=== PATIENT | female | born 1965 | race Caucasian/White ===

== ENCOUNTER → 2019-10-23 09:37 | Outpatient (BNVA) | payer OTHER, SELFPAY | PROVIDERS: Visit Provider Obstetrics & Gynecology | DX: Z01.89 Encounter for other specified special examinations (principal) ==

== ENCOUNTER 2019-11-04 14:12 | Outpatient (CLI) | payer OTHER, SELFPAY | END 2019-11-04 14:13 | disposition home or self-care (01) | LOC: RAD 11-05 15:44 | PROVIDERS: Referring Provider Obstetrics & Gynecology; Visit Provider Obstetrics & Gynecology | DX: D25.9 Leiomyoma of uterus, unspecified (principal) | CPT/HCPCS: 76856 ==

== ENCOUNTER 2019-11-13 08:50 | Outpatient (CLI) | payer OTHER, SELFPAY ==
[2019-11-13 09:10] VITALS: BMI 25.2
--- NOTE | 2019-11-13 09:15 | ECG_ITS ---
NAME OF STUDY: LEXISCAN SESTAMIBI STRESS TEST INDICATION: Chest Pain PROCEDURE: At the baseline, the blood pressure was 119/85 mmHg with a heart rate of 81 bpm. The electrocardiogram showed normal sinus rhythm, normal axis with poor anterior R wave progression. Low QRS voltage in precordial leads. The Lexiscan was infused over a period of 20 seconds. A total of 0.4 milligrams of Lexiscan was infused. The stress phase was continued for a total of 5 minutes. Heart rate at the end of the stress phase was 96 bpm with a blood pressure 157/92 mmHg. The EKG at the peak infusion revealed no significant ST-T wave changes. Sestamibi was injected 20 seconds after the Lexiscan infusion. Blood pressure and heart rate at the end of the recovery phase was not recorded. CONCLUSION: 1. No significant EKG changes with the LexiScan infusion. 2. No LexiScan induced chest pain or cardiac arrhythmia. 3. Sestamibi/sestamibi perfusion scan pending; see separate report. Electronically Signed On 11-14-2019 11:29:32 INTENSIVE CARE SPECIALIST by Kelsey Cuadra M.D. [id number]
--- NOTE | 2019-11-13 09:16 | NMCV_ITS ---
NM jaret perf SPECT r/s* [id number] Nathalie Solano Age: 54 Gender: F : 1965 Exam Date: 11/13/2019 10:27 Ordering Phys: Kelsey Cuadra MD ([email or web address]) Technologist: MELINA Branham Exam Location: [facility] Indications: CHEST PAIN STRESS TEST [facility] IMAGE PROTOCOL Rest/Stress 1 Lexiscan Day Radiopharmaceutical Dose (mCi) Administration Site Administered by Rest: Tc-99m 10.7 IV MELINA Mendez Sestamibi Stress:Tc-99m 32.3 IV MELINA Mendez Sestamibi Rest: 13-Nov-2019 60 Discovery 630 Stress: 13-Nov-2019 30 Discovery 630 0.4mg Lexiscan. Images obtained in supine and prone position. SPECT RESULTS Technical Quality: Excellent Raw Data Analysis: Normal Image Corrections: No attenuation or motion correction applied Summed Stress Score: 15 Summed Rest Score: 6 Summed Difference Score: 9 PERFUSION FINDINGS There is medium sized perfusion abnormality of moderate to severe severity of mid to apical inferolateral and apical lateral herron on stress images. FUNCTIONAL RESULTS (calculated via Gated SPECT) Stress Image LV EF (%): 64 Stress EDV (mL):70 TID: 0.84 Stress ESV (mL):25 FUNCTIONAL FINDINGS: The left ventricle is normal in size. Transient Ischemia Dilatation of 0.84. There is normal left ventricular systolic function. The left ventricular ejection fraction is normal with a value of 64%. There is hypokinesis of basal to mid inferolateral herron. Normal end-diastolic and end-systolic volumes. IMPRESSIONS 1. There is medium sized reversible perfusion abnormality of moderate to severe severity of basal to mid inferolateral and apical lateral and apical inferior herron. This is suggestive of ischemia in circumflex artery territory. 2. The left ventricular ejection fraction is normal with a value of 64%. 3. There is hypokinesis of basal to mid inferolateral herron. 4. No prior similar studies to compare. Kelsey Cuadra MD (Electronically Signed) Final Date: 14 November 2019 11:43 S
[2019-11-13] MEDS: regadenoson 0.4 Mg/5 ml Syringe IVP (11:12)
[2019-11-13 11:15] VITALS: BP 136/83; PULSE 100
== END 2019-11-13 08:51 | disposition home or self-care (01) ==
PROVIDERS: Visit Provider Internal Medicine Cardiovascular Disease
DX: R07.89 Other chest pain (principal)
CPT/HCPCS: 78452; 93017; A9500; J2785

== ENCOUNTER 2019-11-25 19:01 | Emergency (ER) | payer OTHER, SELFPAY ==
[2019-11-25 19:08] VITALS: BP 107/71; PULSE 102; RESP 18; TEMP 36.8; O2SAT 97; BMI 24.7
--- NOTE | 2019-11-25 19:12 | XRR_ITS ---
PROCEDURE INFORMATION: Exam: XR Chest, 1 View Exam date and time: 11/25/2019 7:13 PM Age: 54 years old Clinical indication: Cough and shortness of breath; Additional info: Cp TECHNIQUE: Imaging protocol: XR of the chest Views: 1 view. COMPARISON: CR Chest 1 [place] [id number] 07/20/2019 7:17 PM FINDINGS: Lungs: Unremarkable. No consolidation. Unchanged mild diffuse fibrosis. Pleural space: Unremarkable. No pleural effusion. No pneumothorax. Heart/Mediastinum: Unremarkable. No cardiomegaly. Bones/joints: No acute abnormality. XR/XR chest 1V portable [id number] IMPRESSION: No acute findings.
--- NOTE | 2019-11-25 19:12 | ECG_ITS ---
Measurements Intervals [place] Rate: 103 P: 43 [place]: 122 QRS: -12 QRSD: 110 T: 64 QT: 349 QTc: 457 SINUS TACHYCARDIA POSSIBLE LEFT ATRIAL ENLARGEMENT [-0.1mV P WAVE IN V1/V2] POSSIBLE ANTERIOR MYOCARDIAL INFARCTION [30 ms Q WAVE IN V3/V4, OR R < 0.2 mV IN V4], OF INDETERMINATE AGE Compared to ECG 07/20/2019 18:33:32 Myocardial infarct finding now present Short [place] interval no longer present T-wave abnormality no longer present Electronically Signed On 11-26-2019 9:03:38 CDT by Alexandru Lorenz M.D. [id number]
--- NOTE | 2019-11-25 20:11 | ED_ITS ---
Entered by Maddie Erazo, acting as scribe for Ivis Mccall Efrain Nov 25, 2019 19:01 HPI - Dizziness General: Chief Complaint: Dizziness Stated Complaint: low bp,dizzy,fast hr Time Seen by Provider: 11/25/19 20:10 Source: patient Mode of arrival: ambulatory Limitations: no limitations History of Present Illness: HPI Narrative: 54 yo Female presents to ED with complaint of dizziness and low blood pressure. Pt states that she has been feeling light headed for the last few days but today it got worse and her blood pressure was 80s/40s. Pt states that she started taking a new blood pressure medication on 11/19/19. MD elicited complaint: dizziness and lightheadedness Onset (ago): day(s) Timing: sudden onset Description: lightheadedness and near-syncope Context: change in medication History of similar symptoms: No Exacerbating factors: movement/ambulation Relieving factors: nothing Associated symptoms: Reports no associated symptoms; Denies change in hearing, chest pain, chills, diaphoresis, ear discharge, headache(s), malaise, nausea, palpitations, syncope or vomiting Associated neuro symptoms: Reports no associated symptoms; Deny confusion or numbness in extremities Review of Systems General: Reports: other (negative unless marked) Const: Denies: fever, chills, body aches, fatigue, malaise or diaphoresis Eyes: Denies: change in vision or blurry vision ENMT: Denies: throat pain, painful swallowing, hoarseness, ear pain, ear discharge, Change in hearing or nasal discharge Card: Reports: pre-syncope; Denies: chest pain, palpitations, irregular heart rhythm, syncope, shortness of breath on exertion or shortness of breath when lying down Resp: Denies: shortness of breath, productive cough, non-productive cough, wheezing, coughing up blood or chest congestion GI: Denies: abdominal pain, nausea, vomiting, vomiting blood, coffee grounds in vomit, diarrhea, constipation, cramping, blood in stool or black tarry stool : Denies: flank pain, painful urination, urinary frequency, urinary urgency, decreased urine ouput, urinary incontinence or blood in urine Musc: Denies: neck pain, back pain, extremity pain, extremity swelling, joint pain, joint swelling, joint warmth or joint stiffness Skin/Breast: Denies: rash, skin tenderness or yellow skin Neuro: Reports: dizziness; Denies: headache, numbness in extremities, weakness in extremities, changes in sensation, lack of coordination, difficulty walking, vertigo or confusion Endo: Denies: excessive thirst, tired all the time, cold intolerance, excessive sweating, flushing or hot flashes Deven/Lymph: Denies: easy bruising, easy bleeding, petechiae or enlarged lymph nodes All/Imm: Denies: hives, throat swelling, tongue swelling, facial swelling or acute wheezing PFSH ED PFSH: Medical History Coronary artery disease 4 stents present. Depression Diabetes mellitus Hyperlipidemia Hypertension Surgical History H/O heart artery stent 2013 - Done in [place], 1 stint placed. 2014 - Done in [place], 1 stint placed. 2017 - Done in [facility], 2 stints placed. H/O left knee surgery (~1999) Plastic disc was placed History of salpingectomy (~1988) Treatment of ectopic History of tubal ligation Family History Mother Diabetes Heart disease Hypertension Hyperlipidemia Father Heart disease Diabetes Hypertension Hyperlipidemia Sister Diabetes Social History Smoking and tobacco status: current every day smoker cigarettes Packs smoked per day: 0.5 Years cigarettes smoked: 35 Quit status (tobacco): has tried quititng Alcohol intake: current Alcohol intake frequency: holidays/special occasions only Physical Exam Const: COMMON NORMALS: no apparent distress, oriented x3, no limitations, healthy appearing and well nourished EXAM LIMITATIONS: no altered mental status GENERAL APPEARANCE: cooperative, well kempt and well developed ORIENTATION/CONSCIOUSNESS: Yes awake HENMT: COMMON NORMALS: normocephalic, head/scalp atraumatic, hearing grossly normal bilaterally, external ears normal, EAC's normal, external nose normal and moist oral mucous membranes HEAD & SCALP: normal to inspection, normocephalic and atraumatic FACE & SINUS: normal facial exam and face symmetric NOSE: external nose normal and nares normal EXTERNAL EAR: Yes external ears normal EXTERNAL AUDITORY CANAL: EAC's normal MOUTH: oral and palatal mucosa normal and tongue normal Eye: COMMON NORMALS: PERRL, EOMs intact bilaterally, conjunctivae normal and no scleral icterus GENERAL EYE: normal appearance of both eyes and normal l ight reflex CONJUNCTIVA: Yes conjunctivae normal SCLERA: sclerae normal CORNEA: Yes corneas normal PUPIL: Yes PERRL DIRECT OPHTHALMOSCOPY: Yes normal light reflex Neck/C-Spine: COMMON NORMALS: full ROM, no lymphadenopathy, supple, no meningeal signs and no JVD GENERAL: Yes normal visual inspection and Yes trachea midline CERVICAL SPINE: Yes cervical ROM normal Chest: COMMONS NORMALS: inspection of chest normal and palpation of chest normal Resp: COMMON NORMALS: normal respiratory effort, no retractions, no use of accessory muscles and clear to auscultation bilaterally EFFORT & INSPECTION: Yes able to speak in complete sentences AUSCULTATION: clear to auscultation bilaterally Cardio: COMMON NORMALS: no JVD, regular rate, regular rhythm, S1 normal heart sound, S2 normal heart sound, no gallops, no clicks, no murmurs and no rub JUGULAR VENOUS DISTENTION: no JVD RATE: regular rate RHYTHM: regular rhythm HEART SOUNDS: S1 normal and S2 normal GI: COMMON NORMALS: soft to palpation, non-tender, no hepatosplenomegaly and no masses INSPECTION: Yes normal to inspection PALPATION: Yes soft and Yes no hepatosplenomegaly : COMMON NORMALS: Yes no CVA tenderness BLADDER/KIDNEY EXAM: Yes no CVA tenderness Back/Pelvis: COMMON NORMALS: no CVA tenderness, thoracic and lumbar spine normal to inspection, no thoracic nor lumbar tenderness and thoraco-lumbar ROM normal Extremity: COMMON NORMALS: normal to inspection, full ROM, normal capillary refill, no joint enlargement, no clubbing, cyanosis or edema and no calf tenderness Neuro: COMMON NORMALS: oriented x3, CN's II-XII intact bilaterally, moves all extremities, no focal motor deficits and no sensory deficits noted MENINGEAL SIGNS: Yes no meningeal signs Psych: COMMON NORMALS: mental status grossly normal, thought process normal, cooperative, affect normal, speech normal and activity/motor behavior normal APPEARANCE: Yes well kempt SPEECH: Yes normal speech THOUGHT PROCESS: normal thought process Skin: COMMON NORMALS: no rashes or lesions noted, skin turgor normal, no jaundice, no petechiae and no mottling GENERAL SKIN EXAM: no rashes or lesions noted and turgor normal Course Vital Signs: Vital signs: Vital Signs Temperature 98.2 F 11/25/19 19:08 Pulse Rate 99 11/25/19 22:57 Respiratory Rate 18 11/25/19 22:57 Blood Pressure 156/100 11/25/19 22:57 Pulse Oximetry 99 11/25/19 22:57 MDM - Dizziness MDM Narrative: Medical decision making narrative: Nathalie is a 54-year-old female who comes in complaining of being lightheaded for the past few days. She took her blood pressure at home a few times and found it to be 80 systolic at 1 time. She is orthostatic here but otherwise her labs are normal. After 2 L normal saline she feeling tremendously better and ready to go home. Her EKGs are normal and her troponins are normal. She is never had chest pain or shortness of breath. She declines any further evaluation care in the hospital and wants to be discharged. Lab Data: Attestation: I reviewed the patient's lab results. Labs: Lab Results 11/25/19 11/25/19 11/25/19 Range/Units 20:06 20:06 20:06 WBC 7.5 (4.0-10.0) 10^3/ uL RBC 4.92 (4.1-5.3) 10^6/u L Hgb 14.5 (11.5-15.3) g/dL Hct 43.9 (37.0-47.0) % MCV 89.2 (81-99) fL MCH 29.5 (28.0-34.0) pg MCHC 33.0 (30.0-36.0) g/dL RDW 12.9 (12.1-15.1) % Plt Count 339 (130-400) 10^3/c mm MPV 9.2 (7.4-10.4) fL Neut % (Auto) 56.9 % Lymph % (Auto) 32.9 % [place] % (Auto) 6.9 % Eos % (Auto) 2.7 % Baso % (Auto) 0.3 % Neut # (Auto) 4.3 (1.8-7.7) 10^3/u L Lymph # (Auto) 2.5 (0.8-4.8) 10^3/u L [place] # (Auto) 0.5 (0.2-0.9) 10^3/u L Eos # (Auto) 0.2 (0.0-0.8) 10^3/u L Baso # (Auto) 0.0 (0.0-0.1) 10^3/u L Nucleated RBC % (a uto) 0 % Nucleated RBCs # 0.0 /100WBC Sodium 137 (136-145) mmol/L Potassium 4.2 (3.5-5.1) mmol/L Chloride 99 (98-107) mmol/L Carbon Dioxide 25 (22-29) mmol/L Anion Gap 17.2 (5-19) BUN 20 (6-20) mg/dL Creatinine 0.8 (0.5-0.9) mg/dL GFR Calculation 75.0 L (90-130) mL/min Glucose 159 H (65-115) mg/dL Calculated Osmolal ity 284 L (285-295) mOsm/k g Calcium 10.1 (8.5-10.5) mg/dL Total Bilirubin 0.2 (0.15-1.2) mg/dL AST 13 (0-32) U/L ALT 11 (0-33) U/L Alkaline Phosphata se 74 (35-105) IU/L Troponin T Baselin e 14 H (0-10) ng/mL Troponin T 120 Min alfred (0-10) ng/mL Delta Troponin T (0-10) ABS# Total Protein 7.0 (6.6-8.7) g/dL Albumin 4.2 (3.5-5.2) g/dL Globulin 2.8 (1.3-4.6) g/dL 11/25/19 Range/Units 21:10 WBC (4.0-10.0) 10^3/ uL RBC (4.1-5.3) 10^6/u L Hgb (11.5-15.3) g/dL Hct (37.0-47.0) % MCV (81-99) fL MCH (28.0-34.0) pg MCHC (30.0-36.0) g/dL RDW (12.1-15.1) % Plt Count (130-400) 10^3/c mm MPV (7.4-10.4) fL Neut % (Auto) % Lymph % (Auto) % [place] % (Auto) % Eos % (Auto) % Baso % (Auto) % Neut # (Auto) (1.8-7.7) 10^3/u L Lymph # (Auto) (0.8-4.8) 10^3/u L [place] # (Auto) (0.2-0.9) 10^3/u L Eos # (Auto) (0.0-0.8) 10^3/u L Baso # (Auto) (0.0-0.1) 10^3/u L Nucleated RBC % (a uto) % Nucleated RBCs # /100WBC Sodium (136-145) mmol/L Potassium (3.5-5.1) mmol/L Chloride (98-107) mmol/L Carbon Dioxide (22-29) mmol/L Anion Gap (5-19) BUN (6-20) mg/dL Creatinine (0.5-0.9) mg/dL GFR Calculation (90-130) mL/min Glucose (65-115) mg/dL Calculated Osmolal ity (285-295) mOsm/k g Calcium (8.5-10.5) mg/dL Total Bilirubin (0.15-1.2) mg/dL AST (0-32) U/L ALT (0-33) U/L Alkaline Phosphata se (35-105) IU/L Troponin T Baselin e (0-10) ng/mL Troponin T 120 Min alfred 12.97 H (0-10) ng/mL Delta Troponin T -1.03 L (0-10) ABS# Total Protein (6.6-8.7) g/dL Albumin (3.5-5.2) g/dL Globulin (1.3-4.6) g/dL Imaging Data^: CXR: Radiologist's impression: [address] [place] [address] XRay Report Signed Patient: Akhil Solano #: [id number] : 1965Acct#:[id number] Age/Sex: 54 / FADM Date: 11/25/19 Loc: ERRoom/Bed: Attending Dr: Ordering Provider/Ordering MD: Isabel Ho MD Date of Service: 11/25/19 Procedure(s): XR chest 1V portable [id number] Accession Number(s): [id number] Report Number: [id number] PROCEDURE INFORMATION: Exam: XR Chest, 1 View Exam date and time: 11/25/2019 7:13 PM Age: 54 years old Clinical indication: Cough and shortness of breath; Additional info: Cp TECHNIQUE: Imaging protocol: XR of the chest Views: 1 view. COMPARISON: CR Chest 1 [place] [id number] 07/20/2019 7:17 PM FINDINGS: Lungs: Unremarkable. No consolidation. Unchanged mild diffuse fibrosis. Pleural space: Unremarkable. No pleural effusion. No pneumothorax. Heart/Mediastinum: Unremarkable. No cardiomegaly. Bones/joints: No acute abnormality. XR/XR chest 1V portable [id number] IMPRESSION: No acute findings. Dictated By:Ashley Rodriguez Signed By:Ros Rodriguez Date/Time:11/25/192034 DD/ 32 EKG Data^: EKG 1: Attestation: I personally reviewed and interpreted this EKG as follows: EKG interpretation date: 11/25/19 EKG interpretation time: 20:52 Interpretation: Normal sinus rhythm 88 beats a minute, no acute ST or T wave changes. Discharge Plan Discharge Patient Disposition: Home, Self-Care Clinical Impression: Orthostasis Condition: Stable Prescriptions: No Action clopidogrel [Plavix] 75 mg tablet 75 mg PO DAILY RF: 0 metformin 1,000 mg tablet 1,000 mg PO BID RF: 0 atorvastatin 80 mg tablet 80 mg PO DAILY RF: 0 metoprolol tartrate 50 mg tablet 25 mg PO BID RF: 0 nitroglycerin 0.4 mg tablet, sublingual 0.4 mg SUBLINGUAL Q5M PRN (Reason: Chest Pain) RF: 0 Jardiance 10 mg tablet 10 mg PO DAILY RF: 0 sertraline 50 mg tablet 50 mg PO DAILY RF: 0 aspirin [Adult Low Dose Aspirin] 81 mg tablet,delayed release (DR/EC) 81 mg PO DAILY RF: 0 isosorbide mononitrate 30 mg tablet extended release 24 hr 15 mg PO DAILY Qty: 15 RF: 6 Discharge Orders: Discharge Order (Routine); Ordered 11/25/19 Ordered By: Ivis Mccall Referrals: Nadeem Talley, ENERGY AUDITOR [Primary Care Provider] - 1-3 days Discharge Diet: Advance as tolerated Discharge Activity: Increase activity as tolerated Patient Instructions: Dehydration (ED) Activity Restrictions/Additional Instructions: Please return to the ER immediately for any of the signs or symptoms listed on your discharge instruction sheets, worsening/changing of your symptoms, you are not getting better as quickly as expected, or for ANY other cause or concerns. Discharge Date/Time: 11/25/19 22:59 Coding Level of Care Code ED Tailings Worker for Chg Fwd Exam Comprehensive The documentation recorded by the Castro schwab Carmen, accurately reflects the service I personally performed and the decisions made by , Ivis Mccall Nov 25, 2019 19:01
[2019-11-25 20:16] LABS: Basophils % 0.3 %; Eosinophils # 0.2 10^3/uL (0.0-0.8); Eosinophils % 2.7 %; Hematocrit 43.9 % (37.0-47.0); Hemoglobin 14.5 g/dL (11.5-15.3); Lymphocytes # 2.5 10^3/uL (0.8-4.8); Lymphocytes % 32.9 %; Mean Corpuscular Hemoglobin 29.5 pg (28.0-34.0); Mean Corpuscular Volume 89.2 fL (81-99); Mean Platelet Volume 9.2 fL (7.4-10.4); Monocytes # 0.5 10^3/uL (0.2-0.9); Monocytes % 6.9 %; Neutrophils # 4.3 10^3/uL (1.8-7.7); Neutrophils % 56.9 %; Nucleated Red Blood Cells % 0 %; Platelet Count 339 10^3/cmm (130-400); Red Blood Count 4.92 10^6/uL (4.1-5.3); Red Cell Distribution Width 12.9 % (12.1-15.1); White Blood Count 7.5 10^3/uL (4.0-10.0)
[2019-11-25 20:19] VITALS: BP 119/76; PULSE 101; RESP 18; O2SAT 99
[2019-11-25 20:29] VITALS: BP 104/71; BP 111/64; BP 97/67; PULSE 112; PULSE 92; PULSE 99
[2019-11-25] MEDS: sodium chloride 0.9% 1,000 ML 999 ML IV ×2 (20:34→21:53)
[2019-11-25 20:36] LABS: Alanine Aminotransferase 11 U/L (0-33); Albumin Level 4.2 g/dL (3.5-5.2); Alkaline Phosphatase 74 IU/L (35-105); Anion Gap 17.2 (5-19); Aspartate Amino Transferase 13 U/L (0-32); Blood Urea Nitrogen 20 mg/dL (6-20); Calcium 10.1 mg/dL (8.5-10.5); Carbon Dioxide 25 mmol/L (22-29); Chloride 99 mmol/L (98-107); Globulin 2.8 g/dL (1.3-4.6); Glucose 159 mg/dL (65-115); Osmolality Calculated 284 mOsm/kg (285-295); Potassium 4.2 mmol/L (3.5-5.1); Sodium 137 mmol/L (136-145); Total Bilirubin 0.2 mg/dL (0.15-1.2)
[2019-11-25 20:38] LABS: Troponin(5th) Baseline 14 ng/mL (0-10)
--- NOTE | 2019-11-25 21:12 | ECG_ITS ---
Measurements Intervals [place] Rate: 88 P: 42 ME: 115 QRS: -3 QRSD: 82 T: 57 QT: 380 QTc: 462 SINUS RHYTHM WITH SHORT ME INTERVAL POSSIBLE LEFT ATRIAL ENLARGEMENT [-0.1mV P WAVE IN V1/V2] Compared to ECG 07/20/2019 18:33:32 Sinus tachycardia no longer present T-wave abnormality no longer present Electronically Signed On 11-26-2019 9:07:13 CDT by Alexandru Lorenz M.D. [id number]
[2019-11-25 21:35] LABS: Troponin 5 2HR 12.97 ng/mL (0-10)
[2019-11-25 21:38] LABS: Troponin 5 2HR Delta -1.03 ABS# (0-10)
[2019-11-25 22:12] VITALS: BP 135/87; PULSE 87; RESP 18; O2SAT 99
[2019-11-25 22:35] VITALS: BP 140/89; BP 142/86; BP 149/96; PULSE 91; PULSE 92; PULSE 94
[2019-11-25 22:57] VITALS: BP 156/100; PULSE 99; RESP 18; O2SAT 99
== END 2019-11-25 22:59 | disposition home or self-care (01) ==
PROVIDERS: Emergency Medicine; Emergency Provider Emergency Medicine; PCP Nurse Practitioner Family
DX: I95.1 Orthostatic hypotension (principal); I25.10 Atherosclerotic heart disease of native coronary artery without angina pectoris; I10 Essential (primary) hypertension; E11.9 Type 2 diabetes mellitus without complications; E78.5 Hyperlipidemia, unspecified; F17.210 Nicotine dependence, cigarettes, uncomplicated; Z79.84 Long term (current) use of oral hypoglycemic drugs; Z79.82 Long term (current) use of aspirin; Z95.5 Presence of coronary angioplasty implant and graft
CPT/HCPCS: 12345; 36415; 71045; 80053; 84484; 85025; 93005; 96360; 96361; 99283; 99284; J7030

== ENCOUNTER 2019-12-11 08:01 | Outpatient (CLI) | payer OTHER, SELFPAY ==
--- NOTE | 2019-12-11 08:45 | US_ITS ---
NOTE: Report was unsigned for reason: Ordering provider was edited. Original Signature date and time was: 12/11/19 0920 WS: [id number] Complete ABDOMINAL ULTRASOUND HISTORY: RIGHT UPPER QUADRANT PAIN COMPARISON: None available. Liver: 14.6 cm in length. Liver is normal size and echogenicity with no mass or intrahepatic dilatation. Gallbladder: Normally distended with no gallstones, wall thickening or pericholecystic fluid. Gallbladder wall thickness: 0.2 cm. Pancreas: Tail of pancreas is poorly visualized. Body is negative. CBD: 0.3 cm. Right kidney: 11.2 cm x 5.3 cm x 4.2 cm. No mass, cortical thickening or hydronephrosis. Left kidney: 10.4 cm x 4.1 cm x 6.1 cm. No mass, cortical thickening or hydronephrosis. Spleen: Normal size spleen measures 8.3 cm in length with granulomata. Abdominal aorta and IVC are within normal limits. No ascites. [facility] US/US abdomen complete* [id number] IMPRESSION: 1. Normal gallbladder. 2. Incomplete visualization of the pancreas. 3. Splenic granulomata.
== END 2019-12-11 08:02 | disposition home or self-care (01) ==
PROVIDERS: PCP Nurse Practitioner Family; Referring Provider Nurse Practitioner Family; Visit Provider Nurse Practitioner Family
DX: D73.89 Other diseases of spleen (principal); R10.11 Right upper quadrant pain
CPT/HCPCS: 76700

== ENCOUNTER 2019-12-12 09:08 | Observation (INO) | payer OTHER, SELFPAY ==
[2019-12-11 11:55] VITALS: BMI 25.4
[2019-12-12] VITALS (29 sets, daily range): BP systolic 81–137; BP diastolic 52–91; PULSE 55–108; RESP 16–18; TEMP 36.7–37.1; O2SAT 92–97
--- NOTE | 2019-12-12 06:00 | XACV_ITS ---
Exam Room: 1 Ht: 157 cm Wt: 63 kg BSA: 1.67 m2 Gender: Female : 1965 Any Known Allergies: Codeine Exam Priority: Routine Procedure(s): Procedure Description: Diagnostic procedure Procedure Description: PCI procedure Procedure Description: Drug Eluting Coronary Stent Procedure Description: PTCA Procedure Description: Miscellaneous Procedure Description: ACT Procedure Description: Coronary Angiography Diagnostic Cath Status: Elective Diagnostic Findings LM has 0% stenosis. mLAD: Moderate 65% stenosis, EUGENE: 3 flow. Mid Circumflex Coronary Artery: Severe 80% stenosis, EUGENE: 3 flow. pRCA: Moderate 65% stenosis, EUGENE: 3 flow. Mid Right Coronary Artery to dRCA: Severe 95% stenosis, EUGENE: 2 flow. Coronary angiography shows right dominance. PCI Status: Urgent PCI Indication: New Onset Angina <= 2 months Interventional Findings Mid Circumflex Coronary Artery: 80% stenosis treated with AB TREK 2.25X15 RX BALLOON. 40% residual stenosis, EUGENE: 3 flow. Mid Right Coronary Artery to dRCA: 95% stenosis treated with AB TREK 2.25X15 RX BALLOON and MDT R MONCHO 2.75X18 ANNA. 0% residual stenosis, EUGENE: 3 flow. Conclusions There is severe coronary artery disease with three vessel disease. 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 Mid Right Coronary Artery to dRCA was treated with Balloon and Drug Eluting Stent. 1. 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 Indication for angiogram: Worsening of new onset of angina, abnormal stress test. Recommendations 1-Return to inpatient for close monitoring and routine cath care 2-Risk factor modification for secondary prevention3-Statin and aspirin 81 mg life--long, if tolerated4-Continue Plavix 75mg p.o. daily for at least one year. We will assess at the end of one year again to continue if further or not5-Continue optimal medical management6-Follow up with Dr. Abad in four weeks and your primary care in 10 days . Interventional RX Recommendation: PCI w/o planned CABG Diagnostic RX Recommendation: PCI w/o planned CABG Pressures Phase:Rest AO : 69 mmHg / 50 mmHg ( 58 mmHg ) @ 2:59:00 AM 74 mmHg / 54 mmHg ( 63 mmHg ) @ 3:01:00 AM 78 mmHg / 54 mmHg ( 66 mmHg ) @ 3:01:00 AM 78 mmHg / 55 mmHg ( 66 mmHg ) @ 3:10:00 AM 69 mmHg / 47 mmHg ( 57 mmHg ) @ 3:16:00 AM 83 mmHg / 64 mmHg ( 74 mmHg ) @ 3:27:00 AM 90 mmHg / 59 mmHg ( 73 mmHg ) @ 3:31:00 AM 78 mmHg / 54 mmHg ( 66 mmHg ) @ 3:40:00 AM Clinical Evaluation EBL: 5mL-10mL Procedural Details Procedure Consent Obtained. Current Diagnosis : Chest Pain. Pre-Procedure Time Out. Identified patient by full name and date of as verbalized by the patient/guarantor. Does the consent match the physician's order: Yes. Accurate & Complete Informed Consent: Yes. Inpatient/Outpatient History & Physical on Chart: Yes. If H&P is completed, is and addenduem needed: No; If yes, is the addendum complete: N/A. Visualize and Verify Site with Patient/Guarantor: N/A. Relevant Radiology Images available: Yes. Pre-op teaching completed and patient verbalized understanding. The risks, benefits, and alternatives of sedation and/or procedure were discussed by physician. The patient agrees to continue. Procedure started. Correct patient, site and procedure confirmed by cath team. Current diagnosis: Chest Pain. PERRLA. Strong, equal hand trucker bilaterally. Lungs clear x 5 lobes. IV Site on Arrival: 20 gauge in the left anticubital. IV Fluids: 0.9% NaCl at KVO. 0 mL infused prior to laborer powerhouse. Pre Procedural Pulses: bilateral dorsalis pedis was 1+. Pre Procedural Pulses: bilateral posterior tibial was 1+. Oxygen started at 2liters/min via nasal canula. bilateral groins was prepped with chloroprep then draped in the usual sterile fashion. right radial was prepped with chloroprep then draped in the usual sterile fashion. Physician notified. [facility] Clinical Fraility Score: 4: Vulnerable. Leadership Program Intern Indications: New Onset Angina. Chest Pain Symptom Assessment: Atypical Angina. Cardiovascular Instability: No, if yes, Persistant Ischemic Symptoms. Baseline sample Acquired. HR: 106 BPM. Patient's family unavailable due to visitor restrictions. Equipment: 6F - Radial. Cardiac Cath Pack. ACIST Manifold Kit Model BT 2000. Heparinized Saline (2 units/mL), 1000 mL bag. Equipment: 5F - Radial. Physician arrived. Physician scrubbed in. Immediate Pre-Procedure Time Out. Correct Patient: Yes; Correct Procedure: Yes; Correct Site: Yes; Correct Patient Position: Yes; Correct Supplies: Yes; Dried Flammable Prep: Yes; Blood Products Available: N/A;. Lidocaine 1% infiltrated to the right radial. Arterial access obtained. A TR 5FR Radial TIG 4.0 110cm was advanced over the wire and used for Left coronary angiography. Multiple views taken of left coronary artery. Catheter redirected to the RCA. Multiple views taken of right coronary artery. Catheter removed over the exchange wire. AP Pads placed on the patient. 6F AL 0.75 guide catheter inserted OTW. Dr. Cuadra and Dr. Gerber called to review films. Dr. Gerber arrived. The sheath hooked up to heparnized saline at KVO to maintain patency. [place] guidewire was advanced through the guide catheter to lesion in the mid RCA. Wire out. Runthrough guidewire was advanced through the guide catheter to lesion in the mid RCA. Inflation number : 1 A AB TREK 2.25X15 RX BALLOON was prepped and advanced across the Mid RCA , then inflated to 16 NHI for 0:23 seconds. Inflation number: 2 The AB TREK 2.25X15 RX BALLOON was reinflated across the Mid RCA, to 16 NHI for 0:11 seconds. Balloon out. Inflation Number : 3 A AILEEN R MONCHO 2.75X18 ANNA -Lot Number# [id number] (exp. 08/12/2021) was prepped and advanced across the Mid RCA. The stent was deployed at 20 NHI for 0:[address] Cuadra arrived. Results checked. Stent balloon out over wire. Runthrough repositioned to mid Circ. ACT drawn. Results 295 seconds. Therapeutic limits - pre-heparin administration 90-150 seconds and monitoring heparin during a vascular procedure >250 seconds. Inflation number: 1 The AB TREK 2.25X15 RX BALLOON was reinflated across the Mid CX, to 10 NHI for 0:12 seconds. Inflation number: 2 The AB TREK 2.25X15 RX BALLOON was reinflated across the Mid CX, to 16 NHI for 0:16 seconds. Inflation number: 3 The AB TREK 2.25X15 RX BALLOON was reinflated across the Mid CX, to 12 NHI for 0:08 seconds. Balloon and wire out. Guide catheter out. TR band placed. Hemostasis obtained. Post Procedure: Pulses reassessed and unchanged. PERRLA. Strong, equal hand trucker bilaterally. No VTE prophylaxis required. Medication's Wasted: Versed = 1 mg. Medication's Wasted: Lidocaine 1% = 18 mL. Medication's Wasted: Nitro = 49.6 mg. Medication's Wasted: Heparin = 4000 units. Total IV fluids: 64.5 mL. Contrast type used: Omnipaque 300 mgI/mL, 500 mL bottle. Contrast Material : Omnipaque 260 ml. PCI Indication: New Onset Angina. Post-op diagnosis: CAD. Complications: None. Estimated blood loss: 5mL-10mL. Procedure completed. Patient transferred by wheelchair to 1st floor. Vital chart was stopped. Site: Right Radial artery Sheath Size: 6 Fr Hemostasis Success: Unsuccessful Procedure Medications Start: 7:51 AM Stop: 7:51 AM Medication: Versed Amount: 1 mg Route: I.V. Start: 7:51 AM Stop: 7:51 AM Medication: Fentanyl Amount: 50 mcg Start: 7:54 AM Stop: 7:54 AM Medication: Versed Amount: 1 mg Route: I.V. Start: 7:54 AM Stop: 7:54 AM Medication: Fentanyl Amount: 50 mcg Start: 7:57 AM Stop: 7:57 AM Medication: Nitrogylcerin Amount: 200 mcg Route: I.A. Start: 7:58 AM Stop: 7:58 AM Medication: Heparin Amount: 5000 units Route: I.V. Start: 8:10 AM Stop: 8:10 AM Medication: Versed Amount: 1 mg Route: I.V. Start: 8:15 AM Stop: 8:15 AM Medication: Heparin Amount: 2000 units Route: I.V. Start: 8:39 AM Stop: 8:39 AM Medication: Nitrogylcerin Amount: 200 mcg Route: I.C. I, the attending physician, have reviewed and verified all procedure medications. Yes, all medications given per verbal order History/Risk Factors Hypertension: Yes Dyslipidemia: Yes Diabetic Therapy: Oral Peripheral Arterial Disease (PAD): No Myocardial Infarction (AR): No Obesity: No Renal Disease: No Tobacco Use: Current/Recent(w/in 1 year) Prior Interventions PCI: Yes CABG: No Valve Surgery: No Date of PCI: 11/15/2016 Report Signatures Finalized by:Quoc Molina MD on 12/28/2019 6:14:10 PM
[2019-12-12 06:47] LABS: Basophils % 0.3 %; Eosinophils # 0.2 10^3/uL (0.0-0.8); Eosinophils % 1.6 %; Hematocrit 45.4 % (37.0-47.0); Hemoglobin 14.7 g/dL (11.5-15.3); Lymphocytes # 2.5 10^3/uL (0.8-4.8); Lymphocytes % 25.3 %; Mean Corpuscular HGB Conc 32.4 g/dL (30.0-36.0); Mean Corpuscular Hemoglobin 29.5 pg (28.0-34.0); Mean Corpuscular Volume 91.2 fL (81-99); Mean Platelet Volume 9.2 fL (7.4-10.4); Monocytes # 0.7 10^3/uL (0.2-0.9); Neutrophils # 6.5 10^3/uL (1.8-7.7); Neutrophils % 65.6 %; Nucleated Red Blood Cells % 0 %; Platelet Count 338 10^3/cmm (130-400); Red Blood Count 4.98 10^6/uL (4.1-5.3); Red Cell Distribution Width 12.9 % (12.1-15.1); White Blood Count 9.9 10^3/uL (4.0-10.0)
[2019-12-12 07:00] LABS: Anion Gap 16.1 (5-19); Blood Urea Nitrogen 7 mg/dL (6-20); Calcium 9.8 mg/dL (8.5-10.5); Carbon Dioxide 28 mmol/L (22-29); Chloride 99 mmol/L (98-107); Creatinine Clr Calc Pharmacy 113.5535; Glomerular Filtration Rate 129.1 mL/min (90-130); Glucose 205 mg/dL (65-115); Osmolality Calculated 290 mOsm/kg (285-295); Potassium 4.1 mmol/L (3.5-5.1); Sodium 139 mmol/L (136-145)
[2019-12-12] MEDS: diphenhydrAMINE 50 mg Capsule PO (07:24)
[2019-12-12] MEDS: clopidogrel 75 mg Tablet PO ×2 (09:18→09:22)
[2019-12-12 11:17] LABS: Glucose Point of Care 296 mg/dL (70-110)
--- NOTE | 2019-12-12 13:12 | PC.NURSE ---
received from cardiac produce laborer at 0910 via w/c.report received.pt is drowsy but easily awakened.sr-st on monitor.denies pain.right radial tr band on and inflated.right hand is warm to touch and with brisk capillary refill.palpable radial pulse distal to tr band.no hematoma noted.instructed in activity restrictions s/p radial artery procedure..and instructed to notify staff for any bleeding,pain,numbness..or for any concern at all.pt verb understanding of instructions.
--- NOTE | 2019-12-12 15:51 | PC.NURSE ---
right radial tr bnd was slowly deflated and finally removed at 1330.no hematoma formation noted.right hand remains warm to touch and with brisk capillary refill.palpable radial pulse remains present.site dressed with 2x2 gauze and secured with biocclusive drsg.instructed in activity restrictions s/p tr band removal..and home instructions given.pt verb understanding of instructions
--- NOTE | 2019-12-12 16:42 | P.SS_ITS ---
Short Stay Summary Providers Date of Admit/Discharge: 12/12/19 Attending Provider: Quoc Molina MD Primary Care Provider: Nadeem Talley APRN [facility] History of Present Illness Nathalie Solano is a 54 year old female Past medical history significant for extensive coronary artery disease multiple stents for worsening of angina and slightly abnormal stress test underwent coronary angiogram this morning. She was found to have 60-70% proximal LAD with mid to distal LAD patent with previously placed stents. Diagonal 1 was also without disease. Nondominant small either circumflex or ramus appeared to be chronically occluded. RCA was noted to have significant 99% mid to distal stenosis. 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 All these vessels were small caliber.Dr. Gerber was consulted was of the opinion due to long-standing of mid to distal LAD there is not a good target therefore PCI was mutually recommended after hard care team discussion, mid RCA was crossed with somewhat difficulty. Balloon angioplasty followed by drug-eluting stent placement was performed. Circumflex was also treated with balloon angioplasty good EUGENE-3 flow was established in both vessels. Patient after completion of the bed rest was discharged home In order to shorten her stay due to [place] pandemic. Review of Systems Musc: Denies: joint warmth All/Imm: Denies: acute wheezing Home Meds/Allergies Home Medications and Allergies Home Medications Medication Instructions Recorded Confirmed Type aspirin 81 mg tablet,delayed 81 mg PO DAILY 10/23/19 12/12/19 History release atorvastatin 80 mg tablet 80 mg PO DAILY 10/23/19 12/12/19 History empagliflozin 10 mg tablet 10 mg PO DAILY 10/23/19 12/12/19 History metformin 1,000 mg tablet 1,000 mg PO BID 10/23/19 12/11/19 History metoprolol tartrate 50 mg tablet 25 mg PO BID 10/23/19 12/12/19 History nitroglycerin 0.4 mg sublingual 0.4 mg SUBLINGUAL Q5M PRN 10/23/19 12/11/19 History tablet sertraline 50 mg tablet 50 mg PO DAILY 10/23/19 12/12/19 History Allergies Allergy/AdvReac Type Severity Reaction Status Date / Time codeine Allergy hallucinations Verified 12/11/19 12:26 and violence PFSH Acute PFSH: Medical History Coronary artery disease 4 stents present. Depression Diabetes mellitus Hyperlipidemia Hypertension Surgical History H/O heart artery stent 2013 - Done in [place], 1 stint placed. 2015 - Done in [place], 1 stint placed. 2017 - Done in [facility], 2 stints placed. H/O left knee surgery (~1999) Plastic disc was placed History of salpingectomy (~1988) Treatment of ectopic History of tubal ligation Family History Mother Diabetes Heart disease Hypertension Hyperlipidemia Father Heart disease Diabetes Hypertension Hyperlipidemia Sister Diabetes Social History Smoking and tobacco status: current every day smoker cigarettes Packs smoked per day: 0.5 Years cigarettes smoked: 35 Quit status (tobacco): has tried quititng Alcohol intake: current Alcohol intake frequency: holidays/special occasions only Dietary Habits: Current diet type/program: regular (well balanced diet) Vitals/I&O/Wt Last Vital Signs Temp 98.0 F 12/12/19 11:46 Pulse 95 12/12/19 14:47 Resp 18 12/12/19 11:46 BP 122/74 12/12/19 15:00 Pulse Ox 94 12/12/19 14:47 12/12/19 12/12/19 12/12/19 06:59 14:59 22:59 Intake Total 480 / 480 Balance 480 / 480 Weight last 48 hrs Weight 139 lb Physical Exam Narrative: EXAM NARRATIVE: GENERAL: Patient is alert, awake and oriented x3. NECK: No jugular vein distension. HEENT: No cyanosis. No icterus. No pallor. HEART: Regular S1 and S2. No murmur, rub or gallop. LUNGS: Clear to auscultate bilaterally. ABDOMEN: Soft, nontender and nondistended. Positive bowel sounds. No guarding, rebound or tenderness. CENTRAL NERVOUS SYSTEM: Grossly nonfocal. EXTREMITIES: Lower extremities without edema bilaterally. Hospital Course Hospital Course: As above Discharge Summary: As above SSS Data Data Completed and Pending: Pending at discharge Category Date Time Status IRRIGATION TECHNICIAN request for service Routin e Exams 12/12/19 06:00 Ordered Discharge Plan Discharge Patient Disposition: Home, Self-Care Condition: Stable Prescriptions: Continued metformin 1,000 mg tablet 1,000 mg PO BID RF: 0 atorvastatin 80 mg tablet 80 mg PO DAILY RF: 0 metoprolol tartrate 50 mg tablet 25 mg PO BID RF: 0 nitroglycerin 0.4 mg tablet, sublingual 0.4 mg SUBLINGUAL Q5M PRN (Reason: Chest Pain) RF: 0 Jardiance 10 mg tablet 10 mg PO DAILY RF: 0 sertraline 50 mg tablet 50 mg PO DAILY RF: 0 aspirin [Adult Low Dose Aspirin] 81 mg tablet,delayed release (DR/EC) 81 mg PO DAILY RF: 0 isosorbide mononitrate 30 mg tablet extended release 24 hr 15 mg PO DAILY Qty: 15 RF: 6 Plavix 75 mg tablet 75 mg PO DAILY Qty: 90 RF: 4 Discharge Orders: Discharge Order (Routine); Ordered 12/12/19 Ordered By: Quoc Molina Referrals: Jael Ellington FNP [Nurse Practitioner] - 4-7 days (You will need to see Jael Ellington for a Cardiology follow up within 4-7days. [facility] will be calling you to arrange an appointment date and time. If you don't hear from them soon please call the office. ) Kelsey Cuadra MD [Physician] - 1 month (You will have an appointment with Dr. Cuadra within one month. [facility] will call you with an appointment date and time if you don't hear from them please call the office. ) Discharge Diet: Cardiac and Diabetic Discharge Activity: Resume usual activity Patient Instructions: Left Heart Catheterization (DC), Coronary Angioplasty (DC), Post Angiogram Home Care Instructions Activity Restrictions/Additional Instructions: Follow-up with Jael Ellington in 7 days, follow-up with Dr. Cuadra in 4 to 6 weeks. Continue Plavix without interruption for at least 1 more year after that we will reassess you. Discharge Date/Time: 12/12/19 15:56 Attestations Medical Necessity Statement*: Patient can be discharged home. Follow-up with Jael Ellington and Dr. Cuadra as scheduled Time Spent in Patient Care*: less than 30 min Specific Discharge Activities: Specific discharge activities: educating patient and documenting/other paperwork Quality Metrics Clinical Quality Measures: During this hospital stay, did patient experience: None Coding Level of Care Code New Pt Acute Nca Certified Concierge for Chg Fwd Patient Type New History Expanded Problem Focused Exam Expanded Problem Focused Medical Decision Making Moderate Complexity
== END 2019-12-12 15:56 | disposition home or self-care (01) ==
LOC: CSU 09:20
PROVIDERS: Admitting Provider Internal Medicine Cardiovascular Disease; PCP Nurse Practitioner Family; Visit Provider Internal Medicine Cardiovascular Disease
DX: I25.10 Atherosclerotic heart disease of native coronary artery without angina pectoris (principal); Z95.5 Presence of coronary angioplasty implant and graft; Z79.82 Long term (current) use of aspirin; E11.9 Type 2 diabetes mellitus without complications; E78.5 Hyperlipidemia, unspecified; I10 Essential (primary) hypertension; Z82.49 Family history of ischemic heart disease and other diseases of the circulatory system; Z83.3 Family history of diabetes mellitus; F17.210 Nicotine dependence, cigarettes, uncomplicated
CPT/HCPCS: 12345; 36415; 36416; 80048; 82962; 85025; 85347; 92920; 93454; 96372; C1725; C1769; C1874; C1887; C1894; C9600; G0378; J1644; J1815; J2001; J2250; J3010; J3490; J7030; Q0163; Q9967

== ENCOUNTER → 2019-12-23 11:09 | Outpatient (BNVA) | payer SELFPAY | PROVIDERS: PCP Nurse Practitioner Family; Visit Provider Nurse Practitioner Family | DX: I25.10 Atherosclerotic heart disease of native coronary artery without angina pectoris (principal); I25.118 Atherosclerotic heart disease of native coronary artery with other forms of angina pectoris | CPT/HCPCS: 80048 ==

== ENCOUNTER 2020-02-13 08:00 | Day surgery (SDC) | payer SELFPAY ==
[2020-02-11 12:37] VITALS: BMI 25.6
[2020-02-13 08:19] VITALS: BP 89/64; PULSE 103; RESP 18; TEMP 36.4; O2SAT 95
[2020-02-13] MEDS: sodium chloride 0.9% 1,000 ML 30 ML IV (08:31)
[2020-02-13 08:37] LABS: Glucose Point of Care 291 mg/dL (70-110)
--- NOTE | 2020-02-13 08:39 | ANES.PREANE2 ---
Pre-Anesthetic Assessment Pre-Anesthetic Assessment: Height/Weight: Height 1.57 m Weight 63.503 kg Temp Pulse Resp BP Pulse Ox 97.5 F L 103 H 18 89/64 95 02/13/20 08:19 02/13/20 08:19 02/13/20 08:19 02/13/20 08:19 02/13/20 08:19 Proposed Procedure: Operation Date: 02/13/20 09:35 Proposed Procedures p Colonoscopy 94580 K92.1(Not Applicable) - Abhijit Doherty MD Last intake: Intake Last Liquid Date 02/13/20 Last Liquid Time 21:00 Last Solid Date 02/13/20 Last Solid Time 21:00 Social: Social History: Tobacco and No alcohol Exam: Pre-Anes Outpt Exam: alert, oriented x 3, clear to auscultation bilaterally (bilat course) and regular rate & rhythm Airway: Submandibular: WNL Cervical ROM: WNL MP: 3 Dentition: Partials (upper) and Other (very poor ) History/ROS: No significant history except as noted Pulmonary: Pulmonary: COPD and CABELLO CV/HEM: CV/HEM: CAD, HTN and SC : : None reported Hepatic: Hepatic: None reported GI: GI: None reported Metabolic: Metabolic: DM and Hyperlipidemia Musc/skel: Musc/skel: OA/DJD Neuropsych: Neuropsych: Neuropathy (bilat feet) Anesthetic Plan: ASA status: 3 Anesthesia: Anesthesia Evaluation and MAC Risk of > 500 ml blood loss (7ml/kg in children): No Meds/Allergies Current Medications: Current Medications Generic Name Dose Route Start Last Admin Trade Name Freq PRN Reason Stop Dose Admin Sodium Chloride 1,000 mls @ 30 ml s/hr 02/13/20 08:00 02/13/20 08:31 Sodium Chloride 0.9% IV 02/14/20 07:59 30 mls/hr .Q24H AILYN Administration PFSH Anesthesia PFSH: Medical History Coronary artery disease 4 stents present. Depression Diabetes mellitus Hyperlipidemia Hypertension Surgical History H/O heart artery stent 2013 - Done in [place], 1 stent placed. 2015 - Done in [place], 1 stent placed. 2017 - Done in [facility] in [place], 2 stents placed. H/O left knee surgery (~1999) Plastic disc was placed History of salpingectomy (~1988) Treatment of ectopic History of tubal ligation Family History Mother Diabetes Heart disease Hypertension Hyperlipidemia Father Heart disease Diabetes Hypertension Hyperlipidemia Sister Diabetes Social History Smoking and tobacco status: current every day smoker cigarettes Packs smoked per day: 0.5 Years cigarettes smoked: 35 Quit status (tobacco): has tried quititng Alcohol intake: current Alcohol intake frequency: holidays/special occasions only Data Anesthesia Other Labs: Laboratory Results - last 48 hr 02/13/20 08:33 POC Glucose 291 Cardiac Studies: No Data to Display
--- NOTE | 2020-02-13 09:07 | P.HP_ITS ---
Same Day Surgery H&P Indication for Procedure/HPI DATE OF PROCEDURE: February 13, 2020 CHIEF COMPLAINT/INDICATIONFOR SURGICAL PROCEDURE: Hematochezia PREOP DIAGNOSIS: s PLANNED PROCEDRUE: Operation Date: 02/13/20 09:35 Proposed Procedures p Colonoscopy 01236 K92.1(Not Applicable) - Abhijit Doherty MD Medications/Allergies* Home Medications Medication Instructions Recorded Confirmed Type aspirin 81 mg tablet,delayed 81 mg PO DAILY 10/23/19 02/13/20 History release atorvastatin 80 mg tablet 80 mg PO DAILY 10/23/19 02/13/20 History empagliflozin 10 mg tablet 10 mg PO DAILY 10/23/19 02/13/20 History metformin 1,000 mg tablet 1,000 mg PO BID 10/23/19 02/13/20 History metoprolol tartrate 50 mg tablet 25 mg PO BID 10/23/19 02/13/20 History nitroglycerin 0.4 mg sublingual 0.4 mg SUBLINGUAL Q5M PRN 10/23/19 02/11/20 History tablet sertraline 50 mg tablet 50 mg PO DAILY 10/23/19 02/13/20 History Allergies/Adverse Reactions Allergy/AdvReac Type Severity Reaction Status Date / Time codeine Allergy hallucinations Verified 02/13/20 08:14 and violence Current Medications: Generic Name Dose Route Start Last Admin Trade Name Freq PRN Reason Stop Dose Admin Sodium Chloride 1,000 mls @ 30 mls/hr 02/13/20 08:00 02/13/20 08:31 Sodium Chloride 0.9% IV 02/14/20 07:59 30 mls/hr .Q24H AILYN Administration Pertinent History/Comorbid Conditions* Medical History (Updated 01/26/20 @ 13:19 by Kelsey Cuadra MD) Coronary artery disease 4 stents present. Depression Diabetes mellitus Hyperlipidemia Hypertension Surgical History (Updated 12/23/19 @ 11:16 by NGUYEN Ly) H/O heart artery stent 2013 - Done in [place], 1 stent placed. 2014 - Done in [place], 1 stent placed. 2017 - Done in [facility] in [place], 2 stents placed. H/O left knee surgery (~1999) Plastic disc was placed History of salpingectomy (~1988) Treatment of ectopic History of tubal ligation Family History (Updated 10/27/19 @ 16:53 by Dell Chris MD) Diabetes Mother Father Sister Heart disease Mother Father Hyperlipidemia Mother Father Hypertension Mother Father Social History Smoking and tobacco status: current every day smoker cigarettes Packs smoked per day: 0.5 Years cigarettes smoked: 35 Quit status (tobacco): has tried quititng Alcohol intake: current Alcohol intake frequency: holidays/special occasions only Pertinent Exam Findings alert, oriented x 3, clear to auscultation bilaterally, regular rate & rhythm, operative site marked and procedure specific exam findings Recommendations Surgery/Procedure today Coding Level of Care Code Acute Customer Business Manager for Lakisha Coleman
[2020-02-13 10:17] VITALS: BP 90/65; PULSE 86; RESP 16; TEMP 36.4; O2SAT 100
[2020-02-13 10:52] VITALS: BP 104/70; PULSE 91; RESP 18; TEMP 36.4; O2SAT 96
== END 2020-02-13 11:55 | disposition home or self-care (01) ==
PROVIDERS: PCP Nurse Practitioner Family; Visit Provider Internal Medicine
PROC: 0DJD8ZZ Inspection of Lower Intestinal Tract, Via Natural or Artificial Opening Endoscopic (ICD-10-PCS; CPT 45378; principal; 2020-02-13 09:30)
DX: K92.1 Melena (principal); Z79.82 Long term (current) use of aspirin; I25.10 Atherosclerotic heart disease of native coronary artery without angina pectoris; Z95.5 Presence of coronary angioplasty implant and graft; I10 Essential (primary) hypertension; E78.5 Hyperlipidemia, unspecified; Z83.3 Family history of diabetes mellitus; Z82.49 Family history of ischemic heart disease and other diseases of the circulatory system; F17.210 Nicotine dependence, cigarettes, uncomplicated; I25.2 Old myocardial infarction; M19.90 Unspecified osteoarthritis, unspecified site; E11.40 Type 2 diabetes mellitus with diabetic neuropathy, unspecified
CPT/HCPCS: 12345; 36416; 45378; 82962; J2370; J2704; J7030

== ENCOUNTER 2020-02-17 13:56 | Outpatient (CLI) | payer SELFPAY ==
--- NOTE | 2020-02-17 14:03 | MM_ITS ---
WS: [id number] BILATERAL SCREENING DIGITAL MAMMOGRAM WITH CAD HISTORY: SCREENING COMPARISON: None available. Bilateral CC and MLO views submitted. Computer aided detection analyzed. Breast composition: There are scattered areas of fibroglandular density. No suspicious masses, microc alcifications or architectural distortion. Benign calcifications in each breast. MM/[place] [id number] IMPRESSION: BI-RADS: 2-Benign FOLLOW UP: 1 Year Follow-up
== END 2020-02-17 13:57 | disposition home or self-care (01) ==
LOC: RADSHAW 14:02
PROVIDERS: Visit Provider Obstetrics & Gynecology
DX: Z12.31 Encounter for screening mammogram for malignant neoplasm of breast (principal)
CPT/HCPCS: 77067

== ENCOUNTER 2020-04-09 08:18 | Outpatient (CLI) | payer SELFPAY ==
--- NOTE | 2020-04-09 08:28 | CT_ITS ---
WS: [id number] CT ABDOMEN TECHNIQUE: Noncontrast CT of the abdomen with coronal and sagittal reformatted images. CLINICAL INFORMATION: RUQ PAIN COMPARISON: None. DLP: 770.[address] scans at [facility] use at least one of these dose optimization techniques: automat ed exposure control; mA and/or kV adjustment per patient size (includes targeted exams where dose is matched to clinical indication); or iterative reconstruction. FINDINGS: Noncontrast liver is normal. Normal noncontrast spleen. Fatty atrophy of the pancreas. Small esophage al hiatal hernia. Lung bases are well aerated. Adrenal glands are normal. No hydronephrosis in either kidney. Normal caliber abdominal aorta. Aortic calcification.Thickening of the gastric rugae in the stomach can be seen with gastritis. This can be further evaluated with endoscopy. No significant hiat al hernia. Lung bases are well aerated. 16 mm left renal cyst. Partially visualized presumed fibroid uterus prev iously described on the pelvic ultrasound 2 18,020. This is only partially included on this examinati on. CT/CT abdomen wo con [id number] IMPRESSION: 1. Noncontrast liver and gallbladder appear unremarkable. 2. Thickening of the gastric rugae in the stomach can be seen with gastritis. This can be further evaluated with endoscopy. No significant hiatal hernia. 3. Normal caliber abdominal aorta. Aortic calcification. 4. No hydronephrosis in either kidney. 5. Left renal cyst measuring 1.6 cm. 6. Partially visualized large fibroid uterus previously described on the pelvi c ultrasound.
[2020-04-09] MEDS: iohexol 300 mg/mL 50 mL Btl PO (08:44)
== END 2020-04-09 08:19 | disposition home or self-care (01) ==
LOC: RADWPI 08:20
PROVIDERS: PCP Nurse Practitioner Family; Visit Provider Nurse Practitioner Family
DX: R10.11 Right upper quadrant pain (principal); N28.1 Cyst of kidney, acquired; I70.0 Atherosclerosis of aorta
CPT/HCPCS: 74150; Q9967

== ENCOUNTER → 2020-06-08 08:16 | Outpatient (BNVA) | payer BC, SELFPAY | PROVIDERS: PCP Nurse Practitioner Family; Visit Provider Obstetrics & Gynecology | DX: D25.9 Leiomyoma of uterus, unspecified (principal) | CPT/HCPCS: 76830 ==

== ENCOUNTER 2020-07-09 12:14 | Emergency (ER) | payer BC, SELFPAY ==
[2020-07-09 12:26] VITALS: BP 139/92; PULSE 109; RESP 18; TEMP 36.6; O2SAT 96; BMI 25.6
--- NOTE | 2020-07-09 13:12 | US_ITS ---
WS: [id number] ULTRASOUND ABDOMEN CLINICAL INFORMATION: Abdominal Pain COMPARISON: None. FINDINGS: Liver Size: Diffuse fatty infiltration. Mild hepatomegaly. Craniocaudal length: 16.1 cm. Echogenicity: Normal. Surface nodularity: None. Mass (size and location): None. Bile ducts Intrahepatic ducts: Normal. Common bile duct diameter: 0.3 cm. Gallbladder Normal. Gallstones: None. Gallbladder sludge: None. Gallbladder wall thickening: None. Pericholecystic fluid: None. Sonographic Hernandez sign: Absent. Pancreas Normal as visualized. Spleen Splenomegaly: None. Craniocaudal length: 8.2 cm. Right kidney: Normal. Hydronephrosis: None. Size: 11.1 cm x 6.2 cm x 5.3 cm Left kidney: Lower pole left renal cyst measuring measuring 2.1 x 2.0 cm Hydronephrosis: None. Size: 10.3 cm x 5.5 cm x 4.0 cm. Abdominal aorta and IVC Visualized portions are normal. Ascites: None. US/US abdomen complete* [id number] IMPRESSION: 1. Diffuse fatty infiltration of the liver. Mild hepatomegaly. 2. Normal gallbladder. Normal common bile duct. 3. No hydronephrosis in either kidney. 4. Incidental simple cyst left kidney.
--- NOTE | 2020-07-09 13:20 | ED_ITS ---
HPI - Abdominal Pain General: Chief Complaint: Abdominal Pain Stated Complaint: Right Side/back pain Time Seen by Provider: 07/09/20 13:06 Source: patient Mode of arrival: ambulatory Limitations: no limitations History of Present Illness: HPI narrative: Mrs. Solano is a nice 55-year-old female who comes in complaining of right upper quadrant, right lower quadrant and right flank pain. She states the pain is been going on for 2 days. She had similar symptoms in the past but they have never lasted this long. She denies any chest pain, nausea or vomiting, diarrhea or constipation. Patient states she feels better after she uses marijuana. Pain is intermittent and not constant. She denies any blood in her urine or blood in her stools. Patient describes the pain as sharp and she cannot localize it well. She denies any exacerbating or alleviating factors. Patient states that she is not tried any thing for this at home other than the marijuana. [facility] ED PFSH: Medical History (Updated 07/09/20 @ 16:06 by Ivis Mccall) Coronary artery disease 4 stents present. Depression Diabetes mellitus Hyperlipidemia Hypertension Surgical History H/O heart artery stent 2013 - Done in [place], 1 stent placed. 2015 - Done in [place], 1 stent placed. 2017 - Done in [facility] in [place], 2 stents placed. H/O left knee surgery (~1999) Plastic disc was placed History of salpingectomy (~1988) Treatment of ectopic History of tubal ligation Family History Mother Diabetes Heart disease Hypertension Hyperlipidemia Father Heart disease Diabetes Hypertension Hyperlipidemia Sister Diabetes Social History (Updated 05/25/20 @ 10:47 by Adenike Casiano, CT) Smoking and tobacco status: current every day smoker cigarettes Packs smoked per day: 0.5 Years cigarettes smoked: 35 Quit status (tobacco): has tried quititng Alcohol intake: current Alcohol intake frequency: holidays/special occasions only History of recent travel: No Physical Exam Const: COMMON NORMALS: no acute distress, patient oriented x3, no limitations and alert GENERAL APPEARANCE: cooperative HENMT: COMMON NORMALS: normocephalic, atraumatic, external ears normal, EAC's normal and Normal external nose present HEAD & SCALP: normal to inspection, normocephalic and atraumatic FACE & SINUS: normal facial exam and face symmetric NOSE: Normal external nose present and Normal nares present EXTERNAL EAR: Yes external ears normal EXTERNAL AUDITORY CANAL: EAC's normal MOUTH: Normal oral and palatal mucosa present, lip normal and tongue normal Eye: COMMON NORMALS: Equal, round and reactive pupils present and conjunctivae normal GENERAL EYE: appearance normal, both eyes and all related structures ALIGNMENT: Yes alignment normal PERIORBITAL: periorbital findings normal EYELID: eyelids normal CONJUNCTIVA: Yes conjunctivae normal SCLERA: sclerae normal PUPIL: Yes Equal, round and reactive pupils present Neck/C-Spine: COMMON NORMALS: full ROM, no lymphadenopathy, supple, no meningeal signs and no JVD GENERAL: Yes normal visual inspection and Yes trachea midline Chest: COMMONS NORMALS: normal inspection of the chest and normal palpation of entire chest wall Resp: COMMON NORMALS: normal respiratory effort, No retractions, No use of accessory muscles and clear to auscultation bilaterally EFFORT & INSPECTION: Yes able to speak in complete sentences and Yes symmetric chest movement AUSCULTATION: clear to auscultation bilaterally, no crackles, no rales, no rhonchi and no wheezes Cardio: COMMON NORMALS: no JVD, regular rate, regular rhythm, S1 normal heart sound present and S2 normal heart sound present RATE: regular rate RHYTHM: regular rhythm HEART SOUNDS: S1 normal heart sound present, S2 normal heart sound present, no click, no gallops, no murmurs and no rubs GI: COMMON NORMALS: Soft to palpation and No hepatosplenomegaly present PALPATION: Yes Soft to palpation, Yes Tenderness to palpation present (GI) Details: RLQ and RUQ, No Guarding due to palpation present (GI), No Rigid due to palpation, Yes No hepatosplenomegaly present, No Hernia present, No Palpable mass present and No Pulsatile mass present : COMMON NORMALS: Yes no CVA tenderness BLADDER/KIDNEY EXAM: Yes no CVA tenderness EXTERNAL FEMALE EXAM: No Hernia present Back/Pelvis: COMMON NORMALS: no CVA tenderness, thoracic and lumbar spine normal to inspection, no thoracic nor lumbar tenderness and thoraco-lumbar ROM normal Extremity: COMMON NORMALS: normal to inspection, full ROM, capillary refill normal, no joint enlargement, no clubbing, cyanosis or edema and no calf tenderness Neuro: COMMON NORMALS: patient oriented x3, CN's II-XII intact bilaterally, moves all extremities, no focal motor deficits and no sensory deficits noted SENSORIUM/ORIENTATION: Yes alert MENINGEAL SIGNS: Yes no meningeal signs SPEECH: speech normal Psych: COMMON NORMALS: mental status grossly normal, Normal thought process present, cooperative, normal affect, speech normal and activity/motor behavior n ormal SPEECH: Yes normal speech THOUGHT PROCESS: Normal thought process present Skin: COMMON NORMALS: no rashes or lesions noted, turgor normal, no jaundice, no petechiae and no mottling GENERAL SKIN EXAM: no rashes or lesions noted and turgor normal Course Vital Signs: Vital signs: Vital Signs Temperature 97.9 F 07/09/20 12:26 Pulse Rate 98 07/09/20 17:08 Respiratory Rate 16 07/09/20 17:08 Blood Pressure 119/86 07/09/20 17:08 Pulse Oximetry 94 07/09/20 17:08 MDM - Abdominal Pain MDM Narrative: Medical decision making narrative: 1635 -Nathalie is a nice 55-year-old female who comes in complaining of right upper quadrant pain, right flank pain and right lower quadrant pain. This pain has been going on for the past [address] scan reveals no sign of kidney stone, ureterolithiasis, appendicitis or bowel obstruction. Ultrasound reveals no sign of gallbladder etiology or hydronephrosis. Patient really does not have much in the way of chest pain but she had 2 - sets of cardiac enzymes her EKGs are unremarkable. She does not have a pleuritic component to make me think of PE. Patient overall feels better at this time and wants to be discharged. She understands this still could be her gallbladder or even developing appendicitis and she agrees to return here if her symptoms change or worsen. Patient also agrees to follow-up with Dr. Knight for this ongoing pain. She also understands she will need to follow-up Dr. Chris for her abnormal endometrium seen on CT scan. Patient had no questions or concerns she agreed to this follow-up and treatment plan. Differential Diagnosis: Differential diagnosis abdominal pain: Likely abdominal pain, acute appendicitis, calculus of kidney, constipation, diverticulitis, endometriosis, gastroenteritis, pancreatitis and small bowel obstruction Lab Data: Attestation: I reviewed the patient's lab results. Labs: Lab Results 07/09/20 07/09/20 07/09/20 Range/Units 13:10 13:10 13:10 WBC 7.9 (4.0-10.0) 10^3/ uL RBC 5.37 H (4.1-5.3) 10^6/u L Hgb 16.1 H (11.5-15.3) g/dL Hct 47.5 H (37.0-47.0) % MCV 88.5 (81-99) fL MCH 30.0 (28.0-34.0) pg MCHC 33.9 (30.0-36.0) g/dL RDW 11.9 L (12.1-15.1) % Plt Count 327 (130-400) 10^3/c mm MPV 9.2 (7.4-10.4) fL Neut % (Auto) 67.5 % Lymph % (Auto) 26.9 % Haakon % (Auto) 4.2 % Eos % (Auto) 0.8 % Baso % (Auto) 0.3 % Neut # (Auto) 5.33 (1.8-7.7) 10^3/u L Lymph # (Auto) 2.1 (0.8-4.8) 10^3/u L Haakon # (Auto) 0.3 (0.2-0.9) 10^3/u L Eos # (Auto) 0.1 (0.0-0.8) 10^3/u L Baso # (Auto) 0.0 (0.0-0.1) 10^3/u L Nucleated RBC % (a uto) 0 % Nucleated RBCs # 0.0 /100WBC Sodium 132 L (136-145) mmol/L Potassium 4.2 (3.5-5.1) mmol/L Chloride 95 L (98-107) mmol/L Carbon Dioxide 24 (22-29) mmol/L Anion Gap 17.2 (5-19) BUN 12 (6-20) mg/dL Creatinine 0.5 (0.5-0.9) mg/dL GFR Calculation 128.6 (90-130) mL/min Glucose 348 H (65-115) mg/dL Calculated Osmolal ity 288 (285-295) mOsm/k g Calcium 9.8 (8.5-10.5) mg/dL Total Bilirubin 0.2 (0.15-1.2) mg/dL AST 15 (0-32) U/L ALT 11 (0-33) U/L Alkaline Phosphata se 132 H (35-105) IU/L Troponin T Baselin e (0-10) ng/L Troponin T 120 [address] [place] (0-10) ng/L Delta Troponin T (0-10) ABS# Total Protein 7.2 (6.6-8.7) g/dL Albumin 4.1 (3.5-5.2) g/dL Globulin 3.1 (1.3-4.6) g/dL Lipase 28 (13-60) U/L HCG, Qual Negative (Negative) Urine Color (Yellow) Urine Appearance (CLEAR) Urine pH (5-7) Ur Specific Gravit y (1.005-1.030) Urine Protein (Negative) Urine Glucose (UA) (Normal) Urine Ketones (Negative) Urine Blood (Negative) Urine Nitrate (Negative) Urine Bilirubin (Negative) Urine Urobilinogen (Negative) mg/dL Ur Leukocyte Ingrid ase (Negative) Urine RBC (0-2) /hpf Urine WBC (0-5) /hpf Ur Squamous Epith Cells (0-5) /hpf Amorphous Sediment Urine Bacteria (NONE) /hpf 07/09/20 07/09/20 07/09/20 Range/Units 13:10 13:30 15:52 WBC (4.0-10.0) 10^3/ uL RBC (4.1-5.3) 10^6/u L Hgb (11.5-15.3) g/dL Hct (37.0-47.0) % MCV (81-99) fL MCH (28.0-34.0) pg MCHC (30.0-36.0) g/dL RDW (12.1-15.1) % Plt Count (130-400) 10^3/c mm MPV (7.4-10.4) fL Neut % (Auto) % Lymph % (Auto) % Haakon % (Auto) % Eos % (Auto) % Baso % (Auto) % Neut # (Auto) (1.8-7.7) 10^3/u L Lymph # (Auto) (0.8-4.8) 10^3/u L Haakon # (Auto) (0.2-0.9) 10^3/u L Eos # (Auto) (0.0-0.8) 10^3/u L Baso # (Auto) (0.0-0.1) 10^3/u L Nucleated RBC % (a uto) % Nucleated RBCs # /100WBC Sodium (136-145) mmol/L Potassium (3.5-5.1) mmol/L Chloride (98-107) mmol/L Carbon Dioxide (22-29) mmol/L Anion Gap (5-19) BUN (6-20) mg/dL Creatinine (0.5-0.9) mg/dL GFR Calculation (90-130) mL/min Glucose (65-115) mg/dL Calculated Osmolal ity (285-295) mOsm/k g Calcium (8.5-10.5) mg/dL Total Bilirubin (0.15-1.2) mg/dL AST (0-32) U/L ALT (0-33) U/L Alkaline Phosphata se (35-105) IU/L Troponin T Baselin e 18 H (0-10) ng/L Troponin T 120 [address] [place] 16.20 H (0-10) ng/L Delta Troponin T -1.80 L (0-10) ABS# Total Protein (6.6-8.7) g/dL Albumin (3.5-5.2) g/dL Globulin (1.3-4.6) g/dL Lipase (13-60) U/L HCG, Qual (Negative) Urine Color Yellow (Yellow) Urine Appearance Clear (CLEAR) Urine pH 5 (5-7) Ur Specific Gravit y 1.015 (1.005-1.030) Urine Protein Neg (Negative) Urine Glucose (UA) 4+ H (Normal) Urine Ketones Negative (Negative) Urine Blood 2+ H (Negative) Urine Nitrate Negative (Negative) Urine Bilirubin Neg (Negative) Urine Urobilinogen Norm (Negative) mg/dL Ur Leukocyte Ingrid ase Negative (Negative) Urine RBC 0-4 H (0-2) /hpf Urine WBC None (0-5) /hpf Ur Squamous Epith Cells 15-25 H (0-5) /hpf Amorphous Sediment Not Reportable Urine Bacteria Trace (NONE) /hpf Imaging Data ^: US: Radiologist's impression: [address] [place] [address] Ultrasound Report Signed Patient: Nathalie Soalno Unit #: [id number] : 1965 Age/Sex: 55 / F ADM Date: 07/09/20 Loc: ER Room/Bed: Attending Dr: Ordering Provider/Ordering MD: Ivis Mccall DO Date of Service: 07/09/20 Procedure(s): US abdomen complete* [id number] Accession Number(s): [id number] Report Number: [id number] WS: [id number] ULTRASOUND ABDOMEN CLINICAL INFORMATION: Abdominal Pain COMPARISON: None. FINDINGS: Liver Size: Diffuse fatty infiltration. Mild hepatomegaly. Craniocaudal length: 16.1 cm. Echogenicity: Normal. Surface nodularity: None. Mass (size and location): None. Bile ducts Intrahepatic ducts: Normal. Common bile duct diameter: 0.3 cm. Gallbladder Normal. Gallstones: None. Gallbladder sludge: None. Gallbladder wall thickening: None. Pericholecystic fluid: None. Sonographic Hernandez sign: Absent. Pancreas Normal as visualized. Spleen Splenomegaly: None. Craniocaudal length: 8.2 cm. Right kidney: Normal. Hydronephrosis: None. Size: 11.1 cm x 6.2 cm x 5.3 cm Left kidney: Lower pole left renal cyst measuring measuring 2.1 x 2.0 cm Hydronephrosis: None. Size: 10.3 cm x 5.5 cm x 4.0 cm. Abdominal aorta and IVC Visualized portions are normal. Ascites: None. US/US abdomen complete* [id number] IMPRESSION: 1. Diffuse fatty infiltration of the liver. Mild hepatomegaly. 2. Normal gallbladder. Normal common bile duct. 3. No hydronephrosis in either kidney. 4. Incidental simple cyst left kidney. Dictated By: Jabier Larkin MD Signed By: Jabier Larkin MD Signed Date/Time: 07/09/20 1442 DD/ 1439 CT Abd/Pel: Radiologist's impression: [address] [place] [address] CT Scan Report Signed Patient: Nathalie Solano Unit #: [id number] : 1965 Age/Sex: 55 / F ADM Date: 07/09/20 Loc: ER Room/Bed: Attending Dr: Ordering Provider/Ordering MD: Ivis Mccall DO Date of Service: 07/09/20 Procedure(s): CT abdomen pelvis w con* [id number] Accession Number(s): [id number] Report Number: [id number] PROCEDURE INFORMATION: Exam: CT Abdomen And Pelvis With Contrast Exam date and time: 07/09/2020 3:11 PM Age: 55 years old Clinical indication: Abdominal pain; Generalized; Prior surgery; Surgery date: 6+ months; Surgery type: Tubal, stents TECHNIQUE: Imaging protocol: Computed tomography of the abdomen and pelvis with intravenous contrast. Radiation optimization: All CT scans at this facility use at least one of these dose optimization techniques: automated exposure control; mA and/or kV adjustment per patient size (includes targeted exams where dose is matched to clinical indication); or iterative reconstruction. Contrast material: OMNI 300; Contrast volume: 95 ml; Contrast route: INTRAVENOUS (IV); COMPARISON: US pelvic complete* [id number] 11/04/2019 2:17 PM RADIATION DOSE METRICS: Total DLP (mGy-cm): 757.02 FINDINGS: Liver: Normal. No mass. Gallbladder and bile ducts: Normal. No calcified stones. No ductal dilation. Pancreas: Normal. No ductal dilation. Spleen: Normal. No splenomegaly. Adrenals: Normal. No mass. Kidneys and ureters: There is a 2 cm cyst in the inferior left kidney. No renal calcification or hydronephrosis. Stomach and bowel: Colonic diverticula are present although there are no CT findings to suggest diverticulitis. No bowel obstruction or wall thickening. Appendix: The appendix is visualized and appears normal. Intraperitoneal space: Unremarkable. No free air. No significant fluid collection. Vasculature: Unremarkable. No abdominal aortic aneurysm. Lymph nodes: Unremarkable. No enlarged lymph nodes. Urinary bladder: Unremarkable as visualized. Reproductive: The endometrium is distended with a diameter of 8.6 cm. There are calcifications within the distended endometrium. Bones/joints: Unremarkable. No acute fracture. Soft tissues: Unremarkable. CT/CT abdomen pelvis w con* [id number] IMPRESSION: There are no acute concerning abnormalities. The endometrium is distended with a diameter of 8.6 cm. There are calcifications within the distended endometrium. If there is desire for further evaluation, a MRI or ultrasound could be performed. Radiation Dose CTDIVOL = (mGy): DLP = 757.02 (mGy-cm) Dictated By: Daina De MD Signed By: Daina De MD Signed Date/Time: 07/09/201552 DD/ 50 EKG Data ^: EKG 1: Attestation: I personally reviewed and interpreted this EKG as follows: EKG interpretation date: 07/09/20 EKG interpretation time: 13:34 Interpretation: Sinus rhythm at 101 beats a minute, no blocks, normal intervals, nonspecific ST and T wave changes. EKG 2: Attestation: I personally reviewed and interpreted this EKG as follows: EKG interpretation date: 07/09/20 EKG interpretation time: 15:25 Interpretation: NSR @ 92, no blocks, normal intervals, no acute ST or T wave changes. Discharge Plan Discharge Patient Disposition: Home Clinical Impression: Abdominal pain Qualifiers: Abdominal location: right upper quadrant Qualified Code(s): R10.11 - Right upper quadrant pain Condition: Stable Prescriptions: New Zofran 4 mg tablet 4 mg PO Q6H PRN (Reason: nausea and vomiting) Qty: 20 RF: 0 No Action metformin 1,000 mg tablet 1,000 mg PO BID RF: 0 atorvastatin 80 mg tablet 80 mg PO DAILY RF: 0 nitroglycerin 0.4 mg tablet, sublingual 0.4 mg SUBLINGUAL Q5M PRN (Reason: Chest Pain) RF: 0 Jardiance 10 mg tablet 10 mg PO DAILY RF: 0 sertraline 50 mg tablet 50 mg PO DAILY RF: 0 aspirin [Adult Low Dose Aspirin] 81 mg tablet,delayed release (DR/EC) 81 mg PO DAILY RF: 0 isosorbide mononitrate 30 mg tablet extended release 24 hr 15 mg PO DAILY Qty: 15 RF: 6 ranolazine [Ranexa] 500 mg tablet extended release 12 hr 500 mg PO BID Qty: 60 RF: 1 metoprolol tartrate 25 mg tablet 12.5 mg PO BID Qty: 30 RF: 3 clopidogrel [Plavix] 75 mg tablet 75 mg PO DAILY Qty: 90 RF: 4 Discharge Orders: Discharge Order (Routine); Ordered 07/09/20 Ordered By: Ivis Mccall Referrals: Jonatan Knight MD [Physician] - 1-3 days Dell Crhis MD [Physician] - 1-3 days SHRAVAN MCCRAY APRN [Primary Care Provider] - 1-3 days Discharge Diet: Advance as tolerated and Clear Liquid Discharge Activity: Increase activity as tolerated Patient Instructions: Abdominal Pain (ED) Activity Restrictions/Additional Instructions: Please return to the ER immediately for any of the signs or symptoms listed on your discharge instruction sheets, worsening/changing of your symptoms, you are not getting better as quickly as expected, or for ANY other cause or concerns. Be certain to follow-up with Dr. Knight or the surgeon of your choice for further evaluation and care. If your symptoms persist for more than another 12 hours please return to the ER immediately for recheck. Be certain to follow-up with Dr. Chris as well for the abnormal findings of the thickened endometrium and calcifications seen on the CAT scan. Discharge Date/Time: 07/09/20 17:08 Coding Level of Care Code ED Appeals Reviewer Veteran for Lakisha Coleman
--- NOTE | 2020-07-09 13:22 | ECG_ITS ---
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 Measurements Intervals [place] Rate: 101 P: 128 AL: 125 QRS: -2 QRSD: 79 T: 137 QT: 356 QTc: 462 Interpretive Statements ECTOPIC ATRIAL TACHYCARDIA LEFT ATRIAL ENLARGEMENT [-0.15mV P WAVE IN V1/V2] MODERATE T-WAVE ABNORMALITY, CONSIDER LATERAL ISCHEMIA [-0.1+ mV T WAVE IN I/aVL/V5/V6] Compared to ECG 11/25/2019 20:52:26 T-wave abnormality now present Possible ischemia now present Sinus rhythm no longer present Short AL interval no longer present Electronically Signed On 07-09-2020 20:35:24 CDT by Erica Abad M.D. [id number] f
[2020-07-09 13:24] LABS: Basophils % 0.3 %; Eosinophils # 0.1 10^3/uL (0.0-0.8); Eosinophils % 0.8 %; Hematocrit 47.5 % (37.0-47.0); Hemoglobin 16.1 g/dL (11.5-15.3); Lymphocytes # 2.1 10^3/uL (0.8-4.8); Lymphocytes % 26.9 %; Mean Corpuscular HGB Conc 33.9 g/dL (30.0-36.0); Mean Corpuscular Volume 88.5 fL (81-99); Mean Platelet Volume 9.2 fL (7.4-10.4); Monocytes # 0.3 10^3/uL (0.2-0.9); Monocytes % 4.2 %; Neutrophils # 5.33 10^3/uL (1.8-7.7); Neutrophils % 67.5 %; Nucleated Red Blood Cells % 0 %; Platelet Count 327 10^3/cmm (130-400); Red Blood Count 5.37 10^6/uL (4.1-5.3); Red Cell Distribution Width 11.9 % (12.1-15.1); White Blood Count 7.9 10^3/uL (4.0-10.0)
[2020-07-09 13:35] LABS: HCG, Serum Qual Negative (Negative)
[2020-07-09 13:57] LABS: Alanine Aminotransferase 11 U/L (0-33); Albumin Level 4.1 g/dL (3.5-5.2); Alkaline Phosphatase 132 IU/L (35-105); Anion Gap 17.2 (5-19); Aspartate Amino Transferase 15 U/L (0-32); Blood Urea Nitrogen 12 mg/dL (6-20); Calcium 9.8 mg/dL (8.5-10.5); Carbon Dioxide 24 mmol/L (22-29); Chloride 95 mmol/L (98-107); Globulin 3.1 g/dL (1.3-4.6); Glomerular Filtration Rate 128.6 mL/min (90-130); Glucose 348 mg/dL (65-115); Lipase 28 U/L (13-60); Osmolality Calculated 288 mOsm/kg (285-295); Potassium 4.2 mmol/L (3.5-5.1); Sodium 132 mmol/L (136-145); Total Bilirubin 0.2 mg/dL (0.15-1.2); Total Protein 7.2 g/dL (6.6-8.7)
[2020-07-09] MEDS: sodium chloride 0.9% 1,000 ML 999 ML IV (14:08)
[2020-07-09] MEDS: ondansetron 2 mg/ML SDV 2 mL 4 MG IVP (14:09)
[2020-07-09 14:10] VITALS: RESP 17
[2020-07-09] MEDS: morphine 4 mg/mL SDV 1 mL IVP (14:10)
[2020-07-09 14:45] LABS: Urine Appearance Clear (CLEAR); Urine Color Yellow (Yellow); pH Urine 5 (5-7)
[2020-07-09 14:46] LABS: Specific Gravity, Urine 1.015 (1.005-1.030)
--- NOTE | 2020-07-09 14:48 | CTR_ITS ---
PROCEDURE INFORMATION: Exam: CT Abdomen And Pelvis With Contrast Exam date and time: 07/09/2020 3:11 PM Age: 55 years old Clinical indication: Abdominal pain; Generalized; Prior surgery; Surgery date: 6+ months; Surgery type: Tubal, stents TECHNIQUE: Imaging protocol: Computed tomography of the abdomen and pelvis with intravenous contrast. Radiation optimization: All CT scans at this facility use at least one of these dose optimization techniques: automated exposure control; mA and/or kV adjustment per patient size (includes targeted exams where dose is matched to clinical indication); or iterative reconstruction. Contrast material: OMNI 300; Contrast volume: 95 ml; Contrast route: INTRAVENOUS (IV); COMPARISON: US pelvic complete* [id number] 11/04/2019 2:17 PM RADIATION DOSE METRICS: Total DLP (mGy-cm): 757.02 FINDINGS: Liver: Normal. No mass. Gallbladder and bile ducts: Normal. No calcified stones. No ductal dilation. Pancreas: Normal. No ductal dilation. Spleen: Normal. No splenomegaly. Adrenals: Normal. No mass. Kidneys and ureters: There is a 2 cm cyst in the inferior left kidney. No renal calcification or hydronephrosis. Stomach and bowel: Colonic diverticula are present although there are no CT findings to suggest diverticulitis. No bowel obstruction or wall thickening. Appendix: The appendix is visualized and appears normal. Intraperitoneal space: Unremarkable. No free air. No significant fluid collection. Vasculature: Unremarkable. No abdominal aortic aneurysm. Lymph nodes: Unremarkable. No enlarged lymph nodes. Urinary bladder: Unremarkable as visualized. Reproductive: The endometrium is distended with a diameter of 8.6 cm. There are calcifications within the distended endometrium. Bones/joints: Unremarkable. No acute fracture. Soft tissues: Unremarkable. CT/CT abdomen pelvis w con* [id number] IMPRESSION: There are no acute concerning abnormalities. The endometrium is distended with a diameter of 8.6 cm. There are calcifications within the distended endometrium. If there is desire for further evaluation, a MRI or ultrasound could be performed. Radiation Dose CTDIVOL = (mGy): DLP = 757.02 (mGy-cm)
[2020-07-09 14:50] LABS: Add Urine Microscopic? YES; Bilirubin Urine Neg (Negative); Blood Urine 2+ (Negative); Glucose Urine UA 4+ (Normal); Ketones Urine Negative (Negative); Leukocyte Esterase Urine Negative (Negative); Nitrate Urine Negative (Negative); Protein Urine Neg (Negative); Urobilinogen Urine Norm (Negative)
[2020-07-09 14:53] LABS: Troponin(5th) Baseline 18 ng/L (0-10)
[2020-07-09 15:12] LABS: Add Urine Culture? No; Bacteria Urine TRACE /hpf; RBC Urine 0-4 /hpf (0-2); Squamous Epithelial Cell Urine 15-25 /hpf (0-5)
--- NOTE | 2020-07-09 15:22 | ECG_ITS ---
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 Measurements Intervals [place] Rate: 92 P: 47 NV: 140 QRS: 10 QRSD: 77 T: 75 QT: 388 QTc: 481 Interpretive Statements SINUS RHYTHM POSSIBLE LEFT ATRIAL ENLARGEMENT [-0.1mV P WAVE IN V1/V2] LOW QRS VOLTAGE IN PRECORDIAL LEADS [QRS DEFLECTION < 1.0 mV IN CHEST LEADS] NONSPECIFIC T-WAVE ABNORMALITY Compared to ECG 07/09/2020 13:34:41 Low QRS voltage now present Possible ischemia no longer present T-wave abnormality still present Electronically Signed On 07-09-2020 20:39:29 CDT by Erica Abad M.D. [id number]
[2020-07-09] MEDS: ketorolac 30 mg/mL INJ 10 MG IVP (17:04)
[2020-07-09 17:08] VITALS: BP 119/86; PULSE 98; RESP 16; O2SAT 94
== END 2020-07-09 17:08 | disposition home or self-care (01) ==
PROVIDERS: Emergency Provider Emergency Medicine; PCP Nurse Practitioner Family
DX: R10.11 Right upper quadrant pain (principal); Z79.82 Long term (current) use of aspirin; Z79.84 Long term (current) use of oral hypoglycemic drugs; Z79.02 Long term (current) use of antithrombotics/antiplatelets; I25.10 Atherosclerotic heart disease of native coronary artery without angina pectoris; E11.9 Type 2 diabetes mellitus without complications; E78.5 Hyperlipidemia, unspecified; I10 Essential (primary) hypertension; F17.210 Nicotine dependence, cigarettes, uncomplicated
CPT/HCPCS: 12345; 74177; 76700; 80053; 81001; 83690; 84484; 84703; 85025; 93005; 96361; 96374; 96375; 99283; 99284; J1885; J2270; J2405; J7030; Q9967

== ENCOUNTER 2020-11-26 13:17 | Emergency (ER) | payer OTHER, SELFPAY ==
[2020-11-26 13:21] VITALS: BP 115/51; PULSE 126; RESP 18; TEMP 36.6; O2SAT 98; BMI 26.9
--- NOTE | 2020-11-26 13:38 | XR_ITS ---
WS: [id number] Portable AP upright chest, 11/26/2020 Clinical Data: right chest pain Comparison: Portable chest, 11/25/2019. Findings: No nodules, masses or effusions are seen. The heart is normal. The pulmonary vascularity is not increased. No pneumonia or pneumothorax is seen. XR/XR chest 1V portable [id number] Impression: Negative chest.
--- NOTE | 2020-11-26 13:38 | CT_ITS ---
WS: [id number] CT scan of the abdomen and pelvis with IV contrast. Additional two-dimensional coronal and sagittal r econstruction was performed. 11/26/2020 Clinical Data: abdominal pain Comparison: CT abdomen and pelvis, 07/09/2020. DLP: 1462.[address] scans at [facility] use at least one of these dose optimization techniques: automat ed exposure control; mA and/or kV adjustment per patient size (includes targeted exams where dose is matched to clinical indication); or iterative reconstruction. Findings: The lower lungs show no nodules, masses or effusions. The liver, gallbladder, spleen, adrenal glands and pancreas are normal. The kidneys show equal bilateral contrast excretion with a 2.0 cm anterior left renal cortical cyst. No renal masses or hydronephrosis can be seen. There are no renal calculi. The abdominal aorta is normal in size with calcification in the wall.. No appendicitis or diverticulitis is seen. The stomach, small bowel and colon show no abnormalities. No abscess, adenopathy, ascites, mass, obstruction or free air is seen. The bladder is unremarkable. No inguinal hernia is seen. The uterus is enlarged and probably contains a cystic degenerating leiomyoma. The greatest diameter is 10.4 cm and there are numerous calcificati ons within this mass. The bones of the lower thorax, lumbar spine, pelvis, and hips show minimal osteoarthritis of the lowe r thoracic vertebral bodies. CT/CT abdomen pelvis w con* [id number] Impression: 1. Probable degenerating cystic leiomyoma of the uterus with greatest diameter of 10.4 cm unchanged. 2. Negative for acute intra-abdominal or pelvic abnormalities.
--- NOTE | 2020-11-26 13:41 | ECG_ITS ---
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1965 Requested By: Carlyle Kay Order Number: [id number] Giovanny MD: KRYS GONSALEZ Measurements Intervals [place] Rate: 113 P: 51 OK: 130 QRS: 19 QRSD: 80 T: 64 QT: 323 QTc: 444 Interpretive Statements SINUS TACHYCARDIA POSSIBLE LEFT ATRIAL ENLARGEMENT [-0.1mV P WAVE IN V1/V2] LOW QRS VOLTAGE IN PRECORDIAL LEADS [QRS DEFLECTION < 1.0 mV IN CHEST LEADS] ABNORMAL RHYTHM ECG Compared to ECG 07/09/2020 15:25:38 Sinus rhythm no longer present T-wave abnormality no longer present Electronically Signed On 11-26-2020 19:23:42 FIELD ENGINEER by KRYS GONSALEZ [id number]
--- NOTE | 2020-11-26 13:41 | US_ITS ---
WS: [id number] Gallbladder and right upper quadrant ultrasound, 11/26/2020 Clinical Data: RUQ gb Comparison: Abdomen ultrasound, 07/09/2020 Findings: The gallbladder shows no sludge or stone. The wall measures 0.2 cm with no pericholecystic fluid. The common bile duct is 0.5 cm and there are no intrahepatic ductal abnormalities. Liver shows no cysts, masses or dilated intrahepatic ducts. There is fatty infiltration. The pancreas is not obscured by overlying bowel gas and no cyst, pseudocyst, or evidence of pancreati tis is noted. Right kidney measures 12.0 cm and no cyst, masses or hydronephrosis can be seen. The aorta and inferior vena cava show no vascular abnormalities. US/US abdomen limited [id number] Impression: 1. Negative gallbladder. 2. Fatty infiltration of the liver.
[2020-11-26 14:06] LABS: Basophils % 0.1 %; Eosinophils # 0.1 10^3/uL (0.0-0.8); Eosinophils % 1.2 %; Hematocrit 41.7 % (37.0-47.0); Lymphocytes # 1.8 10^3/uL (0.8-4.8); Lymphocytes % 26.8 %; Mean Corpuscular HGB Conc 33.6 g/dL (30.0-36.0); Mean Corpuscular Hemoglobin 30.2 pg (28.0-34.0); Mean Corpuscular Volume 89.9 fL (81-99); Mean Platelet Volume 9.5 fL (7.4-10.4); Monocytes # 0.4 10^3/uL (0.2-0.9); Monocytes % 5.3 %; Neutrophils # 4.54 10^3/uL (1.8-7.7); Neutrophils % 66.5 %; Nucleated Red Blood Cells % 0 %; Platelet Count 317 10^3/cmm (130-400); Red Blood Count 4.64 10^6/uL (4.1-5.3); Red Cell Distribution Width 11.5 % (12.1-15.1); White Blood Count 6.8 10^3/uL (4.0-10.0)
[2020-11-26 14:25] LABS: Add Urine Microscopic? YES; Bilirubin Urine Neg (Negative); Blood Urine 2+ (Negative); Glucose Urine UA 4+ (Normal); Ketones Urine Negative (Negative); Leukocyte Esterase Urine Negative (Negative); Nitrate Urine Negative (Negative); Protein Urine Neg (Negative); Urine Appearance Hazy (CLEAR); Urine Color Yellow (Yellow); Urobilinogen Urine Norm (Negative); pH Urine 5 (5-7)
[2020-11-26 14:26] LABS: Add Urine Culture? No; Bacteria Urine TRACE /hpf; RBC Urine 0-4 /hpf (0-2); Squamous Epithelial Cell Urine 0-4 /hpf (0-5)
[2020-11-26 14:27] LABS: Alanine Aminotransferase 14 U/L (0-33); Alkaline Phosphatase 99 IU/L (35-105); Blood Urea Nitrogen 10 mg/dL (6-20); Calcium 9.3 mg/dL (8.5-10.5); Carbon Dioxide 29 mmol/L (22-29); Chloride 95 mmol/L (98-107); Globulin 2.5 g/dL (1.3-4.6); Glomerular Filtration Rate 74.7 mL/min (90-130); Glucose 379 mg/dL (65-115); Lipase 27 U/L (13-60); Osmolality Calculated 295 mOsm/kg (285-295); Sodium 135 mmol/L (136-145); Total Bilirubin 0.3 mg/dL (0.15-1.2); Total Protein 6.5 g/dL (6.6-8.7)
[2020-11-26] MEDS: iohexol 300 mg/mL 100 mL Btl IV (14:30)
[2020-11-26 14:31] LABS: Troponin(5th) Baseline 19 ng/L (0-10)
[2020-11-26 14:40] LABS: Anion Gap 14.7 (5-19); Aspartate Amino Transferase 17 U/L (0-32); Potassium 3.7 mmol/L (3.5-5.1)
[2020-11-26] MEDS: sodium chloride 0.9% 1,000 ML 999 ML IV (14:45)
[2020-11-26 14:58] LABS: Lactate (Lactic Acid level) 2.6 mmol/L (0.5-2.2)
[2020-11-26 15:24] VITALS: BP 142/88; PULSE 101; RESP 18; O2SAT 97
--- NOTE | 2020-11-26 15:25 | PC.NURSE ---
patient stated pain comes and goes, tolerated pain well at this time. no acute distress noted at this time.
--- NOTE | 2020-11-26 15:39 | PC.NURSE ---
Dr. Tyler here to see pt
--- NOTE | 2020-11-26 15:41 | ECG_ITS ---
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1965 Requested By: Carlyle Kay Order Number: [id number] Giovanny MD: KRYS GONSALEZ Measurements Intervals [place] Rate: 102 P: 53 GA: 132 QRS: 13 QRSD: 77 T: 72 QT: 351 QTc: 459 Interpretive Statements SINUS TACHYCARDIA POSSIBLE LEFT ATRIAL ENLARGEMENT [-0.1mV P WAVE IN V1/V2] LOW QRS VOLTAGE IN PRECORDIAL LEADS [QRS DEFLECTION < 1.0 mV IN CHEST LEADS] POSSIBLE ANTERIOR MYOCARDIAL INFARCTION , OF INDETERMINATE AGE [30 ms Q WAVE IN V3/V4, OR R < 0.2 mV IN V4] Compared to ECG 11/26/2020 13:48:07 Myocardial infarct finding now present Electronically Signed On 11-26-2020 19:25:22 WOOD FENCE INSTALLER by KRYS GONSALEZ [id number]
[2020-11-26] MEDS: acetaminophen 325 mg Tablet 650 MG PO (16:18)
[2020-11-26 16:19] VITALS: BP 143/86; PULSE 98; RESP 18; O2SAT 97
[2020-11-26 16:24] LABS: D Dimer 0.38 ug/mIFEU (0-0.59)
[2020-11-26 17:00] LABS: Troponin 5 2HR 18.51 ng/L (0-10)
[2020-11-26 17:03] LABS: Troponin 5 2HR Delta -0.49 ABS# (0-10)
--- NOTE | 2020-11-26 17:22 | ED_ITS ---
HPI - Abdominal Pain General: Chief Complaint: Abdominal Pain Stated Complaint: LOWER ABD PAIN/SWELLING Time Seen by Provider: 11/26/20 13:28 History of Present Illness: HPI narrative: The patient is a 55-year-old female with chronic abdominal pain and uterine fibroid who comes to the ER complaining of lower right and upper right abdominal pain that radiates to her right chest wall at the mid axillary line. She has had multiple visits outpatient and in the ED for similar pain all with negative work-ups. Denies nausea, vomiting, diarrhea, constipation. MD elicited complaint: abdominal pain Pertinent past history: none Location: RUQ and RLQ Severity: moderate Quality: sharp Migration to: no migration Exacerbating factors: nothing Relieving factors: nothing Associated Symptoms: Reports no associated symptoms; Denies GI cramping and diarrhea Review of Systems General: Reports: 10 or more systems reviewed and unremarkable except in HPI and below Const: Denies: fatigue Eyes: Denies: change in vision, blurry vision or eye redness ENMT: Denies: throat pain, swelling of lips/tongue, ear or mastoid pain or nasal congestion Card: Denies: chest pain, palpitations, irregular heart rhythm, edema, dyspnea on exertion or orthopnea Resp: Denies: dyspnea, productive cough or non-productive cough GI: Reports: abdominal pain; Denies: diarrhea or GI cramping : Denies: flank pain, difficulty voiding, urinary frequency or urinary urgency Musc: Denies: neck pain, back pain, extremity pain, joint pain, joint redness, limited range of motion or muscle weakness Skin/Breast: Denies: rash, pruritus, erythema, skin pain or skin tenderness Neuro: Denies: headache(s), numbness in extremities, weakness in extremities, sensory changes, difficulty walking, dizziness, confusion or Slurred speech present Psych: Denies: anxiety or depression Endo: Denies: polyuria All/Imm: Denies: urticaria, throat swelling or tongue swelling PFSH ED PFSH: Medical History (Updated 11/26/20 @ 17:21 by Carlyle Kay MD) Coronary artery disease 4 stents present. Depression Diabetes mellitus Hyperlipidemia Hypertension Surgical History H/O heart artery stent 2013 - Done in [place], 1 stent placed. 2015 - Done in [place], 1 stent placed. 2017 - Done in [facility], 2 stents placed. H/O left knee surgery (~1999) Plastic disc was placed History of salpingectomy (~1988) Treatment of ectopic History of tubal ligation Family History Mother Diabetes Heart disease Hypertension Hyperlipidemia Father Heart disease Diabetes Hypertension Hyperlipidemia Sister Diabetes Social History Smoking and tobacco status: current every day smoker cigarettes Packs smoked per day: 0.5 Years cigarettes smoked: 35 Quit status (tobacco): has tried quititng Alcohol intake: current Alcohol intake frequency: holidays/special occasions only History of recent travel: No Physical Exam Const: COMMON NORMALS: no acute distress, average body habitus, patient oriented x3, no limitations, healthy appearing, alert and well nourished GENERAL APPEARANCE: cooperative, comfortable, well kempt and well developed ORIENTATION/CONSCIOUSNESS: Yes awake, Yes oriented to person, Yes oriented to place and Yes oriented to time HENMT: COMMON NORMALS: normocephalic, external ears normal and Normal external nose present HEAD & SCALP: normal to inspection and normocephalic NOSE: Normal external nose present EXTERNAL EAR: Yes external ears normal MOUTH: Normal oral and palatal mucosa present THROAT: posterior oropharynx normal Eye: COMMON NORMALS: Equal, round and reactive pupils present and EOMs intact bilaterally GENERAL EYE: appearance normal, both eyes and all related structures PUPIL: Yes Equal, round and reactive pupils present Neck/C-Spine: COMMON NORMALS: full ROM, no lymphadenopathy, no meningeal signs and no JVD GENERAL: Yes normal visual inspection Lymph: LYMPHATIC: no lymphadenopathy noted Chest: COMMONS NORMALS: normal inspection of the chest and normal palpation of entire chest wall Resp: COMMON NORMALS: normal respiratory effort, No retractions, No use of accessory muscles, clear to auscultation bilaterally and percussion normal EFFORT & INSPECTION: Yes able to speak in complete sentences AUSCULTATION: clear to auscultation bilaterally PERCUSSION: percussion normal Cardio: COMMON NORMALS: no JVD, regular rate, regular rhythm, S1 normal heart sound present, S2 normal heart sound present and Peripheral pulses 2+ throughout RATE: regular rate RHYTHM: regular rhythm HEART SOUNDS: S1 normal heart sound present and S2 normal heart sound present PERIPHERAL PULSES: Peripheral pulses 2+ throughout GI: COMMON NORMALS: Normal to inspection, nondistended, normoactive bowel sounds present, Soft to palpation, non-tender and no masses INSPECTION: Yes normal to inspection PALPATION: Yes Soft to palpation : COMMON NORMALS: Yes no CVA tenderness BLADDER/KIDNEY EXAM: Yes no CVA tenderness Back/Pelvis: COMMON NORMALS: no CVA tenderness, thoracic and lumbar spine n ormal to inspection, no thoracic nor lumbar tenderness and thoraco-lumbar ROM normal Extremity: COMMON NORMALS: normal to inspection, full ROM, capillary refill normal, no joint enlargement and no pedal edema GENERAL: Yes normal exam except as noted Neuro: COMMON NORMALS: patient oriented x3, CN's II-XII intact bilaterally, moves all extremities, no focal motor deficits, no sensory deficits noted and gait normal SENSORIUM/ORIENTATION: Yes alert, Yes oriented to person, Yes oriented to place and Yes oriented to time MENINGEAL SIGNS: Yes no meningeal signs Psych: COMMON NORMALS: mental status grossly normal, Normal thought process present, cooperative, normal affect and speech normal APPEARANCE: Yes well kempt ATTITUDE: Yes calm SPEECH: Yes normal speech THOUGHT PROCESS: Normal thought process present Skin: COMMON NORMALS: no rashes or lesions noted GENERAL SKIN EXAM: no rashes or lesions noted Course Vital Signs: Vital signs: Vital Signs Temperature 97.9 F 11/26/20 13:21 Pulse Rate 95 11/26/20 17:27 Respiratory Rate 18 11/26/20 17:27 Blood Pressure 153/91 11/26/20 17:27 Pulse Oximetry 99 11/26/20 17:27 MDM - Abdominal Pain MDM Narrative: Medical decision making narrative: The patient came in with chronic abdominal pain she has had multiple ED and outpatient visits for. Her condition remains the same and unchanged. Imaging was negative for any acute pathology but she does have the chronic fibroid she knows about. She has seen multiple physicians. The only abnormal lab was her lactic acid was elevated. I gave her a liter of fluids and she was mildly tachycardiac. In all her previous visit she is also been tachycardic and this is likely a chronic finding. She demanded discharge. I recommended she stay to repeat the lactic acid however she demanded to leave now and says she feels about the same as she normally does and wants to leave. She was discharged. I recommended she follow-up with her primary care physician Sunday for a checkup and return to the ED with worsening symptoms. Lab Data: Labs: Lab Results 11/26/20 11/26/20 11/26/20 Range/Units 13:53 13:53 13:53 WBC 6.8 (4.0-10.0) 10^3/ uL RBC 4.64 (4.1-5.3) 10^6/u L Hgb 14.0 (11.5-15.3) g/dL Hct 41.7 (37.0-47.0) % MCV 89.9 (81-99) fL MCH 30.2 (28.0-34.0) pg MCHC 33.6 (30.0-36.0) g/dL RDW 11.5 L (12.1-15.1) % Plt Count 317 (130-400) 10^3/c mm MPV 9.5 (7.4-10.4) fL Neut % (Auto) 66.5 % Lymph % (Auto) 26.8 % [place] % (Auto) 5.3 % Eos % (Auto) 1.2 % Baso % (Auto) 0.1 % Neut # (Auto) 4.54 (1.8-7.7) 10^3/u L Lymph # (Auto) 1.8 (0.8-4.8) 10^3/u L [place] # (Auto) 0.4 (0.2-0.9) 10^3/u L Eos # (Auto) 0.1 (0.0-0.8) 10^3/u L Baso # (Auto) 0.0 (0.0-0.1) 10^3/u L Nucleated RBC % (a uto) 0 % Nucleated RBCs # 0.0 /100WBC D-Dimer (0-0.59) ug/mIFE U Sodium 135 L (136-145) mmol/L Potassium 3.7 (3.5-5.1) mmol/L Chloride 95 L (98-107) mmol/L Carbon Dioxide 29 (22-29) mmol/L Anion Gap 14.7 (5-19) BUN 10 (6-20) mg/dL Creatinine 0.8 (0.5-0.9) mg/dL GFR Calculation 74.7 L (90-130) mL/min Glucose 379 H (65-115) mg/dL Calculated Osmolal ity 295 (285-295) mOsm/k g Lactate 2.6 H (0.5-2.2) mmol/L Calcium 9.3 (8.5-10.5) mg/dL Total Bilirubin 0.3 (0.15-1.2) mg/dL AST 17 (0-32) U/L ALT 14 (0-33) U/L Alkaline Phosphata se 99 (35-105) IU/L Troponin T Baselin e (0-10) ng/L Troponin T 120 Min ely [place] (0-10) ng/L Delta Troponin T (0-10) ABS# Total Protein 6.5 L (6.6-8.7) g/dL Albumin 4.0 (3.5-5.2) g/dL Globulin 2.5 (1.3-4.6) g/dL Lipase 27 (13-60) U/L Urine Color (Yellow) Urine Appearance (CLEAR) Urine pH (5-7) Ur Specific Gravit y (1.005-1.030) Urine Protein (Negative) Urine Glucose (UA) (Normal) Urine Ketones (Negative) Urine Blood (Negative) Urine Nitrate (Negative) Urine Bilirubin (Negative) Urine Urobilinogen (Negative) mg/dL Ur Leukocyte Ingrid ase (Negative) Urine RBC (0-2) /hpf Urine WBC (0-5) /hpf Ur Squamous Epith Cells (0-5) /hpf Amorphous Sediment Urine Bacteria (NONE) /hpf 11/26/20 11/26/20 11/26/20 Range/Units 13:53 13:53 14:03 WBC (4.0-10.0) 10^3/ uL RBC (4.1-5.3) 10^6/u L Hgb (11.5-15.3) g/dL Hct (37.0-47.0) % MCV (81-99) fL MCH (28.0-34.0) pg MCHC (30.0-36.0) g/dL RDW (12.1-15.1) % Plt Count (130-400) 10^3/c mm MPV (7.4-10.4) fL Neut % (Auto) % Lymph % (Auto) % [place] % (Auto) % Eos % (Auto) % Baso % (Auto) % Neut # (Auto) (1.8-7.7) 10^3/u L Lymph # (Auto) (0.8-4.8) 10^3/u L [place] # (Auto) (0.2-0.9) 10^3/u L Eos # (Auto) (0.0-0.8) 10^3/u L Baso # (Auto) (0.0-0.1) 10^3/u L Nucleated RBC % (a uto) % Nucleated RBCs # /100WBC D-Dimer 0.38 (0-0.59) ug/mIFE U Sodium (136-145) mmol/L Potassium (3.5-5.1) mmol/L Chloride (98-107) mmol/L Carbon Dioxide (22-29) mmol/L Anion Gap (5-19) BUN (6-20) mg/dL Creatinine (0.5-0.9) mg/dL GFR Calculation (90-130) mL/min Glucose (65-115) mg/dL Calculated Osmolal ity (285-295) mOsm/k g Lactate (0.5-2.2) mmol/L Calcium (8.5-10.5) mg/dL Total Bilirubin (0.15-1.2) mg/dL AST (0-32) U/L ALT (0-33) U/L Alkaline Phosphata se (35-105) IU/L Troponin T Baselin e 19 H (0-10) ng/L Troponin T 120 Min ely [place] (0-10) ng/L Delta Troponin T (0-10) ABS# Total Protein (6.6-8.7) g/dL Albumin (3.5-5.2) g/dL Globulin (1.3-4.6) g/dL Lipase (13-60) U/L Urine Color Yellow (Yellow) Urine Appearance Hazy A (CLEAR) Urine pH 5 (5-7) Ur Specific Gravit y 1.020 (1.005-1.030) Urine Protein Neg (Negative) Urine Glucose (UA) 4+ H (Normal) Urine Ketones Negative (Negative) Urine Blood 2+ H (Negative) Urine Nitrate Negative (Negative) Urine Bilirubin Neg (Negative) Urine Urobilinogen Norm (Negative) mg/dL Ur Leukocyte Ingrid ase Negative (Negative) Urine RBC 0-4 H (0-2) /hpf Urine WBC None (0-5) /hpf Ur Squamous Epith Cells 0-4 H (0-5) /hpf Amorphous Sediment Not Reportable Urine Bacteria Trace (NONE) /hpf 11/26/20 Range/Units 16:28 WBC (4.0-10.0) 10^3/ uL RBC (4.1-5.3) 10^6/u L Hgb (11.5-15.3) g/dL Hct (37.0-47.0) % MCV (81-99) fL MCH (28.0-34.0) pg MCHC (30.0-36.0) g/dL RDW (12.1-15.1) % Plt Count (130-400) 10^3/c mm MPV (7.4-10.4) fL Neut % (Auto) % Lymph % (Auto) % [place] % (Auto) % Eos % (Auto) % Baso % (Auto) % Neut # (Auto) (1.8-7.7) 10^3/u L Lymph # (Auto) (0.8-4.8) 10^3/u L [place] # (Auto) (0.2-0.9) 10^3/u L Eos # (Auto) (0.0-0.8) 10^3/u L Baso # (Auto) (0.0-0.1) 10^3/u L Nucleated RBC % (a uto) % Nucleated RBCs # /100WBC D-Dimer (0-0.59) ug/mIFE U Sodium (136-145) mmol/L Potassium (3.5-5.1) mmol/L Chloride (98-107) mmol/L Carbon Dioxide (22-29) mmol/L Anion Gap (5-19) BUN (6-20) mg/dL Creatinine (0.5-0.9) mg/dL GFR Calculation (90-130) mL/min Glucose (65-115) mg/dL Calculated Osmolal ity (285-295) mOsm/k g Lactate (0.5-2.2) mmol/L Calcium (8.5-10.5) mg/dL Total Bilirubin (0.15-1.2) mg/dL AST (0-32) U/L ALT (0-33) U/L Alkaline Phosphata se (35-105) IU/L Troponin T Baselin e (0-10) ng/L Troponin T 120 Min ely [place] 18.51 H (0-10) ng/L Delta Troponin T -0.49 L (0-10) ABS# Total Protein (6.6-8.7) g/dL Albumin (3.5-5.2) g/dL Globulin (1.3-4.6) g/dL Lipase (13-60) U/L Urine Color (Yellow) Urine Appearance (CLEAR) Urine pH (5-7) Ur Specific Gravit y (1.005-1.030) Urine Protein (Negative) Urine Glucose (UA) (Normal) Urine Ketones (Negative) Urine Blood (Negative) Urine Nitrate (Negative) Urine Bilirubin (Negative) Urine Urobilinogen (Negative) mg/dL Ur Leukocyte Ingrid ase (Negative) Urine RBC (0-2) /hpf Urine WBC (0-5) /hpf Ur Squamous Epith Cells (0-5) /hpf Amorphous Sediment Urine Bacteria (NONE) /hpf Discharge Plan Discharge Patient Disposition: Home Clinical Impression: Abdominal pain Condition: Stable Prescriptions: No Action metformin 1,000 mg tablet 1,000 mg PO BID@0700,1800 RF: 0 atorvastatin 80 mg tablet 80 mg PO DAILY@0700 RF: 0 nitroglycerin 0.4 mg tablet, sublingual 0.4 mg SUBLINGUAL Q5M PRN (Reason: Chest Pain) RF: 0 sertraline 50 mg tablet 50 mg PO DAILY@1800 RF: 0 aspirin [Adult Low Dose Aspirin] 81 mg tablet,delayed release (DR/EC) 81 mg PO DAILY@0700 RF: 0 isosorbide dinitrate 30 mg tablet 15 mg PO BID@0700,1800 RF: 0 glipizide 5 mg tablet 5 mg PO DAILY@0700 RF: 0 isosorbide mononitrate 30 mg tablet extended release 24 hr 15 mg PO DAILY@0700 RF: 0 Plavix 75 mg tablet 75 mg PO DAILY@0700 RF: 0 metoprolol tartrate 25 mg tablet 12.5 mg PO BID@0700,1800 RF: 0 Miralax 17 gram Powder In Packet 17 g PO DAILY@1800 PRN (Reason: Constipation) RF: 0 Ventolin HFA 90 mcg/actuation Hfa Aerosol Inhaler 2 puff INHALATION 6XD PRN (Reason: Shortness Of Breath) RF: 0 Gummy Fiber 1 tab PO DAILY@0700 RF: 0 Vitamin D3 1 tab PO DAILY@0700 RF: 0 Discharge Orders: Discharge ED (Routine); Ordered 11/26/20 Ordered By: Carlyle Kay Referrals: VANGIE DE MD [Primary Care Provider] - Patient Instructions: Abdominal Pain (ED), Opioid Safety Activity Restrictions/Additional Instructions: You have chronic abdominal pain possibly from your fibroid or other conditions. Please follow-up with your primary care physician in a day or 2 to monitor improvement of your symptoms and return to the ER with worsening symptoms. Please drink lots of fluids at home and get your blood work rechecked Sunday. Coding Level of Care Code ED Flight Security Specialist for Christiang Fwd Exam Comprehensive
[2020-11-26 17:27] VITALS: BP 153/91; PULSE 95; RESP 18; O2SAT 99
== END 2020-11-26 17:32 | disposition home or self-care (01) ==
PROVIDERS: Emergency Provider Family Medicine; PCP Family Medicine
DX: R10.9 Unspecified abdominal pain (principal); Z79.84 Long term (current) use of oral hypoglycemic drugs; Z79.02 Long term (current) use of antithrombotics/antiplatelets; Z79.82 Long term (current) use of aspirin; I25.10 Atherosclerotic heart disease of native coronary artery without angina pectoris; E11.9 Type 2 diabetes mellitus without complications; E78.5 Hyperlipidemia, unspecified; I10 Essential (primary) hypertension; F17.210 Nicotine dependence, cigarettes, uncomplicated
CPT/HCPCS: 36415; 71045; 74177; 76705; 80053; 81001; 83605; 83690; 84484; 85025; 85378; 93005; 96360; 99283; J7030; Q9967

== ENCOUNTER 2021-07-01 02:28 | Inpatient (IN) | payer OTHER, SELFPAY ==
[2021-07-01] VITALS (65 sets, daily range): BP systolic 92–140; BP diastolic 59–108; PULSE 98–145; RESP 13–38; TEMP 35.5–37.2; O2SAT 89–100; BMI 29.0
--- NOTE | 2021-07-01 02:32 | XRR_ITS ---
PROCEDURE INFORMATION: Exam: XR Chest Exam date and time: 07/01/2021 2:32 AM Age: 56 years old Clinical indication: Shortness of breath; Prior surgery; Surgery type: Coronary stents x 4. ; Patient HX: SOB with tachycardia. TECHNIQUE: Imaging protocol: XR of the chest. Views: 1 view. COMPARISON: CR XR chest 1V portable [id number] 11/26/2020 2:15 PM FINDINGS: Lungs: The the there increased interstitial opacity seen in the hemithoraces bilaterally and some indistinctness of the pulmonary vasculature is seen. Mild peribronchial cuffing is noted. Patchy and hazy opacities are seen in the lung bases bilaterally. These findings suggest pulmonary edema. Superimposed bilateral basilar infiltrates and/or atelectasis cannot be excluded. Pleural spaces: The hemidiaphragms are obscured likely secondary to small bilateral pleural effusions. Heart/Mediastinum: Unremarkable. No cardiomegaly. Bones/joints: Unremarkable. XR/XR chest 1V portable [id number] IMPRESSION: 1. Findings suggesting pulmonary edema although superimposed bilateral basilar atelectasis and/or infiltrates cannot be excluded. 2. Small bilateral pleural effusions obscure the hemidiaphragms. Radiation Dose CTDIVOL = (mGy): DLP = (mGy-cm)
--- NOTE | 2021-07-01 02:34 | ECG_ITS ---
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 Measurements Intervals [place] Rate: 141 P: 33 MO: 96 QRS: 56 QRSD: 82 T: 38 QT: 291 QTc: 447 Interpretive Statements SINUS TACHYCARDIA WITH SHORT MO INTERVAL, POSSIBLE ATRIAL FLUTTER LOW QRS VOLTAGE IN PRECORDIAL LEADS [QRS DEFLECTION < 1.0 mV IN CHEST LEADS] NONSPECIFIC ST & T-WAVE ABNORMALITY Compared to ECG 11/26/2020 15:26:07 T-wave abnormality now present Myocardial infarct finding no longer present Electronically Signed On 07-01-2021 18:37:38 CDT by Byron Valadez M.D. [id number]
[2021-07-01 02:56] LABS: Basophils % 0.2 %; Eosinophils # 0.1 10^3/uL (0.0-0.8); Eosinophils % 0.7 %; Hematocrit 34.9 % (37.0-47.0); Hemoglobin 10.9 g/dL (11.5-15.3); Lymphocytes # 1.6 10^3/uL (0.8-4.8); Lymphocytes % 11.3 %; Mean Corpuscular HGB Conc 31.2 g/dL (30.0-36.0); Mean Corpuscular Hemoglobin 29.9 pg (28.0-34.0); Mean Corpuscular Volume 95.9 fl (81-99); Mean Platelet Volume 9.4 fL (7.4-10.4); Monocytes # 0.7 10^3/uL (0.2-0.9); Monocytes % 5.2 %; Nucleated Red Blood Cells % 0 %; Platelet Count 502 10^3/cmm (130-400); Red Blood Count 3.64 10^6/uL (4.1-5.3); White Blood Count 14.1 10^3/uL (4.0-10.0)
[2021-07-01] MEDS: ondansetron 2 mg/ML SDV 2 mL 4 MG IVP (02:59)
[2021-07-01] MEDS: fentaNYL 50 mcg/mL INJ 2mL 25 MCG IVP ×2 (02:59→06:34)
[2021-07-01] MEDS: sodium chloride 0.9% 1,000 ML 999 ML IV ×2 (03:00→05:49)
[2021-07-01] MEDS: piperacillin-tazobactam 4.5 GM in sodium chloride 0.9% (plus) 50 ML IV (03:06)
--- NOTE | 2021-07-01 03:09 | ED_ITS ---
Documented by User: Alonso Golver MD 07/02/21 19:03 HPI - SOB/Dyspnea General: Chief Complaint: Shortness of Breath/Dyspnea Stated Complaint: sob Time Seen by Provider: 07/01/21 02:28 History of Present Illness: HPI Narrative: Ms. Solano is a 56-year-old lady with significant past medical history of hypertension, hyperlipidemia, diabetes, CAD, recent hospitalization for pneumonia presents emergency department due to shortness of breath. Onset symptoms was at approximately midnight, prior to that she had been feeling okay. She describes shortness of breath which is worse with exertion, feeling of inability to get a deep breath, and generalized malaise. Intensity symptoms is severe. EMS gave her steroids as well as inhaled treatments which mildly improved symptoms however she still feels shortness of breath and is tachycardic. No other specific changes to health reported Review of Systems General: Reports: 10 or more systems reviewed and unremarkable except in HPI and below PFSH ED PFSH: Medical History (Updated 07/02/21 @ 13:24 by Kelsey Cuadra MD) Coronary artery disease 4 stents present. Depression Diabetes mellitus Hyperlipidemia Hypertension Surgical History H/O heart artery stent 2013 - Done in [place], 1 stent placed. 2015 - Done in [place], 1 stent placed. 2017 - Done in [facility], 2 stents placed. H/O left knee surgery (~1999) Plastic disc was placed History of salpingectomy (~1988) Treatment of ectopic History of tubal ligation Family History Mother Diabetes Heart disease Hypertension Hyperlipidemia Father Heart disease Diabetes Hypertension Hyperlipidemia Sister Diabetes Social History Smoking and tobacco status: current every day smoker cigarettes Packs smoked per day: 0.5 Years cigarettes smoked: 35 Quit status (tobacco): has tried quititng Alcohol intake: current Alcohol intake frequency: holidays/special occasions only History of recent travel: No Physical Exam Narrative: EXAM NARRATIVE: GENERAL/CONSTITUTIONAL - Ill appearing. resp distress Eyes - PERRL, no conjunctival injection ENMT - Atraumatic external nose and ears. Moist mucous membranes NECK - supple. trachea midline CARDIOVASCULAR -tachycardic rate and regular rhythm RESPIRATORY -coarse to auscultation bilaterally. Supplemental oxygen in place. Retractions present. ABDOMEN/GI - Nontender/Nondistended. MSK - Extremities without obvious deformity or tenderness to palpation SKIN - Warm, Dry NEURO - alert and appropriately oriented. Moves all extremities equally. Course ED course: - Patient was seen and evaluated by me at bedside - Patient placed on cardiac monitors, IV access obtained - Initial evaluation notable for ill appearance with respiratory distress. BiPAP ordered given work of breathing despite supplemental oxygen -Given recent diagnosis of pneumonia and now worsening antibiotics and fluids ordered. - Labs notable for Leukocytosis, metabolic panel with hyperglycemia without evidence of DKA, transaminitis of unclear etiology. Delta troponin elevated though likely secondary to type II NSTEMI. - Imaging notable for ED read of x-ray with effusions and likely hazy opacities representing continued pneumonia. - Upon serial reexamination after treatment the patient was improved on BiPAP - Based on patient history, evaluation, labs, and imaging as interpreted the most likely cause of the patient's condition is pneumonia sepsis with type II NSTEMI and volume overload - The results of ED evaluation were discussed with the patient including plan for admission due to requirement for level of care not available if discharged to prevent significant worsening/deterioration. - Hospitalist service contacted and agreed to meet the patient. CTA ordered given relatively sudden onset of symptoms and read pending at time of admission - Patient was admitted without further deterioration or significant events. Vital Signs: Vital signs: Vital Signs Temperature 97.9 F 07/02/21 03:09 Pulse Rate 92 07/02/21 13:48 Respiratory Rate 16 07/02/21 13:48 Blood Pressure 88/60 07/02/21 13:48 Pulse Oximetry 99 07/02/21 13:48 MDM - SOB/Dyspnea Medical Records: Attestation: I reviewed the patient's medical records. Lab Data: Attestation: I reviewed the patient's lab results. Labs: Lab Results 07/01/21 07/01/21 07/01/21 02:40 02:40 02:40 WBC 14.1 10^3/uL H 10 ^3/uL (4.0-10.0) RBC 3.64 10^6/uL L 10 ^6/uL (4.1-5.3) Hgb 10.9 g/dL L g/dL (11.5-15.3) Hct 34.9 % L % (37.0-47.0) MCV 95.9 fl fl (81-99) MCH 29.9 pg pg (28.0-34.0) MCHC 31.2 g/dL g/dL (30.0-36.0) RDW 14.0 % % (12.1-15.1) Plt Count 502 10^3/cmm H 10 ^3/cmm (130-400) MPV 9.4 fL fL (7.4-10.4) Neut % (Auto) 82.0 % % Lymph % (Auto) 11.3 % % [place] % (Auto) 5.2 % % Eos % (Auto) 0.7 % % Baso % (Auto) 0.2 % % Neut # (Auto) 11.60 10^3/uL H 1 0^3/uL (1.8-7.7) Lymph # (Auto) 1.6 10^3/uL 10^3/ uL (0.8-4.8) [place] # (Auto) 0.7 10^3/uL 10^3/ uL (0.2-0.9) Eos # (Auto) 0.1 10^3/uL 10^3/ uL (0.0-0.8) Baso # (Auto) 0.0 10^3/uL 10^3/ uL (0.0-0.1) Nucleated RBC % (a uto) 0 % % Nucleated RBCs # 0.0 /100WBC /100W BC Specimen Type Sample Site ABG pH ABG pCO2 ABG pO2 ABG HCO3 ABG Base Excess Tonio Test Hematocrit Hgb O2 Saturation Carboxyhemoglobin Methemoglobin Total Hemoglobin O2 Delivery Device FiO2 PEEP Forder Operator ID Sodium 140 mmol/L mmol/L (136-145) Potassium 3.8 mmol/L mmol/L (3.5-5.1) Chloride 97 mmol/L L mmol/ L (98-107) Carbon Dioxide 30 mmol/L H mmol/ L (22-29) Anion Gap 16.8 (5-19) BUN 9 mg/dL mg/dL (6-20) Creatinine 0.5 mg/dL mg/dL (0.5-0.9) GFR Calculation 128.1 mL/min mL/m in (90-130) Glucose 494 mg/dL H mg/dL (65-115) Calculated Osmolal ity 311 mOsm/kg H mOs m/kg (285-295) Lactic Acid 3.4 mmol/L H mmol /L (0.5-2.2) Calcium 9.1 mg/dL mg/dL (8.5-10.5) Total Bilirubin 0.3 mg/dL mg/dL (0.15-1.2) AST 60 U/L H U/L (0-32) ALT 36 U/L H U/L (0-33) Alkaline Phosphata se 119 IU/L H IU/L (35-105) Troponin T Baselin e Troponin T 120 Min [place] Troponin T NT-Pro-B Natriuret Pep 1131 pg/mL H pg/m L (0-125) Total Protein 6.6 g/dL g/dL (6.6-8.7) Albumin 3.8 g/dL g/dL (3.5-5.2) Globulin 2.8 g/dL g/dL (1.3-4.6) 07/01/21 07/01/21 07/01/21 02:40 03:30 04:22 WBC RBC Hgb Hct MCV MCH MCHC RDW Plt Count MPV Neut % (Auto) Lymph % (Auto) [place] % (Auto) Eos % (Auto) Baso % (Auto) Neut # (Auto) Lymph # (Auto) [place] # (Auto) Eos # (Auto) Baso # (Auto) Nucleated RBC % (a uto) Nucleated RBCs # Specimen Type Arterial Sample Site Brachial, left ABG pH 7.32 L (7.35-7.45) ABG pCO2 49.1 mmHg H mmHg (35-45) ABG pO2 77.7 mmHg L mmHg (80.0-100.0) ABG HCO3 25.2 mmol/L mmol/ L (22-26) ABG Base Excess -1.1 mmol/L mmol/ L (-2.0-2.0) Tonio Test N/a Hematocrit 28.3 % L % (37-47) Hgb O2 Saturation 91.6 % L % (95-100) Carboxyhemoglobin 2.5 %THgb %THgb (0.4-20.1) Methemoglobin 0.9 % % (0.4-1.5) Total Hemoglobin 9.2 g/dL L g/dL (12-16) O2 Delivery Device Bipap FiO2 28.0 % % PEEP 6.0 cmH20 cmH20 Forder Operator ID Rieri Sodium Potassium Chloride Carbon Dioxide Anion Gap BUN Creatinine GFR Calculation Glucose Calculated Osmolal ity Lactic Acid Calcium Total Bilirubin AST ALT Alkaline Phosphata se Troponin T Baselin e 48 ng/L H ng/L (0-10) Troponin T 120 Min [place] 61.26 ng/L H ng/L (0-10) Delta Troponin T 13.26 ABS# H* ABS # (0-10) NT-Pro-B Natriuret Pep Total Protein Albumin Globulin EKG Data^: EKG 1: Attestation: I personally reviewed and interpreted this EKG as follows: EKG Interpretation Date: 07/01/21 EKG interpretation time: 02:40 Interpretation: Twelve-lead EKG shows a regular rhythm at a rate of 141. DC interval 96, QRS duration 82, QTc 447. Normal axis. Interpretation: Sinus rhythm. Limited interpretation secondary to baseline variability Discharge Plan Discharge Patient Disposition: Admitted As Inpatient Admit Provider: Jeanine Marquez Coding Level of Care Code ED Product Safety Technical Assistant for Chg Fwd Documented by User: Jeanine Marquez MD 07/01/21 06:02 HPI - SOB/Dyspnea General: Chief Complaint: Shortness of Breath/Dyspnea Stated Complaint: sob Time Seen by Provider: 07/01/21 02:28 [facility] ED PFSH: Medical History (Updated 07/02/21 @ 13:24 by Kelsey Cuadra MD) Coronary artery disease 4 stents present. Depression Diabetes mellitus Hyperlipidemia Hypertension Surgical History H/O heart artery stent 2013 - Done in [place], 1 stent placed. 2015 - Done in [place], 1 stent placed. 2017 - Done in [facility], 2 stents placed. H/O left knee surgery (~1999) Plastic disc was placed History of salpingectomy (~1988) Treatment of ectopic History of tubal ligation Family History Mother Diabetes Heart disease Hypertension Hyperlipidemia Father Heart disease Diabetes Hypertension Hyperlipidemia Sister Diabetes Social History Smoking and tobacco status: current every day smoker cigarettes Packs smoked pe r day: 0.5 Years cigarettes smoked: 35 Quit status (tobacco): has tried quititng Alcohol intake: current Alcohol intake frequency: holidays/special occasions only History of recent travel: No Course Vital Signs: Vital signs: Vital Signs Temperature 97.9 F 07/02/21 03:09 Pulse Rate 92 07/02/21 13:48 Respiratory Rate 16 07/02/21 13:48 Blood Pressure 88/60 07/02/21 13:48 Pulse Oximetry 99 07/02/21 13:48 MDM - SOB/Dyspnea Lab Data: Labs: Lab Results 07/01/21 07/01/21 07/01/21 02:40 02:40 02:40 WBC 14.1 10^3/uL H 10 ^3/uL (4.0-10.0) RBC 3.64 10^6/uL L 10 ^6/uL (4.1-5.3) Hgb 10.9 g/dL L g/dL (11.5-15.3) Hct 34.9 % L % (37.0-47.0) MCV 95.9 fl fl (81-99) MCH 29.9 pg pg (28.0-34.0) MCHC 31.2 g/dL g/dL (30.0-36.0) RDW 14.0 % % (12.1-15.1) Plt Count 502 10^3/cmm H 10 ^3/cmm (130-400) MPV 9.4 fL fL (7.4-10.4) Neut % (Auto) 82.0 % % Lymph % (Auto) 11.3 % % [place] % (Auto) 5.2 % % Eos % (Auto) 0.7 % % Baso % (Auto) 0.2 % % Neut # (Auto) 11.60 10^3/uL H 1 0^3/uL (1.8-7.7) Lymph # (Auto) 1.6 10^3/uL 10^3/ uL (0.8-4.8) [place] # (Auto) 0.7 10^3/uL 10^3/ uL (0.2-0.9) Eos # (Auto) 0.1 10^3/uL 10^3/ uL (0.0-0.8) Baso # (Auto) 0.0 10^3/uL 10^3/ uL (0.0-0.1) Nucleated RBC % (a uto) 0 % % Nucleated RBCs # 0.0 /100WBC /100W BC Specimen Type Sample Site ABG pH ABG pCO2 ABG pO2 ABG HCO3 ABG Base Excess Tonio Test Hematocrit Hgb O2 Saturation Carboxyhemoglobin Methemoglobin Total Hemoglobin O2 Delivery Device FiO2 PEEP Forder Operator ID Sodium 140 mmol/L mmol/L (136-145) Potassium 3.8 mmol/L mmol/L (3.5-5.1) Chloride 97 mmol/L L mmol/ L (98-107) Carbon Dioxide 30 mmol/L H mmol/ L (22-29) Anion Gap 16.8 (5-19) BUN 9 mg/dL mg/dL (6-20) Creatinine 0.5 mg/dL mg/dL (0.5-0.9) GFR Calculation 128.1 mL/min mL/m in (90-130) Glucose 494 mg/dL H mg/dL (65-115) Calculated Osmolal ity 311 mOsm/kg H mOs m/kg (285-295) Lactic Acid 3.4 mmol/L H mmol /L (0.5-2.2) Calcium 9.1 mg/dL mg/dL (8.5-10.5) Total Bilirubin 0.3 mg/dL mg/dL (0.15-1.2) AST 60 U/L H U/L (0-32) ALT 36 U/L H U/L (0-33) Alkaline Phosphata se 119 IU/L H IU/L (35-105) Troponin T Baselin e Troponin T 120 Min [place] Troponin T NT-Pro-B Natriuret Pep 1131 pg/mL H pg/m L (0-125) Total Protein 6.6 g/dL g/dL (6.6-8.7) Albumin 3.8 g/dL g/dL (3.5-5.2) Globulin 2.8 g/dL g/dL (1.3-4.6) 07/01/21 07/01/21 07/01/21 02:40 03:30 04:22 WBC RBC Hgb Hct MCV MCH MCHC RDW Plt Count MPV Neut % (Auto) Lymph % (Auto) [place] % (Auto) Eos % (Auto) Baso % (Auto) Neut # (Auto) Lymph # (Auto) [place] # (Auto) Eos # (Auto) Baso # (Auto) Nucleated RBC % (a uto) Nucleated RBCs # Specimen Type Arterial Sample Site Brachial, left ABG pH 7.32 L (7.35-7.45) ABG pCO2 49.1 mmHg H mmHg (35-45) ABG pO2 77.7 mmHg L mmHg (80.0-100.0) ABG HCO3 25.2 mmol/L mmol/ L (22-26) ABG Base Excess -1.1 mmol/L mmol/ L (-2.0-2.0) Tonio Test N/a Hematocrit 28.3 % L % (37-47) Hgb O2 Saturation 91.6 % L % (95-100) Carboxyhemoglobin 2.5 %THgb %THgb (0.4-20.1) Methemoglobin 0.9 % % (0.4-1.5) Total Hemoglobin 9.2 g/dL L g/dL (12-16) O2 Delivery Device Bipap FiO2 28.0 % % PEEP 6.0 cmH20 cmH20 Forder Operator ID Rieri Sodium Potassium Chloride Carbon Dioxide Anion Gap BUN Creatinine GFR Calculation Glucose Calculated Osmolal ity Lactic Acid Calcium Total Bilirubin AST ALT Alkaline Phosphata se Troponin T Baselin e 48 ng/L H ng/L (0-10) Troponin T 120 Min [place] 61.26 ng/L H ng/L (0-10) Delta Troponin T 13.26 ABS# H* ABS # (0-10) NT-Pro-B Natriuret Pep Total Protein Albumin Globulin Discharge Plan Discharge Patient Disposition: Admitted As Inpatient Admit Provider: Jeanine Marquez Coding Level of Care Code ED Product Safety Technical Assistant for g [place]
[2021-07-01 03:14] LABS: Lactic Sepsis W/Reflex 3.4 mmol/L (0.5-2.2)
[2021-07-01 03:48] LABS: ABG PCO2 49.1 mmHg (35-45); ABG PH Result 7.32 (7.35-7.45); Arterial Blood Gas Hematocrit 28.3 % (37-47); Base Excess ABG -1.1 mmol/L (-2.0-2.0); Blood Gas Sample Site Brachial, left; Blood Gas Sample Type Arterial; Carboxyhemoglobin 2.5 %THgb (0.4-20.1); HCO3 ABG 25.2 mmol/L (22-26); HGB O2 Sat 91.6 % (95-100); Methemoglobin 0.9 % (0.4-1.5); Oxygen Device BIPAP; PO2 ABG 77.7 mmHg (80.0-100.0); Total Hemoglobin 9.2 g/dL (12-16)
[2021-07-01 03:57] LABS: Troponin(5th) Baseline 48 ng/L (0-10)
[2021-07-01 03:59] LABS: Alanine Aminotransferase 36 U/L (0-33); Albumin Level 3.8 g/dL (3.5-5.2); Alkaline Phosphatase 119 IU/L (35-105); Anion Gap 16.8 (5-19); Aspartate Amino Transferase 60 U/L (0-32); Blood Urea Nitrogen 9 mg/dL (6-20); Calcium 9.1 mg/dL (8.5-10.5); Carbon Dioxide 30 mmol/L (22-29); Chloride 97 mmol/L (98-107); Creatinine Clr Calc Pharmacy 118.2259; Globulin 2.8 g/dL (1.3-4.6); Glomerular Filtration Rate 128.1 mL/min (90-130); Glucose 494 mg/dL (65-115); Osmolality Calculated 311 mOsm/kg (285-295); Potassium 3.8 mmol/L (3.5-5.1); Sodium 140 mmol/L (136-145); Total Bilirubin 0.3 mg/dL (0.15-1.2); Total Protein 6.6 g/dL (6.6-8.7)
[2021-07-01 04:06] LABS: NT Pro B Type Natriuretic Pept 1131 pg/mL (0-125)
--- NOTE | 2021-07-01 04:34 | CTR_ITS ---
PROCEDURE INFORMATION: Exam: CTA Chest With Contrast Exam date and time: 07/01/2021 4:34 AM Age: 56 years old Clinical indication: Cough and shortness of breath and tachypnea; Prior surgery; Surgery type: Coronary stents x 4; Patient HX: Cough with SOB and tachypnea. ; Additional info: SOB, acute, tachycardia TECHNIQUE: Imaging protocol: Computed tomographic angiography of the chest with contrast. 3D rendering (Not supervised by radiologist): MIP and/or 3D reconstructed images were created by the technologist. Radiation optimization: All CT scans at this facility use at least one of these dose optimization techniques: automated exposure control; mA and/or kV adjustment per patient size (includes targeted exams where dose is matched to clinical indication); or iterative reconstruction. Contrast material: OMNI 350; Contrast volume: 65 ml; Contrast route: INTRAVENOUS (IV); COMPARISON: CR (CHEST, ) 07/01/2021 2:38 AM RADIATION DOSE METRICS: Total DLP (mGy-cm): 601.94 FINDINGS: Pulmonary arteries: There is mild bronchial wall thickening seen and mild prominence of pulmonary vasculature with increased septal markings seen bilaterally. These findings suggest pulmonary edema. Superimposed pneumonia cannot be entirely excluded. Aorta: Unremarkable. No aortic aneurysm. No aortic dissection. Lungs: See Pulmonary arteries finding. Pleural spaces: There are moderate bilateral pleural effusions. There are patchy opacities present in the lower hemithoraces bilaterally superimposed over the bilateral pleural effusions. Heart: Unremarkable. No cardiomegaly. No pericardial effusion. Lymph nodes: Unremarkable. No enlarged lymph nodes. Bones/joints: Unremarkable. No acute fracture. Soft tissues: Unremarkable. CT/CT angio chest PE protcl 10078 IMPRESSION: 1. There is no evidence for pulmonary emboli. 2. Bilateral pleural effusions with superimposing bilateral basilar opacities, mild bronchial wall thickening and some increased septal markings, findings suggesting pulmonary edema. A superimposed bilateral pneumonia cannot be excluded. Radiation Dose CTDIVOL = (mGy): DLP = 601.94 (mGy-cm)
[2021-07-01 04:46] LABS: Reflex Lactate Order REFLEX LACTIC ORDERD
[2021-07-01 04:59] LABS: Troponin 5 2HR 61.26 ng/L (0-10)
[2021-07-01 05:02] LABS: Troponin 5 2HR Delta 13.26 ABS# (0-10)
[2021-07-01] MEDS: iohexol 350 mg/mL 100 mL Btl IV (05:37)
[2021-07-01] MEDS: aspirin 81 mg Chew Tablet 324 MG PO (05:55)
[2021-07-01] MEDS: enoxaparin 80 mg/0.8 mL Syringe 70 MG SUBCUT (05:56)
[2021-07-01] MEDS: FUROsemide 10 mg/mL SDV 4mL 40 MG IVP ×2 (06:35→19:37)
--- NOTE | 2021-07-01 06:55 | P.HP_ITS ---
Providers/Chief Complaint Admitting Physician: Jeanine Marquez Primary Care Provider: VANGIE DE MD Chief Complaint: sob History of Present Illness 56-year-old female with a past medical history significant for anxiety, depression hypertension, hyperlipidemia, diabetes mellitus, coronary artery disease with hx of PCI/stent x4, who is presenting to hospital with respiratory distress. Patient was recently admitted to hospital in [place] for diabetic foot infection and pneumonia which was tx with antibiotics. During this time she also was noted to have peripheral vascular disease for which she had angiogram and peripheral stents placed. Noted progressively worsening symptoms since discharge. Can not recall if she was sent home on abx. Denied chest pain however noted orthopnea. Upon arrival to ER she was noted to have increase work of breathing and placed on a bipap. Symptoms initially improved however after having to lay flat for CT she again noted respiratory distress. Laboratory workup showed a WBC of 14.1, hemoglobin of 10.9, hematocrit 34.9 and a platelet count of 5 O2. Sodium 140, potassium 3.8, chloride 97, bicarb 30, BUN 9 and creatinine of 0.5. Glucose was elevated at 494. Lactic acid of 3.4. AST of 60, ALT of 36 and alkaline phosphatase of 119. 2hr Delta troponin T of 13.26. ProBNP of 1131. Imaging studies included chest x-ray which showed finding s suggestive of pulmonary edema although superimposed bilateral basilar atelectasis or infiltrates could not be excluded. CT of chest showed bilateral pleural effusions with superimposed bilateral basilar opacities, mild bronchial wall thickening and some increased septal markings suggestive of pulmonary edema with superimposed bilateral pneumonia. In emergency room patient was given vancomycin 2 g IV x1, Zosyn 4.5 g IV x1, Lovenox 70 mg subcu x1 2 L NS bolus, fentanyl 25mcg IV x1 and Zofran 4 mg IV x 1. Patient was noted to be in respiratory distress on Bipap at the time of my eval. Review of Systems General: Reports: 10 or more systems reviewed and unremarkable except in HPI and below Medications/Allergies Home Medications Medication Instructions Recorded Confirmed Last Taken Type aspirin 81 mg tablet,delayed 81 mg PO DAILY@0700 10/23/19 11/26/20 11/26/20 History release atorvastatin 80 mg tablet 80 mg PO DAILY@0700 10/23/19 11/26/20 11/26/20 History metformin 1,000 mg tablet 1,000 mg PO BID@0700,1800 10/23/19 11/26/20 11/26/20 History nitroglycerin 0.4 mg sublingual 0.4 mg SUBLINGUAL Q5M PRN 10/23/19 11/26/20 Unknown History tablet sertraline 50 mg tablet 50 mg PO DAILY@1800 10/23/19 11/26/20 11/25/20 History Gummy Fiber 1 tab PO DAILY@0700 11/26/20 11/26/20 11/26/20 History Plavix 75 mg PO DAILY@0700 11/26/20 11/26/20 Unknown History Vitamin D3 1 tab PO DAILY@0700 11/26/20 11/26/20 11/26/20 History albuterol sulfate [Ventolin HFA] 2 puff INHALATION 6XD PRN 11/26/20 11/26/20 11/25/20 History glipizide 5 mg PO DAILY@0700 11/26/20 11/26/20 11/26/20 History isosorbide dinitrate 15 mg PO BID@0700,1800 11/26/20 11/26/20 Unknown History isosorbide mononitrate 15 mg PO DAILY@0700 11/26/20 11/26/20 Unknown History metoprolol tartrate 12.5 mg PO BID@0700,1800 11/26/20 11/26/20 11/26/20 History polyethylene glycol 3350 [Miralax] 17 g PO DAILY@1800 PRN 11/26/20 11/26/20 11/25/20 History Allergies Allergy/AdvReac Type Severity Reaction Status Date / Time codeine Allergy hallucinations Verified 11/26/20 13:24 and violence PFSH Acute PFSH: Medical History (Updated 07/01/21 @ 06:46 by Jeanine Marquez MD) Coronary artery disease 4 stents present. Depression Diabetes mellitus Hyperlipidemia Hypertension Surgical History H/O heart artery stent 2013 - Done in [place], 1 stent placed. 2015 - Done in [place], 1 stent placed. 2017 - Done in [facility] in [place], 2 stents placed. H/O left knee surgery (~1999) Plastic disc was placed History of salpingectomy (~1988) Treatment of ectopic History of tubal ligation Family History Mother Diabetes Heart disease Hypertension Hyperlipidemia Father Heart disease Diabetes Hypertension Hyperlipidemia Sister Diabetes Social History Smoking and tobacco status: current every day smoker cigarettes Packs smoked per day: 0.5 Years cigarettes smoked: 35 Quit status (tobacco): has tried quititng Alcohol intake: current Alcohol intake frequency: holidays/special occasions only History of recent travel: No Vitals/I&O/Wt Last Vital Signs Temp 95.9 F L 07/01/21 02:28 Pulse 129 H 07/01/21 05:35 Resp 25 H 07/01/21 05:35 BP 111/90 07/01/21 05:35 Pulse Ox 99 07/01/21 05:35 Weight last 48 hrs Weight 72.121 kg Physical Exam Narrative: EXAM NARRATIVE: General : Alert on BIPAP in mod -severe respiratory distress. HEENT; Grossly unremarkable CVS: RRR Chest; B/l crackles with decrease at bases Abd; Non-distended. Ext; LE great toe ulcer Data : 07/01/21 02:40 07/01/21 02:40 Micro: Microbiology 07/01/21 02:56 Blood Culture - Preliminary Blood SPECIMEN COLLECTED 07/01/21 02:56 Blood Culture - Preliminary Blood SPECIMEN COLLECTED A&P Assessment and plan (1) Acute respiratory distress: Etiology Multi-factorial Suspected HF exacerbation > pneumonia Lasix 40 mg IV x1 in ER - will continue lasix 40 IV BID Replace K as needed Holding further fluids Continue Bipap Wean as tolerated Status: Acute (2) Elevated troponin: Likely due to respiratory distress Aspirin 324 in Er - continue 81 mg po daily ECHO ordered Lovenox 70 mg SQ BID Will need cardiology consult in am Monitor on tele Continue Lipitor 80 mg PO daily Continue plavix 75 mg PO daily Verify remainder of cardiac meds Status: Acute (3) HCAP (healthcare-associated pneumonia): Suspected super imposed infection Sputum culture Blood culture x 2 Procalcitonin ordered De-escalate abx based on culture and clinical course MRSA screen Status: Acute (4) Diabetic foot infection: Recently tx at [facility] Obtain records On abx Status: Acute (5) Peripheral vascular disease: Recent angio with stent placement per pt As[facility]/Plavix / statin Status: Acute (6) Coronary artery disease: Management as noted above Hx of multiple stents Asa/plavix/lovenox ECHO Status: Acute Qualifiers: Coronary Disease-Associated Artery/Lesion type: [place] artery [place] vs. transplanted heart: [place] heart Associated angina: with other forms of angina Qualified Code(s): I25.118 - Atherosclerotic heart disease of [place] coronary artery with other forms of angina pectoris (7) Diabetes mellitus: Diabetic diet Sliding scale insulin - High dose QACHS checks Status: Acute (8) Hypertension: Status: Acute Qualifiers: Hypertension type: essential hypertension Qualified Code(s): I10 - Essential (primary) hypertension (9) Hyperlipidemia: Status: Acute Qualifiers: Hyperlipidemia type: mixed hyperlipidemia Qualified Code(s): E78.2 - Mixed hyperlipidemia Attestations Medical Necessity Statement*: Will require > 2 midnight stay in hospital for eval and treatment Time Spent in Patient Care: Greater than 35 minutes (>than 50% of time spent in counselling and/or direct pt care on unit) . Coding Level of Care Code Acute Warehouse Production Worker for Lakisha Barrosod Diagnoses Acute respiratory distress R06.03 Elevated troponin R77.8 HCAP (healthcare-associated pneumonia) J18.9 Diabetic foot infection E11.628; L08.9 Peripheral vascular disease I73.9 Coronary artery disease I25.118 Coronary Disease-Associated Artery/Lesion type: [place] artery [place] vs. transplanted heart: [place] heart Associated angina: with other forms of angina Diabetes mellitus E11.9 Hypertension I10 Hypertension type: essential hypertension Hyperlipidemia E78.2 Hyperlipidemia type: mixed hyperlipidemia
[2021-07-01 08:19] LABS: Lactic Acid level (Lactate) 3.1 mmol/L (0.5-2.2)
[2021-07-01 08:22] LABS: Glucose Point of Care 526 mg/dL (70-110)
[2021-07-01 08:25] LABS: Troponin 5 6HR 74.46 ng/L (0-10)
[2021-07-01 08:32] LABS: Troponin 5 6HR Delta 26.46 ng/L (0-12)
[2021-07-01 08:34] LABS: Procalcitonin 0.16 ng/mL (0-0.5)
--- NOTE | 2021-07-01 08:34 | ECG_ITS ---
[facility] Test Date: 2021-07-01 Pat Name: Nathalie Solano Department: Room: 105 Gender: Female Commissioned Sales Associate: : 1965 Requested By: Alonso Glover Order Number: [id number] Giovanny MD: Byron Valadez M.D. Measurements Intervals [place] Rate: 113 P: 37 VA: 96 QRS: 43 QRSD: 79 T: 66 QT: 342 QTc: 471 Interpretive Statements SINUS TACHYCARDIA WITH SHORT VA INTERVAL LOW QRS VOLTAGE IN PRECORDIAL LEADS [QRS DEFLECTION < 1.0 mV IN CHEST LEADS] Compared to ECG 07/01/2021 02:36:05 T-wave abnormality no longer present Electronically Signed On 07-01-2021 18:41:03 CDT by Byron Valadez M.D. [id number]
[2021-07-01] MEDS: insulin lispro 100 unit/1 mL 25 UNIT SUBCUT (08:39)
[2021-07-01] MEDS: pantoprazole DR 40 mg Tablet PO (08:40)
[2021-07-01] MEDS: clopidogrel 75 mg Tablet PO (08:40)
--- NOTE | 2021-07-01 09:19 | PC.PHAR ---
pt states she takes care of her own medications-pt verified medications-also got med list from pts pcp nikki soto [facility] [place] [phone] office-meds matched what pt verified-some medications havent been filled since april 2021 pt states she had a build up of some medications-notes are made in the pharmacy comments-
[2021-07-01] MEDS: acetaminophen 325 mg Tablet 650 MG PO ×2 (09:53→17:36)
[2021-07-01] MEDS: LORazepam 0.5 mg Tablet PO ×2 (09:54→19:39)
[2021-07-01] MEDS: piperacillin-tazobactam 3.375 GM in sodium chloride 0.9% (plus) 50 ML IV ×2 (10:20→17:34)
--- NOTE | 2021-07-01 10:48 | PC.CHAP ---
Pastoral Care Encounter/Spiritual Assessment Type of Contact [] Declined manager inpatient visit [] Patient/Family/Request visit [] Outpatient visit [] Follow-up visit [] Physician referral [] Code/Alert [x] Routine visit [] Staff referral [] Actively dying [] Patient sleeping [] Family support [] [] Out of room [] Palliative care [] [] Receiving care in room [] Pre-surgical visit [] Trauma [] Long length of stay [] ICU visit [] Other: Relational/Emotional Strength [] Patient feels connected with others/family/visitors/staff [] Distress [] Loneliness/isolation [] Abandonment Spirituality of Patient [] Person of Bre [] Attends Catholic of their Bre [] Believes in Prayer [] Reads Bible or Amish materials [] There are Spiritual issues to be addressed City [employer]rier Interventions [x] Prayer [x] Active listening [x] Non-anxious presence [x] Spiritual/emotional support [] Crisis/trauma care [] Spiritual counseling [] Bereavement support [] Provided bereavement packet [] Provided Bible/devotional materials [] Provided toy/stuffed animal, coloring book to patient or family member [] Provided Communion [] Anointing/[place] [] Salvation [x] Completed spiritual assessment [] Other: Impact on Illness or Injury [] Angry [] Fearful [] Anxious [] Often cries [] Exhaustion [] Unable to work [] Unable to attend scientologist [] Unable to walk/stand [] Unable to read [] Unable to drive [] Unable to eat/drink [] Unable to sleep [] Unable to be with family [] Patient intubated [] Other: Summary patient resting... feeling stronger. Time spent with patient 5 min
[2021-07-01 12:01] LABS: Glucose Point of Care 293 mg/dL (70-110)
[2021-07-01] MEDS: insulin lispro 100 unit/1 mL SUBCUT ×2 (12:13→20:45)
--- NOTE | 2021-07-01 14:52 | P.PN_ITS ---
Subjective Subjective: Interval history: Patient was seen and examined this morning, he was complaining of worsening shortness of breath, which has improved slightly since admission.Currently she denies any chest pain. Overnight Vitals, labs, and telemetry have been reviewed. Medications: Reviewed: Yes Vitals/I&O/Wt Last Vital Signs Temp 97.6 F 07/01/21 11:47 Pulse 103 H 07/01/21 14:43 Resp 19 H 07/01/21 14:43 BP 101/65 07/01/21 11:47 Pulse Ox 98 07/01/21 14:43 06/30/21 07/01/21 07/01/21 22:59 06:59 14:59 Intake Total 770 / 770 Output Total 800 / 800 Balance -30 / -30 Weight last 48 hrs Weight 72.121 kg Physical Exam Const: COMMON NORMALS: patient oriented x3 HENMT: COMMON NORMALS: normocephalic and atraumatic HEAD & SCALP: normocephalic and atraumatic Resp: OTHER: Bilaterally clear to auscultation, diminished air entry in both lung blunt predominantly at bases. Cardio: COMMON NORMALS: regular rate, regular rhythm, S1 normal heart sound present, S2 normal heart sound present, No gallops present (Cardio), No murmurs present (Cardio), No rub (Cardio) and Peripheral pulses 2+ throughout RATE: regular rate RHYTHM: regular rhythm HEART SOUNDS: S1 normal heart sound present and S2 normal heart sound present PERIPHERAL PULSES: Peripheral pulses 2+ throughout GI: COMMON NORMALS: Normal to inspection, nondistended, normoactive bowel sounds present, Soft to palpation, non-tender, No hepatosplenomegaly present and no masses AUSCULTATION: Yes normoactive bowel sounds PALPATION: Yes Soft to palpation and Yes No hepatosplenomegaly present RECTAL EXAM: deferred Extremity: COMMON NORMALS: no clubbing, cyanosis or edema and no pedal edema Neuro: COMMON NORMALS: patient oriented x3 Data : 07/01/21 02:40 07/01/21 02:40 Micro: Microbiology 07/01/21 02:56 Blood Culture - Preliminary Blood SPECIMEN COLLECTED 07/01/21 02:56 Blood Culture - Preliminary Blood SPECIMEN COLLECTED A&P Assessment and plan (1) Acute respiratory distress: Patient presented with worsening shortness of breath, from her baseline shortness of breath. Likely secondary to decompensated heart failure with preserved ejection fraction as well as pneumonia. Elevated proBNP:1131 Blood cultures: Urine culture Urine Legionella antigen Bacterial antigen panel Sputum culture: MRSA PCR Procalcitonin normal Lasix 40 mg IV twice daily Continue broad-spectrum antibiotic Vanco and Zosyn for now. K>4, Mg>2 Intake output charting Daily weight Continue telemetry monitoring Status: Acute (2) Elevated troponin: NSTEMI type II: Demand ischemia secondary to decompensated heart failure. Currently she is denying any chest pain. Shortness of breath has improved. Aspirin 324 in Er ECHO: Aspirin 81 mg p.o. daily Continue Lipitor 80 mg PO daily Continue plavix 75 mg PO daily Sublingual nitro as needed Possible cardiology consult Status: Acute (3) Pleural effusion: Bilateral pleural effusion likely secondary to heart failure. Possible pneumonia Currently we will continue with Lasix, and if patient continues to improve, clinically, will monitor with serial x-ray. If not then will consider thoracentesis. Status: Acute (4) Transaminitis: Secondary to congestive hepatopathy. Status: Acute (5) HCAP (healthcare-associated pneumonia): Status: Acute (6) Diabetic foot infection: Recently tx at [place] Obtain records On abx Status: Acute (7) Peripheral vascular disease: Recent angio with stent placement per pt Asa/Plavix / statin Status: Acute (8) Coronary artery disease: Management as noted above Hx of multiple stents Asa/plavix/lovenox ECHO Status: Acute Qualifiers: Coronary Disease-Associated Artery/Lesion type: [place] artery [place] vs. transplanted heart: [place] heart Associated angina: with other forms of angina Qualified Code(s): I25.118 - Atherosclerotic heart disease of [place] coronary artery with other forms of angina pectoris (9) Diabetes mellitus: Diabetic diet Sliding scale insulin - High dose QACHS checks Status: Acute (10) Hypertension: Status: Acute Qualifiers: Hypertension type: essential hypertension Qualified Code(s): I10 - Essential (primary) hypertension (11) Hyperlipidemia: Status: Acute Qualifiers: Hyperlipidemia type: mixed hyperlipidemia Qualified Code(s): E78.2 - Mixed hyperlipidemia Attestations Medical Necessity Statement*: Patient needs to be in the hospital for management of respiratory distress. Coding Level of Care Code Acute Pan Puller for Lakisha Coleman Diagnoses Acute respiratory distress R06.03 Elevated troponin R77.8 Pleural effusion J90 Transaminitis R74.01 HCAP (healthcare-associated pneumonia) J18.9 Diabetic foot infection E11.628; L08.9 Peripheral vascular disease I73.9 Coronary artery disease I25.118 Coronary Disease-Associated Artery/Lesion type: [place] artery [place] vs. transplanted heart: [place] heart Associated angina: with other forms of angina Diabetes mellitus E11.9 Hypertension I10 Hypertension type: essential hypertension Hyperlipidemia E78.2 Hyperlipidemia type: mixed hyperlipidemia
[2021-07-01] MEDS: vancomycin 1,250 MG/250 ML PIGGYBACK 250 MG IV (15:29)
--- NOTE | 2021-07-01 16:15 | PC.RESP ---
SMOKING CESSATION INFORMATION SENT TO PATIENT.
[2021-07-01 17:59] LABS: Glucose Point of Care 107 mg/dL (70-110)
[2021-07-01 20:17] LABS: Glucose Point of Care 169 mg/dL (70-110)
--- NOTE | 2021-07-01 20:27 | PC.NURSE ---
Bedside shift report note Pt is alert,oriented x4. Has been on Bipap-Fio2 28% for increase work of breathing though SpO2 is 98% on 2 L. Ativan was given as ordered and helped pt. Pt has a back pain which warm compress and tylenol given as ordered. Pt instructed on fluid restriction and on scheduled IV Lasix diurese. Pt has a intact, draining nunez catheter. Hand-off report given to Prabha Paulino.
[2021-07-01] MEDS: atorvastatin 40 mg Tablet 80 MG PO (20:45)
[2021-07-02] VITALS (18 sets, daily range): BP systolic 88–113; BP diastolic 60–76; PULSE 87–103; RESP 13–30; TEMP 36.6–37.1; O2SAT 89–100
[2021-07-02] MEDS: vancomycin 1,250 MG/250 ML PIGGYBACK 250 MG IV ×2 (04:07→15:47)
[2021-07-02] MEDS: piperacillin-tazobactam 3.375 GM in sodium chloride 0.9% (plus) 50 ML IV ×3 (05:05→18:51)
[2021-07-02] MEDS: LORazepam 0.5 mg Tablet PO ×2 (05:09→22:27)
[2021-07-02] MEDS: enoxaparin 40 mg/0.4 mL Syringe SUBCUT (05:09)
[2021-07-02] MEDS: albuterol 8 gm MDI 2 PUFF INHALATION (05:10)
--- NOTE | 2021-07-02 06:00 | USCV_ITS ---
Nathalie Solano Age: 56 Gender: F : 1965 Exam Date: 07/02/2021 08:57 Ordering Phys: Jeanine Marquez MD Technologist: Priyanka Pimentel [place]am [place] [facility] [place]: ELEVATED TROPONIN, CHF BP: 94 / 57 HR: 100 Rhythm: Sinus Technical Quality: Adequate MEASUREMENTS (Male / Female) Normal Values 2D ECHO LV Diastolic Diameter PLAX 3.9 cm 4.2 - 5.9 / 3.9 - 5.3 cm LV Systolic Diameter PLAX 2.4 cm IVS Diastolic Thickness 1.1 cm 0.6 - 1.0 / 0.6 - 0.9 cm IVS Systolic Thickness 1.6 cm LVPW Diastolic Thickness 1.1 cm 0.6 - 1.0 / 0.6 - 0.9 cm LVPW Systolic Thickness 1.6 cm RV Chamber Size 2.5 cm LVOT Diameter 2.0 cm LV Ejection Fraction 2D Teich 65.1 % LV Ejection Fraction MOD 2C 62.5 % LV Ejection Fraction 2C AL 64.9 % LA Diameter 3.2 cm LA Width 3.2 cm LA Height 3.7 cm RA Width 2.5 cm RA Height 2.8 cm Aorta at Sinotubular Diameter 1.8 cm DOPPLER AV Peak Velocity 221.0 cm/s LVOT Peak Velocity 79.0 cm/s AV Area Cont Eq vti 1.1 cm squared AV Area Cont Eq pk 1.1 cm squared MV Area PHT 5.0 cm squared Mitral E to A Ratio 1.1 MV E' Velocity 84.0 cm/s Mitral E to LV E' Lateral Ratio 16.9 TR Peak Velocity 269.3 cm/s TR Peak Gradient 29.0 mmHg TV Peak E Velocity 59.0 cm/s Right Atrial Pressure 3.0 mmHg Pulmonary Artery Systolic Pressu 32.0 mmHg PV Peak Velocity 88.0 cm/s RV Acceleration Time 0.1 s RV Ejection Time 0.3 s RV AcT/ET 0.5 FINDINGS Left Ventricle Normal left ventricular size, systolic function and upper normal wall thickness. Left ventricular ejection fraction is estimated at 55-60 %. There is mild hypokinesis of basal inferolateral and basal to mid anterolateral herron. Grade II diastolic dysfunction, moderately elevated filling pressures. Right Ventricle Normal right ventricular size and systolic function. Right ventricular systolic pressure 38 mmHg. Right Atrium Normal right atrial size. Right atrial pressure estimated at 8 mmHg. Left Atrium Mildly increased left atrial size. Mitral Valve Moderate mitral annular calcification. Restricted movement of posterior mitral valve leaflet. Moderately thickened mitral valve. No mitral valve stenosis. Moderate to severe somewhat posteriorly directed mitral valve regurgitation. Aortic Valve Moderately thickened and calcified trileaflet aortic valve. Aortic valve visually appears to be at moderately stenotic. Mild to moderate aortic valve stenosis, peak velocity 2.5 m/s, peak gradient 25 mmHg, mean gradient 14 mmHg, CORINA 1.1 cm squared. Dimensionless valve index of 0.31. No aortic valve regurgitation. Tricuspid Valve Structurally normal tricuspid valve. No tricuspid valve stenosis. Mild tricuspid valve regurgitation. Pulmonic Valve Structurally normal pulmonic valve. No pulmonary valve stenosis. Trace pulmonary valve regurgitation. Pericardium No pericardial effusion. Left pleural effusion. Aorta Normal-sized inferior vena cava with decreased respiratory variation. CONCLUSIONS 1. Normal left ventricular size, systolic function and upper normal wall thickness. Left ventricular ejection fraction is estimated at 55-60 %. There is mild hypokinesis of basal inferolateral and basal to mid anterolateral herron. Grade II diastolic dysfunction, moderately elevated filling pressures. 2. Normal right ventricular size and systolic function. 3. Restricted movement of posterior mitral valve leaflet. Moderate to severe somewhat posteriorly directed mitral valve regurgitation. 4. Mild pulmonary hypertension with pulmonary artery pressure estimated at 38 mmHg. 5. Moderately thickened and calcified trileaflet aortic valve. Aortic valve visually appears to be at moderately stenotic. Mild to moderate aortic valve stenosis, peak velocity 2.5 m/s, peak gradient 25 mmHg, mean gradient 14 mmHg, CORINA 1.1 cm squared. Dimensionless valve index of 0.31. 6. Mild tricuspid valve regurgitation. 7. No prior similar studies to compare. Kelsey Cuadra MD (Electronically Signed) Final Date: 02 July 2021 12:54 S
[2021-07-02] MEDS: clopidogrel 75 mg Tablet PO (06:02)
[2021-07-02] MEDS: FUROsemide 10 mg/mL SDV 4mL 40 MG IVP ×2 (06:02→20:34)
[2021-07-02 06:36] LABS: Glucose Point of Care 105 mg/dL (70-110)
[2021-07-02 06:37] LABS: Basophils % 0.2 %; Eosinophils # 0.1 10^3/uL (0.0-0.8); Hematocrit 31.3 % (37.0-47.0); Lymphocytes # 2.1 10^3/uL (0.8-4.8); Lymphocytes % 25.3 %; Mean Corpuscular HGB Conc 31.9 g/dL (30.0-36.0); Mean Corpuscular Hemoglobin 30.5 pg (28.0-34.0); Mean Corpuscular Volume 95.4 fl (81-99); Mean Platelet Volume 9.5 fL (7.4-10.4); Monocytes # 0.5 10^3/uL (0.2-0.9); Neutrophils # 5.52 10^3/uL (1.8-7.7); Neutrophils % 67.3 %; Nucleated Red Blood Cells % 0 %; Platelet Count 384 10^3/cmm (130-400); Red Blood Count 3.28 10^6/uL (4.1-5.3); Red Cell Distribution Width 14.7 % (12.1-15.1); White Blood Count 8.2 10^3/uL (4.0-10.0)
[2021-07-02 07:32] LABS: Alanine Aminotransferase 32 U/L (0-33); Albumin Level 3.3 g/dL (3.5-5.2); Alkaline Phosphatase 99 IU/L (35-105); Anion Gap 14.3 (5-19); Aspartate Amino Transferase 35 U/L (0-32); Blood Urea Nitrogen 10 mg/dL (6-20); Calcium 8.6 mg/dL (8.5-10.5); Carbon Dioxide 30 mmol/L (22-29); Chloride 98 mmol/L (98-107); Creatinine Clr Calc Pharmacy 118.2259; Globulin 3.1 g/dL (1.3-4.6); Glomerular Filtration Rate 128.1 mL/min (90-130); Glucose 107 mg/dL (65-115); Magnesium 1.5 mg/dL (1.7-2.3); Osmolality Calculated 288 mOsm/kg (285-295); Potassium 3.3 mmol/L (3.5-5.1); Sodium 139 mmol/L (136-145); Total Bilirubin 0.3 mg/dL (0.15-1.2); Total Protein 6.4 g/dL (6.6-8.7)
[2021-07-02] MEDS: magnesium sulfate premix 2 GM/50 ML PIGGYBACK IV (08:45)
[2021-07-02] MEDS: pantoprazole DR 40 mg Tablet PO (08:46)
[2021-07-02] MEDS: potassium chloride ER 20 mEq Tablet 40 MEQ PO (08:46)
[2021-07-02] MEDS: metoprolol tartrate 25 mg Tablet PO (08:46)
[2021-07-02] MEDS: aspirin 81 mg Chew Tablet PO (08:46)
[2021-07-02] MEDS: potassium chloride premix 100 ML 25 MEQ IV (10:21)
--- NOTE | 2021-07-02 10:29 | P.CONIM_ITS ---
Providers/Reason For Consult Consulting Physician/Specialty*: Dr. Cuadra, cardiology Reason for Consult*: Elevated troponin, CHF Attending Physician: Royal Luciano MD Primary Care Provider: VANGIE DE MD History of Present Illness History of Present Illness Nathalie Solano is a 56 year old female with PMHx of CAD s/p multiple stents (total of 11, with 6 stents in December 2020 at [place]), HTN, HLD, anxiety/depression and DM-2. She also has chronic lower back pain and chronic active tobacco abuse. She has had a recent hospitalization at [facility] for diabetic foot infection and pneumonia. She was admitted for elective peripheral angiogram for poorly healing left foot diabetic wound. She underwent peripheral stents (needed 3 angiograms done via right femoral access). She was also treated with antibiotics for pneumonia. She was discharged about a week back. I do not have records available for review. She continued to have progressively worse worsening dyspnea on exertion and orthopnea, PND as well as lower extremity swelling. She carries no prior diagnosis of congestive heart failure per her knowledge and says she was not taking any diuretics at home. Her oxygen level had dropped in 70's. No fever or chills. She asked her to call 911 and presented to the ER. She received steroids and breathing treatment via EMS and was brought to the ER. She was placed on BiPAP. She was admitted on 01 July 2021 with respiratory distress. Labs on arrival showed hemoglobin of 10.9, proBNP of 1131, BUN 9, creatinine 0.5. AST 860, ALT 36. Baseline troponin T of 48 that increased at 2 hours to 61 and at 6 hours to 74. Chest x-ray suggestive of pulmonary edema versus superimposed bilateral basilar atelectasis/infiltrates. CT chest shows bilateral pleural effusion with superimposed bilateral basilar opacities and mild pneumonia. Was started on vancomycin and Zosyn and received Lovenox 70 mg subcu in ER. She was started on Lasix 40 mg IV twice daily and is -1.2 L since admission. At the time of evaluation patient states her leg swelling and shortness of breath has improved. She denies having any chest pain. Review of Systems General: Reports: 10 or more systems reviewed and unremarkable except in HPI and below Const: Denies: fever(s) or chills Card: Reports: swelling of feet/ankles, dyspnea on exertion and orthopnea; Denies: chest pain or irregular heart rhythm GI: Denies: abdominal pain, nausea, vomiting or hematochezia : Denies: hematuria Musc: Reports: extremity swelling Skin/Breast: Denies: rash Neuro: Denies: headache(s) Psych: Denies: anxiety or depression Deven/Lymph: Denies: petechiae or purpura Meds/Allergies Home Medications and Allergies Home Medications Medication Instructions Recorded Confirmed Last Taken Type aspirin 81 mg tablet,delayed 81 mg PO QAM 10/23/19 07/01/21 11/26/20 History release metformin 1,000 mg tablet 1,000 mg PO BID 10/23/19 07/01/21 11/26/20 History nitroglycerin 0.4 mg sublingual 0.4 mg SUBLINGUAL Q5M PRN 10/23/19 07/01/21 Unknown History tablet sertraline 50 mg tablet 50 mg PO QPM 10/23/19 07/01/21 11/25/20 History albuterol sulfate [Ventolin HFA] 2 puff INHALATION Q4H PRN 11/26/20 07/01/21 11/25/20 History clopidogrel [Plavix] 75 mg PO QAM 11/26/20 07/01/21 Unknown History metoprolol tartrate 12.5 mg PO BID 11/26/20 07/01/21 11/26/20 History polyethylene glycol 3350 [Miralax] 17 g PO DAILY PRN 11/26/20 07/01/21 11/25/20 History Fiber Gummies 1 tab PO DAILY 07/01/21 07/01/21 Unknown History atorvastatin 40 mg PO BEDTIME 07/01/21 07/01/21 Unknown History benzonatate 200 mg PO TID PRN 07/01/21 07/01/21 Unknown History cholecalciferol (vitamin D3) 25 mcg PO DAILY 07/01/21 07/01/21 Unknown History [Vitamin D3] evolocumab [Repatha Syringe] 140 mg SUBCUT Q14D 07/01/21 07/01/21 06/18/21 History fluticasone propionate 1 - 2 spray INTRANASAL DAILY PRN 07/01/21 07/01/21 Unknown History glipizide 10 mg PO BID 07/01/21 07/01/21 Unknown History insulin glargine U-300 conc 30 unit SUBCUT BEDTIME 07/01/21 07/01/21 06/30/21 History [Jean Napier U-300 SoloStar] isosorbide dinitrate 15 mg PO DAILY 07/01/21 07/01/21 Unknown History sulfamethoxazole-trimethoprim 1 tab PO BID 07/01/21 07/01/21 06/27/21 History Allergies Allergy/AdvReac Type Severity Reaction Status Date / Time codeine Allergy hallucinations Verified 07/01/21 09:09 and violence Current Medications Current Medications Generic Name Dose Route Start Last Admin Trade Name Freq PRN Reason Stop Dose Admin Acetaminophen 650 mg 07/01/21 05:56 07/01/21 17:36 Acetaminophen 325 Mg Tablet PO 650 mg Q6H PRN Administration Mild/Mod Pain Or Temp >/= 101 Albuterol Sulfate 2 puff 07/01/21 14:00 07/02/21 05:10 Albuterol 8 Gm Mdi INHALATION 2 puff Q6H.RESPIRATORY PRN Administration SHORTNESS OF BREATH Aspirin 81 mg 07/02/21 09:00 07/02/21 08:46 Aspirin 81 Mg Chew Tablet PO 81 mg DAILY AILYN Administration Atorvastatin Calcium 80 mg 07/01/21 21:00 07/01/21 20:45 Atorvastatin 40 Mg Tablet PO 80 mg BEDTIME AILYN Administration Clopidogrel Bisulfate 75 mg 07/01/21 07:00 07/02/21 06:02 Clopidogrel 75 Mg Tablet PO 75 mg DAILY@0700 AILYN Administration Enoxaparin Sodium 40 mg 07/01/21 06:00 07/02/21 05:09 Enoxaparin 40 Mg/0.4 Ml Syringe SUBCUT 40 mg Q24H AILYN Administration Furosemide 40 mg 07/01/21 19:00 07/02/21 06:02 Furosemide 10 Mg/Ml Sdv 4ml IVP 40 mg Q12H AILYN Administration Piperacillin Sod/Tazobactam 50 mls @ 12.5 mls/hr 07/01/21 10:00 07/02/21 10:21 Sod 3.375 gm/ Sodium Chloride IV 12.5 mls/hr Q8H AILYN Administration Protocol Vancomycin/PEG/NADA/Lysine/Water 1,250 mg in 250 mls @ 250 mls/hr 07/01/21 16:00 07/02/21 05:10 Vancocin IV Infused Q12H AILYN Infusion Potassium Chloride 100 mls @ 25 mls/hr 07/02/21 08:15 07/02/21 10:21 K-Jensen IV 07/02/21 12:14 25 mls/hr ONCE ONE Administration Insulin Human Lispro 0 unit 07/01/21 08:00 07/02/21 07:30 Insulin Lispro 100 Unit/1 Ml SUBCUT Not Given WM&BEDTIME AILYN Protocol Lorazepam 0.5 mg 07/01/21 09:36 07/02/21 05:09 Lorazepam 0.5 Mg Tablet PO 0.5 mg Q4H PRN Administration ANXIETY Pantoprazole Sodium 40 mg 07/01/21 09:00 07/02/21 08:[address] 40 Mg Tablet PO 40 mg DAILY AILYN Administration Potassium Chloride 40 meq 07/02/21 09:00 07/02/21 08:46 Potassium Chloride Er 20 Meq Tablet PO 40 meq DAILY AILYN Administration PFSH Acute PFSH: Medical History (Updated 07/02/21 @ 13:24 by Kelsey Cuadra MD) Coronary artery disease 4 stents present. Depression Diabetes mellitus Hyperlipidemia Hypertension Surgical History H/O heart artery stent 2013 - Done in [place], 1 stent placed. 2014 - Done in [place], 1 stent placed. 2017 - Done in [facility] in [place], 2 stents placed. H/O left knee surgery (~1999) Plastic disc was placed History of salpingectomy (~1988) Treatment of ectopic History of tubal ligation Family History Mother Diabetes Heart disease Hypertension Hyperlipidemia Father Heart disease Diabetes Hypertension Hyperlipidemia Sister Diabetes Social History Smoking and tobacco status: current every day smoker cigarettes Packs smoked per day: 0.5 Years cigarettes smoked: 35 Quit status (tobacco): has tried quititng Alcohol intake: current Alcohol intake frequency: holidays/special occasions only History of recent travel: No Vitals/I&O/Wt Last Vital Signs Temp 97.9 F 07/02/21 03:09 Pulse 95 07/02/21 09:41 Resp 16 07/02/21 09:41 BP 105/67 07/02/21 09:41 Pulse Ox 96 07/02/21 03:33 07/01/21 07/02/21 07/02/21 22:59 06:59 14:59 Intake Total 610 / 1380 300 / 1680 272 / 272 Output Total 350 / 1150 1800 / 2950 1400 / 1400 Balance 260 / 230 -1500 / -1270 -1128 / -1128 Weight last 48 hrs Weight 159 lb Physical Exam Narrative: EXAM NARRATIVE: GENERAL: Averagely built and averagely nourished in no acute distress ; appears older than stated age. HEENT: Pupils equal round reactive to light. No pallor or icterus. NECK: Elevated JVD. No carotid bruit. CARDIOVASCULAR SYSTEM: S1-S2 regular. Grade 3 on 6 systolic murmur+ RESPIRATORY SYSTEM: Absent breath sound bilateral bases. No wheezes or rhonchi, rales+; appears tachypneic ABDOMEN: Soft, nontender and nondistended. Normal bowel sounds present. EXTREMITIES: No cyanosis or clubbing. 1+ edema L>R. Small wound noted on left big toe. no signs of chronic venous insufficiency. ICD 9 CODER: Patient is alert oriented ?3. No focal neurological deficits. SKIN: Normal turgor and temperature. Data Micro: Micro: Microbiology 07/01/21 17:45 Bacterial Antigens - Final Urine,Clean Catch 07/01/21 17:45 Legionella Urinary Antigen - Final Urine Catheterize d 07/01/21 02:56 Blood Culture - Pr eliminary Blood NEGATIVE TO ROME E 07/01/21 02:56 Blood Culture - Pr eliminary Blood NEGATIVE TO ROME E Other Data: Other data: Transthoracic echocardiogram 02 July 2021 CONCLUSIONS 1. Normal left ventricular size, systolic function and upper normal wall thickness. Left ventricular ejection fraction is estimated at 55-60 %. There is mild hypokinesis of basal inferolateral and basal to mid anterolateral herron. Grade II diastolic dysfunction, moderately elevated filling pressures. 2. Normal right ventricular size and systolic function. 3. Restricted movement of posterior mitral valve leaflet. Moderate to severe somewhat posteriorly directed mitral valve regurgitation. 4. Mild pulmonary hypertension with pulmonary artery pressure estimated at 38 mmHg. 5. Moderately thickened and calcified trileaflet aortic valve. Aortic valve visually appears to be at moderately stenotic. Mild to moderate aortic valve stenosis, peak velocity 2.5 m/s, peak gradient 25 mmHg, mean gradient 14 mmHg, CORINA 1.1 cm squared. Dimensionless valve index of 0.31. 6. Mild tricuspid valve regurgitation. 7. No prior similar studies to compare. CTA chest 01 JulyNovember 06, 2020 IMPRESSION: 1. There is no evidence for pulmonary emboli. 2. Bilateral pleural effusions with superimposing bilateral basilar opacities, mild bronchial wall thickening and some increased septal markings, findings suggesting pulmonary edema. A superimposed bilateral pneumonia cannot be excluded. Lexiscan sestamibi MPI (11/13/2019) IMPRESSIONS 1. There is medium sized reversible perfusion abnormality of moderate to severe severity of basal to mid inferolateral and apical lateral and apical inferior herron. This is suggestive of ischemia in circumflex artery territory. 2. The left ventricular ejection fraction is normal with a value of 64%. 3. There is hypokinesis of basal to mid inferolateral herron. 4. No prior similar studies to compare. # Coronary angiogram (11/2019) Diagnostic Cath Status: Elective Diagnostic Findings LM has 0% stenosis. mLAD: Moderate 65% stenosis, EUGENE: 3 flow. Mid Circumflex Coronary Artery: Severe 80% stenosis, EUGENE: 3 flow. pRCA: Moderate 65% stenosis, EUGENE: 3 flow. Mid Right Coronary Artery to dRCA: Severe 95% stenosis, EUGENE: 2 flow. Coronary angiography shows right dominance. Interventional Findings Mid Circumflex Coronary Artery: 80% stenosis treated with AB TREK 2.25X15 RX BALLOON. 40% residual stenosis, EUGENE: 3 flow. Mid Right Coronary Artery to dRCA: 95% stenosis treated with AB TREK 2.25X15 RX BALLOON and MDT R MONCHO 2.75X18 ANNA. 0% residual stenosis, EUGENE: 3 flow. Conclusions There is severe coronary artery disease with three vessel disease. 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 Mid Right Coronary Artery to dRCA was treated with Balloon and Drug Eluting Stent. 1. 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 Indication for angiogram: Worsening of new onset of angina, abnormal stress test. A&P Assessment and plan (1) Acute respiratory distress: Likely due to decompensated congestive heart failure and possibly superimposed pneumonia (less likely) -On antibiotics Status: Acute (2) CHF (congestive heart failure), NYHA class III: Decompensated congestive heart failure likely a combination of moderate to severe mitral valve regurgitation and diastolic heart failure -She is diuresing well with IV Lasix. -Continue with Lasix 40 mg IV twice daily. -Continue daily weight, intake and output charting. -BiPAP as needed Status: Acute Qualifiers: Congestive heart failure type: diastolic Congestive heart failure chronicity: acute Qualified Code(s): I50.31 - Acute diastolic (congestive) heart failure (3) Elevated troponin: Non-ST elevation NE type II secondary to decompensated congestive heart failure Status: Acute (4) Coronary artery disease: She also tells me she is due for coronary angiogram next week at [place] -Follow-up on records. Status: Acute Qualifiers: Associated angina: with other forms of angina Coronary Disease- Associated Artery/Lesion type: [place] artery [place] vs. transplanted heart: [place] heart Qualified Code(s): I25.118 - Atherosclerotic heart disease of [place] coronary artery with other forms of angina pectoris (5) Hypertension: Status: Acute Qualifiers: Hypertension type: essential hypertension Qualified Code(s): I10 - Essential (primary) hypertension Additional A&P Information Peripheral vascular disease: She is due for staged procedure on right leg in 3 to 4 weeks. Moderate bilateral pleural effusion: We will see how she responds to IV diuretics and decide on thoracentesis based on that. Moderate to severe mitral valve regurgitation Mild to moderate aortic stenosis. Hypertension Hyperlipidemia Diabetes mellitus Transaminitis Possible superimposed pneumonia Anemia Hypokalemia Hypomagnesemia Thank you for allowing me to participate in patient's care. Please feel free to call with questions or concerns. Consult Attestations Time Spent in Patient Care: Greater than 35 minutes (>than 50% of time spent in counselling and/or direct pt care on unit) . Coding Level of Care Code Acute Weed Controller for Lakisha Coleman Diagnoses Acute respiratory distress R06.03 CHF (congestive heart failure), NYHA class III I50.31 Congestive heart failure type: diastolic Congestive heart failure chronicity: acute Elevated troponin R77.8 Coronary artery disease I25.118 Associated angina: with other forms of angina Coronary Disease-Associated Artery/Lesion type: [place] artery [place] vs. transplanted heart: [place] heart Hypertension I10 Hypertension type: essential hypertension
[2021-07-02 12:04] LABS: Glucose Point of Care 274 mg/dL (70-110)
[2021-07-02] MEDS: insulin lispro 100 unit/1 mL SUBCUT ×3 (13:01→21:42)
--- NOTE | 2021-07-02 13:12 | PC.NURSE ---
Home med Pt mentioned to me and is aware in room that it is due for her to get her Repatha q2 weeks. Non-formulary med order and pharmacy verified. received verbal order from to administer it.
--- NOTE | 2021-07-02 13:25 | PC.NURSE ---
Wound care on left great toe Pt stated she goes to wound care clinic in [place], [place] for her diabetic foot chronic ulcer. They use medi-honey. Pt stated her will bring the medi-honey tomorrow. cleanse the left great toe with saline and covered with optifoam and kerlix dressings.
--- NOTE | 2021-07-02 14:59 | P.PN_ITS ---
Subjective Subjective: Interval history: Patient was seen and examined this morning, shortness of breath is improved. 2D echo done: Medications: Reviewed: Yes Vitals/I&O/Wt Last Vital Signs Temp 97.9 F 07/02/21 03:09 Pulse 92 07/02/21 13:48 Resp 16 07/02/21 13:48 BP 88/60 07/02/21 13:48 Pulse Ox 99 07/02/21 13:48 07/01/21 07/02/21 07/02/21 22:59 06:59 14:59 Intake Total 610 / 1380 300 / 1680 682 / 682 Output Total 350 / 1150 1800 / 2950 1400 / 1400 Balance 260 / 230 -1500 / -1270 -718 / -718 Weight last 48 hrs Weight 72.121 kg Physical Exam Const: COMMON NORMALS: patient oriented x3 HENMT: COMMON NORMALS: normocephalic and atraumatic HEAD & SCALP: normocephalic and atraumatic Resp: OTHER: diminished air entry in both lung blunt predominantly at bases. Bilateral basal crackles present in both lung blunt. Cardio: COMMON NORMALS: regular rate, regular rhythm, S1 normal heart sound present, S2 normal heart sound present, No gallops present (Cardio), No murmurs present (Cardio), No rub (Cardio) and Peripheral pulses 2+ throughout RATE: regular rate RHYTHM: regular rhythm HEART SOUNDS: S1 normal heart sound present and S2 normal heart sound present PERIPHERAL PULSES: Peripheral pulses 2+ throughout GI: COMMON NORMALS: Normal to inspection, nondistended, normoactive bowel sounds present, Soft to palpation, non-tender, No hepatosplenomegaly present and no masses AUSCULTATION: Yes normoactive bowel sounds PALPATION: Yes Soft to palpation and Yes No hepatosplenomegaly present RECTAL EXAM: deferred Extremity: COMMON NORMALS: no clubbing, cyanosis or edema and no pedal edema Neuro: COMMON NORMALS: patient oriented x3 Data : 07/02/21 05:50 07/02/21 05:50 Micro: Microbiology 07/01/21 17:45 Bacterial Antigens - Final Urine,Clean Catch 07/01/21 17:45 Legionella Urinary Antigen - Final Urine Catheterized 07/01/21 02:56 Blood Culture - Preliminary Blood NEGATIVE TO DATE 07/01/21 02:56 Blood Culture - Preliminary Blood NEGATIVE TO DATE A&P Assessment and plan (1) Acute respiratory distress: Patient presented with worsening shortness of breath, from her baseline shortness of breath. Likely secondary to decompensated heart failure with preserved ejection fraction as well as pneumonia. Elevated proBNP:1131 Blood cultures:NTD Urine culture: Urine Legionella antigen:Negative Bacterial antigen panel:Negative Sputum culture: MRSA PCR: Procalcitonin normal Lasix 40 mg IV twice daily Continue broad-spectrum antibiotic Vanco and Zosyn for now. K>4, Mg>2 Intake output charting Daily weight Continue telemetry monitoring Status: Acute (2) Elevated troponin: NSTEMI type II: Demand ischemia secondary to decompensated heart failure. Currently she is denying any chest pain. Shortness of breath has improved. Aspirin 324 in Er ECHO: Aspirin 81 mg p.o. daily Continue Lipitor 80 mg PO daily Continue plavix 75 mg PO daily Sublingual nitro as needed Possible cardiology consult Status: Acute (3) Pleural effusion: Bilateral pleural effusion likely secondary to heart failure. Possible pneumonia Currently we will continue with Lasix, and if patient continues to improve, clinically, will monitor with serial x-ray. If not then will consider thoracentesis. Status: Acute (4) Transaminitis: Secondary to congestive hepatopathy.Improving Status: Acute (5) HCAP (healthcare-associated pneumonia): Status: Acute (6) Diabetic foot infection: Recently tx at [place] Obtain records On abx Status: Acute (7) Peripheral vascular disease: Recent angio with stent placement per pt Asa/Plavix / statin Status: Acute (8) Coronary artery disease: Management as noted above Hx of multiple stents Asa/plavix/lovenox ECHO Status: Acute Qualifiers: Associated angina: with other forms of angina Coronary Disease- Associated Artery/Lesion type: [place] artery [place] vs. transplanted heart: platinum heart Qualified Code(s): I25.118 - Atherosclerotic heart disease of [place] coronary artery with other forms of angina pectoris (9) Diabetes mellitus: Diabetic diet Sliding scale insulin - High dose QACHS checks Status: Acute (10) Hypertension: Status: Acute Qualifiers: Hypertension type: essential hypertension Qualified Code(s): I10 - Essential (primary) hypertension (11) Hyperlipidemia: Status: Acute Qualifiers: Hyperlipidemia type: mixed hyperlipidemia Qualified Code(s): E78.2 - Mixed hyperlipidemia Additional A&P Information Moderate to severe mitral valve regurgitation: Appreciate cardiology recommendations Mild to moderate aortic stenosis. DVT prophylaxis: On Lovenox CODE STATUS: Full code Attestations Medical Necessity Statement*: Patient needs to be in the hospital for management of heart failure/ Coding Level of Care Code Acute Cancer Genetics Assistant for g Fwd Exam Detailed Diagnoses Acute respiratory distress R06.03 Elevated troponin R77.8 Pleural effusion J90 Transaminitis R74.01 HCAP (healthcare-associated pneumonia) J18.9 Diabetic foot infection E11.628; L08.9 Peripheral vascular disease I73.9 Coronary artery disease I25.118 Associated angina: with other forms of angina Coronary Disease-Associated Artery/Lesion type: [place] artery [place] vs. transplanted heart: platinum heart Diabetes mellitus E11.9 Hypertension I10 Hypertension type: essential hypertension Hyperlipidemia E78.2 Hyperlipidemia type: mixed hyperlipidemia
[2021-07-02 17:17] LABS: Glucose Point of Care 172 mg/dL (70-110)
[2021-07-02 20:36] LABS: Glucose Point of Care 241 mg/dL (70-110)
[2021-07-03] VITALS (59 sets, daily range): BP systolic 88–124; BP diastolic 50–93; PULSE 66–111; RESP 12–35; TEMP 36.6–36.7; O2SAT 85–99
[2021-07-03] MEDS: piperacillin-tazobactam 3.375 GM in sodium chloride 0.9% (plus) 50 ML IV ×3 (02:06→18:08)
[2021-07-03] MEDS: LORazepam 0.5 mg Tablet PO (03:21)
--- NOTE | 2021-07-03 03:47 | PC.NURSE ---
Patient taken to the shower room for a shower at 2200 07/02/2021, via wc, patient used shower independently with shower chair and tolerated activity very well o2 sats maintained on RA during activity, when taken back to room patient wished to remain on RA in room, o2 sats staying at 92% on RA. patient very pleased at this time with her progress.
[2021-07-03 06:03] LABS: Glucose Point of Care 113 mg/dL (70-110)
[2021-07-03] MEDS: FUROsemide 10 mg/mL SDV 4mL 40 MG IVP (06:07)
[2021-07-03] MEDS: enoxaparin 40 mg/0.4 mL Syringe SUBCUT (06:07)
[2021-07-03] MEDS: vancomycin 1,250 MG/250 ML PIGGYBACK 250 MG IV (06:08)
[2021-07-03] MEDS: clopidogrel 75 mg Tablet PO (06:08)
--- NOTE | 2021-07-03 09:09 | XRR_ITS ---
PROCEDURE INFORMATION: Exam: XR Chest Exam date and time: 07/03/2021 9:09 AM Age: 56 years old Clinical indication: Shortness of breath; Additional info: Follow up TECHNIQUE: Imaging protocol: XR of the chest. Views: 1 view. COMPARISON: CR (CHEST, ) 07/01/2021 2:38 AM FINDINGS: Lungs: Low lung volumes. Persistent increased interstitial markings, in association with slight haziness of the lungs and small bilateral pleural effusions, suggestive of pulmonary edema. Pneumonia can have this appearance. No pneumothorax. Pleural spaces: See Lungs finding. Heart/Mediastinum: Stable cardiomediastinal silhouette. Bones/joints: Unremarkable. XR/XR chest 1V portable [id number] IMPRESSION: Imaging findings of pulmonary edema with small bilateral pleural effusions. Pneumonia should be excluded clinically. Radiation Dose CTDIVOL = (mGy): DLP = (mGy-cm)
[2021-07-03] MEDS: pantoprazole DR 40 mg Tablet PO (09:28)
[2021-07-03] MEDS: potassium chloride ER 20 mEq Tablet 40 MEQ PO (09:28)
[2021-07-03] MEDS: aspirin 81 mg Chew Tablet PO (09:28)
[2021-07-03] MEDS: albuterol 8 gm MDI 2 PUFF INHALATION ×2 (09:51→14:51)
--- NOTE | 2021-07-03 11:21 | PM.PN ---
Subjective Subjective: Interval history: Urine output 3600 mL, -1.8 L; Cumulative length of stay output 8 L with -4 L. Medications: Reviewed: Yes Vitals/I&O/Wt Last Vital Signs Temp 98.0 F 07/03/21 11:01 Pulse 96 07/03/21 11:01 Resp 16 07/03/21 11:01 BP 101/65 07/03/21 11:01 Pulse Ox 97 07/03/21 11:01 07/02/21 07/03/21 07/03/21 22:59 06:59 14:59 Intake Total 971 / 1653 50 / 1703 240 / 240 Output Total 1100 / 2500 1100 / 3600 1450 / 1450 Balance -129 / -847 -1050 / -1897 -1210 / -1210 Physical Exam Narrative: EXAM NARRATIVE: GENERAL: Averagely built and averagely nourished in no acute distress ; appears older than stated age. HEENT: Pupils equal round reactive to light. No pallor or icterus. NECK: Elevated JVD. No carotid bruit. CARDIOVASCULAR SYSTEM: S1-S2 regular. Grade 3/6 systolic murmur+ RESPIRATORY SYSTEM: Absent breath sound bilateral bases. No wheezes or rhonchi, rales+; appears tachypneic ABDOMEN: Soft, nontender and nondistended. Normal bowel sounds present. EXTREMITIES: No cyanosis or clubbing. trace-1+ edema L>R. Small wound noted on left big toe. no signs of chronic venous insufficiency. CIRCULATION REPRESENTATIVE: Patient is alert oriented ?3. No focal neurological deficits. SKIN: Normal turgor and temperature. Data : 07/03/21 11:32 07/03/21 11:32 Micro: Microbiology 07/02/21 12:00 Sputum Culture - Preliminary Sputum - Expectorated Sputum 07/01/21 17:45 Bacterial Antigens - Final Urine,Clean Catch 07/01/21 17:45 Legionella Urinary Antigen - Final Urine Catheterized A&P Assessment and plan (1) Acute respiratory distress: Likely due to decompensated congestive heart failure and possibly superimposed pneumonia (less likely) -On antibiotics Status: Acute (2) CHF (congestive heart failure), NYHA class III: Decompensated congestive heart failure likely a combination of moderate to severe mitral valve regurgitation and diastolic heart failure -She is diuresing well with IV Lasix. -Agree with decreasing Lasix to 40 mg IV daily as blood pressure is soft. She will probably need thoracentesis for removal of pleural effusion. -Continue daily weight, intake and output charting. -BiPAP as needed Chest x-ray with no improvement in pleural effusion. Status: Acute Qualifiers: Congestive heart failure chronicity: acute Congestive heart failure type: diastolic Qualified Code(s): I50.31 - Acute diastolic (congestive) heart failure (3) Elevated troponin: Non-ST elevation [place] type II secondary to decompensated congestive heart failure Status: Acute (4) Coronary artery disease: She also tells me she is due for coronary angiogram next week at [place] -Follow-up on records. Status: Acute Qualifiers: Associated angina: with other forms of angina Coronary Disease-Associated Artery/Lesion type: [place] artery [place] vs. transplanted heart: [place] heart Qualified Code(s): I25.118 - Atherosclerotic heart disease of [place] coronary artery with other forms of angina pectoris (5) Hypertension: Status: Acute Qualifiers: Hypertension type: essential hypertension Qualified Code(s): I10 - Essential (primary) hypertension Additional A&P Information Peripheral vascular disease: She is due for staged procedure on right leg in 3 to 4 weeks. Moderate bilateral pleural effusion: We will see how she responds to IV diuretics and decide on thoracentesis based on that. Moderate to severe mitral valve regurgitation Mild to moderate aortic stenosis. Hypertension Hyperlipidemia Diabetes mellitus Transaminitis : resolved Possible superimposed pneumonia Anemia Hypokalemia: resolved Hypomagnesemia : resolved Thank you for allowing me to participate in patient's care. Please feel free to call with questions or concerns. Attestations Medical Necessity Statement*: Patient needs to be in the hospital for management of heart failure and pleural effusion Time Spent in Patient Care: 16 - 35 minutes (>than 50% of time spent in counselling and/or direct pt care on unit). Coding Level of Care Code Acute Sql Server Dba Developer for Lakisha Coleman Diagnoses Acute respiratory distress R06.03 CHF (congestive heart failure), NYHA class III I50.31 Congestive heart failure chronicity: acute Congestive heart failure type: diastolic Elevated troponin R77.8 Coronary artery disease I25.118 Associated angina: with other forms of angina Coronary Disease-Associated Artery/Lesion type: [place] artery [place] vs. transplanted heart: [place] heart Hypertension I10 Hypertension type: essential hypertension
--- NOTE | 2021-07-03 11:25 | P.PN_ITS ---
Subjective Subjective: Interval history: Patient was seen and examined this morning, shortness of breath is improved.She had a rough night yesterday as she was not able to sleep properly. Medications: Reviewed: Yes Vitals/I&O/Wt Last Vital Signs Temp 98.0 F 07/03/21 11:01 Pulse 96 07/03/21 11:01 Resp 16 07/03/21 11:01 BP 101/65 07/03/21 11:01 Pulse Ox 97 07/03/21 11:01 07/02/21 07/03/21 07/03/21 22:59 06:59 14:59 Intake Total 971 / 1653 50 / 1703 240 / 240 Output Total 1100 / 2500 1100 / 3600 1450 / 1450 Balance -129 / -847 -1050 / -1897 -1210 / -1210 Physical Exam Const: COMMON NORMALS: patient oriented x3 HENMT: COMMON NORMALS: normocephalic and atraumatic HEAD & SCALP: normocephalic and atraumatic Resp: OTHER: diminished air entry in both lung blunt predominantly at bases. Bilateral basal crackles present in both lung blunt. Cardio: COMMON NORMALS: regular rate, regular rhythm, S1 normal heart sound present, S2 normal heart sound present, No gallops present (Cardio), No murmurs present (Cardio), No rub (Cardio) and Peripheral pulses 2+ throughout RATE: regular rate RHYTHM: regular rhythm HEART SOUNDS: S1 normal heart sound present and S2 normal heart sound present PERIPHERAL PULSES: Peripheral pulses 2+ throughout GI: COMMON NORMALS: Normal to inspection, nondistended, normoactive bowel sounds present, Soft to palpation, non-tender, No hepatosplenomegaly present and no masses AUSCULTATION: Yes normoactive bowel sounds PALPATION: Yes Soft to palpation and Yes No hepatosplenomegaly present RECTAL EXAM: deferred Extremity: COMMON NORMALS: no clubbing, cyanosis or edema and no pedal edema Neuro: COMMON NORMALS: patient oriented x3 Data : 07/03/21 11:32 07/03/21 11:32 Micro: Microbiology 07/02/21 12:00 Sputum Culture - Preliminary Sputum - Expectorated Sputum 07/01/21 17:45 Bacterial Antigens - Final Urine,Clean Catch 07/01/21 17:45 Legionella Urinary Antigen - Final Urine Catheterized A&P Assessment and plan (1) Acute respiratory distress: Patient presented with worsening shortness of breath, from her baseline shortness of breath. Likely secondary to decompensated heart failure with preserved ejection fraction as well as pneumonia. CT angio chest : No P.E. findings in line with pulmonary vascular congestion, moderate bilateral pleural effusion. Monitored serial chest x-ray:Has shown improvement in bilateral pleural effusion. Elevated proBNP:1131 Blood cultures:NTD Urine culture: Urine Legionella antigen:Negative Bacterial antigen panel:Negative Sputum culture: MRSA PCR: Negative Procalcitonin normal Lasix 40 mg IV twice daily Initially on Vanco was discontinued on 07/03. As MRSA PCR is negative, initial blood culture is negative. Continue Zosyn for now. K>4, Mg>2 Intake output charting Daily weight Continue telemetry monitoring Status: Acute (2) Elevated troponin: NSTEMI type II: Demand ischemia secondary to decompensated heart failure. Currently she is denying any chest pain. Shortness of breath has improved. Aspirin 324 in Er ECHO: Normal LV size, systolic function and upper normal wall thickness. LVEF is estimated at 55-60 %. There is mild hypokinesis of basal inferolateral and basal to mid anterolateral herron. Grade II diastolic dysfunction, moderately elevated filling pressures.Normal right ventricular size and systolic function. Restricted movement of posterior mitral valve leaflet. Moderate to severe somewhat posteriorly directed mitral valve regurgitation. Mild pulmonary hypertension with pulmonary artery pressure estimated at 38 mmHg. Moderately thickened and calcified trileaflet aortic valve. Aortic valve visually appears to be at moderately stenotic. Mild to moderate aortic valve stenosis, peak velocity 2.5 m/s, peak gradient 25 mmHg, mean gradient 14 mmHg, CORINA 1.1 cm squared. Dimensionless valve index of 0.31. Aspirin 81 mg p.o. daily Continue Lipitor 80 mg PO daily Continue plavix 75 mg PO daily Sublingual nitro as needed Possible cardiology consult Status: Acute (3) Pleural effusion: Bilateral pleural effusion likely secondary to heart failure. Possible pneumonia Currently we will continue with Lasix, and if patient continues to improve, clinically, will monitor with serial x-ray. If not then will consider thoracentesis. Status: Acute (4) Transaminitis: Secondary to congestive hepatopathy. Resolved Ultrasound abdomen: Normal Status: Acute (5) HCAP (healthcare-associated pneumonia): Status: Acute (6) Diabetic foot infection: Recently tx at [place] Obtain records On abx Status: Acute (7) Peripheral vascular disease: Recent angio with stent placement per pt Asa/Plavix / statin Status: Acute (8) Coronary artery disease: Management as noted above Hx of multiple stents Asa/plavix/lovenox ECHO Status: Acute Qualifiers: Associated angina: with other forms of angina Coronary Disease- Associated Artery/Lesion type: [place] artery [place] vs. transplanted heart: [place] heart Qualified Code(s): I25.118 - Atherosclerotic heart disease of [place] coronary artery with other forms of angina pectoris (9) Diabetes mellitus: Diabetic diet Sliding scale insulin - High dose QACHS checks Status: Acute (10) Hypertension: Status: Acute Qualifiers: Hypertension type: essential hypertension Qualified Code(s): I10 - Essential (primary) hypertension (11) Hyperlipidemia: Status: Acute Qualifiers: Hyperlipidemia type: mixed hyperlipidemia Qualified Code(s): E78.2 - Mixed hyperlipidemia Additional A&P Information Moderate to severe mitral valve regurgitation: Appreciate cardiology recommendations Mild to moderate aortic stenosis. DVT prophylaxis: On Lovenox CODE STATUS: Full code Attestations Medical Necessity Statement*: In hospital for management of heart failure , pneumonia. Coding Level of Care Code Acute Finishing Frame Runner for [facility] Fwd Exam Detailed Diagnoses Acute respiratory distress R06.03 Elevated troponin R77.8 Pleural effusion J90 Transaminitis R74.01 HCAP (healthcare-associated pneumonia) J18.9 Diabetic foot infection E11.628; L08.9 Peripheral vascular disease I73.9 Coronary artery disease I25.118 Associated angina: with other forms of angina Coronary Disease-Associated Artery/Lesion type: [place] artery [place] vs. transplanted heart: [place] heart Diabetes mellitus E11.9 Hypertension I10 Hypertension type: essential hypertension Hyperlipidemia E78.2 Hyperlipidemia type: mixed hyperlipidemia
[2021-07-03 11:55] LABS: Glucose Point of Care 298 mg/dL (70-110)
[2021-07-03] MEDS: insulin lispro 100 unit/1 mL SUBCUT ×3 (12:38→20:21)
[2021-07-03 12:40] LABS: Basophils % 0.2 %; Eosinophils # 0.1 10^3/uL (0.0-0.8); Eosinophils % 1.4 %; Hematocrit 31.8 % (37.0-47.0); Hemoglobin 9.7 g/dL (11.5-15.3); Lymphocytes # 1.4 10^3/uL (0.8-4.8); Lymphocytes % 24.4 %; Mean Corpuscular HGB Conc 30.5 g/dL (30.0-36.0); Mean Corpuscular Volume 94.9 fl (81-99); Mean Platelet Volume 9.6 fL (7.4-10.4); Monocytes # 0.5 10^3/uL (0.2-0.9); Monocytes % 7.7 %; Neutrophils # 3.87 10^3/uL (1.8-7.7); Neutrophils % 66.1 %; Nucleated Red Blood Cells % 0 %; Platelet Count 372 10^3/cmm (130-400); Red Blood Count 3.35 10^6/uL (4.1-5.3); Red Cell Distribution Width 14.5 % (12.1-15.1); White Blood Count 5.9 10^3/uL (4.0-10.0)
[2021-07-03] MEDS: polyethylene glycol 3350 Pkt 17 gm PO (13:01)
[2021-07-03 13:10] LABS: Alanine Aminotransferase 26 U/L (0-33); Albumin Level 3.4 g/dL (3.5-5.2); Alkaline Phosphatase 90 IU/L (35-105); Aspartate Amino Transferase 24 U/L (0-32); Blood Urea Nitrogen 12 mg/dL (6-20); Calcium 8.3 mg/dL (8.5-10.5); Carbon Dioxide 32 mmol/L (22-29); Chloride 97 mmol/L (98-107); Creatinine Clr Calc Pharmacy 118.2259; Globulin 2.6 g/dL (1.3-4.6); Glomerular Filtration Rate 128.1 mL/min (90-130); Glucose 267 mg/dL (65-115); Magnesium 1.7 mg/dL (1.7-2.3); Osmolality Calculated 295 mOsm/kg (285-295); Sodium 138 mmol/L (136-145); Total Bilirubin 0.3 mg/dL (0.15-1.2)
[2021-07-03 13:35] LABS: Anion Gap 12.9 (5-19); Potassium 3.9 mmol/L (3.5-5.1)
--- NOTE | 2021-07-03 18:00 | PC.NURSE ---
Pt stated she fell at home on her knees last and had left arm abrasion Applied optifoam dressing to left arm.
[2021-07-03 18:05] LABS: Glucose Point of Care 361 mg/dL (70-110)
[2021-07-03] MEDS: FUROsemide 10 mg/mL SDV 2mL 20 MG IVP (18:58)
--- NOTE | 2021-07-03 19:56 | PC.NURSE ---
Pt stated she fell at home on her knees last and had right arm abrasion Applied optifoam dressing to right arm.
--- NOTE | 2021-07-03 19:59 | PC.NURSE ---
pt stated she wants to smoke Educated pt on smoking cessation and the risks on her health. Instructed pt on the smoking policy in our facility as well that we don't allow pt to go out and smoke. Educated pt on trying nicotine patch and gum for craving but pt refused.
--- NOTE | 2021-07-03 20:01 | PC.NURSE ---
Pt is sitting up in her chair Oxygen is off and SpO2 is at 95%.
[2021-07-03 20:23] LABS: Glucose Point of Care 511 mg/dL (70-110)
--- NOTE | 2021-07-03 20:30 | PC.NURSE ---
Patient states she will not take lipitor because she takes a shot once a week and was told not to take lipitor.
[2021-07-04] VITALS (38 sets, daily range): BP systolic 91–146; BP diastolic 54–98; PULSE 75–121; RESP 13–26; TEMP 36.2–37.1; O2SAT 83–98
[2021-07-04] MEDS: LORazepam 0.5 mg Tablet PO ×2 (02:17→07:48)
[2021-07-04] MEDS: acetaminophen 325 mg Tablet 650 MG PO (02:17)
[2021-07-04] MEDS: piperacillin-tazobactam 3.375 GM in sodium chloride 0.9% (plus) 50 ML IV ×3 (02:18→17:50)
[2021-07-04 03:49] LABS: Basophils % 0.2 %; Eosinophils # 0.1 10^3/uL (0.0-0.8); Eosinophils % 2.3 %; Hematocrit 30.1 % (37.0-47.0); Hemoglobin 9.4 g/dL (11.5-15.3); Lymphocytes # 1.5 10^3/uL (0.8-4.8); Lymphocytes % 30.2 %; Mean Corpuscular HGB Conc 31.2 g/dL (30.0-36.0); Mean Corpuscular Hemoglobin 29.7 pg (28.0-34.0); Mean Platelet Volume 9.3 fL (7.4-10.4); Monocytes # 0.4 10^3/uL (0.2-0.9); Monocytes % 9.1 %; Neutrophils # 2.82 10^3/uL (1.8-7.7); Nucleated Red Blood Cells % 0 %; Platelet Count 349 10^3/cmm (130-400); Red Blood Count 3.17 10^6/uL (4.1-5.3); Red Cell Distribution Width 14.3 % (12.1-15.1); White Blood Count 4.9 10^3/uL (4.0-10.0)
[2021-07-04 04:20] LABS: Anion Gap 10.9 (5-19); Blood Urea Nitrogen 13 mg/dL (6-20); Calcium 8.7 mg/dL (8.5-10.5); Carbon Dioxide 36 mmol/L (22-29); Chloride 98 mmol/L (98-107); Creatinine Clr Calc Pharmacy 118.2259; Glomerular Filtration Rate 128.1 mL/min (90-130); Glucose 115 mg/dL (65-115); Magnesium 1.8 mg/dL (1.7-2.3); Osmolality Calculated 293 mOsm/kg (285-295); Potassium 3.9 mmol/L (3.5-5.1); Sodium 141 mmol/L (136-145)
--- NOTE | 2021-07-04 04:45 | PC.NURSE ---
Frequent safety and comfort rounds continue. Orders and/or nursing care completed as indicated. Patient monitored for response to intervention and treatment(s). Education provided includes oxygen needs while asleep and IV antibiotics. Patient and/or administrative representative verbalized understanding. Patient happy as she was without oxygen for 6 hours then was able to take a shower. Expressed wishes to go home today. Will continue to monitor.
[2021-07-04] MEDS: clopidogrel 75 mg Tablet PO (06:13)
[2021-07-04] MEDS: enoxaparin 40 mg/0.4 mL Syringe SUBCUT (06:15)
[2021-07-04 07:00] LABS: Glucose Point of Care 123 mg/dL (70-110)
[2021-07-04] MEDS: albuterol 8 gm MDI 2 PUFF INHALATION ×2 (07:44→15:32)
[2021-07-04] MEDS: aspirin 81 mg Chew Tablet PO (07:48)
[2021-07-04] MEDS: potassium chloride ER 20 mEq Tablet 40 MEQ PO (07:48)
[2021-07-04] MEDS: polyethylene glycol 3350 Pkt 17 gm PO (07:49)
[2021-07-04] MEDS: pantoprazole DR 40 mg Tablet PO (07:49)
[2021-07-04] MEDS: FUROsemide 10 mg/mL SDV 4mL 40 MG IVP (08:37)
[2021-07-04 09:58] LABS: NT Pro B Type Natriuretic Pept 937 pg/mL (0-125); Procalcitonin 0.12 ng/mL (0-0.5)
--- NOTE | 2021-07-04 10:54 | P.PN_ITS ---
Subjective Subjective: Interval history: She feels better. Saturating around 93-94% on RA. She felt anxious overnight. -4.2 L from yesterday Medications: Reviewed: Yes Vitals/I&O/Wt Last Vital Signs Temp 98.4 F 07/04/21 07:12 Pulse 100 07/04/21 07:48 Resp 22 H 07/04/21 07:46 BP 115/74 07/04/21 07:12 Pulse Ox 95 07/04/21 07:46 07/03/21 07/04/21 07/04/21 22:59 06:59 14:59 Intake Total 1100 / 1830 360 / 2190 530 / 530 Output Total 1050 / 2950 3450 / 6400 Balance 50 / -1120 -3090 / -4210 530 / 530 Physical Exam Narrative: EXAM NARRATIVE: GENERAL: Averagely built and averagely nourished in no acute distress ; appears older than stated age. HEENT: Pupils equal round reactive to light. No pallor or icterus. NECK: Elevated JVD. No carotid bruit. CARDIOVASCULAR SYSTEM: S1-S2 regular. Grade 3/6 systolic murmur+ RESPIRATORY SYSTEM: Absent breath sound bilateral bases. No wheezes or rhonchi, rales+; appears tachypneic ABDOMEN: Soft, nontender and nondistended. Normal bowel sounds present. EXTREMITIES: No cyanosis or clubbing. trace edema. Small wound noted on left big toe. no signs of chronic venous insufficiency. SHAREPOINT SPECIALIST: Patient is alert oriented ?3. No focal neurological deficits. SKIN: Normal turgor and temperature. Data : 07/04/21 03:09 07/04/21 03:09 Micro: Microbiology 07/02/21 12:00 Sputum Culture - Final Sputum - Expectorated Sputum 07/02/21 06:53 MRSA Culture - Final Nose A&P Assessment and plan (1) Acute respiratory distress: Likely due to decompensated congestive heart failure Status: Acute (2) CHF (congestive heart failure), NYHA class III: Decompensated congestive heart failure likely a combination of moderate to severe mitral valve regurgitation and diastolic heart failure -She is diuresing well with IV Lasix. -Agree with changing Lasix to 40 mg PO daily -Continue daily weight, intake and output charting. -possible D/C in morning Chest x-ray with no improvement in pleural effusion. Status: Acute Qualifiers: Congestive heart failure chronicity: acute Congestive heart failure type: diastolic Qualified Code(s): I50.31 - Acute diastolic (congestive) heart failure (3) Elevated troponin: Non-ST elevation PR type II secondary to decompensated congestive heart failure Status: Acute (4) Coronary artery disease: She also tells me she is due for coronary angiogram next week at [place] -Follow-up on records. -continue DAPT, low dose metoporlol and statin Status: Acute Qualifiers: Associated angina: with other forms of angina Coronary Disease- Associated Artery/Lesion type: [place] artery [place] vs. transplanted heart: [place] heart Qualified Code(s): I25.118 - Atherosclerotic heart disease of [place] coronary artery with other forms of angina pectoris (5) Hypertension: Status: Acute Qualifiers: Hypertension type: essential hypertension Qualified Code(s): I10 - Essential (primary) hypertension Additional A&P Information Peripheral vascular disease: She is due for staged procedure on right leg in 3 to 4 weeks. Moderate bilateral pleural effusion: She has had good responds to IV diuretics and may not need thoracentesis. f/u CXR in 10-14 days Moderate to severe mitral valve regurgitation Mild to moderate aortic stenosis. Hypertension Hyperlipidemia Diabetes mellitus Transaminitis : resolved Possible superimposed pneumonia : less likely Anemia Hypokalemia: resolved Hypomagnesemia : resolved Thank you for allowing me to participate in patient's care. Please feel free to call with questions or concerns. Attestations Medical Necessity Statement*: Patient needs to be in the hospital for management of heart failure and pleural effusion Time Spent in Patient Care: 16 - 35 minutes (>than 50% of time spent in counselling and/or direct pt care on unit) . Coding Level of Care Code Acute Paid Search Marketing Analyst for Lakisha Coleman Diagnoses Acute respiratory distress R06.03 CHF (congestive heart failure), NYHA class III I50.31 Congestive heart failure chronicity: acute Congestive heart failure type: diastolic Elevated troponin R77.8 Coronary artery disease I25.118 Associated angina: with other forms of angina Coronary Disease-Associated Artery/Lesion type: [place] artery [place] vs. transplanted heart: [place] heart Hypertension I10 Hypertension type: essential hypertension
[2021-07-04] MEDS: metoprolol tartrate 25 mg Tablet 12.5 MG PO ×2 (11:03→17:49)
[2021-07-04 11:41] LABS: Glucose Point of Care 320 mg/dL (70-110)
[2021-07-04] MEDS: insulin lispro 100 unit/1 mL SUBCUT ×3 (11:51→20:35)
[2021-07-04 16:30] LABS: Glucose Point of Care 184 mg/dL (70-110)
--- NOTE | 2021-07-04 16:30 | PC.NURSE ---
physician orders to remove nunez catheter. Catheter removed, no issues.
--- NOTE | 2021-07-04 17:45 | P.PN_ITS ---
Subjective Subjective: Interval history: Hospital course, labs appreciated. Examination of the patient sitting up in chair. On room air. Denies any nausea vomiting, headache. States she is feeling a lot better. Has remained hemodynamically stable. Heart rate running high with ranging from 104 to 115 at rest increasing to 120 on minimal ambulation. Medications: Reviewed: Yes Vitals/I&O/Wt Last Vital Signs Temp 97.2 F L 07/04/21 15:10 Pulse 95 07/04/21 15:36 Resp 18 07/04/21 15:36 BP 118/73 07/04/21 15:10 Pulse Ox 97 07/04/21 15:36 07/04/21 07/04/21 07/04/21 06:59 14:59 22:59 Intake Total 360 / 2190 1060 / 1060 Output Total 3450 / 6400 1800 / 1800 Balance -3090 / -4210 -740 / -740 Physical Exam Narrative: EXAM NARRATIVE: General: No acute distress, AO x3 HEENT: PERRLA, pupils bilaterally equal and reactive Chest: Normal vesicular breath sounds, fine basilar crackles bilaterally, equal good air entry bilaterally CVS: S1-S2 regular, ejection systolic metastatic lesion renal carotids 2/6, soft pansystolic murmur at apex rating to anterior axillary line 1/6, no tachycardia, no gallops, no rubs Abdomen: Soft, nontender, no organomegaly, bowel sounds present Neuro: No focal deficits, no facial deformity, AO x3, power 5/5 in all limbs Data : 07/04/21 03:09 07/04/21 03:09 Micro: Microbiology 07/02/21 12:00 Sputum Culture - Final Sputum - Expectorated Sputum 07/02/21 06:53 MRSA Culture - Final Nose A&P Assessment and plan (1) Acute respiratory distress: Likely secondary to decompensated congestive diastolic heart failure. Check procalcitonin, blood cultures so far negative, urine Legionella, bacterial antigen negative. MRSA negative. Sputum culture not available. Stop Zosyn. Will monitor off antibiotics. CT results from admission shows no PE, pulmonary vascular congestion with bilateral moderate pleural effusion. Echocardiogram shows an EF of 55 to 60% with mild hypokinesis of basal inferior lateral and basal to mid anterolateral wall, grade 2 diastolic dysfunction, mild to moderate aortic stenosis. Continue with IV Lasix 40 mg daily. Will switch to 40 mg oral from tomorrow. Strict input output charting, daily weights. Fluid restriction up to 1500 cc. Status: Acute (2) Elevated troponin: Most likely type II. Secondary to demand ischemia from congestive heart failure. Denies active chest pain. Extensive history of CAD with most recent stenting at outside hospital with pr rafael log deckman in December. Appreciate allergy recommendations. Continue with aspirin, Plavix, statin. Restart home dose of metoprolol. Will uptitrate depending on the heart rate. For now hold off on Imdur. Check lipid panel, A1c. Status: Acute (3) Pleural effusion: Most likely secondary to heart failure. We will hold off on thoracentesis. We will continue with diuresis. Status: Acute (4) Transaminitis: Secondary to congestive hepatopathy. Resolved Ultrasound abdomen: Normal Status: Acute (5) HCAP (healthcare-associated pneumonia): Status: Ruled-out (6) Diabetic foot infection: Recently tx at [place] Obtain records On abx Status: Acute (7) Peripheral vascular disease: Recent angio with stent placement per pt Asa/Plavix / statin Status: Acute (8) Coronary artery disease: Management as noted above Status: Acute Qualifiers: Coronary Disease-Associated Artery/Lesion type: [place] artery [place] vs. transplanted heart: [place] heart Associated angina: with other forms of angina Qualified Code(s): I25.118 - Atherosclerotic heart disease of [place] coronary artery with other forms of angina pectoris (9) Diabetes mellitus: Blood sugars have been elevated. Sliding scale insulin - High dose Restart home dose of Lantus 30 units at bedtime. QACHS checks Status: Acute (10) Hypertension: Status: Acute Qualifiers: Hypertension type: essential hypertension Qualified Code(s): I10 - Essential (primary) hypertension (11) Hyperlipidemia: Status: Acute Qualifiers: Hyperlipidemia type: mixed hyperlipidemia Qualified Code(s): E78.2 - Mixed hyperlipidemia Additional A&P Information Moderate to severe mitral valve regurgitation: Appreciate cardiology recommendat ions Mild to moderate aortic stenosis. DVT prophylaxis: On Lovenox CODE STATUS: Full code Carb consistent cardiac diet. Attestations Medical Necessity Statement*: Patient requires further hospitalization for management of congestive heart failure, CAD Time Spent in Patient Care: Greater than 35 minutes (>than 50% of time spent in counselling and/or direct pt care on unit) . Coding Level of Care Code Acute Wood And Hardware Outfitter for [facility] Fwd Diagnoses Acute respiratory distress R06.03 Elevated troponin R77.8 Pleural effusion J90 Transaminitis R74.01 HCAP (healthcare-associated pneumonia) J18.9 Diabetic foot infection E11.628; L08.9 Peripheral vascular disease I73.9 Coronary artery disease I25.118 Coronary Disease-Associated Artery/Lesion type: [place] artery [place] vs. transplanted heart: [place] heart Associated angina: with other forms of angina Diabetes mellitus E11.9 Hypertension I10 Hypertension type: essential hypertension Hyperlipidemia E78.2 Hyperlipidemia type: mixed hyperlipidemia
[2021-07-04] MEDS: atorvastatin 40 mg Tablet 80 MG PO (20:34)
[2021-07-04 20:37] LABS: Glucose Point of Care 371 mg/dL (70-110)
--- NOTE | 2021-07-04 21:51 | PC.NURSE ---
Patient refused long acting insulin as she states she is going home tomorrow and will not eat snacks as she can have a cigarette. Teaching given as to importance of managing blood sugars, however patient still refused.
[2021-07-05] VITALS (34 sets, daily range): BP systolic 113–136; BP diastolic 77–98; PULSE 85–119; RESP 11–25; TEMP 36.6; O2SAT 86–100
[2021-07-05] MEDS: acetaminophen 325 mg Tablet 650 MG PO (02:27)
[2021-07-05] MEDS: LORazepam 0.5 mg Tablet PO (02:27)
[2021-07-05 04:06] LABS: Basophils % 0.2 %; Eosinophils # 0.1 10^3/uL (0.0-0.8); Eosinophils % 2.9 %; Hematocrit 32.1 % (37.0-47.0); Lymphocytes # 1.7 10^3/uL (0.8-4.8); Lymphocytes % 34.4 %; Mean Corpuscular HGB Conc 31.2 g/dL (30.0-36.0); Mean Corpuscular Hemoglobin 29.2 pg (28.0-34.0); Mean Corpuscular Volume 93.6 fl (81-99); Mean Platelet Volume 9.5 fL (7.4-10.4); Monocytes # 0.3 10^3/uL (0.2-0.9); Neutrophils # 2.68 10^3/uL (1.8-7.7); Neutrophils % 55.3 %; Nucleated Red Blood Cells % 0 %; Platelet Count 393 10^3/cmm (130-400); Red Blood Count 3.43 10^6/uL (4.1-5.3); Red Cell Distribution Width 14.2 % (12.1-15.1); White Blood Count 4.9 10^3/uL (4.0-10.0)
[2021-07-05 04:36] LABS: Chol HDL Ratio 1.67 mg/dL (0.0-4.40); Cholesterol 75 mg/dL (0-200); HDL Cholesterol 45 mg/dL (60-100); LDL Cholesterol Calculated 8 mg/dL (50-129); Magnesium 1.9 mg/dL (1.7-2.3); Triglycerides 110 mg/dL (0-150); VLDL Cholestrol Calculation 22 mg/dL (0-30)
[2021-07-05 04:38] LABS: Alanine Aminotransferase 17 U/L (0-33); Albumin Level 3.2 g/dL (3.5-5.2); Alkaline Phosphatase 82 IU/L (35-105); Anion Gap 14.1 (5-19); Aspartate Amino Transferase 13 U/L (0-32); Blood Urea Nitrogen 10 mg/dL (6-20); Carbon Dioxide 31 mmol/L (22-29); Chloride 98 mmol/L (98-107); Creatinine Clr Calc Pharmacy 118.2259; Estmated Average Glucose 243; Globulin 3.1 g/dL (1.3-4.6); Glomerular Filtration Rate 128.1 mL/min (90-130); Glucose 167 mg/dL (65-115); Hemoglobin A1C 10.1 % (4.0-6.0); Osmolality Calculated 291 mOsm/kg (285-295); Potassium 4.1 mmol/L (3.5-5.1); Sodium 139 mmol/L (136-145); Total Bilirubin 0.2 mg/dL (0.15-1.2); Total Protein 6.3 g/dL (6.6-8.7)
--- NOTE | 2021-07-05 06:00 | XRR_ITS ---
PROCEDURE INFORMATION: Exam: XR Chest Exam date and time: 07/05/2021 6:00 AM Age: 56 years old Clinical indication: Condition or disease; Other: Covid TECHNIQUE: Imaging protocol: XR of the chest. Views: 1 view. Total images: 1 COMPARISON: CR (CHEST, ) 07/03/2021 10:22 AM FINDINGS: Lungs: Improved bilateral pleuroparenchymal disease. Coarse chronic pulmonary markings. Pleural spaces: No pneumothorax. Heart/Mediastinum: Heart size is stable when compared to the prior exam. Coronary stent noted. Vasculature: Atherosclerosis is evident. Bones/joints: Osseous structures are unchanged from the prior exam. XR/XR chest 1V portable [id number] IMPRESSION: 1. Improved bilateral pleuroparenchymal disease. 2. Coarse chronic pulmonary markings. Radiation Dose CTDIVOL = (mGy): DLP = (mGy-cm)
--- NOTE | 2021-07-05 06:37 | PC.NURSE ---
Frequent safety and comfort rounds continue. Orders and/or nursing care completed as indicated. Patient monitored for response to intervention and treatment(s). Education provided includes medications and oxygen requirements. Patient and/or sales representative trainee verbalizes understanding. Will continue to monitor.
[2021-07-05] MEDS: clopidogrel 75 mg Tablet PO (06:59)
[2021-07-05] MEDS: enoxaparin 40 mg/0.4 mL Syringe SUBCUT (06:59)
--- NOTE | 2021-07-05 08:50 | PC.NURSE ---
Pt sitting on the side of the bed talking to staff. Resp even and non-labored no distress noted. Pt had no c/o pain or discomfort at the present time. No needs voiced. Call light in reach.
[2021-07-05] MEDS: FUROsemide 40 mg Tablet PO (09:56)
[2021-07-05 09:57] LABS: Glucose Point of Care 139 mg/dL (70-110)
[2021-07-05] MEDS: metoprolol tartrate 25 mg Tablet 12.5 MG PO (09:57)
[2021-07-05] MEDS: pantoprazole DR 40 mg Tablet PO (09:57)
[2021-07-05] MEDS: potassium chloride ER 20 mEq Tablet 40 MEQ PO (09:57)
[2021-07-05] MEDS: aspirin 81 mg Chew Tablet PO (09:57)
[2021-07-05] MEDS: metoprolol tartrate 25 mg Tablet PO (11:11)
--- NOTE | 2021-07-05 12:25 | PM.DCS ---
Discharge Providers Date of Admission: 07/01/21 05:13 Date of Discharge: July 05, 2021 Attending Provider at Admission: Jeanine Marquez Attending Provider at Discharge: Sunday Tavarez MD Consults: Cardiology: Dr. Cuadra Primary Care Provider: VANGIE DE MD Diagnoses at Discharge Discharge Diagnosis (1) Acute respiratory distress: Status: Acute (2) Elevated troponin: Status: Acute (3) Pleural effusion: Status: Acute (4) Transaminitis: Status: Acute (5) HCAP (healthcare-associated pneumonia): Status: Ruled-out (6) Diabetic foot infection: Status: Acute (7) Peripheral vascular disease: Status: Acute (8) Coronary artery disease: Status: Acute Permanent problem details: 4 stents present. Qualifiers: Coronary Disease-Associated Artery/Lesion type: jamul artery [place] vs. transplanted heart: jamul heart Associated angina: with other forms of angina Qualified Code(s): I25.118 - Atherosclerotic heart disease of jamul coronary artery with other forms of angina pectoris (9) Diabetes mellitus: Status: Acute (10) Hypertension: Status: Acute Qualifiers: Hypertension type: essential hypertension Qualified Code(s): I10 - Essential (primary) hypertension (11) Hyperlipidemia: Status: Acute Qualifiers: Hyperlipidemia type: mixed hyperlipidemia Qualified Code(s): E78.2 - Mixed hyperlipidemia Reason for Visit Reason for Visit: sob Hospital Course Hospital Course Nathalie Solano is a 56 year old female with PMHx of CAD s/p multiple stents (total of 11, with 6 stents in December 2020 at [place]), HTN, HLD, anxiety/depression and DM-2. She also has chronic lower back pain and chronic active tobacco abuse. She has had a recent hospitalization at [place] for diabetic foot infection and pneumonia. She was admitted at that time for elective peripheral angiogram for poorly healing left foot diabetic wound. She underwent peripheral stents (needed 3 angiograms done via right femoral access). She was also treated with antibiotics for pneumonia. She was discharged about a week back. I do not have records available for review. She continued to have progressively worse worsening dyspnea on exertion and orthopnea, PND as well as lower extremity swelling. She carries no prior diagnosis of congestive heart failure per her knowledge and says she was not taking any diuretics at home. Her oxygen level had dropped in 70's. No fever or chills. She asked her to call 911 and presented to the ER. She received steroids and breathing treatment via EMS and was brought to the ER. She was placed on BiPAP. She was admitted on 01 July 2021 with respiratory distress. Labs on arrival showed hemoglobin of 10.9, proBNP of 1131, BUN 9, creatinine 0.5. AST 860, ALT 36. Baseline troponin T of 48 that increased at 2 hours to 61 and at 6 hours to 74. Chest x-ray suggestive of pulmonary edema versus superimposed bilateral basilar atelectasis/infiltrates. CT chest shows bilateral pleural effusion with superimposed bilateral basilar opacities and mild pneumonia. Patient was admitted to the hospital for acute hypoxia secondary to CHF exacerbation with possibility of pneumonia. She was started on IV diuresis. On admission patient was found to have elevated troponin which is most likely secondary to type II PA from demand ischemia secondary to congestive heart failure. Cardiology was consulted. She responded well to the treatment. Echocardiogram was done which showed an EF 55 to 60% with mild hypokinesis of basal inferior lateral and basal to mid anterior lateral herron with grade 2 diastolic dysfunction with moderately elevated filling pressures. She was also found to have moderate to severe posteriorly directed mitral regurgitation, mild to moderate aortic valve stenosis with peak velocity of 2.5 m/s and mean gradient of 14. Initially patient was started on broad-spectrum antibiotics which were rapidly deescalated as pneumonia was ruled out. Patient was found to have bilateral pleural effusion which is thought secondary to congestive heart failure. She responded well to the treatment and has been on room air for last 48 hours with requiring occasional oxygen supplementation while sleeping at night. Patient will benefit from sleep study as an outpatient for possible undiagnosed obstructive sleep apnea. Her home cardiac medications were adjusted, Lasix was added to the medication list. During hospitalization she was found to have uncontrolled blood sugars. HbA1c was checked and found to be more than 10. Patient was counseled in detail to make sure she takes her home dose of insulin glargine once daily which she states she has not been prior to admission. Physical Exam Narrative: EXAM NARRATIVE: General: No acute distress, AO x3 HEENT: PERRLA, pupils bilaterally equal and reactive Chest: Normal vesicular breath sounds, fine basilar crackles bilaterally, equal good air entry bilaterally CVS: S1-S2 regular, ejection systolic metastatic lesion renal carotids 2/6, soft pansystolic murmur at apex rating to anterior axillary line 1/6, no tachycardia, no gallops, no rubs Abdomen: Soft, nontender, no organomegaly, bowel sounds present Neuro: No focal deficits, no facial deformity, AO x3, power 5/5 in all limbs Discharge Data Data Completed and Pending: Completed Studies During Hospitalization Category Date Time Status CT angio chest PE protcl [id number] Urge nt Cat Scan 07/01/21 04:34 Completed XR chest 1V ravi ble [id number] Q48H Exams 07/05/21 06:00 Completed XR chest 1V ravi ble [id number] Routine Exams 07/03/21 09:09 Completed XR chest 1V ravi ble [id number] Urgent Exams 07/01/21 02:32 Completed CV. echo complete * [id number] Routine Ultrasound 07/02/21 06:00 Completed Pending at discharge Category Date Time Status XR chest 1V ravi ble [id number] Q48H Exams 07/07/21 06:00 Ordered XR chest 1V ravi ble [id number] Q48H Exams 07/09/21 06:00 Ordered Blood Culture Sta t Lab 07/01/21 02:56 Results Complete Blood Co unt w/Auto AM LABS Lab 07/06/21 04:00 Ordered Magnesium AM LABS Lab 07/06/21 04:00 Ordered Labs from last 24 hours 07/05/21 07/05/21 07/05/21 06:35 03:33 03:33 WBC RBC Hgb Hct MCV MCH MCHC RDW Plt Count MPV Neut % (Auto) Lymph % (Auto) Cannon % (Auto) Eos % (Auto) Baso % (Auto) Neut # (Auto) Lymph # (Auto) Cannon # (Auto) Eos # (Auto) Baso # (Auto) Nucleated RBC % (a uto) Nucleated RBCs # Sodium Potassium Chloride Carbon Dioxide Anion Gap BUN Creatinine GFR Calculation Glucose POC Glucose 139 H Estimat Average Gl ucose 243 Hemoglobin A1c 10.1 H Calculated Osmolal ity Calcium Magnesium 1.9 Total Bilirubin AST ALT Alkaline Phosphata se Total Protein Albumin Globulin Triglycerides 110 Cholesterol 75 LDL Cholesterol, C alc 8 L Total VLDL Cholest chanell 22 HDL Cholesterol 45 L Cholesterol/HDL Ra moiz 1.67 07/05/21 07/05/21 07/04/21 03:33 03:33 20:09 WBC 4.9 RBC 3.43 L Hgb 10.0 L Hct 32.1 L MCV 93.6 MCH 29.2 MCHC 31.2 RDW 14.2 Plt Count 393 MPV 9.5 Neut % (Auto) 55.3 Lymph % (Auto) 34.4 Cannon % (Auto) 7.0 Eos % (Auto) 2.9 Baso % (Auto) 0.2 Neut # (Auto) 2.68 Lymph # (Auto) 1.7 Cannon # (Auto) 0.3 Eos # (Auto) 0.1 Baso # (Auto) 0.0 Nucleated RBC % (a uto) 0 Nucleated RBCs # 0.0 Sodium 139 Potassium 4.1 Chloride 98 Carbon Dioxide 31 H Anion Gap 14.1 BUN 10 Creatinine 0.5 GFR Calculation 128.1 Glucose 167 H POC Glucose 371 H Estimat Average Gl ucose Hemoglobin A1c Calculated Osmolal ity 291 Calcium 9.0 Magnesium Total Bilirubin 0.2 AST 13 ALT 17 Alkaline Phosphata se 82 Total Protein 6.3 L Albumin 3.2 L Globulin 3.1 Triglycerides Cholesterol LDL Cholesterol, C alc Total VLDL Cholest chanell HDL Cholesterol Cholesterol/HDL Ra moiz 07/04/21 16:23 WBC RBC Hgb Hct MCV MCH MCHC RDW Plt Count MPV Neut % (Auto) Lymph % (Auto) Cannon % (Auto) Eos % (Auto) Baso % (Auto) Neut # (Auto) Lymph # (Auto) Cannon # (Auto) Eos # (Auto) Baso # (Auto) Nucleated RBC % (a uto) Nucleated RBCs # Sodium Potassium Chloride Carbon Dioxide Anion Gap BUN Creatinine GFR Calculation Glucose POC Glucose 184 H Estimat Average Gl ucose Hemoglobin A1c Calculated Osmolal ity Calcium Magnesium Total Bilirubin AST ALT Alkaline Phosphata se Total Protein Albumin Globulin Triglycerides Cholesterol LDL Cholesterol, C alc Total VLDL Cholest chanell HDL Cholesterol Cholesterol/HDL Ra moiz Vitals: Last Vital Signs Temp 98 F 07/05/21 03:56 Pulse 105 H 07/05/21 08:00 Resp 20 H 07/05/21 08:00 BP 113/77 07/05/21 08:00 Pulse Ox 95 07/05/21 08:00 Discharge Plan Discharge Patient Disposition: Home Condition: Stable Prescriptions: New [place]-Con M20 20 mEq Tablet,Er Particles/Crystals 20 meq PO DAILY Qty: 30 RF: 0 furosemide [Lasix] 40 mg tablet 40 mg PO BID Qty: 60 RF: 0 Continued metformin 1,000 mg tablet 1,000 mg PO BID RF: 0 nitroglycerin 0.4 mg tablet, sublingual 0.4 mg SUBLINGUAL Q5M PRN (Reason: Chest Pain) RF: 0 sertraline 50 mg tablet 50 mg PO QPM RF: 0 aspirin [Adult Low Dose Aspirin] 81 mg tablet,delayed release (DR/EC) 81 mg PO QAM RF: 0 clopidogrel [Plavix] 75 mg tablet 75 mg PO QAM RF: 0 polyethylene glycol 3350 [Miralax] 17 gram Powder In Packet 17 g PO DAILY PRN (Reason: Constipation) RF: 0 albuterol sulfate [Ventolin HFA] 90 mcg/actuation Hfa Aerosol Inhaler 2 puff INHALATION Q4H PRN (Reason: Shortness Of Breath) RF: 0 atorvastatin 40 mg tablet 40 mg PO BEDTIME RF: 0 glipizide 10 mg tablet 10 mg PO BID RF: 0 Fiber Gummies 1 tab PO DAILY RF: 0 benzonatate 200 mg capsule 200 mg PO TID PRN (Reason: Cough) RF: 0 isosorbide dinitrate 30 mg tablet 15 mg PO DAILY RF: 0 fluticasone propionate 50 mcg/actuation spray,suspension 1 - 2 spray INTRANASAL DAILY PRN (Reason: Allergy Symptoms) RF: 0 Vitamin D3 25 mcg (1,000 unit) Tablet 25 mcg PO DAILY RF: 0 Repatha Syringe 140 mg/mL syringe 140 mg SUBCUT Q14D RF: 0 Changed metoprolol tartrate 25 mg tablet 25 mg PO BID Qty: 0 RF: 0 Toujeo Max U-300 SoloStar 300 unit/mL (3 mL) insulin pen 20 unit SUBCUT BEDTIME Qty: 0 RF: 0 Discontinued sulfamethoxazole-trimethoprim 800-160 mg tablet 1 tab PO BID RF: 0 Discharge Orders: Discharge Order (Routine); Ordered 07/05/21 Ordered By: Sunday Tavarez Referrals: VANGIE DE MD [Primary Care Provider] - 4-7 days (Follow-up blood sugar diary for further adjustment of anti-diabetic medications.) Discharge Diet: Cardiac and Diabetic Discharge Activity: Resume usual activity Patient Instructions: Opioid Safety Activity Restrictions/Additional Instructions: Take Lasix 40 mg twice daily, potassium 20 mg daily. Metoprolol 25 mg twice daily. Imdur 15 mg daily. Please follow-up with your adoption social worker within next 1 week. Please maintain a blood sugar diary by checking sugars twice daily and follow-up with your primary care provider within next 1 week for further adjustment of diabetes medications. Patient would benefit from outpatient sleep study for possibly undiagnosed sleep apnea. Discharge Attestations Time Spent in Discharge Care*: greater than 30 min Specific Discharge Activities: educating patient, discussing with pcp/other providers, discussing with case making machine operator/social workers/dc planners, documenting/other paperwork and evaluating patient/reviewing data Status at Discharge: Cognitive status at discharge: cognitively intact, Behavioral status at discharge: cooperative, Functional status at discharge: independent ambulation Overall status at discharge: patient is back to baseline Quality Metrics Clinical Quality Measures During this hospital stay, did patient experience: None Coding Level of Care Code Acute Chg FW DC note Diagnoses Acute respiratory distress R06.03 Elevated troponin R77.8 Pleural effusion J90 Transaminitis R74.01 HCAP (healthcare-associated pneumonia) J18.9 Diabetic foot infection E11.628; L08.9 Peripheral vascular disease I73.9 Coronary artery disease I25.118 Coronary Disease-Associated Artery/Lesion type: jamul artery [place] vs. transplanted heart: jamul heart Associated angina: with other forms of angina Diabetes mellitus E11.9 Hypertension I10 Hypertension type: essential hypertension Hyperlipidemia E78.2 Hyperlipidemia type: mixed hyperlipidemia
[2021-07-05 12:30] LABS: Glucose Point of Care 324 mg/dL (70-110)
--- NOTE | 2021-07-05 12:37 | P.PN_ITS ---
Subjective Subjective: Interval history: Had one episode of shortness of breath overnight. Throughout the day she stayed in room air and even at the time of evaluation she is on room air. No chest discomfort. Shortness of breath is improved while sitting as well as with ambulation. -Records obtained from outside hospital and reviewed. Medications: Reviewed: Yes Medication Review Details: Current Medications Acetaminophen (Acetaminophen 325 Mg Tablet) 650 mg PO Q6H PRN PRN Reason: Mild/Mod Pain Or Temp >/= 101 Last Admin: 07/05/21 02:27 Dose: 650 mg Documented by: Albuterol Sulfate (Albuterol 8 Gm Mdi) 2 puff INHALATION Q6H.RESPIRATORY PRN PRN Reason: SHORTNESS OF BREATH Last Admin: 07/04/21 15:32 Dose: 2 puff Documented by: Aspirin (Aspirin 81 Mg Chew Tablet) 81 mg PO DAILY [facility] Last Admin: 07/05/21 09:57 Dose: 81 mg Documented by: Atorvastatin Calcium (Atorvastatin 40 Mg Tablet) 80 mg PO BEDTIME [facility] Last Admin: 07/04/21 20:34 Dose: 80 mg Documented by: Clopidogrel Bisulfate (Clopidogrel 75 Mg Tablet) 75 mg PO DAILY@0700 [facility] Last Admin: 07/05/21 06:59 Dose: 75 mg Documented by: Dextrose (Dextrose 50% Syringe 50 Ml) 25 ml IVP ONCE PRN; Protocol PRN Reason: hypoglycemia protocol Dextrose (Dextrose 50% Syringe 50 Ml) 50 ml IVP PRN PRN; Protocol PRN Reason: hypoglycemia protocol Enoxaparin Sodium (Enoxaparin 40 Mg/0.4 Ml Syringe) 40 mg SUBCUT Q24H [facility] Last Admin: 07/05/21 06:59 Dose: 40 mg Documented by: Furosemide (Furosemide 40 Mg Tablet) 40 mg PO DAILY@0800 [facility] Last Admin: 07/05/21 09:56 Dose: 40 mg Documented by: Glucagon (Glucagon 1 Mg/Ml Inj 1 Ml) 1 mg IM ONCE PRN; Protocol PRN Reason: Adult Acute Hypoglycemia Prot. Dextrose (D5w) 500 mls @ 100 mls/hr IV ONCE PRN; Protocol PRN Reason: Adult Acute Hypoglycemia Prot Insulin Glargine (Insulin Glargine 100 Units/1 Ml) 30 unit SUBCUT BEDTIME [facility] Last Admin: 07/04/21 21:51 Dose: Not Given Documented by: Insulin Human Lispro (Insulin Lispro 100 Unit/1 Ml) 0 unit SUBCUT WM&BEDTIME [facility]; Protocol Last Admin: 07/05/21 09:24 Dose: Not Given Documented by: Metoprolol Tartrate (Metoprolol Tartrate 25 Mg Tablet) 50 mg PO BID [facility] Non-Formulary Medication (Repatha 140 Mg/Ml) 1 each SUBCUT Q14D [facility] Last Admin: 07/02/21 17:03 Dose: 1 each Documented by: Ondansetron HCl (Ondansetron 2 Mg/Ml Sdv 2 Ml) 4 mg IVP Q8H PRN PRN Reason: vomiting, or N/V if npo Pantoprazole Sodium (Pantoprazole Dr 40 Mg Tablet) 40 mg PO DAILY [facility] Last Admin: 07/05/21 09:57 Dose: 40 mg Documented by: Polyethylene Glycol (Polyethylene Glycol 3350 Pkt 17 Gm) 17 gm PO DAILY [facility] Last Admin: 07/05/21 09:58 Dose: Not Given Documented by: Potassium Chloride (Potassium Chloride Er 20 Meq Tablet) 40 meq PO DAILY [facility] Last Admin: 07/05/21 09:57 Dose: 40 meq Documented by: Vitals/I&O/Wt Last Vital Signs Temp 98 F 07/05/21 03:56 Pulse 105 H 07/05/21 08:00 Resp 20 H 07/05/21 08:00 BP 113/77 07/05/21 08:00 Pulse Ox 95 07/05/21 08:00 07/04/21 07/05/21 07/05/21 22:59 06:59 14:59 Intake Total 960 / 2019 240 / 2260 Output Total 2099 / 3900 3900 Balance -1140 / -1880 239 / -1641 Physical Exam Narrative: EXAM NARRATIVE: GENERAL: Averagely built and averagely nourished in no acute distress ; appears older than stated age. HEENT: Pupils equal round reactive to light. No pallor or icterus. NECK: Elevated JVD. No carotid bruit. CARDIOVASCULAR SYSTEM: S1-S2 regular. Grade 3/6 systolic murmur+ RESPIRATORY SYSTEM: Absent breath sound bilateral bases. No wheezes or rhonchi, rales+; appears tachypneic ABDOMEN: Soft, nontender and nondistended. Normal bowel sounds present. EXTREMITIES: No cyanosis or clubbing. trace edema. Small wound noted on left big toe. no signs of chronic venous insufficiency. CAMPAIGN ADVISOR: Patient is alert oriented ?3. No focal neurological deficits. SKIN: Normal turgor and temperature. Data : 07/05/21 03:33 07/05/21 03:33 Micro: Microbiology 07/02/21 12:00 Sputum Culture - Final Sputum - Expectorated Sputum A&P Assessment and plan (1) Acute respiratory distress: 2/2 to decompensated congestive heart failure Status: Acute (2) CHF (congestive heart failure), NYHA class III: Decompensated congestive heart failure likely a combination of moderate to severe mitral valve regurgitation and diastolic heart failure -She diuresed well with IV Lasix. -Recommend discharging patient home on Lasix 40 mg PO BID -Continue daily weight, intake and output charting. -Patient seems stable to be discharged home. -Recommend follow-up with primary care physician and patient's vulcan crewmember within a week -Follow-up BMP within a week. -Repeat chest x-ray in a week or 2. Status: Acute Qualifiers: Congestive heart failure type: diastolic Congestive heart failure c hronicity: acute Qualified Code(s): I50.31 - Acute diastolic (congestive) heart failure (3) Elevated troponin: Non-ST elevation NV type II secondary to decompensated congestive heart failure Status: Acute (4) Coronary artery disease: She also tells me she is due for coronary angiogram next week at [place] -Records reviewed. -continue DAPT, low dose metoporlol and statin Status: Acute Qualifiers: Coronary Disease-Associated Artery/Lesion type: ramona artery [place] vs. transplanted heart: ramona heart Associated angina: with other forms of angina Qualified Code(s): I25.118 - Atherosclerotic heart disease of ramona coronary artery with other forms of angina pectoris (5) Hypertension: Status: Acute Qualifiers: Hypertension type: essential hypertension Qualified Code(s): I10 - Essential (primary) hypertension Additional A&P Information Peripheral vascular disease: She is due for staged procedure on right leg in 3 to 4 weeks. Moderate bilateral pleural effusion: She has had good responds to IV diuretics and may not need thoracentesis. f/u CXR in 10-14 days Moderate to severe mitral valve regurgitation Mild to moderate aortic stenosis. Hypertension Hyperlipidemia Diabetes mellitus Transaminitis : resolved Possible superimposed pneumonia : less likely Anemia Hypokalemia: resolved Hypomagnesemia : resolved Thank you for allowing me to participate in patient's care. Please feel free to call with questions or concerns. Attestations Medical Necessity Statement*: Stable to be discharged home from cardiac standpoint Time Spent in Patient Care: 16 - 35 minutes (>than 50% of time spent in counselling and/or direct pt care on unit) . Coding Level of Care Code Acute Primary Substance Abuse Counselor for Lakisha Coleman Diagnoses Acute respiratory distress R06.03 CHF (congestive heart failure), NYHA class III I50.31 Congestive heart failure type: diastolic Congestive heart failure chronicity: acute Elevated troponin R77.8 Coronary artery disease I25.118 Coronary Disease-Associated Artery/Lesion type: ramona artery [place] vs. transplanted heart: ramona heart Associated angina: with other forms of angina Hypertension I10 Hypertension type: essential hypertension
[2021-07-05] MEDS: insulin lispro 100 unit/1 mL SUBCUT (12:39)
--- NOTE | 2021-07-05 14:45 | PC.NURSE ---
Pt discharged home. Pts IV removed no redness or swelling noted. Pts discharge instructions given along with prescriptions and follow up appointments. Pt had no c/o pain or discomfort at the time of discharge.
== END 2021-07-05 14:40 | disposition home or self-care (01) | DRG 280 ==
LOC: ER 03:37 → CSU 05:48
PROVIDERS: Internal Medicine; Admitting Provider Hospitalist; Emergency Provider Emergency Medicine; PCP Family Medicine; Visit Provider Student in an Organized Health Care Education/Training Program
DX: I11.0 Hypertensive heart disease with heart failure (principal); I50.31 Acute diastolic (congestive) heart failure; I21.A1 Myocardial infarction type 2; E78.2 Mixed hyperlipidemia; I25.10 Atherosclerotic heart disease of native coronary artery without angina pectoris; Z95.5 Presence of coronary angioplasty implant and graft; Z87.01 Personal history of pneumonia (recurrent); F17.210 Nicotine dependence, cigarettes, uncomplicated; F41.8 Other specified anxiety disorders; E11.51 Type 2 diabetes mellitus with diabetic peripheral angiopathy without gangrene; Z95.820 Peripheral vascular angioplasty status with implants and grafts; E11.621 Type 2 diabetes mellitus with foot ulcer; L97.529 Non-pressure chronic ulcer of other part of left foot with unspecified severity; G89.29 Other chronic pain; M54.50 Low back pain, unspecified; I08.0 Rheumatic disorders of both mitral and aortic valves; D64.9 Anemia, unspecified; Z79.82 Long term (current) use of aspirin; Z79.02 Long term (current) use of antithrombotics/antiplatelets; Z79.84 Long term (current) use of oral hypoglycemic drugs; E83.42 Hypomagnesemia; E87.6 Hypokalemia; R06.03 Acute respiratory distress
CPT/HCPCS: 36415; 36416; 36600; 71045; 71275; 80048; 80053; 80061; 80202; 82805; 82962; 83036; 83605; 83735; 83880; 84145; 84484; 85025; 86403; 87040; 87070; 87449; 87641; 93005; 93306; 94640; 94660; 94664; 96365; 96366; 96367; 96372; 96375; 96376; 99291; J1650; J1815; J1940; J2405; J2543; J3010; J3370; J3475; J3480; J3535; J7030; J7040; Q9967

== ENCOUNTER 2021-10-03 20:00 | Outpatient (CLI) | payer OTHER, SELFPAY | END 2021-10-03 20:01 | disposition home or self-care (01) | LOC: SLEEP 10-04 07:18 | PROVIDERS: PCP Family Medicine; Visit Provider Student in an Organized Health Care Education/Training Program | DX: G47.33 Obstructive sleep apnea (adult) (pediatric) (principal) | CPT/HCPCS: 95811 ==

== ENCOUNTER 2021-12-04 19:49 | Inpatient (IN) | payer OTHER, SELFPAY ==
--- NOTE | 2021-12-04 19:58 | ECG_ITS ---
[facility] Test Date: 2021-12-04 Pat Name: Nathalie Solano Department: Room: 111 Gender: Female Reimbursement Rep: : 1965 Requested By: Isabel Ho Order Number: [id number] Giovanny MD: Erica Abad M.D. Measurements Intervals [place] Rate: 107 P: 50 AR: 108 QRS: 31 QRSD: 78 T: 28 QT: 359 QTc: 481 Interpretive Statements SINUS TACHYCARDIA WITH SHORT AR INTERVAL POSSIBLE LEFT ATRIAL ENLARGEMENT [-0.1mV P-WAVE IN V1/V2] ABNORMAL RHYTHM ECG Compared to ECG 12/04/2021 20:00:57 Short AR interval now present Electronically Signed On 12-05-2021 20:17:04 CDT by Erica Abad M.D. [email or web address]
--- NOTE | 2021-12-04 19:58 | XRR_ITS ---
PROCEDURE INFORMATION: Exam: XR Chest Exam date and time: 12/04/2021 7:07 PM Age: 56 years old Clinical indication: Dyspnea; Additional info: SOB TECHNIQUE: Imaging protocol: XR of the chest. Views: 1 view. COMPARISON: CR XR chest 1V portable [id number] 07/05/2021 6:34 AM FINDINGS: Lungs: There is partial atelectasis at the lung bases. There is mild pulmonary venous congestion. Pleural spaces: There are moderate bilateral pleural effusions more on the left than on the right. Heart/Mediastinum: Heart is upper limits normal in size. Vasculature: There are atherosclerotic changes in the aortic arch. Bones/joints: Unremarkable. XR/XR chest 1V portable [id number] IMPRESSION: Congestive failure and bilateral pleural effusions.
[2021-12-04 20:02] VITALS: BP 84/52; PULSE 108; RESP 18; TEMP 36.4; O2SAT 98; BMI 26.5
--- NOTE | 2021-12-04 20:49 | ED_ITS ---
HPI - Chest Pain General: Chief Complaint: Chest Pain Stated Complaint: SOB \Blood Pressure Bottom out Time Seen by Provider: 12/04/21 20:13 Source: patient and family (spouse) Mode of arrival: ambulatory Limitations: no limitations History of Present Illness: This patient comes to emergency department because she is concerned about various somatic symptoms. Patient has a longstanding history of diabetes. She also has sleep apnea and has just recently started using a BiPAP machine during sleep. She also has a history of peripheral vascular disease as well as coronary artery disease. She states that today she has had bothSpouse elevation in her blood pressure and felt like she could not breathe well. This apparently occurred after her nap she took today without using her CPAP device. Is also noted that she had low blood sugar. EMS apparently notified and came to her residence and evaluated her and found her vital signs to be reasonable and in normal range and no other findings at that time to suggest that she need transportation to the emergency department. She subsequently stated that she felt like she developed some chest heaviness as well as blood pressure being low which prompted her to come to the emergency department. She states she is been taking all her usual prescribed medications. She recently had a left great toe amputated. She is still taking antibiotics for that postoperative condition. She has an appointment scheduled for her surgeon tomorrow. She denies any fevers or chills. Nausea or vomiting she does have loose stools but she does take Metformin. Onset: during rest Severity: mild Quality: heaviness Context: recent surgery Associated symptoms: Deny fever(s), nausea, palpitations or vomiting Risk Factors: Coronary artery disease risk factors: diabetes, smoking history and hyperlipidemia Review of Systems Const: Reports: fatigue; Denies: fever(s), chills or body aches Eyes: Denies: change in vision or blurry vision ENMT: Denies: throat pain, odynophagia, mouth pain or nasal congestion Card: Reports: chest pain; Denies: palpitations, irregular heart rhythm or edema Resp: Denies: productive cough, non-productive cough, wheezing or stridor GI: Denies: nausea, vomiting or diarrhea : Denies: flank pain, difficulty voiding, dysuria or urinary frequency Musc: Denies: neck pain, back pain, extremity pain or extremity swelling Skin/Breast: Denies: rash or erythema Neuro: Denies: headache(s), weakness in extremities or lack of coordination Psych: Reports: anxiety Endo: Denies: polyuria or polydipsia Deven/Lymph: Denies: easy bruising PFSH ED PFSH: Medical History (Updated 12/04/21 @ 22:22 by Skyler Lucia DO) Coronary artery disease 4 stents present. Depression Diabetes mellitus Diabetic foot infection Hyperlipidemia Hypertension Peripheral vascular disease Pleural effusion Surgical History H/O heart artery stent 2013 - Done in [place], 1 stent placed. 2015 - Done in [place], 1 stent placed. 2017 - Done in [facility], 2 stents placed. H/O left knee surgery (~1999) Plastic disc was placed History of salpingectomy (~1988) Treatment of ectopic History of tubal ligation Family History Mother Diabetes Heart disease Hypertension Hyperlipidemia Father Heart disease Diabetes Hypertension Hyperlipidemia Sister Diabetes Social History Smoking and tobacco status: current every day smoker cigarettes Packs smoked per day: 0.5 Years cigarettes smoked: 35 Quit status (tobacco): has tried quititng Alcohol intake: current Alcohol intake frequency: holidays/special occasions only History of recent travel: No Physical Exam Narrative: EXAM NARRATIVE: She makes good eye contact. Her speech is goal-directed. There is no conversational dyspnea. Const: COMMON NORMALS: no acute distress, patient oriented x3 and alert GENERAL APPEARANCE: cooperative HENMT: COMMON NORMALS: normocephalic, external ears normal, Normal external nose present and moist oral mucous membranes HEAD & SCALP: normocephalic NOSE: Normal external nose present EXTERNAL EAR: Yes external ears normal TEETH & GINGIVA: Yes poor dentition (Multiple decayed teeth) Eye: COMMON NORMALS: Equal, round and reactive pupils present, EOMs intact bilaterally and conjunctivae normal CONJUNCTIVA: Yes conjunctivae normal PUPIL: Yes Equal, round and reactive pupils present Neck/C-Spine: COMMON NORMALS: full ROM, no JVD and No carotid bruits Chest: COMMONS NORMALS: normal inspection of the chest CHEST: Yes tenderness Resp: COMMON NORMALS: normal respiratory effort and No retractions AUSCULTATION: crackles Laterality: bilateral Cardio: COMMON NORMALS: no JVD, regular rate, regular rhythm and No murmurs present (Cardio) RATE: regular rate RHYTHM: regular rhythm GI: COMMON NORMALS: Normal to inspection, nondistended, normoactive bowel sounds present, Soft to palpation and non-tender PALPATION: Yes Soft to palpation : COMMON NORMALS: Yes no CVA tenderness BLADDER/KIDNEY EXAM: Yes no CVA tenderness Back/Pelvis: COMMON NORMALS: no CVA tenderness, thoracic and lumbar spine normal to inspection and no thoracic nor lumbar tenderness Extremity: LEFT LOWER EXTREMITY: Yes foot & digits (surgical amputation great toe-no erythema or drainage.) Neuro: COMMON NORMALS: patient oriented x3, moves all extremities and no focal motor deficits SENSORIUM/ORIENTATION: Yes alert CRANIAL NERVES: Yes CN normal except as noted SPEECH: speech normal Course Reevaluation(s): Reevaluation #1: Patient states she still having some mild chest discomfort. Repeat examination reveals her blood pressure to be in 87/68 range. She is comfortable and alert. Heart rate is in the 100-1 06 range. Repeat examination of her chest reveals some very fine crackles at the bases. Consultations: Consultation #1: Discussed with the on-call hospitalist who agreed to accept admit the patient to stepdown he did request a CTA we will going proceed with that study as well to ensure that there is no occult PE. Time: 22:48 Vital Signs: Vital signs: Vital Signs Temperature 97.6 F 12/04/21 20:02 Pulse Rate 101 H 12/04/21 21:30 Respiratory Rate 20 H 12/04/21 21:30 Blood Pressure 85/52 12/04/21 21:30 Pulse Oximetry 96 12/04/21 21:30 MDM - Chest Pain Medical Decision Making Patient with subjective symptoms of chest pressure as well as feeling short of breath comes in with no acute ST segment changes on resting EKGs but does have a elevation in her troponin as well as a significant elevation in her BNP. This BNP elevation is significant and that is higher than we have seen on our laboratories at this facility historically. Her chest x-ray also shows bilateral pulmonary congestion as well as small pleural effusions consistent with acute on chronic congestive heart failure. Serial EKGs did not reveal any ST segment changes making acute myocardial infarction unlikely but she will need to be followed regarding serial troponins, serial EKGs, diuresis etc. Medical Records I reviewed the patient's medical records. Lab Data I reviewed the patient's lab results. : 12/04/21 20:55 12/04/21 20:55 Radiology Impressions Chest X-Ray 12/04/21 19:58 IMPRESSION: Congestive failure and bilateral pleural effusions. Laboratory Results WBC 7.9 10^3/uL (4.0-10.0) 12/04/21 20:55 RBC 3.59 10^6/uL (4.1-5.3) L 12/04/21 20:55 Hgb 10.4 g/dL (11.5-15.3) L 12/04/21 20:55 Hct 33.0 % (37.0-47.0) L 12/04/21 20: MCV 91.9 fl (81-99) 12/04/21 20: MCH 29.0 pg (28.0-34.0) 12/04/21 20: MCHC 31.5 g/dL (30.0-36.0) 12/04/21 20: RDW 14.1 % (12.1-15.1) 12/04/21 20: Plt Count 562 10^3/cmm (130-400) H 12/04/21 20: MPV 9.1 fL (7.4-10.4) 12/04/21 20: Neut % (Auto) 82.6 % 12/04/21 20:55 Lymph % (Auto) 12.1 % 12/04/21 20:55 [place] % (Auto) 4.5 % 12/04/21 20: Eos % (Auto) 0.3 % 12/04/21 20: Baso % (Auto) 0.1 % 12/04/21 20:55 Neut # (Auto) 6.56 10^3/uL (1.8-7.7) 12/04/21 20:55 Lymph # (Auto) 1.0 10^3/uL (0.8-4.8) 12/04/21 20:55 [place] # (Auto) 0.4 10^3/uL (0.2-0.9) 12/04/21 20:55 Eos # (Auto) 0.0 10^3/uL (0.0-0.8) 12/04/21 20:55 Baso # (Auto) 0.0 10^3/uL (0.0-0.1) 12/04/21 20:55 Nucleated RBC % (auto) 0 % 12/04/21 20: Nucleated RBCs # 0.0 /100WBC 12/04/21 20:55 Sodium 138 mmol/L (136-145) 12/04/21 20:55 Potassium 4.3 mmol/L (3.5-5.1) 12/04/21 20:55 Chloride 95 mmol/L (98-107) L 12/04/21 20:55 Carbon Dioxide 27 mmol/L (22-29) 12/04/21 20:55 Anion Gap 20.3 (5-19) H 12/04/21 20:55 BUN 9 mg/dL (6-20) 12/04/21 20:55 Creatinine 0.9 mg/dL (0.5-0.9) 12/04/21 20:55 GFR Calculation 65.0 mL/min (90-130) L 12/04/21 20:55 Glucose 121 mg/dL (65-115) H 12/04/21 20:55 Calculated Osmolality 286 mOsm/kg (285-295) 12/04/21 20:55 Calcium 9.8 mg/dL (8.5-10.5) 12/04/21 20:55 Total Bilirubin 0.5 mg/dL (0.15-1.2) 12/04/21 20:55 AST 19 U/L (0-32) 12/04/21 20:55 ALT 12 U/L (0-33) 12/04/21 20:55 Alkaline Phosphatase 94 IU/L (35-105) 12/04/21 20:55 Troponin T Baseline 104 ng/L (0-10) H* 12/04/21 20:55 NT-Pro-B Natriuret Pep 4281 pg/mL (0-125) H 12/04/21 20:55 Total Protein 7.0 g/dL (6.6-8.7) 12/04/21 20:55 Albumin 4.1 g/dL (3.5-5.2) 12/04/21 20:55 Globulin 2.9 g/dL (1.3-4.6) 12/04/21 20:55 EKG Data EKG 2: I personally reviewed and interpreted this EKG as follows: Interpretation: Repeat EKG reveals a ventricular rate of 107 bpm consistent with a sinus tachycardia. She has normal NV interval and normal QTc intervals. Normal axis. No acute ST-T wave changes noted although she does have baseline artifact. Discharge Plan Discharge Patient Disposition: Placed in Observation Clinical Impression: Acute on chronic congestive heart failure, Elevated troponin, Diabetes Coding Level of Care Code ED Complaint Evaluation Officer for g Fwd Exam Comprehensive
[2021-12-04 21:04] LABS: Basophils % 0.1 %; Eosinophils % 0.3 %; Hemoglobin 10.4 g/dL (11.5-15.3); Lymphocytes % 12.1 %; Mean Corpuscular HGB Conc 31.5 g/dL (30.0-36.0); Mean Corpuscular Volume 91.9 fl (81-99); Mean Platelet Volume 9.1 fL (7.4-10.4); Monocytes # 0.4 10^3/uL (0.2-0.9); Monocytes % 4.5 %; Neutrophils # 6.56 10^3/uL (1.8-7.7); Neutrophils % 82.6 %; Nucleated Red Blood Cells % 0 %; Platelet Count 562 10^3/cmm (130-400); Red Blood Count 3.59 10^6/uL (4.1-5.3); Red Cell Distribution Width 14.1 % (12.1-15.1); White Blood Count 7.9 10^3/uL (4.0-10.0)
[2021-12-04] MEDS: sodium chloride 0.9% 250 ML IV (21:10)
[2021-12-04 21:28] LABS: Alanine Aminotransferase 12 U/L (0-33); Albumin Level 4.1 g/dL (3.5-5.2); Alkaline Phosphatase 94 IU/L (35-105); Anion Gap 20.3 (5-19); Aspartate Amino Transferase 19 U/L (0-32); Blood Urea Nitrogen 9 mg/dL (6-20); Calcium 9.8 mg/dL (8.5-10.5); Carbon Dioxide 27 mmol/L (22-29); Chloride 95 mmol/L (98-107); Globulin 2.9 g/dL (1.3-4.6); Glucose 121 mg/dL (65-115); Osmolality Calculated 286 mOsm/kg (285-295); Potassium 4.3 mmol/L (3.5-5.1); Sodium 138 mmol/L (136-145); Total Bilirubin 0.5 mg/dL (0.15-1.2)
[2021-12-04 21:30] VITALS: BP 85/52; PULSE 101; RESP 20; O2SAT 96
[2021-12-04 21:40] LABS: Troponin(5th) Baseline 104 ng/L (0-10)
[2021-12-04 21:42] LABS: NT Pro B Type Natriuretic Pept 4281 pg/mL (0-125)
--- NOTE | 2021-12-04 21:58 | ECG_ITS ---
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 Measurements Intervals [place] Rate: 107 P: 59 TX: 124 QRS: 50 QRSD: 80 T: 41 QT: 372 QTc: 498 Interpretive Statements SINUS TACHYCARDIA ABNORMAL RHYTHM ECG Compared to ECG 07/01/2021 10:35:36 Short TX interval no longer present Electronically Signed On 12-05-2021 20:27:58 CDT by Erica Abad M.D. [id number]
[2021-12-04] MEDS: FUROsemide 10 mg/mL SDV 4mL 40 MG IVP (22:29)
--- NOTE | 2021-12-04 22:48 | CTR_ITS ---
PROCEDURE INFORMATION: Exam: CTA Chest With Contrast Exam date and time: 12/04/2021 11:21 PM Age: 56 years old Clinical indication: Shortness of breath; Patient HX: SOB w recent toe amputation; Additional info: SOB, elevate biomarkers and recent surgery TECHNIQUE: Imaging protocol: Computed tomographic angiography of the chest with contrast. 3D rendering (Not supervised by radiologist): MIP and/or 3D reconstructed images were created by the technologist. Radiation optimization: All CT scans at this facility use at least one of these dose optimization techniques: automated exposure control; mA and/or kV adjustment per patient size (includes targeted exams where dose is matched to clinical indication); or iterative reconstruction. Contrast material: OMNI 350; Contrast volume: 64 ml; Contrast route: INTRAVENOUS (IV); COMPARISON: CT angio chest PE protcl [id number] 07/01/2021 5:19 AM RADIATION DOSE METRICS: Total DLP (mGy-cm): 540.47 FINDINGS: Pulmonary arteries: There is no evidence of filling defects within the pulmonary arterial circulation to suggest pulmonary embolism. Aorta: There is atherosclerotic calcification of the aortic arch.There is no thoracic aortic aneurysm or dissection. Lungs: There is compressive atelectasis of portions of both lower lobes. There is also partial atelectasis in the lingula. There is some focal bronchiectasis and scarring in the right upper lobe. There is mild bronchial wall thickening which may represent some bronchial cuffing. There is interlobular septal thickening predominantly at the bases in in the apical regions which may represent some mild interstitial edema. There is some focal peripheral scarring laterally in the right lower lobe and some focal apical scarring the right upper lobe not significantly changed. Follow-up of these areas of scarring in 1 year is suggested to document stability. Pleural spaces: There are moderate bilateral pleural effusions. Heart: Unremarkable. No cardiomegaly. No pericardial effusion. Lymph nodes: There is small paratracheal lymph nodes but no adenopathy. Bones/joints: Unremarkable. No acute fracture. Soft tissues: Unremarkable. Other findings: Small nodular opacities or scarring in the left apex are not significantly changed. CT/CT angio chest PE protcl [id number] IMPRESSION: 1. Bilateral pleural effusions. 2. Interstitial pulmonary edema. 3. Persistent focal areas of nodular scarring in the right lung not significantly changed. Consider follow-up CT scan in 1 year to document stability.
--- NOTE | 2021-12-04 23:17 | P.HP_ITS ---
Providers/Chief Complaint Admitting Physician: Kevin Daly Chief Complaint: SOB \Blood Pressure Bottom out History of Present Illness 56-year-old lady with history of CAD, multiple stents both coronary and peripheral, she states last stent was in [place] in June in [facility], as well as with peripheral stents, with left side peripheral arterial stent about 10 days ago at that time also underwent great toe amputation left foot. She has gotten progressively dyspneic, both with exertion, and more recently even with minimal activities, feels like she cannot catch a deep breath, but also has been having chest pressure, feeling like her chest is being squeezed front to back. Having minimal nonproductive cough, says not more than usual. Was having some mild chills, loose stool yesterday and today. Denies headache, muscle aches, fever, nausea or vomiting. Baseline troponin is noted 104, previously with some mild chronic ovation, highest 74 NT proBNP is higher than usual at 4281. At most recent hospitalization here echocardiogram showed normal ejection fraction, grade 2 diastolic dysfunction, moderate to severe MVR, moderate AVS. Mild pulmonary hypertension. Mild TVR. Review of Systems Const: Denies: fever(s), chills, body aches or malaise Eyes: Denies: change in vision or eye redness ENMT: Denies: throat pain, oral sores or ear or mastoid pain Card: Reports: swelling of feet/ankles, dyspnea on exertion, orthopnea and other (Chest pressure); Denies: edema or pre-syncope Resp: Reports: dyspnea and non-productive cough; Denies: productive cough, change in phlegm color or hemoptysis GI: Reports: diarrhea; Denies: abdominal pain, nausea, vomiting, constipation, hematochezia or melena : Denies: flank pain, urinary frequency or hematuria Musc: Denies: back pain, joint swelling or joint redness Skin/Breast: Denies: rash, sores or new lesions Neuro: Denies: headache(s), numbness in extremities, weakness in extremities, dizziness, confusion or seizure-like activity Endo: Denies: polyuria or polydipsia Deven/Lymph: Denies: easy bleeding or purpura All/Imm: Denies: urticaria, throat swelling or tongue swelling Medications/Allergies Home Medications Medication Instructions Recorded Confirmed Last Taken Type aspirin 81 mg tablet,delayed 81 mg PO QAM 10/23/19 07/01/21 11/26/20 History release (Adult Low Dose Aspirin) metformin 1,000 mg tablet 1,000 mg PO BID 10/23/19 07/01/21 11/26/20 History nitroglycerin 0.4 mg sublingual 0.4 mg SUBLINGUAL Q5M PRN 10/23/19 07/01/21 Unknown History tablet sertraline 50 mg tablet 50 mg PO QPM 10/23/19 07/01/21 11/25/20 History albuterol sulfate 90 mcg/actuation 2 puff INHALATION Q4H PRN 11/26/20 07/01/21 11/25/20 History aerosol inhaler (Ventolin HFA) clopidogrel 75 mg tablet (Plavix) 75 mg PO QAM 11/26/20 07/01/21 Unknown History polyethylene glycol 3350 17 gram 17 g PO DAILY PRN 11/26/20 07/01/21 11/25/20 History oral powder packet (Miralax) Fiber Gummies 1 tab PO DAILY 07/01/21 07/01/21 Unknown History atorvastatin 40 mg tablet 40 mg PO BEDTIME 07/01/21 07/01/21 Unknown History benzonatate 200 mg capsule 200 mg PO TID PRN 07/01/21 07/01/21 Unknown History cholecalciferol (vitamin D3) 25 25 mcg PO DAILY 07/01/21 07/01/21 Unknown History mcg (1,000 unit) tablet (Vitamin D3) evolocumab 140 mg/mL subcutaneous 140 mg SUBCUT Q14D 07/01/21 07/01/21 06/18/21 History syringe (Repatha Syringe) fluticasone propionate 50 1 - 2 spray INTRANASAL DAILY PRN 07/01/21 07/01/21 Unknown History mcg/actuation nasal spray,suspension glipizide 10 mg tablet 10 mg PO BID 07/01/21 07/01/21 Unknown History isosorbide dinitrate 30 mg tablet 15 mg PO DAILY 07/01/21 07/01/21 Unknown History furosemide 40 mg tablet (Lasix) 40 mg PO BID #60 tab 07/05/21 Unknown Rx insulin glargine U-300 conc 300 20 unit (0.0667 mL) SUBCUT BID #0 07/05/21 07/01/2121 Rx unit/mL (3 mL) subcutaneous pen ml (Toujeo Max U-300 SoloStar) metoprolol tartrate 25 mg tablet 25 mg PO BID #0 tab 07/05/21 07/01/21 11/26/20 Rx potassium chloride 20 mEq 20 meq PO DAILY #30 tab 07/05/21 Unknown Rx tablet,extended release(part/cryst) (Klor-Con M) Allergies Allergy/AdvReac Type Severity Reaction Status Date / Time codeine Allergy hallucinations Verified 07/01/21 09:09 and violence PFSH Acute PFSH: Medical History (Updated 12/04/21 @ 23:40 by Kevin Daly MD) Amputation of left great toe Coronary artery disease 4 stents present. Depression Diabetes mellitus Diabetic foot infection Hyperlipidemia Hypertension Peripheral vascular disease Pleural effusion Surgical History H/O heart artery stent 2013 - Done in [place], 1 stent placed. 2014 - Done in [place], 1 stent placed. 2017 - Done in [facility] in [place], 2 stents placed. H/O left knee surgery (~1999) Plastic disc was placed History of salpingectomy (~1988) Treatment of ectopic History of tubal ligation Family History Mother Diabetes Heart disease Hypertension Hyperlipidemia Father Heart disease Diabetes Hypertension Hyperlipidemia Sister Diabetes Social History (Updated 12/04/21 @ 23:34 by Kevin Daly MD) Smoking and tobacco status: current every day smoker cigarettes Packs smoked per day: 0.5 Years cigarettes smoked: 35 Quit status (tobacco): has tried quititng Alcohol intake: current Alcohol intake frequency: holidays/special occasions only Substance/Drug Use: never Household members: spouse Marital status: History of recent travel: No Vitals/I&O/Wt Last Vital Signs Temp 97.6 F 12/04/21 20:02 Pulse 101 H 12/04/21 21:30 Resp 20 H 12/04/21 21:30 BP 85/52 12/04/21 21:30 Pulse Ox 96 12/04/21 21:30 12/04/21 12/04/21 12/05/21 14:59 22:59 06:59 Intake Total 250 / 250 Balance 250 / 250 Weight last 48 hrs Weight 65.771 kg Physical Exam Const: COMMON NORMALS: no acute distress and patient oriented x3 HENMT: COMMON NORMALS: oropharynx normal Resp: COMMON NORMALS: normal respiratory effort and clear to auscultation bilaterally AUSCULTATION: crackles and diminished lung sounds bilateral in the lower lung blunt Cardio: COMMON NORMALS: no JVD, regular rhythm, S1 normal heart sound present, S2 normal heart sound present and No murmurs present (Cardio) RHYTHM: regular rhythm HEART SOUNDS: S1 normal heart sound present and S2 normal heart sound present GI: COMMON NORMALS: Normal to inspection, nondistended, normoactive bowel sounds present, Soft to palpation and non-tender PALPATION: Yes Soft to palpation Extremity: COMMON NORMALS: no joint enlargement and no pedal edema GENERAL: Yes edema (R>L) OTHER: R foot wrapped in fresh dressing, no drainage, no proximal erythema Neuro: COMMON NORMALS: patient oriented x3 and moves all extremities Skin: COMMON NORMALS: no rashes or lesions noted GENERAL SKIN EXAM: no rashes or lesions noted Data : 12/04/21 20:55 12/04/21 20:55 A&P Assessment and plan (1) Acute on chronic congestive heart failure: Acute on chronic diastolic congestive heart failure exacerbation. With dyspnea exertion, lower extremity edema, bilateral pleural effusions. Change diuretics to IV Lasix 60 mg IV twice daily. Monitor blood pressures encephalopathy on presentation and in the setting of aortic stenosis. Received small bolus on presentation, hold Imdur, metoprolol for now to allow diuresis. If tolerating, consider resuming. Status: Acute (2) Elevated troponin: With noted troponin elevation, chest pressure, discussed with cardiology, complete troponin EKG series. With possible NSTEMI continue antiplatelet, add Lovenox. Continue statin. Additional assessment by TTE. NTG as needed. Status: Acute (3) Dyspnea on exertion: Secondary to CHF exacerbation, pleural effusions. Additionally having some mild cough, some diarrhea, will check COVID-19 as well. She is vaccinated. We will also add nebulizer treatments. Status: Acute (4) Chest pressure: As above Status: Acute (5) Hypotension: Initially blood pressure soft 85/52, did receive 250 mm bolus, with good response, systolic blood pressure up into 100s. Hold Imdur, metoprolol for now. Reassess aortic stenosis with TTE. CTA chest requested to exclude PE given recent surgery, with tachycardia, dyspnea, chest discomfort. Status: Acute (6) Pleural effusion, bilateral: Diuresis as above for acute diastolic congestive heart failure exacerbation. Check TSH Status: Acute (7) Leg edema: Right greater than left, assess venous duplex. Treat CHF exacerbation. Status: Acute (8) Amputation of left great toe: 10 days ago. Wound was unwrapped and inspected by ER physician, currently clean dressing I did not take it down again to look at it. Per report the wound was clean without any surrounding cellulitis or sign of infection. Please reassess. Status: Acute (9) Diarrhea: Reports stool was somewhat loose yesterday and today. We will check COVID-19. Status: Acute Plan BOOM: Nightly CPAP, her will bring hers from the car DM2: She states she takes 40 units twice daily of Toujeo after recent dose change. Continue here with Lantus. Sliding scale. CC diet. PAD: With recent stent in left leg and left great toe amputation. HTN HLD Home medications need to be reconciled, please review and reorder. Attestations Medical Necessity Statement*: Admission of over 2 midnights is anticipated for assessment of management of acute on chronic diastolic CHF, with troponin ovation, chest discomfort, lady with underlying CAD, possible NSTEMI, soft blood pressure. 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
[2021-12-04] MEDS: iohexol 350 mg/mL 100 mL Btl IV (23:29)
[2021-12-04 23:39] LABS: Troponin 5 2HR 99.98 ng/L (0-10)
[2021-12-04 23:41] LABS: Troponin 5 2HR Delta -4.02 ABS# (0-10)
[2021-12-04 23:56] VITALS: BP 116/81; PULSE 113; RESP 20; O2SAT 91
[2021-12-05] VITALS (17 sets, daily range): BP systolic 83–125; BP diastolic 50–87; PULSE 90–115; RESP 17–24; TEMP 36.3–36.9; O2SAT 94–98; BMI 27.3
--- NOTE | 2021-12-05 01:50 | USCV_ITS ---
Nathalie Solano Age: 56 Gender: F : 1965 Exam Date: 12/05/2021 13:52 Ordering Phys: Kevin Daly MD Technologist: [place] [facility] [place] ef low bp BP: 88 / 63 HR: 51 Rhythm: Sinus Technical Quality: Adequate MEASUREMENTS (Male / Female) Normal Values 2D ECHO LV Diastolic Diameter PLAX 4.4 cm 4.2 - 5.9 / 3.9 - 5.3 cm LV Systolic Diameter PLAX 2.5 cm IVS Diastolic Thickness 0.9 cm 0.6 - 1.0 / 0.6 - 0.9 cm IVS Systolic Thickness 1.1 cm LVPW Diastolic Thickness 1.3 cm 0.6 - 1.0 / 0.6 - 0.9 cm LVPW Systolic Thickness 1.0 cm LVOT Diameter 2.0 cm LV Ejection Fraction 2D Teich 65.9 % LV Ejection Fraction MOD 2C 71.8 % LV Ejection Fraction 2C AL 71.4 % LA Diameter 4.3 cm M-MODE LV Diastolic Diameter MM 5.8 cm 4.2 - 5.9 / 3.9 - 5.3 cm LV Systolic Diameter MM 3.6 cm LV Ejection Fraction MM Teich 66.6 % IVS Diastolic Thickness MM 0.7 cm 0.6 - 1.0 / 0.6 - 0.9 cm IVS Systolic Thickness MM 1.7 cm LVPW Diastolic Thickness MM 1.1 cm 0.6 - 1.0 / 0.6 - 0.9 cm LVPW Systolic Thickness MM 1.7 cm RV Diastolic Diameter MM 1.3 cm Aortic Annulus Diameter 3.1 cm LA Ao Ratio MM 1.7 MV E Point Septal Separation 1.8 cm DOPPLER AV Peak Velocity 280.0 cm/s MV Area PHT 5.0 cm squared Mitral E to A Ratio 1.5 MV E' Velocity 101.0 cm/s Mitral E to MV E' Ratio 28.7 Mitral E to LV E' Lateral Ratio 28.3 Mitral E to LV E' Septal Ratio 29.1 TR Peak Velocity 199.3 cm/s TR Peak Gradient 15.9 mmHg TV Peak E Velocity 72.0 cm/s Right Atrial Pressure 3.0 mmHg Pulmonary Artery Systolic Pressu 18.9 mmHg FINDINGS Left Ventricle Normal left ventricular size and systolic function, EF 67 %. No regional wall motion abnormalities. Grade III/IV diastolic dysfunction (restrictive filling pattern), severely elevated filling pressures. Right Ventricle The right ventricle is normal in size and function. Right Atrium The right atrium is normal in size. Left Atrium Mildly increased left atrial size. Mitral Valve Thickened mitral valve. Mild mitral annular calcification. Moderately severe mitral regurgitation Aortic Valve Thickened aortic valve. Possibly mild aortic valve stenosis with a peak velocity 2.8 m/s, peak gradient of 31 and a mean gradient of 16 mmHg. The valve area is not calculated Tricuspid Valve Trace tricuspid valve regurgitation. Pulmonic Valve Pulmonic valve not well visualized. Pericardium Normal pericardium without effusion. Aorta Normal ascending aorta dimension. CONCLUSIONS Normal left ventricular size and systolic function, EF 67 %. No regional wall motion abnormalities. Grade III/IV diastolic dysfunction (restrictive filling pattern), severely elevated filling pressures. Thickened mitral valve. Mild mitral annular calcification. Moderately severe mitral regurgitation. Mildly increased left atrial size. Trace tricuspid valve regurgitation. There is no pericardial effusion. There are no intracardiac masses. Compared to the study from 07/02/2021, no significant wall motion abnormalities were noted. Dr Erica Abad MD [facility] (Electronically Signed) Final Date: 05 December 2021 19:24 S
--- NOTE | 2021-12-05 01:50 | USCV_ITS ---
Nathalie Solano Age: 56 Gender: F : 1965 Exam Date: 12/05/2021 14:13 Ordering Phys: Kevin Daly MD Technologist: Exam [place] [facility] [place] Indication: rt leg swelling PROCEDURES: Venous duplex imaging was performed in only the right lower extremity. The following venous structures were evaluated: common femoral vein, profunda vein, proximal portion of the greater saphenous vein, superficial femoral vein, and the popliteal vein. In addition, the posterior tibial and peroneal trunk were evaluated. FINDINGS: Normal 2-D Doppler and augmentation and compressibility throughout the lower extremity venous structures. Additional imaging through the proximal calf veins also reveals no thrombus. Limited evaluation of the greater saphenous vein is patent with no thrombus.. The veins were found to be easily compressible with spontaneous blood flow. Non pulsatile flow pattern. CONCLUSIONS No evidence of DVT in the above-mentioned identifiable veins. Dr Erica Abad MD [facility] (Electronically Signed) Final Date: 05 December 2021 19:44 S
--- NOTE | 2021-12-05 01:58 | ECG_ITS ---
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 Measurements Intervals [place] Rate: 104 P: 56 GA: 132 QRS: 50 QRSD: 82 T: 29 QT: 371 QTc: 489 Interpretive Statements SINUS TACHYCARDIA POSSIBLE LEFT ATRIAL ENLARGEMENT [-0.1mV P-WAVE IN V1/V2] ABNORMAL RHYTHM ECG Compared to ECG 12/04/2021 22:04:39 Short GA interval no longer present Electronically Signed On 12-05-2021 20:28:42 CDT by Erica Abad M.D. [id number]
[2021-12-05 04:33] LABS: Basophils % 0.3 %; Eosinophils # 0.1 10^3/uL (0.0-0.8); Hematocrit 30.9 % (37.0-47.0); Hemoglobin 9.8 g/dL (11.5-15.3); Lymphocytes # 1.6 10^3/uL (0.8-4.8); Mean Corpuscular HGB Conc 31.7 g/dL (30.0-36.0); Mean Corpuscular Hemoglobin 29.5 pg (28.0-34.0); Mean Corpuscular Volume 93.1 fl (81-99); Mean Platelet Volume 9.2 fL (7.4-10.4); Monocytes # 0.6 10^3/uL (0.2-0.9); Monocytes % 8.4 %; Neutrophils # 4.85 10^3/uL (1.8-7.7); Neutrophils % 67.9 %; Nucleated Red Blood Cells % 0 %; Platelet Count 554 10^3/cmm (130-400); Red Blood Count 3.32 10^6/uL (4.1-5.3); Red Cell Distribution Width 14.2 % (12.1-15.1); White Blood Count 7.1 10^3/uL (4.0-10.0)
[2021-12-05 05:22] LABS: Troponin 5 6HR 105.9 ng/L (0-10); Troponin 5 6HR Delta 1.9 ng/L (0-12)
[2021-12-05 05:50] LABS: Alanine Aminotransferase 11 U/L (0-33); Albumin Level 3.5 g/dL (3.5-5.2); Alkaline Phosphatase 81 IU/L (35-105); Aspartate Amino Transferase 19 U/L (0-32); Blood Urea Nitrogen 8 mg/dL (6-20); Calcium 9.7 mg/dL (8.5-10.5); Carbon Dioxide 27 mmol/L (22-29); Chloride 90 mmol/L (98-107); Globulin 3.1 g/dL (1.3-4.6); Glomerular Filtration Rate 74.5 mL/min (90-130); Glucose 77 mg/dL (65-115); Magnesium 1.7 mg/dL (1.7-2.3); Osmolality Calculated 267 mOsm/kg (285-295); Sodium 130 mmol/L (136-145); Thyroid Stimulating Hormone 1.82 uIU/mL (0.27-4.20); Total Bilirubin 0.5 mg/dL (0.15-1.2); Total Protein 6.6 g/dL (6.6-8.7)
[2021-12-05 05:52] LABS: Anion Gap 16.8 (5-19); Potassium 3.8 mmol/L (3.5-5.1)
[2021-12-05 06:38] LABS: Glucose Point of Care 86 mg/dL (70-110)
[2021-12-05 06:56] LABS: Glucose Point of Care 194 mg/dL (70-110)
[2021-12-05 07:21] LABS: Adenovirus Not Detected (NOT DETECT); Chlamydia Pneumoniae Not Detected (NOT DETECT); Coronavirus 229E,HKU1,NL63,OC4 Not Detected (NOT DETECT); Human Metapneumovirus Not Detected (NOT DETECT); Human Rhinovirus/Enterovirus Not Detected (NOT DETECT); Influenza A Not Detected (NOT DETECT); Influenza A H1 Not Detected (NOT DETECT); Influenza A H1-2009 Not Detected (NOT DETECT); Influenza A H3 Not Detected (NOT DETECT); Influenza B Not Detected (NOT DETECT); Mycoplasma Pneumoniae Not Detected (NOT DETECT); Parainfluenza Virus Type 1 Not Detected (NOT DETECT); Parainfluenza Virus Type 2 Not Detected (NOT DETECT); Parainfluenza Virus Type 3 Not Detected (NOT DETECT); Parainfluenza Virus Type 4 Not Detected (NOT DETECT); Respiratory Syncytial Virus A Not Detected (NOT DETECT); Respiratory Syncytial Virus B Not Detected (NOT DETECT); SARS-COV-2 Not Detected (NOT DETECT)
--- NOTE | 2021-12-05 07:57 | PM.CONSULT ---
Providers/Reason For Consult Consulting Physician/Specialty*: ABIMBOLA Abad MD/cardiology Reason for Consult*: Patient with history of coronary artery disease, status post multiple PCI's, presented with chest pain and shortness of breath Requesting Physician: Dr Murray Attending Physician: Sunday Tavarez MD History of Present Illness History of Present Illness Nathalie Solano is a 56 year old female, is admitted to hospital through the emergency room, where she present with complaints of increasing shortness of breath and chest discomfort. This patient has a history of extensive coronary disease with multiple PCI's, peripheral artery disease and with the recent percutaneous intervention of the left leg followed by amputation of the big toe at the hospital in [facility]. She started having wheezing shortness of breath with chest discomfort over the last 3 days. Because of the worsening of the symptoms, she was brought to the hospital. She has a very extensive coronary artery disease. She had the first PCI in 2012. Since then, she had multiple coronary interventions in 2013, 2016, 2019 and 2020. These were performed at various hospitals. In 2019, she had intervention done here at the [facility]. 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 In 2020 she had intervention in [facility]. Her multiple hospital admissions within the last 1 year for chest pains, heart failure, pneumonia and gangrene of the left toe. She has a history of congestive heart failure uncontrolled diabetes, dyslipidemia, essential benign hypertension, anxiety/depressive illness, chronic back pain and smoking abuse. She had a percutaneous intervention of the left leg a year ago and then repeat intervention last Sunday, a week ago. According the patient, ever since the intervention, she was having a low blood pressure. Blood sugar also was found to be low. Her chest x-ray in the emergency room revealed features of congestive heart failure and bilateral pleural effusion. Her CT of the chest did not show any evidence of PE. At the time of my examination, patient mainly complaining of some shortness of breath. She also is known to have COPD and continues to smoke-3 to 4 cigarettes a day lately. She is known to have sleep apnea . She also uses an inhaler at home. Denies any fever or chills. No significant cough. No palpitations or syncopal episodes. Medications/Allergies Home Medications Medication Instructions Recorded Confirmed Last Taken Type aspirin 81 mg tablet,delayed 81 mg PO QAM 10/23/19 07/01/21 11/26/20 History release (Adult Low Dose Aspirin) metformin 1,000 mg tablet 1,000 mg PO BID 10/23/19 07/01/21 11/26/20 History nitroglycerin 0.4 mg sublingual 0.4 mg SUBLINGUAL Q5M PRN 10/23/19 07/01/21 Unknown History tablet sertraline 50 mg tablet 50 mg PO QPM 10/23/19 07/01/21 11/25/20 History albuterol sulfate 90 mcg/actuation 2 puff INHALATION Q4H PRN 11/26/20 07/01/21 11/25/20 History aerosol inhaler (Ventolin HFA) clopidogrel 75 mg tablet (Plavix) 75 mg PO QAM 11/26/20 07/01/21 Unknown History polyethylene glycol 3350 17 gram 17 g PO DAILY PRN 11/26/20 07/01/21 11/25/20 History oral powder packet (Miralax) Fiber Gummies 1 tab PO DAILY 07/01/21 07/01/21 Unknown History atorvastatin 40 mg tablet 40 mg PO BEDTIME 07/01/21 07/01/21 Unknown History benzonatate 200 mg capsule 200 mg PO TID PRN 07/01/21 07/01/21 Unknown History cholecalciferol (vitamin D3) 25 25 mcg PO DAILY 07/01/21 07/01/21 Unknown History mcg (1,000 unit) tablet (Vitamin D3) evolocumab 140 mg/mL subcutaneous 140 mg SUBCUT Q14D 07/01/21 07/01/21 06/18/21 History syringe (Repatha Syringe) fluticasone propionate 50 1 - 2 spray INTRANASAL DAILY PRN 07/01/21 07/01/21 Unknown History mcg/actuation nasal spray,suspension glipizide 10 mg tablet 10 mg PO BID 07/01/21 07/01/21 Unknown History isosorbide dinitrate 30 mg tablet 15 mg PO DAILY 07/01/21 07/01/21 Unknown History furosemide 40 mg tablet (Lasix) 40 mg PO BID #60 tab 07/05/21 Unknown Rx insulin glargine U-300 conc 300 20 unit (0.0667 mL) SUBCUT BID #0 10/07/01/21 06/30/21 Rx unit/mL (3 mL) subcutaneous pen ml (Toujeo Max U-300 SoloStar) metoprolol tartrate 25 mg tablet 25 mg PO BID #0 tab 07/05/21 07/01/21 11/26/20 Rx potassium chloride 20 mEq 20 meq PO DAILY #30 tab 07/05/21 Unknown Rx tablet,extended release(part/cryst) (Klor-Con M) Allergies Allergy/AdvReac Type Severity Reaction Status Date / Time codeine Allergy hallucinations Verified 07/01/21 09:09 and violence Current Medications Generic Name Dose Route Start Last Admin Trade Name Freq PRN Reason Stop Dose Admin Insulin Human Lispro 0 unit 12/05/21 08:00 12/05/21 07:40 Insulin Lispro 100 Unit/1 Ml SUBCUT Not Given WM&BEDTIME [facility] Protocol PFSH Acute PFSH: Medical History (Updated 12/05/21 @ 08:53 by Erica Abad MD) Amputation of left great toe Coronary artery disease 4 stents present. Depression Diabetes mellitus Diabetic foot infection Hyperlipidemia Hypertension Peripheral vascular disease Pleural effusion Surgical History H/O heart artery stent 2013 - Done in [place], 1 stent placed. 2014 - Done in [place], 1 stent placed. 2017 - Done in [facility], 2 stents placed. H/O left knee surgery (~1999) Plastic disc was placed History of salpingectomy (~1988) Treatment of ectopic History of tubal ligation Family History Mother Diabetes Heart disease Hypertension Hyperlipidemia Father Heart disease Diabetes Hypertension Hyperlipidemia Sister Diabetes Social History Smoking and tobacco status: current every day smoker cigarettes Packs smoked per day: 0.5 Years cigarettes smoked: 35 Quit status (tobacco): has tried quititng Alcohol intake: current Alcohol intake frequency: holidays/special occasions only Substance/Drug Use: never Household members: spouse Marital status: History of recent travel: No Vitals/I&O/Wt Last Vital Signs Temp 97.8 F 12/05/21 07:50 Pulse 100 12/05/21 07:50 Resp 17 12/05/21 07:50 BP 88/71 12/05/21 07:50 Pulse Ox 95 12/05/21 07:50 12/04/21 12/05/21 12/05/21 22:59 06:59 14:59 Intake Total 250 / 250 Balance 250 / 250 Weight last 48 hrs Weight 149 lb 11.2 oz Weight 145 lb Physical Exam Narrative: GENERAL: The patient is alert and oriented times three. Not in any acute distress. HEENT: No significant pallor, icterus or lymphadenopathy. The pupils are symmetrical. Oral cavity: There are no mucous membrane lesions. Funduscopic examination: The fundus is not visualized NECK: Trachea appears to be central. No masses noted. No JVD or thyromegaly appreciated. No carotid bruit. RESPIRATORY: Chest is symmetrical. No intercostals muscle retraction or any accessory muscle activation. There is no chest wall tenderness. Breath sounds are heard bilaterally. No rales or rhonchi heard. No evidence of any consolidation. BREASTS: Deferred. HEART: The PMI is in the 5th left intercostals space just inside the midclavicular line. No palpable precordial events. S1 and S2 are normal. No S3 or S4 heard. No pericardial rub or any click heard. ABDOMEN: No vessel pulsations or distention. No tenderness. No organomegaly appreciated. No abdominal bruit. Bowel sounds are normally heard. : Deferred. RECTAL: Deferred. LYMPHATIC: No lymphadenopathy noted in the neck or groin. EXTREMITIES: No edema or cyanosis. No clubbing. Dorsalis pedis and posterior pulses are nonpalpable on the right side. Left sided pulses could not be palpated because of the Band-Aid MUSCULOSKELETAL: No acute joint deformities or swelling SKIN: There are no significant scars or skin rash noted. NEUROPSYCHIATRIC: The patient is alert and oriented x3. Appears to be in a good mood. The higher functions are grossly within normal limits. No tremors or rigidity noted. Data : 12/05/21 03:05 12/05/21 03:05 Other Labs: Laboratory Last Values WBC 7.1 10^3/uL (4.0-10.0) 12/05/21 03:05 RBC 3.32 10^6/uL (4.1-5.3) L 12/05/21 03:05 Hgb 9.8 g/dL (11.5-15.3) L 12/05/21 03:05 Hct 30.9 % (37.0-47.0) L 12/05/21 03:05 MCV 93.1 fl (81-99) 12/05/21 03:05 MCH 29.5 pg (28.0-34.0) 12/05/21 03:05 MCHC 31.7 g/dL (30.0-36.0) 12/05/21 03:05 RDW 14.2 % (12.1-15.1) 12/05/21 03:05 Plt Count 554 10^3/cmm (130-400) H 12/05/21 03:05 MPV 9.2 fL (7.4-10.4) 12/05/21 03:05 Neut % (Auto) 67.9 % 12/05/21 03:05 Lymph % (Auto) 22.0 % 12/05/21 03:05 Jewell % (Auto) 8.4 % 12/05/21 03:05 Eos % (Auto) 1.0 % 12/05/21 03:05 Baso % (Auto) 0.3 % 12/05/21 03:05 Neut # (Auto) 4.85 10^3/uL (1.8-7.7) 12/05/21 03:05 Lymph # (Auto) 1.6 10^3/uL (0.8-4.8) 12/05/21 03:05 Jewell # (Auto) 0.6 10^3/uL (0.2-0.9) 12/05/21 03:05 Eos # (Auto) 0.1 10^3/uL (0.0-0.8) 12/05/21 03:05 Baso # (Auto) 0.0 10^3/uL (0.0-0.1) 12/05/21 03:05 Nucleated RBC % (auto) 0 % 12/05/21 03:05 Nucleated RBCs # 0.0 /100WBC 12/05/21 03:05 Sodium 130 mmol/L (136-145) L 12/05/21 03:05 Potassium 3.8 mmol/L (3.5-5.1) 12/05/21 03:05 Chloride 90 mmol/L (98-107) L 12/05/21 03:05 Carbon Dioxide 27 mmol/L (22-29) 12/05/21 03:05 Anion Gap 16.8 (5-19) 12/05/21 03:05 BUN 8 mg/dL (6-20) 12/05/21 03:05 Creatinine 0.8 mg/dL (0.5-0.9) 12/05/21 03:05 GFR Calculation 74.5 mL/min (90-130) L 12/05/21 03:05 Glucose 77 mg/dL (65-115) 12/05/21 03:05 POC Glucose 86 mg/dL (70-110) 12/05/21 06:34 Calculated Osmolality 267 mOsm/kg (285-295) L 12/05/21 03:05 Calcium 9.7 mg/dL (8.5-10.5) 12/05/21 03:05 Magnesium 1.7 mg/dL (1.7-2.3) 12/05/21 03:05 Total Bilirubin 0.5 mg/dL (0.15-1.2) 12/05/21 03:05 AST 19 U/L (0-32) 12/05/21 03:05 ALT 11 U/L (0-33) 12/05/21 03:05 Alkaline Phosphatase 81 IU/L (35-105) 12/05/21 03:05 Troponin T Baseline 104 ng/L (0-10) H* 12/04/21 20:55 Troponin T 120 Minute 99.98 ng/L (0-10) H 12/04/21 23:12 Delta Troponin T -4.02 ABS# (0-10) L 12/04/21 23:12 Troponin T Hi Sens 6Hr 105.9 ng/L (0-10) H 12/05/21 03:05 Troponin T Hi Sens 6Hr Delta 1.9 ng/L (0-12) 12/05/21 03:05 NT-Pro-B Natriuret Pep 4281 pg/mL (0-125) H 12/04/21 20:55 Total Protein 6.6 g/dL (6.6-8.7) 12/05/21 03:05 Albumin 3.5 g/dL (3.5-5.2) 12/05/21 03:05 Globulin 3.1 g/dL (1.3-4.6) 12/05/21 03:05 TSH 1.82 uIU/mL (0.27-4.20) 12/05/21 03:05 Coronavirus 229E (PCR) Not detected (NOT DETECT) 12/05/21 03:00 SARS-CoV-2 (PCR) Not detected (NOT DETECT) 12/05/21 03:00 Cardiac catheterization: My impression: Done in November of 2019 LM has 0% stenosis. ? mLAD: Moderate 65% stenosis, EUGENE: 3 flow. ? Mid Circumflex Coronary Artery: Severe 80% stenosis, EUGENE: 3 flow. ? pRCA: Moderate 65% stenosis, EUGENE: 3 flow. ? Mid Right Coronary Artery to dRCA: Severe 95% stenosis, EUGENE: 2 flow. ? Coronary angiography shows right dominance. PCI Status: ? ? Urgent PCI Indication: ? ? New Onset Angina <= 2 months Interventional Findings ? Mid Circumflex Coronary Artery: 80% stenosis treated with AB TREK 2.25X15 RX BALLOON. 40% residual stenosis, EUGENE: 3 flow. ? Mid Right Coronary Artery to dRCA: 95% stenosis treated with AB TREK 2.25X15 RX BALLOON and MDT R MONCHO 2.75X18 ANNA. 0% residual stenosis, EUGENE: 3 flow. EKG 1: My Interpretation: EKG showed a sinus tachycardia with a rate of [address]-T changes in the inferolateral leads. Possible left atrial enlargement. EKG computer-generated impression: Chest X-Ray 12/04/21 19:58 IMPRESSION: Congestive failure and bilateral pleural effusions. Chest CTA 12/04/21 22:48 IMPRESSION: 1. Bilateral pleural effusions. 2. Interstitial pulmonary edema. 3. Persistent focal areas of nodular scarring in the right lung not significantly changed. Consider follow-up CT scan in 1 year to document stability. A&P Assessment and plan (1) Acute on chronic congestive heart failure: The etiology of the heart failure is unclear. Possible worsening of the LV systolic function is a consideration. Her echocardiogram is pending. She may treated with a careful IV diuretics at this time. After reviewing the echocardiogram, further recommendations will be made. Status: Acute (2) Pleural effusion, bilateral: Most likely from the heart failure. Other etiologies cannot be excluded, especially since she had pneumonia in the recent past Status: Acute (3) Atherosclerotic heart disease of [place] coronary artery with other forms of angina pectoris: She has extensive coronary disease with multiple PCI's. Possibility of coronary ischemia causing some of her symptoms cannot be excluded. We may consider doing a myocardial perfusion imaging, to further evaluate for any underlying coronary ischemia. Status: Acute (4) Hypotension: The etiology is not clear. LV dysfunction/coronary ischemia causing these are considerations. After reviewing the echocardiogram, further recommendations will be made. 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 Involving this toe. Aggressive management of the diabetes and infection will be appropriate. Status: Acute (6) Peripheral arterial disease: Patient was told that she may need intervention of the right side of the arteries. We will try to get the medical records from [place]. After reviewing the record, further recommendations will be made Status: Acute Plan Other problems are Anemia COPD Sleep apnea Tonic back pain Anxiety/depressive illness Based on the patient's clinical progress and the results of the above test results, further recommendations will be made. Thank you for the opportunity to evaluate this patient and make these recommendations Consult Attestations Medical Necessity Statement: Patient requires continued hospital stay for close monitoring and further management Coding Level of Care Code New Pt Acute Minister for Lakisha Fwjefferson Patient Type New History Detailed Exam Detailed Medical Decision Making High Complexity Diagnoses Pleural effusion, bilateral J90 Acute on chronic congestive heart failure I50.9 Atherosclerotic heart disease of [place] coronary artery with other forms of angina pectoris I25.118 Hypotension I95.9 Amputation of left great toe S98.112A Peripheral arterial disease I73.9
[2021-12-05] MEDS: FUROsemide 10 mg/mL SDV 10mL 60 MG IVP (09:04)
--- NOTE | 2021-12-05 09:10 | ECG_ITS ---
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 Measurements Intervals [place] Rate: 102 P: 49 SD: 116 QRS: 47 QRSD: 86 T: 19 QT: 359 QTc: 469 Interpretive Statements SINUS TACHYCARDIA WITH SHORT SD INTERVAL POSSIBLE LEFT ATRIAL ENLARGEMENT [-0.1mV P-WAVE IN V1/V2] LOW QRS VOLTAGE IN PRECORDIAL LEADS [QRS DEFLECTION < 1.0 mV IN CHEST LEADS] NONSPECIFIC T-WAVE ABNORMALITY ABNORMAL RHYTHM ECG Compared to ECG 12/05/2021 02:48:37 Short SD interval now present Low QRS voltage now present T-wave abnormality now present Electronically Signed On 12-05-2021 20:18:39 CDT by Erica Abad M.D. [id number]
--- NOTE | 2021-12-05 09:21 | PC.PHAR ---
pt states she takes care of her own medications-pt states she was discharged from [facility] on 11/28/21-pts discharge paper from [facility] had plavix and aspirin as dced on 11/28/21-pt states she has a build up of her medications from being in and out of the hospital-notes are made in the pharmacy comments-pts med list from [facility] had brilinta 90mg bid pt states she doesnt think she is taking that any longer ext med history shows last filled 12/22/20 30d/s
--- NOTE | 2021-12-05 09:47 | PC.CHAP ---
Pastoral Care Encounter/Spiritual Assessment Type of Contact [] Declined head cleaning porter visit [] Patient/Family/Request visit [] Outpatient visit [] Follow-up visit [] Physician referral [] Code/Alert [x] Routine visit [] Staff referral [] Actively dying [] Patient sleeping [] Family support [] [] Out of room [] Palliative care [] [] Receiving care in room [] Pre-surgical visit [] Trauma [] Long length of stay [] ICU visit [] Other: Relational/Emotional Strength [] Patient feels connected with others/family/visitors/staff [] Distress [] Loneliness/isolation [] Abandonment Spirituality of Patient [] Person of Bre [] Attends Mu-Ism of their Bre [] Believes in Prayer [] Reads Bible or Episcopal materials [] There are Spiritual issues to be addressed Personnel Officer Interventions [x] Prayer [] Active listening [] Non-anxious presence [] Spiritual/emotional support [] Crisis/trauma care [] Spiritual counseling [] Bereavement support [] Provided bereavement packet [] Provided Bible/devotional materials [] Provided toy/stuffed animal, coloring book to patient or family member [] Provided Communion [] Anointing/Adrian [] Salvation []x Completed spiritual assessment [] Other: Impact on Illness or Injury [] Angry [] Fearful [] Anxious [] Often cries [] Exhaustion [] Unable to work [] Unable to attend mosque [] Unable to walk/stand [] Unable to read [] Unable to drive [] Unable to eat/drink [] Unable to sleep [] Unable to be with family [] Patient intubated [] Other: Summary Time spent with patient
[2021-12-05] MEDS: sulfamethoxazole-trimeth DS 160-800 mg Tablet 1 TAB PO ×2 (09:52→18:15)
[2021-12-05] MEDS: metoprolol tartrate 25 mg Tablet PO ×2 (09:53→20:08)
[2021-12-05] MEDS: ticagrelor 90 mg Tablet PO ×2 (09:53→18:15)
[2021-12-05 10:23] LABS: Troponin(5th) Baseline 100 ng/L (0-10)
--- NOTE | 2021-12-05 11:05 | PC.NURSE ---
Physician orders Resume home dose of metoprolol 25mg BID
--- NOTE | 2021-12-05 11:10 | ECG_ITS ---
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 Measurements Intervals [place] Rate: 97 P: 47 IA: 137 QRS: 9 QRSD: 78 T: 26 QT: 354 QTc: 451 Interpretive Statements SINUS RHYTHM POSSIBLE LEFT ATRIAL ENLARGEMENT [-0.1mV P-WAVE IN V1/V2] LOW QRS VOLTAGE IN PRECORDIAL LEADS [QRS DEFLECTION < 1.0 mV IN CHEST LEADS] NONSPECIFIC T-WAVE ABNORMALITY Compared to ECG 12/05/2021 10:45:30 Sinus tachycardia no longer present Short IA interval no longer present T-wave abnormality still present Electronically Signed On 12-05-2021 20:31:09 CDT by Erica Abad M.D. [id number]
[2021-12-05 11:23] LABS: Glucose Point of Care 254 mg/dL (70-110)
[2021-12-05] MEDS: insulin lispro 100 unit/1 mL SUBCUT ×3 (12:10→20:08)
--- NOTE | 2021-12-05 13:37 | PM.PN ---
Subjective Subjective: Admitted overnight. On examination laying comfortably in bed. Having her breakfast. States recently was at [facility] where she had peripheral angiogram, stenting left great toe amputation. States since discharge from vascular she has been having episodes of low blood sugar and low blood pressures. States yesterday she was confused and not responding well though was awake so called 911 and on presentation with 911 she was found to have blood sugars of 55. Denies any nausea, vomiting, headache, dizziness. Complaining of occasional diarrhea. Vitals/I&O/Wt Last Vital Signs Temp 97.6 F 12/05/21 11:14 Pulse 96 12/05/21 11:14 Resp 19 H 12/05/21 11:14 BP 88/63 12/05/21 11:14 Pulse Ox 94 12/05/21 11:14 12/04/21 12/05/21 12/05/21 22:59 06:59 14:59 Intake Total 250 / 250 250 / 250 Output Total 350 / 350 Balance 250 / 250 -100 / -100 Weight last 48 hrs Weight 67.903 kg Weight 65.771 kg Physical Exam Const: COMMON NORMALS: no acute distress and patient oriented x3 HENMT: COMMON NORMALS: oropharynx normal Neck/C-Spine: COMMON NORMALS: no JVD Resp: COMMON NORMALS: normal respiratory effort and clear to auscultation bilaterally AUSCULTATION: clear to auscultation bilaterally, crackles and diminished lung sounds bilateral in the lower lung blunt Cardio: COMMON NORMALS: no JVD, regular rhythm, S1 normal heart sound present, S2 normal heart sound present and No murmurs present (Cardio) RHYTHM: regular rhythm HEART SOUNDS: S1 normal heart sound present and S2 normal heart sound present GI: COMMON NORMALS: Normal to inspection, nondistended, normoactive bowel sounds present, Soft to palpation and non-tender PALPATION: Yes Soft to palpation Extremity: COMMON NORMALS: no joint enlargement and no pedal edema GENERAL: Yes edema (R>L) OTHER: Left foot dressed. Clear. On removal of dressing healthy wound present with sutures intact. No foul smell, no erythema. Right groin hematoma present. Diffuse hematoma present going into pubic area along with gluteal region. Neuro: COMMON NORMALS: patient oriented x3 and moves all extremities Skin: COMMON NORMALS: no rashes or lesions noted GENERAL SKIN EXAM: no rashes or lesions noted Data : 12/05/21 03:05 12/05/21 03:05 A&P Assessment and plan (1) Acute on chronic congestive heart failure: Currently on room air. proBNP elevated. Though patient looks compensated. Will hold off on any further diuresis. Patient did receive 60 mg of IV Lasix today morning. Last echocardiogram from June 2031 showed an EF 55 to 60%, grade 2 diastolic dysfunction, hypokinesis of basal inferior lateral and basal to mid anterolateral herron, moderate to severe posterior mitral valve regurgitation, mild pulmonary hypertension, mild to moderate aortic valve stenosis. Repeat echocardiogram ordered on admission. Report pending. Status: Acute (2) Elevated troponin: On presentation. Troponin cycle trended down and up again in the morning. Repeat troponin cycle. Patient denies of having active chest pain. Continue with statin, aspirin, Brilinta. Continue with full dose Lovenox 1 mg/kg body weight every 12 hourly for now. Appreciate cardiology recommendations. Status: Acute (3) Dyspnea on exertion: History of CHF. Bilateral pleural effusion. COVID-[address] done on admission negative for PE. Consistent with bronchiectasis. DuoNebs every 6 hours, budesonide twice daily Status: Acute (4) Chest pressure: As above Status: Acute (5) Hypotension: Goal blood pressure less than 140/90 on Hg with mean over 65. Hold off on antihypertensives for now. Start metoprolol at home dose of 25 mg twice daily. Stop IV diuresis for now. Check orthostatics. Hold home dose of Imdur. Does have a history of aortic stenosis. Status: Acute (6) Pleural effusion, bilateral: Diuresis as above for acute diastolic congestive heart failure exacerbation. Check TSH Status: Acute (7) Leg edema: Right greater than left, assess venous duplex. Treat CHF exacerbation. Status: Acute (8) Amputation of left great toe: No sign of infection. Continue and finish course of Bactrim. Amputated 10 days ago. Consult orthopedics for wound care recommendations. Status: Acute (9) Diarrhea: Status: Acute Plan BOOM: Nightly CPAP, her will bring hers from the car DM2: Complains of recurrent episode of hypoglycemia at home. Takes Toujeo 40 units twice daily, glipizide 10 mg twice daily, Jardiance at home. For now continue with Lantus 40 nightly twice daily, insulin sliding scale. Most likely patient will need to be discharged of glipizide at home. PAD: With recent stent in left leg and left great toe amputation. HTN HLD Full code. Cardiac carb consistent diet. Next Full dose Lovenox will suffice for DVT prophylaxis as well. Will request documentation from recent hospitalization and last cardiology visit. Attestations Medical Necessity Statement*: Requires further hospitalization for management of ongoing hypertension, ruling out non-ST elevation [place], congestive heart failure in setting of aortic stenosis and mitral valve regurgitation. 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
[2021-12-05 13:40] LABS: Troponin 5 2HR 101.7 ng/L (0-10); Troponin 5 2HR Delta 1.7 ABS# (0-10)
[2021-12-05] MEDS: enoxaparin 80 mg/0.8 mL Syringe 65 MG SUBCUT (14:39)
--- NOTE | 2021-12-05 15:10 | ECG_ITS ---
[facility] Test Date: 2021-12-05 Pat Name: Nathalie Solano Department: Room: 111 Gender: Female Donor Services Specialist: : [id number] Requested By: Sunday Tavarez Order Number: [id number] Giovanny MD: Erica Abad M.D. Measurements Intervals Joanna Rate: 96 P: 43 IN: 134 QRS: 12 QRSD: 77 T: 7 QT: 375 QTc: 474 Interpretive Statements SINUS RHYTHM POSSIBLE LEFT ATRIAL ENLARGEMENT [-0.1mV P-WAVE IN V1/V2] Compared to ECG 12/05/2021 12:42:58 T-wave abnormality no longer present Electronically Signed On 12-05-2021 20:37:48 CDT by Erica Abad M.D. [id number]
[2021-12-05] MEDS: ipratropium-albuterol 3 mL Neb INHALATION ×2 (15:28→20:04)
[2021-12-05 16:25] LABS: Glucose Point of Care 146 mg/dL (70-110)
[2021-12-05 17:04] LABS: Troponin 5 6HR 102.5 ng/L (0-10); Troponin 5 6HR Delta 2.5 ng/L (0-12)
--- NOTE | 2021-12-05 17:08 | P.CONIM_ITS ---
Providers/Reason For Consult Consulting Physician/Specialty*: Naty Medina MD Reason for Consult*: Concern over surgery performed on left great toe in [facility] Requesting Physician: Dr: Sunday Tavarez MD Attending Physician: Sunday Tavarez MD History of Present Illness History of Present Illness Nathalie Solano is a 56 year old female who was recently treated at [facility] when reportedly, she had stent placed as well as a left great toe amputation. Subsequently, she was discharged from the hospital, and she presented to [facility] when she became confused the day prior to admission and was not responding well to her . She was found up blood sugars of 55. She has concerns because she was supposed to have her sutures out today or at least be evaluated. I have been asked to see the patient to discuss this plan with her. Review of Systems Const: Reports: fatigue; Denies: fever(s), chills, body aches or malaise Eyes: Denies: change in vision, blurry vision or eye redness ENMT: Denies: throat pain, enlarged tonsils, odynophagia, mouth pain, oral sores, ear or mastoid pain or nasal congestion Card: Reports: chest pain, swelling of feet/ankles, dyspnea on exertion, orthopnea and other (Chest pressure); Denies: palpitations, irregular heart rhythm, edema or pre-syncope Resp: Reports: dyspnea and non-productive cough; Denies: productive cough, wheezing, stridor, change in phlegm color or hemoptysis GI: Reports: diarrhea; Denies: abdominal pain, nausea, vomiting, constipation, hematochezia or melena : Denies: flank pain, difficulty voiding, dysuria, urinary frequency or emigdio turia Musc: Denies: neck pain, back pain, extremity pain, extremity swelling, joint swelling, joint redness or joint warmth Skin/Breast: Reports: surgical incision; Denies: rash, erythema, sores or new lesions Neuro: Denies: headache(s), numbness in extremities, weakness in extremities, lack of coordination, dizziness, confusion or seizure-like activity Psych: Reports: anxiety Endo: Denies: polyuria or polydipsia Emigdio/Lymph: Denies: easy bruising, easy bleeding or purpura All/Imm: Denies: urticaria, throat swelling, tongue swelling or acute wheezing Medications/Allergies Home Medications Medication Instructions Recorded Confirmed Last Taken Type metformin 1,000 mg tablet 1,000 mg PO BID 10/23/19 12/05/21 11/26/20 History sertraline 50 mg tablet 50 mg PO BEDTIME 10/23/19 12/05/21 11/25/20 History albuterol sulfate 90 mcg/actuation 2 puff INHALATION Q4H PRN 11/26/20 12/05/21 11/25/20 History aerosol inhaler (Ventolin HFA) polyethylene glycol 3350 17 gram 17 g PO DAILY PRN 11/26/20 12/05/21 11/25/20 History oral powder packet (Miralax) Fiber Gummies 1 tab PO DAILY 07/01/21 12/05/21 Unknown History benzonatate 200 mg capsule 200 mg PO TID PRN 07/01/21 12/05/21 Unknown History cholecalciferol (vitamin D3) 25 25 mcg PO DAILY 07/01/21 12/05/21 Unknown History mcg (1,000 unit) tablet (Vitamin D3) evolocumab 140 mg/mL subcutaneous 140 mg SUBCUT Q14D 07/01/21 12/05/21 06/18/21 History syringe (Repatha Syringe) fluticasone propionate 50 1 - 2 spray INTRANASAL DAILY PRN 07/01/21 12/05/21 Unknown History mcg/actuation nasal spray,suspension glipizide 10 mg tablet 10 mg PO BID 07/01/21 12/05/21 Unknown History isosorbide dinitrate 30 mg tablet 15 mg PO DAILY 07/01/21 12/05/21 Unknown History metoprolol tartrate 25 mg tablet 25 mg PO BID #0 tab 07/05/21 12/05/21 11/26/20 Rx potassium chloride 20 mEq 20 meq PO DAILY #30 tab 07/05/21 12/05/21 Unknown Rx tablet,extended release(part/cryst) (Klor-Con M) atorvastatin 80 mg tablet 80 mg PO BEDTIME 12/05/21 12/05/21 Unknown History calcium carbonate 500 mg calcium 500 mg PO DAILY 12/05/21 12/05/21 Unknown History (1,250 mg) tablet (Calcium 500) empagliflozin 25 mg tablet 25 mg PO DAILY 12/05/21 12/05/21 Unknown History (Jardiance) furosemide 40 mg tablet (Lasix) 40 mg PO DAILY 12/05/21 12/05/21 Unknown History insulin glargine U-300 conc 300 40 unit SUBCUT BID 12/05/21 12/05/21 Unknown History unit/mL (3 mL) subcutaneous pen (Toujeo Max U-300 SoloStar) insulin lispro 100 unit/mL See Rx Instructions .ROUTE .COMPLEX 12/05/21 12/05/21 Unknown History subcutaneous pen (Humalog KwikPen (U-100) Insulin) melatonin 10 mg tablet 20 mg PO BEDTIME 12/05/21 12/05/21 Unknown History nitroglycerin 0.4 mg sublingual 0.4 mg SUBLINGUAL Q5M PRN 12/05/21 12/05/21 Unknown History tablet (Nitrostat) rivaroxaban 10 mg tablet (Xarelto) See Rx Instructions .ROUTE .COMPLEX 12/05/21 12/05/21 Unknown History sulfamethoxazole 800 1 tab PO BID 12/05/21 12/05/21 Unknown History mg-trimethoprim 160 mg tablet tramadol 50 mg tablet 50 mg PO Q6H PRN 12/05/21 12/05/21 Unknown History Allergies Allergy/AdvReac Type Severity Reaction Status Date / Time codeine Allergy hallucinations Verified 12/05/21 09:20 and violence Current Medications Generic Name Dose Route Start Last Admin Trade Name Freq PRN Reason Stop Dose Admin Albuterol Sulfate 2.5 mg 12/05/21 01:50 12/05/21 08:45 Albuterol 2.5 Mg/0.5 Ml Neb INHALATION 2.5 mg Q4H.RESPIRATORY PRN Administration SHORTNESS OF BREATH Albuterol/Ipratropium 3 ml 12/05/21 15:00 12/05/21 15:28 Ipratropium-Albuterol 3 Ml Neb INHALATION 3 ml Q6H.RESPIRATORY AILYN Administration Enoxaparin Sodium 65 mg 12/05/21 14:30 12/05/21 14:39 Enoxaparin 80 Mg/0.8 Ml Syringe SUBCUT 65 mg Q12H AILYN Administration Insulin Glargine 40 unit 12/05/21 09:00 12/05/21 09:24 Insulin Glargine 100 Units/1 Ml SUBCUT Not Given BID@0900,2100 AILYN Insulin Human Lispro 0 unit 12/05/21 08:00 12/05/21 12:10 Insulin Lispro 100 Unit/1 Ml SUBCUT 8 unit WM&BEDTIME AILYN Administration Protocol Metoprolol Tartrate 25 mg 12/05/21 09:36 12/05/21 09:53 Metoprolol Tartrate 25 Mg Tablet PO 25 mg BID@0900,2100 AILYN Administration Ticagrelor 90 mg 12/05/21 09:00 12/05/21 09:53 Ticagrelor 90 Mg Tablet PO 90 mg BID AILYN Administration Trimethoprim/Sulfamethoxazole 1 tab 12/05/21 09:00 12/05/21 09:52 Sulfamethoxazole-Trimeth Ds 160-800 Mg Tablet PO 12/05/21 18:01 1 tab BID AILYN Administration Protocol PFSH Acute PFSH: Medical History Amputation of left great toe Coronary artery disease 4 stents present. Depression Diabetes mellitus Diabetic foot infection Hyperlipidemia Hypertension Peripheral vascular disease Pleural effusion Surgical History H/O heart artery stent 2013 - Done in [place], 1 stent placed. 2015 - Done in [place], 1 stent placed. 2017 - Done in [facility] in [place], 2 stents placed. H/O left knee surgery (~1999) Plastic disc was placed History of salpingectomy (~1988) Treatment of ectopic History of tubal ligation Family History Mother Diabetes Heart disease Hypertension Hyperlipidemia Father Heart disease Diabetes Hypertension Hyperlipidemia Sister Diabetes Social History Smoking and tobacco status: current every day smoker cigarettes Packs smoked per day: 0.5 Years cigarettes smoked: 35 Quit status (tobacco): has tried quititng Alcohol intake: current Alcohol intake frequency: holidays/special occasions only Substance/Drug Use: never Household members: spouse Marital status: History of recent travel: No Dietary Habits: Current diet type/program: diabetic Caffeine: Yes Exercise: What type of physical activity do you participate in?: none Safety: Seatbelt use: always Home Safety: Water heater temperature set < 120 degrees: No Working smoke detector in home: Yes Fire extinguisher in home: Yes Carbon monoxide detector in home: Yes Personal Safety: Do you feel safe at home: Yes Vitals/I&O/Wt Last Vital Signs Temp 97.3 F L 12/05/21 15:24 Pulse 90 12/05/21 15:32 Resp 18 12/05/21 15:28 BP 110/62 12/05/21 15:24 Pulse Ox 94 12/05/21 15:28 12/05/21 12/05/21 12/05/21 06:59 14:59 22:59 Intake Total 370 / 370 Output Total 350 / 350 Balance Weight last 48 hrs Weight 149 lb 11.2 oz Weight 145 lb Physical Exam Const: COMMON NORMALS: no acute distress, average body habitus, patient oriented x3 and alert GENERAL APPEARANCE: cooperative ORIENTATION/CONSCIOUSNESS: Yes awake HENMT: COMMON NORMALS: normocephalic and atraumatic HEAD & SCALP: normocephalic and atraumatic Eye: GENERAL EYE: appearance normal, both eyes and all related structures Chest: COMMONS NORMALS: normal inspection of the chest Resp: COMMON NORMALS: normal respiratory effort EFFORT & INSPECTION: Yes able to speak in complete sentences and Yes symmetric chest movement Extremity: LEFT LOWER EXTREMITY: Yes foot & digits (Patient is status post great toe left foot) Left foot and digits: Yes inspection (Dressing is in place and is dry and intact. No drainage), Yes ROM (NA) and Yes neurovascular exam (NA) Neuro: COMMON NORMALS: patient oriented x3 SENSORIUM/ORIENTATION: Yes alert Psych: APPEARANCE: Yes grossly normal ATTITUDE: Yes engaged Skin: COMMON NORMALS: no rashes or lesions noted GENERAL SKIN EXAM: no rashes or lesions noted Data : 12/06/21 03:27 12/06/21 03:27 A&P Assessment and plan (1) Amputation of left great toe: The patient underwent left great toe amputation approximately 10 days ago. She states she was to have been seen today for evaluation of her wound and possible suture removal. She is concerned that since she is admitted to the hospital, she would be unable to keep this appointment. The patient is seen in her room with her family. She states that she was merely to have a follow-up visit with the operating surgeon, and she did call to cancel that appointment upon admission to the hospital. According to her family, it was a wound check without removal of sutures planned. I advised the patient that she needs to contact the office upon discharge or when she knows when she is likely to be discharged to set up an appointment for this follow-up. The dressing is not removed as it is dry and intact. Status: Acute (2) Peripheral arterial disease: Status: Acute Coding Level of Care Code Acute Manager R D for [facility] Diagnoses Amputation of left great toe S98.112A Peripheral arterial disease I73.9
[2021-12-05] MEDS: ondansetron 2 mg/ML SDV 2 mL 4 MG IVP (17:52)
[2021-12-05] MEDS: sertraline 50 mg Tablet PO (18:16)
--- NOTE | 2021-12-05 19:00 | PC.NURSE ---
Received report from KOURTNEY Sofia. Patient resting in bed watching TV. Patient c/o pain to left foot. Patient has dressing in place to left foot. Patient is s/p left great toe amputation ~ 1week ago at [place] . Dressing remain c,d,i. Will continue to monitor.
[2021-12-05 19:57] LABS: Glucose Point of Care 257 mg/dL (70-110)
[2021-12-05] MEDS: budesonide 0.5 mg/2 mL Neb INHALATION (20:04)
[2021-12-05] MEDS: atorvastatin 40 mg Tablet 80 MG PO (20:07)
[2021-12-05] MEDS: TRAMadol 50 mg Tablet PO (20:07)
[2021-12-05] MEDS: insulin glargine 100 units/1 mL 40 UNIT SUBCUT (20:08)
--- NOTE | 2021-12-05 20:22 | PC.NURSE ---
Patient requesting something for pain to left foot. Spoke with Dr Caraballo and received order to start tramadol 50mg every 6 hours as needed for moderate pain. RBVO
[2021-12-06] VITALS (16 sets, daily range): BP systolic 76–96; BP diastolic 47–56; PULSE 80–101; RESP 14–19; TEMP 36.4–36.8; O2SAT 93–97
[2021-12-06] MEDS: enoxaparin 80 mg/0.8 mL Syringe 65 MG SUBCUT (02:01)
--- NOTE | 2021-12-06 02:09 | PC.NURSE ---
Patient brought to this RN attention to large lump to right groin with bruising. Patient is s/p peripheral angiogram performed at [place] about 1week ago. Right lower extremity is warm to the touch with faint palpable pedal pulse. Patient c/o only of mild tenderness to site on palpation. No other distress observed. Will continue to monitor.
[2021-12-06] MEDS: ipratropium-albuterol 3 mL Neb INHALATION ×4 (03:46→20:04)
[2021-12-06 03:59] LABS: Basophils % 0.4 %; Eosinophils # 0.1 10^3/uL (0.0-0.8); Eosinophils % 1.9 %; Hematocrit 31.1 % (37.0-47.0); Hemoglobin 9.7 g/dL (11.5-15.3); Lymphocytes # 1.6 10^3/uL (0.8-4.8); Lymphocytes % 28.1 %; Mean Corpuscular HGB Conc 31.2 g/dL (30.0-36.0); Mean Corpuscular Hemoglobin 29.3 pg (28.0-34.0); Monocytes # 0.5 10^3/uL (0.2-0.9); Monocytes % 9.3 %; Neutrophils # 3.42 10^3/uL (1.8-7.7); Neutrophils % 60.1 %; Nucleated Red Blood Cells % 0 %; Platelet Count 487 10^3/cmm (130-400); Red Blood Count 3.31 10^6/uL (4.1-5.3); Red Cell Distribution Width 14.5 % (12.1-15.1); White Blood Count 5.7 10^3/uL (4.0-10.0)
--- NOTE | 2021-12-06 04:08 | PC.NURSE ---
Blood pressures have been low all night. Last was 80/52. She was also low during the day yesterday. She denies any dizziness or lightheadedness. Dr Tavarez aware per his progress notes. Informed Dr Caraballo at this time. No orders received presently. Will continue to monitor.
[2021-12-06 04:24] LABS: Alanine Aminotransferase 9 U/L (0-33); Albumin Level 3.3 g/dL (3.5-5.2); Alkaline Phosphatase 77 IU/L (35-105); Anion Gap 16.9 (5-19); Aspartate Amino Transferase 18 U/L (0-32); Blood Urea Nitrogen 12 mg/dL (6-20); Calcium 9.3 mg/dL (8.5-10.5); Carbon Dioxide 28 mmol/L (22-29); Chloride 97 mmol/L (98-107); Globulin 3.4 g/dL (1.3-4.6); Glomerular Filtration Rate 74.5 mL/min (90-130); Glucose 93 mg/dL (65-115); Osmolality Calculated 285 mOsm/kg (285-295); Potassium 3.9 mmol/L (3.5-5.1); Sodium 138 mmol/L (136-145); Total Bilirubin 0.4 mg/dL (0.15-1.2); Total Protein 6.7 g/dL (6.6-8.7)
[2021-12-06 06:30] LABS: Glucose Point of Care 139 mg/dL (70-110)
[2021-12-06 08:48] LABS: Cortisol Random 11.59 ug/dL (2.47-19.5)
[2021-12-06] MEDS: budesonide 0.5 mg/2 mL Neb INHALATION ×2 (08:50→20:04)
[2021-12-06] MEDS: insulin glargine 100 units/1 mL 40 UNIT SUBCUT ×2 (09:03→21:02)
[2021-12-06] MEDS: sodium chloride 0.9% 1,000 ML 30 ML IV (09:03)
[2021-12-06] MEDS: metoprolol tartrate 25 mg Tablet PO ×2 (09:04→21:02)
[2021-12-06] MEDS: ticagrelor 90 mg Tablet PO ×2 (09:04→17:19)
[2021-12-06 11:27] LABS: Glucose Point of Care 158 mg/dL (70-110)
--- NOTE | 2021-12-06 11:48 | PC.NURSE ---
patient reporting SOB saturation remain WNL at 95-97% on room air notified provider instructions recieved to place lovenox on hold and give 0.5 xanax PO x1 NOW
[2021-12-06] MEDS: insulin lispro 100 unit/1 mL SUBCUT ×3 (12:02→21:02)
[2021-12-06] MEDS: ALPRAZolam 0.5 mg Tablet PO (12:02)
--- NOTE | 2021-12-06 12:39 | P.PN_ITS ---
Subjective Subjective: No acute events overnight. Patient denies any active complaints. States she had pain in her back last night. Overnight blood pressures have remained in high 80s to low 90s systolic with mean arterial pressure over 65. Patient denies any dizziness. Orthostatics checked yesterday negative. Patient continues to remain on room air. On examination laying comfortably in bed able to have complete conversation without shortness of breath or tachypnea. Vitals/I&O/Wt Last Vital Signs Temp 98.3 F 12/06/21 07:27 Pulse 80 12/06/21 11:11 Resp 17 12/06/21 11:11 BP 83/51 12/06/21 11:11 Pulse Ox 96 12/06/21 11:11 12/05/21 12/06/21 12/06/21 22:59 06:59 14:59 Intake Total 240 / 610 240 / 850 360 / 360 Balance 240 / 260 240 / 500 360 / 360 Weight last 48 hrs Weight 68.13 kg Weight 67.903 kg Weight 65.771 kg Physical Exam Const: COMMON NORMALS: no acute distress and patient oriented x3 HENMT: COMMON NORMALS: oropharynx normal Neck/C-Spine: COMMON NORMALS: no JVD Resp: COMMON NORMALS: normal respiratory effort and clear to auscultation bilaterally AUSCULTATION: clear to auscultation bilaterally, crackles and diminished lung sounds bilateral in the lower lung blunt Cardio: COMMON NORMALS: no JVD, regular rhythm, S1 normal heart sound present, S2 normal heart sound present and No murmurs present (Cardio) RHYTHM: regular rhythm HEART SOUNDS: S1 normal heart sound present and S2 normal heart sound present GI: COMMON NORMALS: Normal to inspection, nondistended, normoactive bowel sounds present, Soft to palpation and non-tender PALPATION: Yes Soft to palpation Extremity: COMMON NORMALS: no joint enlargement and no pedal edema GENERAL: Yes edema (R>L) OTHER: Left foot dressed. Clear. On removal of dressing healthy wound present with sutures intact. No foul smell, no erythema. Right groin hematoma present. Diffuse hematoma present going into pubic area along with gluteal region. Neuro: COMMON NORMALS: patient oriented x3 and moves all extremities Skin: COMMON NORMALS: no rashes or lesions noted GENERAL SKIN EXAM: no rashes or lesions noted Data : 12/06/21 03:27 03/22/22 03:27 A&P Assessment and plan (1) Acute on chronic congestive heart failure: Currently on room air. proBNP elevated. Though patient looks compensated. Will hold off on any further diuresis. Last diuretic received on 12/05. Repeat echocardiogram shows an EF of 67% with grade 2 diastolic dysfunction, severely elevated filling pressures, moderately severe MR, mildly increased LA, mild aortic valve stenosis. No significant regional wall motion abnormality. Status: Acute (2) Elevated troponin: Non-STEMI versus type II [place]. Patient denies of having active chest pain. Continue with statin, aspirin, Brilinta. Continue with full dose Lovenox 1 mg/kg body weight every 12 hourly for now. Appreciate cardiology recommendations. Status: Acute (3) Dyspnea on exertion: History of CHF. Bilateral pleural effusion. COVID-[address] done on admission negative for PE. Consistent with bronchiectasis. DuoNebs every 6 hours, budesonide twice daily. Hold Lovenox further. Plan for ultrasound-guided thoracentesis for symptomatic relief. Oxygen supplementation keeping saturation over 88%. Status: Acute (4) Chest pressure: As above Status: Acute (5) Hypotension: Goal blood pressure less than 140/90 on Hg with mean over 65. Continue with metoprolol at home dose of 25 mg twice daily to avoid reflex tachycardia. Orthostatic negative. Hold off on antihypertensives and diuretic for now. Cortisol level checked within normal limits. Start patient on gentle IV hydration at 30 cc/h for 1 day while monitoring fluid status. Status: Acute (6) Pleural effusion, bilateral: Secondary diastolic congestive heart failure. Chronic. Thoracentesis as above. Status: Acute (7) Leg edema: Negative for DVT. Status: Acute (8) Amputation of left great toe: No sign of infection. Continue and finish course of Bactrim. Amputated 10 days ago. Consult orthopedics for wound care recommendations. Status: Acute (9) Diarrhea: Status: Acute Plan BOOM: Nightly CPAP, her will bring hers from the car DM2: Complains of recurrent episode of hypoglycemia at home. Takes Toujeo 40 units twice daily, glipizide 10 mg twice daily, Jardiance at home. For now continue with Lantus 40 nightly twice daily, insulin sliding scale. Most likely patient will need to be discharged off glipizide at home. PAD: With recent stent in left leg and left great toe amputation. HTN HLD Full code. Cardiac carb consistent diet. Next Full dose Lovenox will suffice for DVT prophylaxis as well. Will request documentation from recent hospitalization and last cardiology visit. 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
--- NOTE | 2021-12-06 12:49 | PC.NURSE ---
Notified provider of plans for thoracentesis to be done 12/07/21 radiology requesting Pt/INR with AM labs instructions received to order
--- NOTE | 2021-12-06 13:10 | PC.NURSE ---
call from radiology with request o obtain PT/INR at this time in preparation for throacentesis notified provider ok to order
[2021-12-06 13:53] LABS: INR 1.08 (0.8-1.2)
--- NOTE | 2021-12-06 16:24 | PM.PN ---
Subjective Subjective: Nathalie Solano is a 56 year old female, is admitted to hospital through the emergency room, where she present with complaints of increasing shortness of breath and chest discomfort described as pressure like/tightness .? This patient has a history of extensive coronary disease with multiple PCI's last one 06/2021, peripheral artery disease and with the recent percutaneous intervention of the left leg followed by amputation of the big toe at the hospital in [facility] last week.? She started having wheezing shortness of breath with chest discomfort over the last 3 days.? Because of the worsening of the symptoms, she was brought to the hospital. She also has a history of congestive heart failure uncontrolled diabetes, dyslipidemia, essential benign hypertension, anxiety/depressive illness, chronic back pain and smoking abuse (2-3 cigs/day now).? She had a percutaneous intervention of the left leg 06/2021 and then repeat intervention last Sunday, a week ago. UO after lasix not well documents. lasix held and is currently on IV fluids. Vitals/I&O/Wt Last Vital Signs Temp 98.3 F 12/06/21 07:27 Pulse 96 12/06/21 15:01 Resp 14 12/06/21 15:01 BP 89/54 12/06/21 15:01 Pulse Ox 95 12/06/21 15:01 12/06/21 12/06/21 12/06/21 06:59 14:59 22:59 Intake Total 240 / 850 360 / 360 Balance 240 / 500 360 / 360 Weight last 48 hrs Weight 150 lb 3.2 oz Weight 149 lb 11.2 oz Weight 145 lb Physical Exam Narrative: GENERAL: Alert and oriented x3. Not in any acute distress. HEENT: No significant pallor, icterus. NECK: No masses noted. No JVD or thyromegaly appreciated. No carotid bruit. RESPIRATORY: Chest is symmetrical. No intercostals muscle retraction or any accessory muscle activation. There is no chest wall tenderness. Breath sounds are diminished bilaterally (R>L). No rales or rhonchi heard. HEART: S1 and S2 are normal. No pericardial rub or any click heard. EXTREMITIES: No edema or cyanosis. Dorsalis pedis and posterior pulses are nonpalpable on the right side. Left sided pulses could not be palpated because of the dressing. right hip, thigh and groin hematoma+ CONSULTING BUSINESS DEVELOPER: No FND Data : 12/06/21 03:27 12/06/21 03:27 A&P Assessment and plan (1) Acute on chronic congestive heart failure: Normal LV function with no RWMA on echocardiogram. -received fluids today. complains of being more SOB. Status: Acute (2) Pleural effusion, bilateral: scheduled for thoracentesis tomorrow Status: Acute (3) Atherosclerotic heart disease of [place] coronary artery with other forms of angina pectoris: She has extensive coronary disease with multiple PCI's. Possibility of coronary ischemia causing some of her symptoms cannot be excluded. -We may consider doing a myocardial perfusion imaging, to further evaluate for any underlying coronary ischemia. Status: Acute (4) Hypotension: BP has not improved much even after hydration -will start on low dose midodrine for now. 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 Involving big toe. Aggressive management of the diabetes and infection will be appropriate. Status: Acute (6) Peripheral arterial disease: Patient was told that she may need intervention of the right side of the arteries. Medical records from [place] reviewed. 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
[2021-12-06 16:28] LABS: Glucose Point of Care 185 mg/dL (70-110)
[2021-12-06] MEDS: sertraline 50 mg Tablet PO (17:19)
[2021-12-06] MEDS: TRAMadol 50 mg Tablet PO (17:24)
--- NOTE | 2021-12-06 18:05 | PM.PN ---
Subjective Subjective: Patient is in better spirits today and less anxious. Medications: Reviewed: Yes Vitals/I&O/Wt Last Vital Signs Temp 98.3 F 12/06/21 07:27 Pulse 96 12/06/21 15:01 Resp 14 12/06/21 15:01 BP 89/54 12/06/21 15:01 Pulse Ox 95 12/06/21 15:01 12/06/21 12/06/21 12/06/21 06:59 14:59 22:59 Intake Total 240 / 850 360 / 360 Balance 240 / 500 360 / 360 Weight last 48 hrs Weight 150 lb 3.2 oz Weight 149 lb 11.2 oz Weight 145 lb Physical Exam Const: COMMON NORMALS: no acute distress, average body habitus, patient oriented x3 and alert GENERAL APPEARANCE: cooperative ORIENTATION/CONSCIOUSNESS: Yes awake HENMT: COMMON NORMALS: normocephalic and atraumatic HEAD & SCALP: normocephalic and atraumatic Eye: GENERAL EYE: appearance normal, both eyes and all related structures Chest: COMMONS NORMALS: normal inspection of the chest Resp: COMMON NORMALS: normal respiratory effort EFFORT & INSPECTION: Yes able to speak in complete sentences and Yes symmetric chest movement Extremity: LEFT LOWER EXTREMITY: Yes foot & digits (Dressing is dry and in place. The patient is more comfortable.) Left foot and digits: Yes inspection (No drainage.) Neuro: COMMON NORMALS: patient oriented x3 SENSORIUM/ORIENTATION: Yes alert Psych: APPEARANCE: Yes grossly normal ATTITUDE: Yes engaged Skin: COMMON NORMALS: no rashes or lesions noted GENERAL SKIN EXAM: no rashes or lesions noted Data : 12/06/21 03:27 12/06/21 03:27 A&P Assessment and plan (1) Amputation of left great toe: The patient underwent left great toe amputation approximately 10 days ago. Patient was seen last evening. She is doing better today. She is less anxious. She is continuing to undergo medical testing. I will sign off for now. She knows that she needs to follow-up upon discharge with her primary surgeon. Status: Acute (2) Peripheral arterial disease: Status: Acute Attestations Medical Necessity Statement*: Continue hospitalization for medical work-up Coding Level of Care Code Acute Ux Design Lead for [facility] Diagnoses Amputation of left great toe S98.112A Peripheral arterial disease I73.9
--- NOTE | 2021-12-06 18:47 | PC.NURSE ---
cardiology at bedside verbal instructions to stop IVF
[2021-12-06 20:35] LABS: Glucose Point of Care 300 mg/dL (70-110)
[2021-12-06] MEDS: atorvastatin 40 mg Tablet 80 MG PO (21:01)
[2021-12-07] VITALS (16 sets, daily range): BP systolic 90–111; BP diastolic 54–66; PULSE 82–103; RESP 13–21; TEMP 35.6–36.9; O2SAT 94–98
[2021-12-07] MEDS: ipratropium-albuterol 3 mL Neb INHALATION ×4 (03:13→21:03)
[2021-12-07 03:15] LABS: Basophils % 0.5 %; Eosinophils # 0.1 10^3/uL (0.0-0.8); Eosinophils % 2.2 %; Hematocrit 30.6 % (37.0-47.0); Hemoglobin 9.6 g/dL (11.5-15.3); Lymphocytes # 1.7 10^3/uL (0.8-4.8); Lymphocytes % 28.3 %; Mean Corpuscular HGB Conc 31.4 g/dL (30.0-36.0); Mean Corpuscular Hemoglobin 29.9 pg (28.0-34.0); Mean Corpuscular Volume 95.3 fl (81-99); Monocytes # 0.5 10^3/uL (0.2-0.9); Monocytes % 7.8 %; Neutrophils # 3.68 10^3/uL (1.8-7.7); Neutrophils % 60.9 %; Nucleated Red Blood Cells % 0 %; Platelet Count 471 10^3/cmm (130-400); Red Blood Count 3.21 10^6/uL (4.1-5.3); Red Cell Distribution Width 14.4 % (12.1-15.1)
[2021-12-07 03:39] LABS: Alanine Aminotransferase 9 U/L (0-33); Albumin Level 3.2 g/dL (3.5-5.2); Alkaline Phosphatase 73 IU/L (35-105); Anion Gap 14.3 (5-19); Aspartate Amino Transferase 13 U/L (0-32); Blood Urea Nitrogen 15 mg/dL (6-20); Calcium 9.5 mg/dL (8.5-10.5); Carbon Dioxide 29 mmol/L (22-29); Chloride 95 mmol/L (98-107); Globulin 3.5 g/dL (1.3-4.6); Glomerular Filtration Rate 86.9 mL/min (90-130); Glucose 127 mg/dL (65-115); Osmolality Calculated 280 mOsm/kg (285-295); Potassium 4.3 mmol/L (3.5-5.1); Sodium 134 mmol/L (136-145); Total Bilirubin 0.3 mg/dL (0.15-1.2); Total Protein 6.7 g/dL (6.6-8.7)
[2021-12-07] MEDS: ALPRAZolam 0.5 mg Tablet PO (06:27)
[2021-12-07 06:29] LABS: Glucose Point of Care 151 mg/dL (70-110)
--- NOTE | 2021-12-07 06:29 | PC.NURSE ---
Patient having trouble breathing this morning. SpO2 at 93% on room air. Making her very anxious. Scheduled for thoracentesis today at 11. Informed Dr Caraballo and doctor placed order for onetime dose of Xanax 0.5mg PO which was given as ordered and documented. Patient expressed thanks. Patient would like to have procedure done earlier if possible.
[2021-12-07] MEDS: budesonide 0.5 mg/2 mL Neb INHALATION ×2 (08:12→21:03)
--- NOTE | 2021-12-07 09:12 | PC.NURSE ---
0912 am-Time out for thoracentesis ultrasound guide Dr Ricardo and Lisa of ultrasound at bedside. pt verified her full name and . procedure done on right lower posterior back. pt assisted to proper position for procedure. approximately 600 to 700 cc out. pt tolerated the procedure well. vs monitored. portable chest xray ordered as order post thoracentesis.
--- NOTE | 2021-12-07 09:23 | ECG_ITS ---
[facility] Test Date: 2021-12-08 Pat Name: Nathalie Solano Department: Room: 111 Gender: Female Sales Coordinator: Lisa Hendrix : 1965 Requested By: Sunday Tavarez Order Number: [id number] Giovanny MD: Kelsey Cuadra M.D. Interpretive Statements NAME OF STUDY: LEXISCAN SESTAMIBI STRESS TEST INDICATION: Chest Pain PROCEDURE: At the baseline, the blood pressure was 80/53 mmHg with a heart rate of 84 beats per minute. The electrocardiogram showed normal sinus rhythm, normal axis with possible old septal infarct. Nonspecific T wave inversion in lead III. The Lexiscan was infused over a period of 20 seconds. A total of 0.4 milligrams of Lexiscan was infused. The stress phase was continued for a total of 5 minutes. Heart rate at the end of the stress phase was 94 bpm with a blood pressure of 75/42 mm Hg. The EKG at the peak infusion revealed sinus rhythm with no significant ST-T wave changes. The study was terminated due to protocol completion. Sestamibi was injected 20 seconds after the Lexiscan infusion. Blood pressure at the end of the recovery phase was 101/52 mmHg with a heart rate of 92 beats per minute. CONCLUSION: 1. No significant EKG changes with the LexiScan infusion. 2. No LexiScan induced chest pain or cardiac arrhythmia. 3. Normal blood pressure and heart rate response. 4. Sestamibi/sestamibi perfusion scan pending; see separate report. Electronically Signed On 12-08-2021 17:07:45 CDT by Kelsey Cuadra M.D. [id number]
--- NOTE | 2021-12-07 09:24 | XR_ITS ---
WS: [id number] PORTABLE CHEST HISTORY: post thoracentesis COMPARISON: 12/04/2021 Status post RIGHT thoracentesis. No residual pleural effusion and no pneumothorax is identified. There is minimal blunting of the LEFT costophrenic angle. There is minimal interstitial thickening th roughout both lungs suggesting persistent mild CHF. Cardiac size: Normal. Mediastinum/Aorta: Mild atherosclerosis aorta. No osseous abnormality seen. XR/XR chest 1V portable [id number] IMPRESSION: 1. No pneumothorax status post RIGHT thoracentesis. 2. Very minimal LEFT pleural effusion but decrease in size since 12/04/2021. 3. No residual RIGHT pleural fluid identified radiographically.
[2021-12-07] MEDS: midodrine 5 mg TABLET PO ×2 (09:44→17:25)
[2021-12-07] MEDS: metoprolol tartrate 25 mg Tablet PO ×2 (09:44→20:38)
[2021-12-07] MEDS: insulin glargine 100 units/1 mL 40 UNIT SUBCUT ×2 (09:49→20:39)
[2021-12-07 10:05] LABS: Apprearance, Body Fluid CLEAR; Body Fluid Specific Gravity 1.015; Color, Body Fluid PALE YELLOW; PATH Referral YES
[2021-12-07 10:08] LABS: Body Fluid WBC 243 /uL; Monocytes # Body Fluid 0.223; RBC, Body Fluid 0 10^3/uL
[2021-12-07 10:20] LABS: Albumin Body Fluid 1.2 g/dL; Fluid Alkaline Phos. 11 IU/L; LDH Body Fluid 84 U/L
[2021-12-07 10:21] LABS: Amylase Body Fluid 25 U/L; Cholesterol Body Fluid 13 mg/dL (0-200); Total Protein Pleural Fluid 1.7 g/dL; Triglycerides Body Fluid 13 mg/dL (0-150); Uric Acid Body Fluid 4 mg/dL
[2021-12-07] MEDS: ticagrelor 90 mg Tablet PO ×2 (11:25→17:25)
--- NOTE | 2021-12-07 11:30 | US_ITS ---
WS: [id number] ULTRASOUND-GUIDED THORACENTESIS, RIGHT HISTORY: SOB, small bilateral pleural effusions. Procedure, risks, and complications were explained to the patient. With the patient in an upright pos ition, the skin over the RIGHT posterior thorax was cleansed with ChloraPrep and anesthetized with 1% buffered lidocaine. A 5 German Yueh needle is inserted into the pleural fluid without complication. Approximately 700 cc of clear yellow pleural fluid is removed without difficulty. Specimen collected for analysis. No significant LEFT pleural effusion. / thoracentesis [id number] IMPRESSION: 1. RIGHT thoracentesis yielding 700 cc of fluid. 2. Chest radiograph to follow to evaluate for pneumothorax. 3. Pleural fluid specimen collected for analysis as requested.
[2021-12-07 11:46] LABS: Glucose Point of Care 213 mg/dL (70-110)
--- NOTE | 2021-12-07 12:44 | PM.PN ---
Subjective Subjective: No acute events overnight. Patient tolerated gentle IV hydration well yesterday. Blood pressure is better but still soft. Started on midodrine by cardiology yesterday. Today seen after right lung thoracentesis. Tolerated procedure well. States she is feeling little better today. Denies any nausea vomiting, headache. Eating breakfast on examination. Medications: Reviewed: Yes Vitals/I&O/Wt Last Vital Signs Temp 97.9 F 12/07/21 11:04 Pulse 87 12/07/21 11:04 Resp 19 H 12/07/21 11:04 BP 95/61 12/07/21 11:04 Pulse Ox 94 12/07/21 11:04 12/06/21 12/07/21 12/07/21 22:59 06:59 14:59 Intake Total 538.5 / 898.5 0 / 898.5 Output Total 600 / 600 Balance 538.5 / 898.5 0 / 898.5 -600 / -600 Weight last 48 hrs Weight 70.987 kg Weight 68.13 kg Physical Exam Const: COMMON NORMALS: no acute distress and patient oriented x3 HENMT: COMMON NORMALS: oropharynx normal Neck/C-Spine: COMMON NORMALS: no JVD Resp: COMMON NORMALS: normal respiratory effort and clear to auscultation bilaterally AUSCULTATION: clear to auscultation bilaterally, crackles and diminished lung sounds on the left Cardio: COMMON NORMALS: no JVD, regular rhythm, S1 normal heart sound present, S2 normal heart sound present and No murmurs present (Cardio) RHYTHM: regular rhythm HEART SOUNDS: S1 normal heart sound present and S2 normal heart sound present GI: COMMON NORMALS: Normal to inspection, nondistended, normoactive bowel sounds present, Soft to palpation and non-tender PALPATION: Yes Soft to palpation Extremity: COMMON NORMALS: no joint enlargement and no pedal edema GENERAL: Yes edema (R>L) OTHER: Left foot dressed. Clear. On removal of dressing healthy wound present with sutures intact. No foul smell, no erythema. Right groin hematoma present. Diffuse hematoma present going into pubic area along with gluteal region. Neuro: COMMON NORMALS: patient oriented x3 and moves all extremities Skin: COMMON NORMALS: no rashes or lesions noted GENERAL SKIN EXAM: no rashes or lesions noted Data : 12/07/21 02:31 12/07/21 02:31 A&P Assessment and plan (1) Acute on chronic congestive heart failure: Currently on room air. proBNP elevated. Though patient looks compensated. Will hold off on any further diuresis. Last diuretic received on 12/05. Repeat echocardiogram shows an EF of 67% with grade 2 diastolic dysfunction, severely elevated filling pressures, moderately severe MR, mildly increased LA, mild aortic valve stenosis. No significant regional wall motion abnormality. Status: Acute (2) Elevated troponin: Non-STEMI versus type II [place]. Patient denies of having active chest pain. Continue with statin, aspirin, Brilinta. Continue with full dose Lovenox 1 mg/kg body weight every 12 hourly for now. No new regional wall motion abnormality on echocardiogram. Plan for Lexiscan tomorrow. Status: Acute (3) Dyspnea on exertion: History of CHF. Bilateral pleural effusion. COVID-[address] done on admission negative for PE. Consistent with bronchiectasis. DuoNebs every 6 hours, budesonide twice daily. Post right-sided thoracentesis. Pleural fluid studies appreciated. Consistent with transudative. Restart Lovenox. Oxygen supplementation keeping saturation over 88%. Status: Acute (4) Chest pressure: As above Status: Acute (5) Hypotension: Goal blood pressure less than 140/90 on Hg with mean over 65. Continue with metoprolol at home dose of 25 mg twice daily to avoid reflex tachycardia. Orthostatic negative. Persistent even after fluids. Started on midodrine as per cardiology yesterday. Continue to monitor. Status: Acute (6) Pleural effusion, bilateral: Post right-sided paracentesis. Transudative. Status: Acute (7) Leg edema: Negative for DVT. Status: Acute (8) Amputation of left great toe: No sign of infection. Continue and finish course of Bactrim. Amputated 10 days ago. Consult orthopedics for wound care recommendations. Status: Acute (9) Diarrhea: Status: Acute Plan BOOM: Nightly CPAP, her will bring hers from the car DM2: Complains of recurrent episode of hypoglycemia at home. Takes Toujeo 40 units twice daily, glipizide 10 mg twice daily, Jardiance at home. For now continue with Lantus 40 nightly twice daily, insulin sliding scale. Most likely patient will need to be discharged off glipizide at home. PAD: With recent stent in left leg and left great toe amputation. HTN HLD Full code. Cardiac carb consistent diet. Next Full dose Lovenox will suffice for DVT prophylaxis as well. Plan for day: Follow-up pleural fluid studies. Continue midodrine. Monitor blood pressures. Lexiscan scan tomorrow. Attestations Medical Necessity Statement*: Requested hospitalization for management of hypotension, elevated troponin secondary to possible non-ST relation [place] in setting of CAD, PAD Time Spent in Patient Care: Greater than 35 minutes Coding Level of Care Code Acute Foot Orthopedist for g Fwd Diagnoses Acute on chronic congestive heart failure I50.9 Elevated troponin R77.8 Dyspnea on exertion R06.00 Chest pressure R07.89 Hypotension I95.9 Pleural effusion, bilateral J90 Leg edema R60.0 Amputation of left great toe S98.112A Diarrhea R19.7
[2021-12-07] MEDS: insulin lispro 100 unit/1 mL SUBCUT ×3 (13:16→20:38)
[2021-12-07] MEDS: enoxaparin 80 mg/0.8 mL Syringe 65 MG SUBCUT (14:46)
[2021-12-07 16:25] LABS: Glucose Point of Care 152 mg/dL (70-110)
[2021-12-07] MEDS: sertraline 50 mg Tablet PO (17:25)
--- NOTE | 2021-12-07 19:59 | PC.NURSE ---
Received report from NANDA Zhou. Patient resting in bed. Dressing to left foot remain c,d,i with palpable pulse and warm, pink toes. Patient is s/p right side thoracentesis. Site is free from bleeding or hematoma formation. Patient requesting to go out to smoke one cigarrette . Instructed patient on smoking policy. Patient verbalized understanding. Patient requesting something to help with sleep tonight. Patient has not slept well over past [address] Caraballo and doctor to place order. Will continue to monitor.
[2021-12-07] MEDS: TRAMadol 50 mg Tablet PO (20:38)
[2021-12-07] MEDS: atorvastatin 40 mg Tablet 80 MG PO (20:38)
[2021-12-07] MEDS: zolpidem 5 mg Tablet PO (20:38)
[2021-12-07 21:14] LABS: Glucose Point of Care 174 mg/dL (70-110)
--- NOTE | 2021-12-07 22:08 | P.PN_ITS ---
Subjective Subjective: feels better after thoracentesis Medications: Reviewed: Yes Vitals/I&O/Wt Last Vital Signs Temp 96.1 F L 12/07/21 20:15 Pulse 94 12/07/21 21:07 Resp 16 12/07/21 21:04 BP 102/56 12/07/21 20:15 Pulse Ox 94 12/07/21 21:04 12/07/21 12/07/21 12/07/21 06:59 14:59 22:59 Intake Total 0 / 898.5 360 / 360 360 / 720 Output Total 600 / 600 Balance 0 / 898.5 -240 / -240 360 / 120 Weight last 48 hrs Weight 156 lb 8 oz Weight 150 lb 3.2 oz Physical Exam Narrative: GENERAL: Alert and oriented x3. Not in any acute distress. HEENT: No significant pallor, icterus. NECK: No masses noted. No JVD or thyromegaly appreciated. No carotid bruit. RESPIRATORY: Chest is symmetrical. No intercostals muscle retraction or any accessory muscle activation. There is no chest wall tenderness. Breath sounds are diminished on left. No rales or rhonchi heard. HEART: S1 and S2 are normal. EXTREMITIES: No edema or cyanosis. Dorsalis pedis and posterior pulses are nonpalpable on the right side. Left sided pulses could not be palpated because of the dressing. right hip, thigh and groin hematoma+ BLURB WRITER: No FND Data : 12/07/21 02:31 12/07/21 02:31 Micro: Microbiology 12/07/21 09:20 Gram Stain - Final Pleural Fluid A&P Assessment and plan (1) Acute on chronic congestive heart failure: HFpEF Normal LV function with no RWMA on echocardiogram. -may need to start diuretics soon. Status: Acute (2) Pleural effusion, bilateral: s/p R thoracentesis Status: Acute (3) Atherosclerotic heart disease of [place] coronary artery with other forms of angina pectoris: She has extensive coronary disease with multiple PCI's. Possibility of coronary ischemia causing some of her symptoms cannot be excluded. -will f/u on myocardial perfusion imaging. Status: Acute (4) Hypotension: BP has not improved much even after hydration -will start on low dose midodrine for now. Status: Acute (5) Amputation of left great toe: s/p left big toe amputation. Aggressive management of the diabetes and infection will be appropriate. Status: Acute (6) Peripheral arterial disease: Patient was told that she may need intervention of the right side of the arteries. Medical records from [place] reviewed. Status: Acute Plan Elevated troponin Moderate MR Anemia COPD Sleep apnea Tonic back pain Anxiety/depression Thank you for the opportunity to evaluate this patient and make these recommen dations Attestations Medical Necessity Statement*: Needs hospital stay for hypotension, elevated troponin. Time Spent in Patient Care: Greater than 35 minutes Coding Level of Care Code Acute Litigation Attorney Associate for Lakisha Fwjefferson Diagnoses Acute on chronic congestive heart failure I50.9 Pleural effusion, bilateral J90 Atherosclerotic heart disease of [place] coronary artery with other forms of angina pectoris I25.118 Hypotension I95.9 Amputation of left great toe S98.112A Peripheral arterial disease I73.9
[2021-12-08] VITALS (12 sets, daily range): BP systolic 94–110; BP diastolic 51–69; PULSE 82–93; RESP 12–21; TEMP 36.4–36.6; O2SAT 94–97
--- NOTE | 2021-12-08 00:34 | PC.NURSE ---
Patient resting well tonight. No distress observed. Will continue to monitor.
[2021-12-08] MEDS: enoxaparin 80 mg/0.8 mL Syringe 65 MG SUBCUT ×2 (03:23→15:13)
[2021-12-08 05:47] LABS: Basophils % 0.3 %; Eosinophils # 0.1 10^3/uL (0.0-0.8); Eosinophils % 2.1 %; Hematocrit 31.4 % (37.0-47.0); Hemoglobin 9.9 g/dL (11.5-15.3); Lymphocytes # 1.5 10^3/uL (0.8-4.8); Lymphocytes % 23.6 %; Mean Corpuscular HGB Conc 31.5 g/dL (30.0-36.0); Mean Corpuscular Hemoglobin 29.4 pg (28.0-34.0); Mean Corpuscular Volume 93.2 fl (81-99); Mean Platelet Volume 8.8 fL (7.4-10.4); Monocytes # 0.5 10^3/uL (0.2-0.9); Monocytes % 7.2 %; Neutrophils # 4.15 10^3/uL (1.8-7.7); Neutrophils % 66.5 %; Nucleated Red Blood Cells % 0 %; Platelet Count 503 10^3/cmm (130-400); Red Blood Count 3.37 10^6/uL (4.1-5.3); Red Cell Distribution Width 14.4 % (12.1-15.1); White Blood Count 6.2 10^3/uL (4.0-10.0)
[2021-12-08 06:06] LABS: Alanine Aminotransferase 8 U/L (0-33); Albumin Level 3.3 g/dL (3.5-5.2); Alkaline Phosphatase 71 IU/L (35-105); Anion Gap 14.7 (5-19); Aspartate Amino Transferase 12 U/L (0-32); Blood Urea Nitrogen 15 mg/dL (6-20); Calcium 9.2 mg/dL (8.5-10.5); Carbon Dioxide 28 mmol/L (22-29); Chloride 100 mmol/L (98-107); Globulin 3.3 g/dL (1.3-4.6); Glomerular Filtration Rate 103.8 mL/min (90-130); Glucose 52 mg/dL (65-115); Osmolality Calculated 284 mOsm/kg (285-295); Potassium 4.7 mmol/L (3.5-5.1); Sodium 138 mmol/L (136-145); Total Bilirubin 0.4 mg/dL (0.15-1.2); Total Protein 6.6 g/dL (6.6-8.7)
[2021-12-08 06:34] LABS: Glucose Point of Care 65 mg/dL (70-110)
[2021-12-08] MEDS: dextrose 50% syringe 50 mL 25 ML IVP (06:41)
[2021-12-08] MEDS: regadenoson 0.4 Mg/5 ml Syringe IVP (07:45)
[2021-12-08] MEDS: budesonide 0.5 mg/2 mL Neb INHALATION ×2 (09:03→21:50)
[2021-12-08] MEDS: ipratropium-albuterol 3 mL Neb INHALATION ×2 (09:03→21:49)
--- NOTE | 2021-12-08 09:23 | NMCV_ITS ---
NM jaret perf SPECT r/s* [id number] Nathalie Solano Age: 56 Gender: F : 1965 Exam Date: 12/08/2021 09:23 Ordering Phys: Sunday Tavarez MD Technologist: MELINA Branham Exam Location: [facility] Indications: CHEST PAIN STRESS TEST [facility] IMAGE PROTOCOL Rest/Stress 1 Lexiscan Day Radiopharmaceutical Dose (mCi) Administration Site Administered by Rest: Tc-99m 10.8 IV MELINA Mendez Sestamibi Stress:Tc-99m 32.7 IV MELINA Mendez Sestamibi Rest: 08-Dec-2021 60 Discovery 630 Stress: 08-Dec-2021 30 Discovery 630 0.4mg Lexiscan. Images obtained in supine and prone position. SPECT RESULTS Technical Quality: Excellent Raw Data Analysis: Normal Image Corrections: No attenuation or motion correction applied Summed Stress Score: 13 Summed Rest Score: 5 Summed Difference Score: 8 PERFUSION FINDINGS Small to medium sized perfusion abnormality of mild severity of basal to mid inferolateral and apical inferior herron on rest images with reversibility in mid to apical inferior and mid to apical inferolateral herron on stress images. FUNCTIONAL RESULTS (calculated via Gated SPECT) Stress Image LV EF (%): 65 Stress EDV (mL):95 TID: 1.14 Stress ESV (mL):33 FUNCTIONAL FINDINGS: The left ventricle is normal in size. Transient Ischemia Dilatation of 1.1. There is normal left ventricular systolic function. The left ventricular ejection fraction is normal with a value of 65%. There is normal left ventricular wall thickening with no regional wall motion abnormality. Normal end-diastolic and end-systolic volumes. IMPRESSIONS 1. Medium sized partially reversible perfusion abnormality of mild to moderate severity of basal to apical inferolateral and mid to apical inferior herron. 2. This is likely suggestive of old myocardial infarction with moderate deja- infarct ischemia in right coronary artery/circumflex artery territory. 3. Overall left ventricular systolic function is normal without regional wall motion abnormalities. 4. The left ventricular ejection fraction is normal with a value of 65%. 5. EKG portion of the study will be reported separately. Kelsey Cuadra MD (Electronically Signed) Final Date: 08 December 2021 12:53 S
[2021-12-08] MEDS: metoprolol tartrate 25 mg Tablet PO ×2 (09:58→20:00)
[2021-12-08] MEDS: ticagrelor 90 mg Tablet PO ×2 (09:59→17:44)
[2021-12-08] MEDS: midodrine 5 mg TABLET PO ×3 (10:00→20:00)
[2021-12-08 11:34] LABS: Glucose Point of Care 376 mg/dL (70-110)
[2021-12-08] MEDS: insulin lispro 100 unit/1 mL SUBCUT ×2 (12:11→20:06)
--- NOTE | 2021-12-08 13:54 | P.PN_ITS ---
Subjective Subjective: No acute events overnight. Patient has remained hemodynamically stable afebrile. States she is feeling a lot better. Currently on room air. Underwent cardiac stress test today. Today morning was found to have low blood sugar of 65. We discussed in detail regarding causes of hypoglycemia. She she tells me she has dinner every day at 6 PM. We discussed that because of frequent fluctuant blood sugars it would be best if she can have a small snack prior to going to bed. Stop glipizide as an outpatient. Start on with meal short-acting insulin. Patient verbalized understanding and is agreeable. Medications: Reviewed: Yes Vitals/I&O/Wt Last Vital Signs Temp 97.6 F 12/08/21 11:09 Pulse 86 12/08/21 11:09 Resp 16 12/08/21 11:09 BP 110/54 12/08/21 11:09 Pulse Ox 97 12/08/21 11:09 12/07/21 12/08/21 12/08/21 22:59 06:59 14:59 Intake Total 720 / 1080 240 / 1320 460 / 460 Balance 720 / 480 240 / 720 460 / 460 Weight last 48 hrs Weight 71.078 kg Weight 70.987 kg Physical Exam Const: COMMON NORMALS: no acute distress and patient oriented x3 HENMT: COMMON NORMALS: oropharynx normal Neck/C-Spine: COMMON NORMALS: no JVD Resp: COMMON NORMALS: normal respiratory effort and clear to auscultation bilaterally AUSCULTATION: clear to auscultation bilaterally, crackles and diminished lung sounds on the left Cardio: COMMON NORMALS: no JVD, regular rhythm, S1 normal heart sound present, S2 normal heart sound present and No murmurs present (Cardio) RHYTHM: regular rhythm HEART SOUNDS: S1 normal heart sound present and S2 normal heart sound present GI: COMMON NORMALS: Normal to inspection, nondistended, normoactive bowel sounds present, Soft to palpation and non-tender PALPATION: Yes Soft to palpation Extremity: COMMON NORMALS: no joint enlargement and no pedal edema GENERAL: Yes edema (R>L) OTHER: Left foot dressed. Clear. On removal of dressing healthy wound present with sutures intact. No foul smell, no erythema. Right groin hematoma present. Diffuse hematoma present going into pubic area along with gluteal region. Neuro: COMMON NORMALS: patient oriented x3 and moves all extremities Skin: COMMON NORMALS: no rashes or lesions noted GENERAL SKIN EXAM: no r ashes or lesions noted Data : 12/08/21 05:26 12/08/21 05:26 Micro: Microbiology 12/07/21 09:20 Gram Stain - Final Pleural Fluid Anaerobic Culture - Preliminary Body Fluid Culture - Preliminary A&P Assessment and plan (1) Acute on chronic congestive heart failure: Currently on room air. Patient fairly compensated. proBNP elevated. Though patient looks compensated. Will hold off on any further diuresis. Last diuretic received on 12/05. Most likely can be discharged on 20 mg of oral Lasix. Repeat echocardiogram shows an EF of 67% with grade 2 diastolic dysfunction, severely elevated filling pressures, moderately severe MR, mildly increased LA, mild aortic valve stenosis. No significant regional wall motion abnormality. Status: Acute (2) Elevated troponin: Non-STEMI versus type II PA. Patient denies of having active chest pain. Continue with statin, aspirin, Brilinta. Continue with full dose Lovenox 1 mg/kg body weight every 12 hourly for now. No new regional wall motion abnormality on echocardiogram. Lexiscan results awaited. We will plan for further management with possible PCI as a result of Lexiscan. Status: Acute (3) Dyspnea on exertion: History of CHF. Bilateral pleural effusion. COVID-[address] done on admission negative for PE. Consistent with bronchiectasis. DuoNebs every 6 hours, budesonide twice daily. Post right-sided thoracentesis. Pleural fluid studies appreciated. Consistent with transudative. Oxygen supplementation keeping saturation over 88%. Status: Acute (4) Chest pressure: As above Status: Acute (5) Hypotension: Improving. Goal blood pressure less than 140/90 on Hg with mean over 65. Continue with metoprolol at home dose of 25 mg twice daily to avoid reflex tachycardia. Orthostatic negative. Persistent even after fluids. Midodrine 5 mg twice daily. Continue to monitor. Status: Acute (6) Pleural effusion, bilateral: Post right-sided paracentesis. Transudative. Status: Acute (7) Leg edema: Negative for DVT. Status: Acute (8) Amputation of left great toe: No sign of infection. Continue and finish course of Bactrim. Amputated 10 days ago. Consult orthopedics for wound care recommendations. Status: Acute (9) Diarrhea: Status: Acute Plan BOOM: Nightly CPAP, her will bring hers from the car DM2: Complains of recurrent episode of hypoglycemia at home. Takes Toujeo 40 units twice daily, glipizide 10 mg twice daily, Jardiance at home. Decrease Lantus to 30 units twice daily. Continue insulin sliding scale. Patient will need to be discharged off of glipizide and on short acting insulin premeals as per sliding scale. Patient is agreeable. PAD: With recent stent in left leg and left great toe amputation. HTN HLD Full code. Cardiac carb consistent diet. Next Full dose Lovenox will suffice for DVT prophylaxis as well. Appreciate cardiology recommendations. Plan for day: Continue to monitor blood pressures. Midodrine. Follow-up Lexiscan results. Decrease Lantus to 30 units twice daily. Attestations Medical Necessity Statement*: Requires further hospitalization for management of non-ST elevation PA, shortness of breath secondary to congestive heart failure and pleural effusion, hypotension Time Spent in Patient Care: Greater than 35 minutes Coding Level of Care Code Acute Medical Orderly for Chg Fwd Diagnoses Acute on chronic congestive heart failure I50.9 Elevated troponin R77.8 Dyspnea on exertion R06.00 Chest pressure R07.89 Hypotension I95.9 Pleural effusion, bilateral J90 Leg edema R60.0 Amputation of left great toe S98.112A Diarrhea R19.7
--- NOTE | 2021-12-08 13:58 | PM.PN ---
Subjective Subjective: No chest pian. she under went stress test today. Denies any chest pain and states SOB has improved. Medications: Reviewed: Yes Vitals/I&O/Wt Last Vital Signs Temp 97.6 F 12/08/21 11:09 Pulse 86 12/08/21 11:09 Resp 16 12/08/21 11:09 BP 110/54 12/08/21 11:09 Pulse Ox 97 12/08/21 11:09 12/07/21 12/08/21 12/08/21 22:59 06:59 14:59 Intake Total 720 / 1080 240 / 1320 460 / 460 Balance 720 / 480 240 / 720 460 / 460 Weight last 48 hrs Weight 156 lb 11.2 oz Weight 156 lb 8 oz Physical Exam Narrative: GENERAL: Alert and oriented x3. Not in any acute distress. HEENT: No significant pallor, icterus. NECK: No masses noted. No JVD or thyromegaly appreciated. No carotid bruit. RESPIRATORY: Chest is symmetrical. No intercostals muscle retraction or any accessory muscle activation. There is no chest wall tenderness. Breath sounds are diminished on left. No rales or rhonchi heard. HEART: S1 and S2 are normal. EXTREMITIES: No edema or cyanosis. Dorsalis pedis and posterior pulses are nonpalpable on the right side. Left sided pulses could not be palpated because of the dressing. right hip, thigh and groin hematoma+ RETAIL PARTS PRO: No FND Data : 12/09/21 04:12 12/09/21 04:12 Micro: Microbiology 12/07/21 09:20 Gram Stain - Final Pleural Fluid Anaerobic Culture - Preliminary Body Fluid Culture - Preliminary A&P Assessment and plan (1) Acute on chronic congestive heart failure: HFpEF Normal LV function with no RWMA on echocardiogram. -Possibility of coronary ischemia causing some of her symptoms cannot be excluded. Patient underwent stress test for repeated hospitalization for decompensated congestive heart failure, atypical chest discomfort and shortness of breath. Stress test partially reversible perfusion defect in inferior inferolateral herron. -Patient initially reluctant to undergo cardiac catheterization here and wanted to go for a cigarette and follow-up with her public health internship. -After discussion with her family and her public health internship office, eventually she decided to proceed with coronary angiogram here. Risks and benefits were discussed with the patients. Possible complications including risk of heart attack stroke and , coronary perforation, arrhythmia, cardiac tamponade in urgent CABG were discussed with the patient as well. Plan is to proceed for the procedure at the earliest. 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 Her last PCI was in June 2021. In our system her last cardiac catheterization was on 12 December 2019. At that time she was found to have luminal irregularities in left main. LAD with mid 65 stenosis mid to distal previously placed stent was patent. D1 patent. D2 patent. 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 RCA with proximal 65% and mid to distal 95% tight stenosis with EUGENE II flow that was thought to be culprit vessel. Patient underwent balloon angioplasty followed by drug-eluting stent placement to mid to distal 95% stenosis in RCA. 80% mid circumflex artery treated with balloon angioplasty with 40% residual stenosis and EUGENE-3 flow at the end of the procedure. Status: Acute (3) Hypotension: BP has not improved much even after hydration -will start on low dose midodrine for now. Status: Acute (4) Amputation of left great toe: s/p left big toe amputation for left great toe osteomyelitis. Aggressive management of the diabetes and infection will be appropriate. Status: Acute (5) Peripheral arterial disease: Medical records from [place] reviewed. CTA of aorta and extremities (11/25/21) demonstrated hemodynamically significant stenosis in right mid SFA. Runoff primarily through posterior tibial and peroneal arteries. Left lower extremity demonstrates no significant stenosis on inflow. Patient's left superomedial facial femoral artery demonstrates plaque with metal stent and distal SFA extending into popliteal artery. There appears to be some in-stent restenosis. Runoff is primarily through peroneal artery. Some reconstitution posterior tibial branches at the ankle. Patient underwent percutaneous intervention with balloon angioplasty of posterior tibial artery on 11/26/21. Balloon angioplasty to an area of 90% stenosis with in-stent restenosis of mid to distal SFA was performed. Stenting of mid to proximal SFA with 2 overlapping stents was performed with excellent angiographic results. Two-vessel runoff to the foot via posterior tibial and peroneal arteries and patent pedal loop. Residual stenosis in distal left common femoral artery at bifurcation to the profunda about 50% present. Plan to perform shockwave balloon angioplasty near future/orbital atherectomy. Status: Acute (6) Pleural effusion, bilateral: s/p R thoracentesis Status: Acute Plan Elevated troponin Dyslipidemia Insulin-dependent diabetes mellitus type 2 Moderate MR Anemia COPD Sleep apnea Tonic back pain Anxiety/depression Chrinic active tobacco abuse Thank you for the opportunity to evaluate this patient and make these recommendations Attestations Medical Necessity Statement*: Needs hospital stay for [facility] tomorrow. 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
--- NOTE | 2021-12-08 15:58 | PC.NURSE ---
Orders received from Dr. Tavarez, hospitalist. See orders.
[2021-12-08 16:52] LABS: Glucose Point of Care 165 mg/dL (70-110)
[2021-12-08] MEDS: ranolazine (12HR) 500 mg Tablet PO (17:44)
[2021-12-08] MEDS: sertraline 50 mg Tablet PO (17:44)
[2021-12-08] MEDS: atorvastatin 40 mg Tablet 80 MG PO (20:00)
[2021-12-08 20:06] LABS: Glucose Point of Care 272 mg/dL (70-110)
[2021-12-08] MEDS: TRAMadol 50 mg Tablet PO (20:06)
[2021-12-08] MEDS: ALPRAZolam 0.5 mg Tablet PO (20:06)
[2021-12-09] VITALS (43 sets, daily range): BP systolic 82–127; BP diastolic 52–76; PULSE 77–108; RESP 12–25; TEMP 36.2–36.8; O2SAT 76–99
[2021-12-09 00:20] LABS: Glucose Point of Care 224 mg/dL (70-110)
[2021-12-09 04:27] LABS: Basophils % 0.3 %; Eosinophils # 0.2 10^3/uL (0.0-0.8); Eosinophils % 3.1 %; Hematocrit 30.7 % (37.0-47.0); Hemoglobin 9.6 g/dL (11.5-15.3); Lymphocytes # 1.5 10^3/uL (0.8-4.8); Lymphocytes % 26.9 %; Mean Corpuscular HGB Conc 31.3 g/dL (30.0-36.0); Mean Corpuscular Hemoglobin 29.7 pg (28.0-34.0); Mean Platelet Volume 8.8 fL (7.4-10.4); Monocytes # 0.5 10^3/uL (0.2-0.9); Monocytes % 8.2 %; Neutrophils # 3.49 10^3/uL (1.8-7.7); Neutrophils % 61.2 %; Nucleated Red Blood Cells % 0 %; Platelet Count 435 10^3/cmm (130-400); Red Blood Count 3.23 10^6/uL (4.1-5.3); Red Cell Distribution Width 14.4 % (12.1-15.1); White Blood Count 5.7 10^3/uL (4.0-10.0)
[2021-12-09 04:44] LABS: Blood Urea Nitrogen 14 mg/dL (6-20); Calcium 8.8 mg/dL (8.5-10.5); Carbon Dioxide 27 mmol/L (22-29); Chloride 99 mmol/L (98-107); Glomerular Filtration Rate 86.9 mL/min (90-130); Glucose 180 mg/dL (65-115); Osmolality Calculated 285 mOsm/kg (285-295); Sodium 135 mmol/L (136-145)
[2021-12-09 06:29] LABS: Glucose Point of Care 168 mg/dL (70-110)
--- NOTE | 2021-12-09 07:54 | XACV_ITS ---
Exam Room: [facility] Ht: 157 cm Wt: 69 kg BSA: 1.76 m2 Gender: Female : 1965 Any Known Allergies: Codeine Exam Priority: Routine Procedure(s): Procedure Description: Diagnostic procedure Procedure Description: PCI procedure Procedure Description: PTCA Procedure Description: Coronary Angiography Procedure Description: Pressure Wire Diagnostic Cath Status: Elective Diagnostic Findings * 56 year old female presented with complaints of increasing shortness of breath and chest discomfort described as pressure like/tightness . She has a history of extensive coronary disease with multiple PCI's last one 06/2021, peripheral artery disease and with the recent percutaneous intervention of the left leg followed by amputation of the big toe at the hospital in [facility] last week. She underwent stress test that showed old myocardial infarction with moderate deja-infarct ischemia in right coronary artery/circumflex artery territory. Given repeated hospitalization for decompensated congestive heart failure chest discomfort and abnormal stress test, decision was made to proceed with left heart catheterization. * Small to medium caliber left anterior descending artery. Patent stent in mid and distal left anterior descending artery. Proximal segment of left anterior descending artery has 70% narrowing just before first diagonal. Distal segment of left anterior descending artery is very small. * Small to medium caliber dominant right coronary artery. There are multiple stents throughout right coronary artery including posterolateral and posterior descending arteries. Mild in stent restenosis noted in proximal and mid right coronary artery stents. Distal stented segment of right coronary artery with 80% in-stent restenosis. 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 Small caliber circumflex artery with 40% ostial narrowing. Patent stent in proximal to mid circumflex. * Case was discussed and images were reviewed with Dr. Valadez. PCI Status: Elective PCI Indication: Other Interventional Findings * Procedure details: Engage left main artery with XB 3.0 guide catheter. IV heparin was administered to maintain ACT above 250 S. After normalization IFR pressure wire was advanced to distal LAD. IFR value of 0.81 was obtained that was significant. As this was a calcified lesion, we decided to stage it as a staged procedure. We then proceeded with PCI of RCA in-stent restenosis as stress test was abnormal in this territory. RCA was engaged with a JR4 guide catheter. We dilated with stent with 3.0 x 12 mm NC balloon at high pressure. This expanded the stent well and there was no significant residual stenosis. At this time guidewire and guide catheters were removed and patient left the Bookseamer Blindstitch in stable condition.. * Distal Right Coronary Artery to Distal Right Coronary Artery: 80% stenosis treated with a MDT NC EUPHORA RX [id number] BALLOON. 0% residual stenosis, EUGENE: 3 flow. Conclusions 1. Two-vessel coronary artery disease. 2. Distal stented segment of right coronary artery with 80% in-stent restenosis. s/p PTCA of the distal RCA for in-stent re-stenosis. 3. Proximal segment of left anterior descending artery has 70% narrowing just before first diagonal. Ischemic iFR of the Prox LAD =0.81. 4. Distal Right Coronary Artery to Distal Right Coronary Artery was treated with a Balloon. Recommendations * Continue aspirin and Brilinta for at least 1 year. * High intensity statin therapy. * Staged PCI of proximal LAD * possibly with arthrectomy in 2 days. Diagnostic RX Recommendation: PCI w/o planned CABG Pressures Phase:Rest AO : 70 / 54 ( 62 ) @ 1:45:00 PM 102 / 61 ( 79 ) @ 2:11:00 PM 97 / 60 ( 76 ) @ 2:17:00 PM 90 / 51 ( 54 ) @ 2:34:00 PM Clinical Evaluation EBL: 5mL-10mL Procedural Details Procedure Consent Obtained. Pre-Procedure Time Out. Identified patient by full name and date of as verbalized by the patient/guarantor. Does the consent match the physician's order: Yes. Accurate & Complete Informed Consent: Yes. Inpatient/Outpatient History & Physical on Chart: Yes. If H&P is completed, is and addenduem needed: No; If yes, is the addendum complete: N/A. Visualize and Verify Site with Patient/Guarantor: N/A. Relevant Radiology Images available: Yes. Procedure started. [facility] Clinical Fraility Score: 4: Vulnerable. Bookseamer Blindstitch Indications: New Onset Angina/SOB. Chest Pain Symptom Assessment: Atypical Angina. Cardiovascular Instability: No. Correct patient, site and procedure confirmed by cath team. PERRLA. Strong, equal hand costume designer bilaterally. Lungs clear x 5 lobes. IV Site on Arrival: 20 gauge in the right anticubital. IV Fluids: 0.9% NaCl at KVO. 200 mL infused prior to mill laborer. Pre Procedural Pulses: bilateral dorsalis pedis was Doppled. Pre Procedural Pulses: bilateral posterior tibial was Doppled. Pre Procedural Pulses: bilateral radial was 1+. Oxygen started at 2liters/min via nasal canula. right groin was prepped with chloroprep then draped in the usual sterile fashion. right radial was prepped with chloroprep then draped in the usual sterile fashion. Physician notified. Equipment: 6F - Radial. Cardiac Cath Pack. ACIST Manifold Kit Model BT 2000. Heparinized Saline (2 units/mL), 1000 mL bag. Physician arrived. Baseline sample Acquired. HR: 90 BPM. Patient's spouse is waiting in the radiology waiting room. Dr. Cuadra will update at the completion of the procedure. Physician scrubbed in. Immediate Pre-Procedure Time Out. Correct Patient: Yes; Correct Procedure: Yes; Correct Site: Yes; Correct Patient Position: Yes; Correct Supplies: Yes; Dried Flammable Prep: Yes; Blood Products Available: N/A;. Lidocaine 1% infiltrated to the right radial. Arterial access obtained. A 5 uzbek TIG catheter in over wire. Multiple views taken of right coronary artery and circumflex. Catheter redirected to the LCA. Multiple views taken of left coronary artery. Catheter attached to Hep Saline flush at KVO to maintain patency. Dr. Cuadra and Dr. Valadez reviewing cine. Dr. Cuadra scrubbed out, Dr. Valadez scrubbed in. Catheter removed over the standard wire. Inventory added: Endoflator. 6 uzbek XB 3 guide catheter was inserted over the wire. Scarecrow ProjectiWire Pressure guidewire was advanced through the guide catheter to lesion in the prox LAD. Unable to cross, Pressure wire out. Guide catheter out. Unable to use the radial access due to arterial spasm. Will move to groin access. TR band placed. Hemostasis obtained. A TR Band was successful obtaining hemostatsis at the Right Radial artery insertion site. Lidocaine 1% infiltrated to the left groin. Arterial access obtained with micropuncture set. A Left femoral angiogram was performed to determine safe placement of closure device. 6 uzbek XB 3 guide catheter was inserted over the wire. Pressglue OmniWire Pressure guidewire was advanced through the guide catheter to lesion in the prox LAD. iFR measurement of the Prox LAD=0.81. ACT drawn. Results 142 seconds. Therapeutic limits - pre-heparin administration 90-150 seconds and monitoring heparin during a vascular procedure >250 seconds. Pressure wire out. Guide catheter out. 6 uzbek JR 4 SH guide catheter was inserted over the wire. Runthrough guidewire was advanced through the guide catheter to lesion in the distal RCA. Inflation number : 1 A MDT NC EUPHORA RX [id number] BALLOON was prepped and advanced across the Dist RCA , then inflated to 12 NHI for 0:24 seconds. Inflation number: 2 The MDT NC EUPHORA RX [id number] BALLOON was reinflated across the Dist RCA, to 14 NHI for 0:21 seconds. Balloon out. Results checked. Wire out. Guide catheter out. ACT drawn. Results 186 seconds. Therapeutic limits - pre-heparin administration 90-150 seconds and monitoring heparin during a vascular procedure >250 seconds. A Suture was successful obtaining hemostatsis at the Left Femoral artery insertion site. Dr. Valadez scrubbed out. Sheath(s) sutured into position with 2-0 silk and sterile 4x4's and Op-site applied over the site. No oozing or signs and symptoms of hematoma noted. Arterial sheath flushed and connected to tranducer and pressure bag with heparinized saline. Post Procedure: Pulses reassessed and unchanged. PERRLA. Strong, equal hand costume designer bilaterally. No VTE prophylaxis required. Medication's Wasted: Nitro = 49.5 mg. Medication's Wasted: Heparin = 4000 units. Total IV fluids: 409 mL. PCI Indication: New Onset Angina. Post-op diagnosis: PTCA of the distal RCA for in-stent re-stenosis. iFR of the Prox LAD =0.81. Will plan for staged Atherectomy with PCI. Complications: none. Estimated blood loss: 5mL-10mL. Responsiveness - Normal response to verbal stimuli; alert and oriented, PERRLA. Airway - Unaffected, no intervention required; spontaneous ventilation. Circulation: W/N/L, pulses unchanged. Nausea/Vomiting: No. Procedure completed. Patient transferred by bed to 1st floor. Vital chart was stopped. Access Site Site: Right Radial artery Sheath Size: 6 Fr Hemostasis Method: TR Band Hemostasis Success: Successful Site: Left Femoral artery Sheath Size: 6 Fr Hemostasis Method: Suture Hemostasis Success: Successful Procedure Medications Start: 12:10 PM Stop: 12:10 PM Medication: Versed Amount: 1 mg Route: I.V. Start: 12:11 PM Stop: 12:11 PM Medication: Fentanyl Amount: 25 mcg Route: I.V. Start: 12:13 PM Stop: 12:13 PM Medication: Versed Amount: 1 mg Route: I.V. Start: 12:13 PM Stop: 12:13 PM Medication: Fentanyl Amount: 25 mcg Route: I.V. Start: 12:24 PM Stop: 12:24 PM Medication: Nitrogylcerin Amount: 200 mcg Route: I.A. Start: 12:24 PM Stop: 12:24 PM Medication: Versed Amount: 1 mg Route: I.V. Start: 12:25 PM Stop: 12:25 PM Medication: Heparin Amount: 5000 units Route: I.V. Start: 12:41 PM Stop: 12:41 PM Medication: Heparin Amount: 2000 units Route: I.V. Start: 12:42 PM Stop: 12:42 PM Medication: 0.9% Saline Amount: ml/hr Route: I.V. bolus Start: 12:44 PM Stop: 12:44 PM Medication: Nitrogylcerin Amount: 200 mcg Route: I.A. Start: 12:58 PM Stop: 12:58 PM Medication: Nitrogylcerin Amount: 100 mcg Route: I.A. Start: 1:04 PM Stop: 1:04 PM Medication: Versed Amount: 1 mg Route: I.V. Start: 1:21 PM Stop: 1:21 PM Medication: Heparin Amount: 3000 units Route: I.V. I, the attending physician, have reviewed and verified all procedure medications. Yes, all medications given per verbal order History/Risk Factors Hypertension: Yes Dyslipidemia: Yes Peripheral Arterial Disease (PAD): Yes Myocardial Infarction (AR): No Obesity: No Renal Disease: No Tobacco Use: Current/Recent(w/in 1 year) Prior Interventions PCI: Yes CABG: No Valve Surgery: No Date of PCI: 12/09/2021 Report Signatures Interventional Workflow Finalized by Byron Valadez MD on 12/22/2021 09:54 AM Diagnostic Workflow Finalized by Kelsey Cuadra MD on 12/16/2021 02:40 PM
[2021-12-09] MEDS: midodrine 5 mg TABLET PO ×3 (09:21→20:43)
[2021-12-09] MEDS: ticagrelor 90 mg Tablet PO ×2 (09:21→18:34)
[2021-12-09] MEDS: aspirin 81 mg EC Tablet PO (09:22)
[2021-12-09] MEDS: ranolazine (12HR) 500 mg Tablet PO ×2 (09:28→18:34)
[2021-12-09] MEDS: budesonide 0.5 mg/2 mL Neb INHALATION ×2 (09:40→21:19)
[2021-12-09] MEDS: ipratropium-albuterol 3 mL Neb INHALATION ×3 (09:40→21:19)
--- NOTE | 2021-12-09 09:57 | PM.PN ---
Subjective Subjective: No chest pian. she under went stress test yesterday. Denies any chest pain and states SOB has improved. Medications: Reviewed: Yes Vitals/I&O/Wt Last Vital Signs Temp 97.1 F L 12/09/21 00:00 Pulse 91 12/09/21 06:00 Resp 15 12/09/21 04:00 BP 89/55 12/09/21 04:00 Pulse Ox 95 12/09/21 04:00 12/08/21 12/09/21 12/09/21 22:59 06:59 14:59 Intake Total 540 / 1000 300 / 1300 Balance 540 / 1000 300 / 1300 Weight last 48 hrs Weight 153 lb 11.2 oz Weight 156 lb 11.2 oz Physical Exam Narrative: GENERAL: Alert and oriented x3. Not in any acute distress. HEENT: No significant pallor, icterus. NECK: No masses noted. No JVD or thyromegaly appreciated. No carotid bruit. RESPIRATORY: Chest is symmetrical. No intercostals muscle retraction or any accessory muscle activation. There is no chest wall tenderness. Breath sounds are diminished on left. No rales or rhonchi heard. HEART: S1 and S2 are normal. EXTREMITIES: No edema or cyanosis. Dorsalis pedis and posterior pulses are nonpalpable on the right side. Left sided pulses could not be palpated because of the dressing. right hip, thigh and groin hematoma+ POWER BENDER OPERATOR: No FND Data : 12/10/21 05:38 12/10/21 05:38 Micro: Microbiology 12/07/21 09:20 Gram Stain - Final Pleural Fluid Anaerobic Culture - Preliminary Body Fluid Culture - Preliminary A&P Assessment and plan (1) Acute on chronic congestive heart failure: HFpEF Normal LV function with no RWMA on echocardiogram. -Possibility of coronary ischemia causing some of her symptoms cannot be excluded. Patient underwent stress test for repeated hospitalization for decompensated congestive heart failure, atypical chest discomfort and shortness of breath. Stress test partially reversible perfusion defect in inferior inferolateral herron. -Patient initially reluctant to undergo cardiac catheterization here and wanted to go for a cigarette and follow-up with her assembler carbon brushes. -After discussion with her family and her assembler carbon brushes office, eventually she decided to proceed with coronary angiogram here. Risks and benefits were discussed with the patients. Possible complications including risk of heart attack stroke and , coronary perforation, arrhythmia, cardiac tamponade in urgent CABG were discussed with the patient as well. Plan is to proceed for the procedure later today. Status: Acute (2) Atherosclerotic heart disease of [place] coronary artery with other forms of angina pectoris: She has extensive coronary disease with multiple PCI's. Her last PCI was in June 2021. In our system her last cardiac catheterization was on 12 December 2019. At that time she was found to have luminal irregularities in left main. LAD with mid 65% stenosis mid to distal previously placed stent was patent. D1 patent. D2 patent. 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 RCA with proximal 65% and mid to distal 95% tight stenosis with EUGENE II flow that was thought to be culprit vessel. Patient underwent balloon angioplasty followed by drug-eluting stent placement to mid to distal 95% stenosis in RCA. 80% mid circumflex artery treated with balloon angioplasty with 40% residual stenosis and EUGENE-3 flow at the end of the procedure. Status: Acute (3) Hypotension: -continue on low dose midodrine for now. Status: Acute (4) Amputation of left great toe: s/p left big toe amputation for left great toe osteomyelitis. Aggressive management of the diabetes and infection will be appropriate. Status: Acute (5) Peripheral arterial disease: Medical records from [place] reviewed. CTA of aorta and extremities (11/25/21) demonstrated hemodynamically significant stenosis in right mid SFA. Runoff primarily through posterior tibial and peroneal arteries. Left lower extremity demonstrates no significant stenosis on inflow. Patient's left superficiall femoral artery demonstrates plaque with metal stent and distal SFA extending into popliteal artery. There appears to be some in-stent restenosis. Runoff is primarily through peroneal artery. Some reconstitution posterior tibial branches at the ankle. Patient underwent percutaneous intervention with balloon angioplasty of posterior tibial artery on 11/26/21. Balloon angioplasty to an area of 90% stenosis with in-stent restenosis of mid to distal SFA was performed. Stenting of mid to proximal SFA with 2 overlapping stents was performed with excellent angiographic results. Two-vessel runoff to the foot via posterior tibial and peroneal arteries and patent pedal loop. Residual stenosis in distal left common femoral artery at bifurcation to the profunda about 50% present. Plan to perform shockwave balloon angioplasty near future/orbital atherectomy. Status: Acute (6) Pleural effusion, bilateral: s/p R thoracentesis Status: Acute Plan Elevated troponin Dyslipidemia Insulin-dependent diabetes mellitus type 2 Moderate MR Anemia COPD Sleep apnea Tonic back pain Anxiety/depression Chrinic active tobacco abuse Thank you for the opportunity to evaluate this patient and make these recommendations Attestations Medical Necessity Statement*: needs hospital stay for [facility] Coding Level of Care Code Acute Clinical Exercise Specialist for Lakisha Coleman Diagnoses Acute on chronic congestive heart failure I50.9 Atherosclerotic heart disease of [place] coronary artery with other forms of angina pectoris I25.118 Hypotension I95.9 Amputation of left great toe S98.112A Peripheral arterial disease I73.9 Pleural effusion, bilateral J90
[2021-12-09 10:20] LABS: Glucose Point of Care 125 mg/dL (70-110)
[2021-12-09] MEDS: diphenhydrAMINE 50 mg Capsule PO (11:19)
[2021-12-09] MEDS: sodium chloride 0.9% 1,000 ML 50 ML IV (11:21)
--- NOTE | 2021-12-09 12:09 | W.PM.OPSUD ---
Surgery/Procedure H&P Update DATE OF PROCEDURE: December 09, 2021 DATE H&P PERFORMED: 12/09/21 PREOP DIAGNOSIS: s PRIMARY INDICATION FOR PROCEDURE: Abnormal stress test, Chest pain and SOB PLANNED PROCEDURE: Operation Date: 12/09/21 12:00 Proposed Procedures p Cardiac Catheterization(Left) - Kelsey Cuadra MD PATIENT REASSESSED PRIOR TO SEDATION, WITH NO CHANGE NOTED: Yes PHYSICAL EXAM: alert, oriented x 3, clear to auscultation bilaterally and regular rate & rhythm AIRWAY EVAL/ANESTHESIA PLAN: normal airway, ASA IV and Risks, benefits & alternatives of sedation and/or procedure discussed
--- NOTE | 2021-12-09 12:47 | PC.CHAP ---
Pastoral Care Encounter/Spiritual Assessment Type of Contact [] Declined merchandise associate visit [] Patient/Family/Request visit [] Outpatient visit [] Follow-up visit [] Physician referral [] Code/Alert [] Routine visit [] Staff referral [] Actively dying [] Patient sleeping [] Family support [] [] Out of room [] Palliative care [] [] Receiving care in room [] Pre-surgical visit [] Trauma [] Long length of stay [] ICU visit [] Other: Relational/Emotional Strength [xx] Patient feels connected with others/family/visitors/staff [] Distress [] Loneliness/isolation [] Abandonment Spirituality of Patient [] Person of Bre [] Attends [employer] of their Bre [] Believes in Prayer [] Reads Bible or Spiritism materials [xx] There are Spiritual issues to be addressed Death Claim Clerk Interventions [] Prayer [xx] Active listening [xx] Non-anxious presence [] Spiritual/emotional support [] Crisis/trauma care [] Spiritual counseling [] Bereavement support [] Provided bereavement packet [] Provided Bible/devotional materials [] Provided toy/stuffed animal, coloring book to patient or family member [] Provided Communion [] Anointing/[place] [] Salvation [xx] Completed spiritual assessment [] Other: Impact on Illness or Injury [] Angry [] Fearful [] Anxious [] Often cries [] Exhaustion [] Unable to work [] Unable to attend hoahaoism [] Unable to walk/stand [] Unable to read [] Unable to drive [] Unable to eat/drink [] Unable to sleep [] Unable to be with family [] Patient intubated [] Other: Summary Patient's spouse was present. Patient expects stent to be placed today and she can go home tomorrow. They both declined prayer stating their congregational would pray for them. Time spent with patient 3 minutes
--- NOTE | 2021-12-09 13:17 | P.PN_ITS ---
Subjective Subjective: Overnight. Patient is a lot more calm today. Seen prior to cardiac catheterization. Denies any chest pain. Has remained hemodynamically stable and afebrile. Blood pressure still soft but better than before. Medications: Reviewed: Yes Vitals/I&O/Wt Last Vital Signs Temp 97.1 F L 12/09/21 00:00 Pulse 82 12/09/21 09:50 Resp 18 12/09/21 09:40 BP 89/55 12/09/21 04:00 Pulse Ox 96 12/09/21 09:40 12/08/21 12/09/21 12/09/21 22:59 06:59 14:59 Intake Total 540 / 1000 300 / 1300 Balance 540 / 1000 300 / 1300 Weight last 48 hrs Weight 69.717 kg Weight 71.078 kg Physical Exam Const: COMMON NORMALS: no acute distress and patient oriented x3 HENMT: COMMON NORMALS: oropharynx normal Neck/C-Spine: COMMON NORMALS: no JVD Resp: COMMON NORMALS: normal respiratory effort and clear to auscultation bilaterally AUSCULTATION: clear to auscultation bilaterally, crackles and diminished lung sounds on the left Cardio: COMMON NORMALS: no JVD, regular rhythm, S1 normal heart sound present, S2 normal heart sound present and No murmurs present (Cardio) RHYTHM: regular rhythm HEART SOUNDS: S1 normal heart sound present and S2 normal heart sound present GI: COMMON NORMALS: Normal to inspection, nondistended, normoactive bowel sounds present, Soft to palpation and non-tender PALPATION: Yes Soft to palpation Extremity: COMMON NORMALS: no joint enlargement and no pedal edema GENERAL: Yes edema (R>L) OTHER: Dressing on the left foot clean. Neuro: COMMON NORMALS: patient oriented x3 and moves all extremities Skin: COMMON NORMALS: no rashes or lesions noted GENERAL SKIN EXAM: no rashes or lesions noted Data : 12/09/21 04:12 12/09/21 04:12 Micro: Microbiology 12/07/21 09:20 Gram Stain - Final Pleural Fluid Anaerobic Culture - Preliminary Body Fluid Culture - Preliminary A&P Assessment and plan (1) Acute on chronic congestive heart failure: Currently on room air. Patient fairly compensated. proBNP elevated. Though patient looks compensated. Will hold off on any further diuresis. Last diuretic received on 12/05. Most likely can be discharged on 20 mg of oral Lasix. Repeat echocardiogram shows an EF of 67% with grade 2 diastolic dysfunction, severely elevated filling pressures, moderately severe MR, mildly increased LA, mild aortic valve stenosis. No significant regional wall motion abnormality. Status: Acute (2) Elevated troponin: Non-STEMI versus type II [place]. Patient denies of having active chest pain. Continue with statin, aspirin, Brilinta. Positive stress test. Plan for cardiac catheterization today. Full dose Lovenox stopped. Last dose on 12/08. Status: Acute (3) Dyspnea on exertion: History of CHF. Bilateral pleural effusion. COVID-[address] done on admission negative for PE. Consistent with bronchiectasis. DuoNebs every 6 hours, budesonide twice daily. Post right-sided thoracentesis. Pleural fluid studies appreciated. Consistent with transudative. Oxygen supplementation keeping saturation over 88%. Status: Acute (4) Chest pressure: As above Status: Acute (5) Hypotension: Improving. Goal blood pressure less than 140/90 on Hg with mean over 65. Continue with metoprolol at home dose of 25 mg twice daily to avoid reflex tachycardia. Orthostatic negative. Persistent even after fluids. Midodrine 5 mg twice daily. Continue to monitor. Status: Acute (6) Pleural effusion, bilateral: Post right-sided paracentesis. Transudative. Status: Acute (7) Leg edema: Negative for DVT. Status: Acute (8) Amputation of left great toe: No sign of infection. Continue and finish course of Bactrim. Amputated 10 days ago. Consult orthopedics for wound care recommendations. Status: Acute (9) Diarrhea: Status: Acute Plan BOOM: Nightly CPAP, her will bring hers from the car DM2: Complains of recurrent episode of hypoglycemia at home. Takes Toujeo 40 units twice daily, glipizide 10 mg twice daily, Jardiance at home. Decrease Lantus to 30 units twice daily. Continue insulin sliding scale. Patient will need to be discharged off of glipizide and on short acting insulin premeals as per sliding scale. Patient is agreeable. PAD: With recent stent in left leg and left great toe amputation. HTN HLD Full code. Cardiac carb consistent diet. We will restart home dose of Xarelto post cardiac catheterization today. Will suffice for DVT prophylaxis. Appreciate cardiology recommendations. Plan for day: Cardiac catheterization. Restarting Xarelto. Continue Ranexa, aspirin, statin, Brilinta. Monitoring blood pressure. Insulin sliding scale along with Lantus twice daily. Monitor blood sugars before meals and at bedtime Attestations Medical Necessity Statement*: Requires further hospitalization for management of positive stress test in setting of non-ST elevation [place], peripheral arterial disease, labile blood sugars Time Spent in Patient Care: Greater than 35 minutes Coding Level of Care Code Acute Switchboard Wire Worker Helper for Christiang Fwd Diagnoses Acute on chronic congestive heart failure I50.9 Elevated troponin R77.8 Dyspnea on exertion R06.00 Chest pressure R07.89 Hypotension I95.9 Pleural effusion, bilateral J90 Leg edema R60.0 Amputation of left great toe S98.112A Diarrhea R19.7
--- NOTE | 2021-12-09 14:11 | PC.NURSE ---
Diet orders received from Dr. Valadez, see orders.
[2021-12-09 14:28] LABS: Glucose Point of Care 87 mg/dL (70-110)
[2021-12-09 16:00] LABS: Glucose Point of Care 126 mg/dL (70-110)
[2021-12-09 17:09] LABS: Glucose Point of Care 155 mg/dL (70-110)
[2021-12-09 17:51] LABS: Partial Thromboplastin Time 44.8 SECONDS (23.9-36.7)
[2021-12-09] MEDS: sertraline 50 mg Tablet PO (18:34)
[2021-12-09] MEDS: atorvastatin 40 mg Tablet 80 MG PO (20:42)
[2021-12-09] MEDS: TRAMadol 50 mg Tablet PO (20:42)
[2021-12-09] MEDS: ALPRAZolam 0.5 mg Tablet PO (20:43)
[2021-12-09] MEDS: insulin lispro 100 unit/1 mL SUBCUT (20:43)
[2021-12-09] MEDS: metoprolol tartrate 25 mg Tablet PO (20:43)
[2021-12-09 20:50] LABS: Glucose Point of Care 248 mg/dL (70-110)
--- NOTE | 2021-12-09 23:28 | PC.NURSE ---
Patient becomes upset with nurse due to nurse not allowing patient to go outside to smoke. Nurse educated patient that she just had a stent put in her heart today, that she is on oxygen, and that the hospital has a no smoking policy. Patient left groin and right wrist WNL.
[2021-12-10] VITALS (14 sets, daily range): BP systolic 90–104; BP diastolic 56–65; PULSE 80–93; RESP 16–22; TEMP 36.5–36.7; O2SAT 92–99
--- NOTE | 2021-12-10 02:25 | PC.NURSE ---
Around 0100, patient ambulated with nurse. VSS. Left groin and right wrist sites WNL.
[2021-12-10 05:55] LABS: Basophils % 0.2 %; Eosinophils # 0.1 10^3/uL (0.0-0.8); Eosinophils % 2.2 %; Hematocrit 33.7 % (37.0-47.0); Hemoglobin 10.4 g/dL (11.5-15.3); Lymphocytes % 17.9 %; Mean Corpuscular HGB Conc 30.9 g/dL (30.0-36.0); Mean Corpuscular Hemoglobin 29.1 pg (28.0-34.0); Mean Corpuscular Volume 94.4 fl (81-99); Monocytes # 0.4 10^3/uL (0.2-0.9); Monocytes % 6.5 %; Neutrophils # 3.94 10^3/uL (1.8-7.7); Neutrophils % 72.8 %; Nucleated Red Blood Cells % 0 %; Platelet Count 477 10^3/cmm (130-400); Red Blood Count 3.57 10^6/uL (4.1-5.3); Red Cell Distribution Width 14.5 % (12.1-15.1); White Blood Count 5.4 10^3/uL (4.0-10.0)
[2021-12-10 06:28] LABS: Alanine Aminotransferase 8 U/L (0-33); Albumin Level 3.5 g/dL (3.5-5.2); Alkaline Phosphatase 73 IU/L (35-105); Anion Gap 11.8 (5-19); Aspartate Amino Transferase 10 U/L (0-32); Blood Urea Nitrogen 12 mg/dL (6-20); Calcium 9.1 mg/dL (8.5-10.5); Carbon Dioxide 28 mmol/L (22-29); Chloride 100 mmol/L (98-107); Globulin 3.1 g/dL (1.3-4.6); Glomerular Filtration Rate 103.8 mL/min (90-130); Glucose 301 mg/dL (65-115); Osmolality Calculated 293 mOsm/kg (285-295); Potassium 3.8 mmol/L (3.5-5.1); Sodium 136 mmol/L (136-145); Total Bilirubin 0.3 mg/dL (0.15-1.2); Total Protein 6.6 g/dL (6.6-8.7)
[2021-12-10 07:53] LABS: Glucose Point of Care 313 mg/dL (70-110)
[2021-12-10] MEDS: insulin glargine 100 units/1 mL 30 UNIT SUBCUT (08:46)
[2021-12-10] MEDS: midodrine 5 mg TABLET PO ×3 (08:46→21:04)
[2021-12-10] MEDS: metoprolol tartrate 25 mg Tablet PO ×2 (08:46→21:04)
[2021-12-10] MEDS: ranolazine (12HR) 500 mg Tablet PO ×2 (08:46→18:39)
[2021-12-10] MEDS: ticagrelor 90 mg Tablet PO ×2 (08:46→18:39)
[2021-12-10] MEDS: aspirin 81 mg EC Tablet PO (08:46)
[2021-12-10] MEDS: insulin lispro 100 unit/1 mL SUBCUT ×4 (08:58→21:05)
[2021-12-10] MEDS: ipratropium-albuterol 3 mL Neb INHALATION ×3 (09:21→21:13)
[2021-12-10] MEDS: budesonide 0.5 mg/2 mL Neb INHALATION ×2 (09:21→21:13)
--- NOTE | 2021-12-10 10:57 | PM.PN ---
Subjective Subjective: no acute events Vitals/I&O/Wt Last Vital Signs Temp 98.1 F 12/10/21 07:15 Pulse 83 12/10/21 09:26 Resp 16 12/10/21 09:22 BP 104/63 12/10/21 07:15 Pulse Ox 97 12/10/21 09:22 12/09/21 12/10/21 12/10/21 22:59 06:59 14:59 Intake Total 1530 / 1530 Output Total 500 / 500 Balance 1030 / 1030 Weight last 48 hrs Weight 69.4 kg Weight 69.717 kg Physical Exam Const: COMMON NORMALS: no acute distress, average body habitus, patient oriented x3, no limitations, healthy appearing, alert and well nourished Eye: COMMON NORMALS: Equal, round and reactive pupils present, EOMs intact bilaterally, conjunctivae normal and no scleral icterus CONJUNCTIVA: Yes conjunctivae normal PUPIL: Yes Equal, round and reactive pupils present Neck/C-Spine: COMMON NORMALS: full ROM, no lymphadenopathy, supple, no meningeal signs, no JVD, Thyroid normal and No carotid bruits THYROID: Thyroid normal Resp: COMMON NORMALS: normal respiratory effort, No retractions, No use of accessory muscles, clear to auscultation bilaterally and percussion normal AUSCULTATION: clear to auscultation bilaterally PERCUSSION: percussion normal Cardio: COMMON NORMALS: no JVD, regular rate, regular rhythm, S1 normal heart sound present, S2 normal heart sound present, No gallops present (Cardio), No clicks present (Cardio), No murmurs present (Cardio), No rub (Cardio) and Peripheral pulses 2+ throughout RATE: regular rate RHYTHM: regular rhythm HEART SOUNDS: S1 normal heart sound present and S2 normal heart sound present PERIPHERAL PULSES: Peripheral pulses 2+ throughout Neuro: COMMON NORMALS: patient oriented x3 SENSORIUM/ORIENTATION: Yes alert MENINGEAL SIGNS: Yes no meningeal signs Data : 12/11/21 04:49 12/11/21 04:49 Micro: Microbiology 12/07/21 09:20 Gram Stain - Final Pleural Fluid Anaerobic Culture - Preliminary Body Fluid Culture - Final A&P Assessment and plan (1) Chest pressure: Status: Acute Plan cont DAPT and metorpolol Stage PCI to left main into LAD with atherectromy on montserrat Attestations Medical Necessity Statement*: Unstable angina Coding Level of Care Code Acute Energy Operations Vice President for Lakisha Fwd Exam Detailed Diagnoses Chest pressure R07.89
[2021-12-10 11:20] LABS: Glucose Point of Care 190 mg/dL (70-110)
--- NOTE | 2021-12-10 16:14 | P.PN_ITS ---
Subjective Subjective: No acute events overnight. Denies any nausea vomiting, headache, chest pain. Blood pressure is better. Continues to remain on room air. On examination laying flat in bed without any difficulty in breathing. Agreeable to stay till Sunday for staged PCI to LAD. Again asking all the questions regarding cath and wire both the lesions were not fixed during the same setting. Again discussed with her in detail to prevent HIEN we plan to go for staged procedure. She is agreeable to stay. at bedside. States she is craving for smoking but does not want nicotine patch as that increases her craving. Vitals/I&O/Wt Last Vital Signs Temp 98 F 12/10/21 15:33 Pulse 87 12/10/21 15:33 Resp 16 12/10/21 15:33 BP 101/62 12/10/21 15:33 Pulse Ox 96 12/10/21 15:33 12/10/21 12/10/21 12/10/21 06:59 14:59 22:59 Intake Total 596 / 596 Balance 596 / 596 Weight last 48 hrs Weight 69.4 kg Weight 69.717 kg Physical Exam Const: COMMON NORMALS: no acute distress and patient oriented x3 HENMT: COMMON NORMALS: oropharynx normal Neck/C-Spine: COMMON NORMALS: no JVD Resp: COMMON NORMALS: normal respiratory effort and clear to auscultation bilaterally AUSCULTATION: clear to auscultation bilaterally, crackles and diminished lung sounds on the left Cardio: COMMON NORMALS: no JVD, regular rhythm, S1 normal heart sound present, S2 normal heart sound present and No murmurs present (Cardio) RHYTHM: regular rhythm HEART SOUNDS: S1 normal heart sound present and S2 normal heart sound present GI: COMMON NORMALS: Normal to inspection, nondistended, normoactive bowel sounds present, Soft to palpation and non-tender PALPATION: Yes Soft to palpation Extremity: COMMON NORMALS: no joint enlargement and no pedal edema GENERAL: Yes edema (R>L) OTHER: Dressing on the left foot clean. Neuro: COMMON NORMALS: patient oriented x3 and moves all extremities Skin: COMMON NORMALS: no rashes or lesions noted GENERAL SKIN EXAM: no rashes or lesions noted Data : 12/10/21 05:38 12/10/21 05:38 Micro: Microbiology 12/07/21 09:20 Gram Stain - Final Pleural Fluid Anaerobic Culture - Preliminary Body Fluid Culture - Final A&P Assessment and plan (1) Elevated troponin: Non-STEMI. Positive stress test. Continue with statin, aspirin, Brilinta. Post ballon angioplasty of ISR to RCA. Plan for staged PCI to Proximal LAD on Sunday. Status: Acute (2) Acute on chronic congestive heart failure: Currently on room air. Patient fairly compensated. proBNP elevated. Though patient looks compensated. Will hold off on any further diuresis. Last diuretic received on 12/05. Most likely can be discharged on 20 mg of oral Lasix. Repeat echocardiogram shows an EF of 67% with grade 2 diastolic dysfunction, severely elevated filling pressures, moderately severe MR, mildly increased LA, mild aortic valve stenosis. No significant regional wall motion abnormality. Status: Acute (3) Dyspnea on exertion: History of CHF. Bilateral pleural effusion. COVID-[address] done on admission negative for PE. Consistent with bronchiectasis. DuoNebs every 6 hours, budesonide twice daily. Post right-sided thoracentesis. Pleural fluid studies appreciated. Consistent with transudative. Oxygen supplementation keeping saturation over 88%. Status: Acute (4) Hypotension: Improving. Goal blood pressure less than 140/90 on Hg with mean over 65. Continue midodrine 5 mg 3 times a day, metoprolol at home dose of 25 mg twice daily to avoid reflex tachycardia. Orthostatic negative. Status: Acute (5) Pleural effusion, bilateral: Post right-sided paracentesis. Transudative. Status: Acute (6) Leg edema: Negative for DVT. Status: Acute (7) Amputation of left great toe: No sign of infection. Continue and finish course of Bactrim. Amputated 10 days prior to admission Consult orthopedics for wound care recommendations. Status: Acute (8) Diarrhea: Status: Acute (9) Chest pressure: As above Status: Acute Plan BOOM: Nightly CPAP, her will bring hers from the car DM2: Complains of recurrent episode of hypoglycemia at home. Takes Toujeo 40 units twice daily, glipizide 10 mg twice daily, Jardiance at home. Does have 35 units twice daily. Continue insulin sliding scale. Patient will need to be discharged off of glipizide and on short acting insulin premeals as per sliding scale. Patient is agreeable. PAD: With recent stent in left leg and left great toe amputation. HTN HLD Full code. Cardiac carb consistent diet. Xarelto will suffice for DVT prophylaxis. Appreciate cardiology recommendations. Plan for day: Restart home dose Xarelto. Continue with Ranexa, aspirin, Plavix, statin. Continue with midodrine. Increase Lantus to 35 units twice daily. Stop IV fluids. Plan for staged PCI to LAD on Sunday. Attestations Medical Necessity Statement*: Requires further hospitalization for management of non-ST elevation CA with PTCA to RCA ISR, residual disease of proximal LAD requiring staged PTCA. Time Spent in Patient Care: Greater than 35 minutes Coding Level of Care Code Acute Car Distributor for Christiang Fwd Diagnoses Acute on chronic congestive heart failure I50.9 Elevated troponin R77.8 Dyspnea on exertion R06.00 Chest pressure R07.89 Hypotension I95.9 Pleural effusion, bilateral J90 Leg edema R60.0 Amputation of left great toe S98.112A Diarrhea R19.7
[2021-12-10 16:54] LABS: Glucose Point of Care 214 mg/dL (70-110)
[2021-12-10] MEDS: rivaroxaban 10 mg Tablet 2.5 MG PO (18:38)
[2021-12-10] MEDS: sertraline 50 mg Tablet PO (18:39)
--- NOTE | 2021-12-10 19:21 | PC.NURSE ---
Shift Note Frequent safety and comfort rounds continue. Orders and/or nursing care completed as indicated. Patient monitored for response to intervention and treatment(s). Education provided includes smoking cessation. Patient and/or farm loan representative resistant to learning. Will continue to monitor.
[2021-12-10 20:31] LABS: Glucose Point of Care 236 mg/dL (70-110)
[2021-12-10] MEDS: atorvastatin 40 mg Tablet 80 MG PO (21:04)
[2021-12-10] MEDS: insulin glargine 100 units/1 mL 35 UNIT SUBCUT (21:05)
[2021-12-10] MEDS: ALPRAZolam 0.5 mg Tablet PO (22:12)
[2021-12-11] VITALS (18 sets, daily range): BP systolic 97–123; BP diastolic 55–75; PULSE 82–97; RESP 15–19; TEMP 36.4–36.7; O2SAT 93–100; BMI 27.9
[2021-12-11 05:22] LABS: Basophils % 0.3 %; Eosinophils # 0.1 10^3/uL (0.0-0.8); Hematocrit 31.3 % (37.0-47.0); Hemoglobin 9.5 g/dL (11.5-15.3); Lymphocytes % 16.7 %; Mean Corpuscular HGB Conc 30.4 g/dL (30.0-36.0); Mean Corpuscular Hemoglobin 29.1 pg (28.0-34.0); Mean Platelet Volume 9.1 fL (7.4-10.4); Monocytes # 0.4 10^3/uL (0.2-0.9); Monocytes % 6.4 %; Neutrophils # 4.55 10^3/uL (1.8-7.7); Neutrophils % 74.3 %; Nucleated Red Blood Cells % 0 %; Platelet Count 427 10^3/cmm (130-400); Red Blood Count 3.26 10^6/uL (4.1-5.3); Red Cell Distribution Width 14.5 % (12.1-15.1); White Blood Count 6.1 10^3/uL (4.0-10.0)
[2021-12-11 05:43] LABS: Alanine Aminotransferase 8 U/L (0-33); Albumin Level 3.2 g/dL (3.5-5.2); Alkaline Phosphatase 66 IU/L (35-105); Anion Gap 11.2 (5-19); Aspartate Amino Transferase 11 U/L (0-32); Blood Urea Nitrogen 13 mg/dL (6-20); Calcium 9.2 mg/dL (8.5-10.5); Carbon Dioxide 26 mmol/L (22-29); Chloride 104 mmol/L (98-107); Globulin 2.8 g/dL (1.3-4.6); Glomerular Filtration Rate 86.9 mL/min (90-130); Glucose 201 mg/dL (65-115); Osmolality Calculated 290 mOsm/kg (285-295); Potassium 4.2 mmol/L (3.5-5.1); Sodium 137 mmol/L (136-145); Total Bilirubin 0.3 mg/dL (0.15-1.2)
[2021-12-11 07:30] LABS: Glucose Point of Care 172 mg/dL (70-110)
[2021-12-11] MEDS: insulin lispro 100 unit/1 mL SUBCUT ×3 (08:20→21:14)
[2021-12-11] MEDS: ranolazine (12HR) 500 mg Tablet PO ×2 (08:21→17:36)
[2021-12-11] MEDS: rivaroxaban 10 mg Tablet 2.5 MG PO (08:21)
[2021-12-11] MEDS: ticagrelor 90 mg Tablet PO ×2 (08:21→17:39)
[2021-12-11] MEDS: aspirin 81 mg EC Tablet PO (08:21)
[2021-12-11] MEDS: metoprolol tartrate 25 mg Tablet PO ×2 (08:21→21:13)
[2021-12-11] MEDS: midodrine 5 mg TABLET PO ×3 (08:21→21:13)
[2021-12-11] MEDS: budesonide 0.5 mg/2 mL Neb INHALATION ×2 (09:23→21:18)
[2021-12-11] MEDS: ipratropium-albuterol 3 mL Neb INHALATION ×3 (09:23→21:17)
[2021-12-11] MEDS: insulin glargine 100 units/1 mL 35 UNIT SUBCUT ×2 (10:19→21:14)
--- NOTE | 2021-12-11 11:01 | PM.PN ---
Subjective Subjective: no acute events No chest pain or SOB Vitals/I&O/Wt Last Vital Signs Temp 97.6 F 12/11/21 09:15 Pulse 96 12/11/21 09:34 Resp 18 12/11/21 09:26 BP 104/59 12/11/21 09:15 Pulse Ox 97 12/11/21 09:26 12/10/21 12/11/21 12/11/21 22:59 06:59 14:59 Intake Total 600 / 1196 360 / 1556 118 / 118 Balance 600 / 1196 360 / 1556 118 / 118 Weight last 48 hrs Weight 69.354 kg Weight 69.4 kg Physical Exam Narrative: Const COMMON NORMALS:?no acute distress, average body habitus, patient oriented x3, no limitations, healthy appearing, alert and well nourished Eye COMMON NORMALS:?Equal, round and reactive pupils present, EOMs intact bilaterally, conjunctivae normal and no scleral icterus CONJUNCTIVA:?Yes conjunctivae normal PUPIL:?Yes Equal, round and reactive pupils present Neck/C-Spine COMMON NORMALS:?full ROM, no lymphadenopathy, supple, no meningeal signs, no JVD, Thyroid normal and No carotid bruits THYROID:?Thyroid normal Resp COMMON NORMALS:?normal respiratory effort, No retractions, No use of accessory muscles, clear to auscultation bilaterally and percussion normal AUSCULTATION:?clear to auscultation bilaterally PERCUSSION:?percussion normal Cardio COMMON NORMALS:?no JVD, regular rate, regular rhythm, S1 normal heart sound present, S2 normal heart sound present, No gallops present (Cardio), No clicks present (Cardio), No murmurs present (Cardio), No rub (Cardio) and Peripheral pulses 2+ throughout RATE:?regular rate RHYTHM:?regular rhythm HEART SOUNDS:?S1 normal heart sound present and S2 normal heart sound present PERIPHERAL PULSES:?Peripheral pulses 2+ throughout Neuro COMMON NORMALS:?patient oriented x3 SENSORIUM/ORIENTATION:?Yes alert MENINGEAL SIGNS:?Yes no meningeal signs Data : 12/11/21 04:49 12/11/21 04:49 Micro: Microbiology 12/07/21 09:20 Gram Stain - Final Pleural Fluid Anaerobic Culture - Preliminary Body Fluid Culture - Final A&P Assessment and plan (1) Chest pressure: Status: Acute Plan stage PCI to left main to LAD with atherectomy tomorrow Attestations Medical Necessity Statement*: Unstable angina Coding Level of Care Code Acute Client Services Administrator for Lakisha Coleman Diagnoses Chest pressure R07.89
[2021-12-11 11:19] LABS: Glucose Point of Care 328 mg/dL (70-110)
--- NOTE | 2021-12-11 13:02 | PM.PN ---
Subjective Subjective: No acute events overnight. Has remained hemodynamically stable and afebrile. Denies any chest pain. Awaiting equally for PCI tomorrow. Vitals/I&O/Wt Last Vital Signs Temp 97.6 F 12/11/21 09:15 Pulse 87 12/11/21 12:21 Resp 16 12/11/21 12:21 BP 117/75 12/11/21 12:21 Pulse Ox 100 12/11/21 12:21 12/10/21 12/11/21 12/11/21 22:59 06:59 14:59 Intake Total 600 / 1196 360 / 1556 118 / 118 Balance 600 / 1196 360 / 1556 118 / 118 Weight last 48 hrs Weight 69.354 kg Weight 69.4 kg Physical Exam Const: COMMON NORMALS: no acute distress and patient oriented x3 HENMT: COMMON NORMALS: oropharynx normal Neck/C-Spine: COMMON NORMALS: no JVD Resp: COMMON NORMALS: normal respiratory effort and clear to auscultation bilaterally AUSCULTATION: clear to auscultation bilaterally, crackles and diminished lung sounds on the left Cardio: COMMON NORMALS: no JVD, regular rhythm, S1 normal heart sound present, S2 normal heart sound present and No murmurs present (Cardio) RHYTHM: regular rhythm HEART SOUNDS: S1 normal heart sound present and S2 normal heart sound present GI: COMMON NORMALS: Normal to inspection, nondistended, normoactive bowel sounds present, Soft to palpation and non-tender PALPATION: Yes Soft to palpation Extremity: COMMON NORMALS: no joint enlargement and no pedal edema GENERAL: Yes edema (R>L) OTHER: Dressing on the left foot clean. Neuro: COMMON NORMALS: patient oriented x3 and moves all extremities Skin: COMMON NORMALS: no rashes or lesions noted GENERAL SKIN EXAM: no rashes or lesions noted Data : 12/11/21 04:49 12/11/21 04:49 Micro: Microbiology 12/07/21 09:20 Gram Stain - Final Pleural Fluid Anaerobic Culture - Preliminary Body Fluid Culture - Final A&P Assessment and plan (1) Elevated troponin: Non-STEMI. Positive stress test. Continue with statin, aspirin, Brilinta. Post ballon angioplasty of ISR to RCA. Plan for staged PCI to Proximal LAD on Sunday. Status: Acute (2) Acute on chronic congestive heart failure: Currently on room air. Patient fairly compensated. proBNP elevated. Though patient looks compensated. Will hold off on any further diuresis. Last diuretic received on 12/05. Most likely can be discharged on 20 mg of oral Lasix. Repeat echocardiogram shows an EF of 67% with grade 2 diastolic dysfunction, severely elevated filling pressures, moderately severe MR, mildly increased LA, mild aortic valve stenosis. No significant regional wall motion abnormality. Status: Acute (3) Dyspnea on exertion: History of CHF. Bilateral pleural effusion. COVID-[address] done on admission negative for PE. Consistent with bronchiectasis. DuoNebs every 6 hours, budesonide twice daily. Post right-sided thoracentesis. Pleural fluid studies appreciated. Consistent with transudative. Oxygen supplementation keeping saturation over 88%. Status: Acute (4) Hypotension: Improving. Goal blood pressure less than 140/90 on Hg with mean over 65. Continue midodrine 5 mg 3 times a day, metoprolol at home dose of 25 mg twice daily to avoid reflex tachycardia. Orthostatic negative. Status: Acute (5) Pleural effusion, bilateral: Post right-sided paracentesis. Transudative. Status: Acute (6) Leg edema: Negative for DVT. Status: Acute (7) Amputation of left great toe: No sign of infection. Continue and finish course of Bactrim. Amputated 10 days prior to admission Consult orthopedics for wound care recommendations. Status: Acute (8) Diarrhea: Status: Acute (9) Chest pressure: As above Status: Acute Plan BOOM: Nightly CPAP, her will bring hers from the car DM2: Complains of recurrent episode of hypoglycemia at home. Takes Toujeo 40 units twice daily, glipizide 10 mg twice daily, Jardiance at home. Does have 35 units twice daily. Continue insulin sliding scale. Patient will need to be discharged off of glipizide and on short acting insulin premeals as per sliding scale. Patient is agreeable. PAD: With recent stent in left leg and left great toe amputation. HTN HLD Full code. Cardiac carb consistent diet. Xarelto will suffice for DVT prophylaxis. Appreciate cardiology recommendations. Plan for day: Continue to monitor. Continue with aspirin, Plavix, Xarelto. Hold evening dose of Xarelto. N.p.o. after midnight for catheter tomorrow. CPAP overnight. Attestations Medical Necessity Statement*: Requires further hospitalization for staged PCI of LAD for an non-ST elevation VT Time Spent in Patient Care: Greater than 35 minutes Coding Level of Care Code Acute Wearing Apparel Folder for Lakisha Coleman Diagnoses Elevated troponin R77.8 Acute on chronic congestive heart failure I50.9 Dyspnea on exertion R06.00 Hypotension I95.9 Pleural effusion, bilateral J90 Leg edema R60.0 Amputation of left great toe S98.112A Diarrhea R19.7 Chest pressure R07.89
[2021-12-11 16:53] LABS: Glucose Point of Care 96 mg/dL (70-110)
[2021-12-11] MEDS: sertraline 50 mg Tablet PO (17:39)
--- NOTE | 2021-12-11 17:40 | PC.NURSE ---
pt refused her tray. she stated, it is gross, i can't eat it. My is getting me a subway sandwich. After educating if we can get another tray foe her per prescribed diet, she stated, i don't like anything they cook at all.
[2021-12-11 20:44] LABS: Glucose Point of Care 289 mg/dL (70-110)
[2021-12-11] MEDS: atorvastatin 40 mg Tablet 80 MG PO (21:13)
[2021-12-11] MEDS: ALPRAZolam 0.5 mg Tablet PO (21:58)
[2021-12-12] VITALS (57 sets, daily range): BP systolic 87–159; BP diastolic 49–112; PULSE 75–110; RESP 13–35; TEMP 35.7–37.2; O2SAT 82–98; BMI 27.9
[2021-12-12] MEDS: ipratropium-albuterol 3 mL Neb INHALATION ×4 (02:46→20:53)
[2021-12-12 05:09] LABS: Basophils % 0.2 %; Eosinophils # 0.1 10^3/uL (0.0-0.8); Eosinophils % 1.6 %; Hematocrit 30.2 % (37.0-47.0); Hemoglobin 9.4 g/dL (11.5-15.3); Lymphocytes # 1.1 10^3/uL (0.8-4.8); Lymphocytes % 18.7 %; Mean Corpuscular HGB Conc 31.1 g/dL (30.0-36.0); Mean Corpuscular Hemoglobin 29.7 pg (28.0-34.0); Mean Corpuscular Volume 95.3 fl (81-99); Mean Platelet Volume 9.1 fL (7.4-10.4); Monocytes # 0.3 10^3/uL (0.2-0.9); Monocytes % 5.6 %; Neutrophils % 73.6 %; Nucleated Red Blood Cells % 0 %; Platelet Count 382 10^3/cmm (130-400); Red Blood Count 3.17 10^6/uL (4.1-5.3); Red Cell Distribution Width 14.6 % (12.1-15.1); White Blood Count 6.1 10^3/uL (4.0-10.0)
[2021-12-12 05:31] LABS: Alanine Aminotransferase 8 U/L (0-33); Albumin Level 3.1 g/dL (3.5-5.2); Alkaline Phosphatase 65 IU/L (35-105); Anion Gap 14.4 (5-19); Aspartate Amino Transferase 11 U/L (0-32); Blood Urea Nitrogen 15 mg/dL (6-20); Calcium 8.9 mg/dL (8.5-10.5); Carbon Dioxide 24 mmol/L (22-29); Chloride 104 mmol/L (98-107); Globulin 3.3 g/dL (1.3-4.6); Glomerular Filtration Rate 86.9 mL/min (90-130); Glucose 154 mg/dL (65-115); Osmolality Calculated 290 mOsm/kg (285-295); Potassium 4.4 mmol/L (3.5-5.1); Sodium 138 mmol/L (136-145); Total Bilirubin 0.3 mg/dL (0.15-1.2); Total Protein 6.4 g/dL (6.6-8.7)
[2021-12-12 06:33] LABS: Glucose Point of Care 156 mg/dL (70-110)
[2021-12-12] MEDS: budesonide 0.5 mg/2 mL Neb INHALATION ×2 (08:14→20:53)
[2021-12-12] MEDS: ticagrelor 90 mg Tablet PO ×2 (08:24→18:37)
[2021-12-12] MEDS: aspirin 81 mg EC Tablet PO (08:24)
[2021-12-12] MEDS: metoprolol tartrate 25 mg Tablet PO ×2 (08:29→21:40)
[2021-12-12] MEDS: ALPRAZolam 0.5 mg Tablet PO (08:29)
--- NOTE | 2021-12-12 09:22 | PC.NURSE ---
Provided patient with supplies for a bed bath per their request.
--- NOTE | 2021-12-12 09:42 | XACV_ITS ---
Exam Room: [facility] Ht: 157 cm Wt: 69 kg BSA: 1.76 m2 Gender: Female : 1965 Any Known Allergies: Codeine Exam Priority: Routine Procedure(s): Procedure Description: Diagnostic procedure Procedure Description: PCI procedure Procedure Description: Drug Eluting Coronary Stent Procedure Description: PTCA Procedure Description: Miscellaneous Procedure Description: ACT Procedure Description: Coronary Angiography Diagnostic Cath Status: Elective Diagnostic Findings * Proximal Left Anterior Descending: obstructive 70-80% stenosis, EUGENE: 3 flow. 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 For full diagnostic cath report, please refer to procedure report from 12/09/2021. * For complete. * Coronary angiography shows right dominance. PCI Status: Elective PCI Indication: Staged PCI Interventional Findings * Procedure Detail: We engaged proximal LAD with XB 3.5 guide catheter. 0.014 run-through guidewire was used to cross the stenosis. We decided not to perform arthrectomy as stenosis was adjacent to old stent. We predilated the stenosis with a 2.5 x 15 mm semicompliant balloon. This was followed by placement of 3.0 x 18 mm resolute Walker drug-eluting stent. We then postdilated the proximal part of the stent with 3.5 x 8 mm NC balloon. At this time final angiogram was performed that showed excellent stent expansion, no residual stenosis and EUGENE-3 flow. Guidewire and guide catheter were removed. Patient left the Nursing Teacher in a stable condition. * Proximal Left Anterior Descendin% stenosis treated with a AB TREK 2.50X15 RX BALLOON, MDT Bunny MONCHO 3.0X18 ANNA, and MDT TAB EUPHORA RX 3.66M96SD BALLOON. 0% residual stenosis, EUGENE: 3 flow. Conclusions 1. Severe proximal LAD stenosis, confirmed with IFR value 2. of 0.81 3. done on 12/09/2021. s/p successful revascularization with ANNA X 1. 5. Proximal Left Anterior Descending was treated with a Balloon, Drug Eluting Stent, and Balloon. Recommendations * Aspirin and Brilinta for at least 1 year. * High intensity statin therapy. * Outpatient cardiology follow-up in 4 weeks. Interventional RX Recommendation: PCI w/o planned CABG Diagnostic RX Recommendation: PCI w/o planned CABG Anticoagulation: Heparin Pressures Phase:Rest AO : 106 / 74 ( 89 ) @ 11:00:00 AM 93 / 62 ( 77 ) @ 11:09:00 AM 83 / 62 ( 72 ) @ 11:16:00 AM Clinical Evaluation EBL: 5mL-10mL Procedural Details Procedure Consent Obtained. Admit Source: In Patient. Pre-Procedure Time Out. Identified patient by full name and date of as verbalized by the patient/guarantor. Does the consent match the physician's order: Yes. Accurate & Complete Informed Consent: Yes. Inpatient/Outpatient History & Physical on Chart: Yes. If H&P is completed, is and addenduem needed: N/A; If yes, is the addendum complete: N/A. Visualize and Verify Site with Patient/Guarantor: N/A. Relevant Radiology Images available: N/A. The risks, benefits, and alternatives of sedation and/or procedure were discussed by physician. The patient agrees to continue. Procedure started. [facility] Clinical Fraility Score: 4: Vulnerable. Nursing Teacher Indications: Worsening Angina. Chest Pain Symptom Assessment: Atypical Angina. Correct patient, site and procedure confirmed by cath team. Current diagnosis: NSTEMI, abnormal stress test. PERRLA. Strong, equal hand director geothermal operations bilaterally. Lungs clear x 5 lobes. IV Site on Arrival: 20 gauge in the left anticubital. IV Fluids: 0.9% NaCl at KVO. 0 mL infused prior to manager cardiac cath. Pre Procedural Pulses: bilateral dorsalis pedis was Doppled. Oxygen started at 2liters/min via nasal canula. right groin was prepped with chloroprep then draped in the usual sterile fashion. left groin was prepped with chloroprep then draped in the usual sterile fashion. Physician notified. Baseline sample Acquired. HR: 89 BPM. Physician arrived. Physician scrubbed in. Immediate Pre-Procedure Time Out. Correct Patient: Yes; Correct Procedure: Yes; Correct Site: Yes; Correct Patient Position: Yes; Correct Supplies: Yes; Dried Flammable Prep: Yes; Blood Products Available: N/A;. Lidocaine 1% infiltrated to the left groin. 6 uzbek XB 3.5 guide catheter was inserted over the wire. Multiple views taken of left coronary artery. Runthrough guidewire was advanced through the guide catheter to lesion in the prox LAD. ACT drawn. Results 157 seconds. Therapeutic limits - pre-heparin administration 90-150 seconds and monitoring heparin during a vascular procedure >250 seconds. Balloon inserted to lesion in the prox LAD. Inflation number : 1 A AB TREK 2.50X15 RX BALLOON was prepped and advanced across the Prox LAD , then inflated to 14 NHI for 0:29 seconds. Inflation number: 2 The AB TREK 2.50X15 RX BALLOON was reinflated across the Prox LAD, to 14 NHI for 0:17 seconds. Balloon out. Results checked. Stent inserted to lesion in the prox LAD. Inflation Number : 3 A T R MONCHO 3.0X18 ANNA -Lot Number# [id number] Exp 05/15/2024 was prepped and advanced across the Prox LAD. The stent was deployed at 14 NHI for 0:25 seconds. Stent balloon out over wire. Balloon inserted to lesion in the prox LAD. Inflation number : 4 A MDT NC EUPHORA RX [id number] BALLOON was prepped and advanced across the Prox LAD , then inflated to 12 NHI for 0:25 seconds. Inflation number: 5 The MDT NC EUPHORA RX [id number] BALLOON was reinflated across the Prox LAD, to 12 NHI for 0:18 seconds. Balloon out. Results checked. Wire out. Guide catheter out. ACT drawn. Results 264 seconds. Therapeutic limits - pre-heparin administration 90-150 seconds and monitoring heparin during a vascular procedure >250 seconds. A Suture was successful obtaining hemostatsis at the Right Femoral artery insertion site. Medication's Wasted: Nitro = 50 mg. Medication's Wasted: Heparin = 4000 u. Medication's Wasted: Lidocaine 1% = 10 mL. Total IV fluids: 300 mL. PCI Indication: NSTE. Post-op diagnosis: Obstructive CAD. Complications: none. Estimated blood loss: 5mL-10mL. Responsiveness - Normal response to verbal stimuli; alert and oriented, PERRLA. Airway - Unaffected, no intervention required; spontaneous ventilation. Circulation: W/N/L, pulses unchanged. Nausea/Vomiting: No. Procedure completed. Patient transferred by bed to 1st floor. Vital chart was stopped. Access Site Site: Right Femoral artery Sheath Size: 6 Fr Hemostasis Method: Suture Hemostasis Success: Successful Procedure Medications Start: 9:51 AM Stop: 9:51 AM Medication: Benadryl Amount: 25 mg Route: I.V. Start: 9:51 AM Stop: 9:51 AM Medication: Versed Amount: 1 mg Route: I.V. Start: 9:51 AM Stop: 9:51 AM Medication: Fentanyl Amount: 50 mcg Route: I.V. Start: 9:55 AM Stop: 9:55 AM Medication: Versed Amount: 1 mg Route: I.V. Start: 9:56 AM Stop: 9:56 AM Medication: Fentanyl Amount: 50 mcg Route: I.V. Start: 10:00 AM Stop: 10:00 AM Medication: Heparin Amount: 7000 units Route: I.V. Start: 10:08 AM Stop: 10:08 AM Medication: Heparin Amount: 3000 units Route: I.V. Start: 10:16 AM Stop: 10:16 AM Medication: 0.9% Saline Amount: 250 ml Route: I.V. bolus I, the attending physician, have reviewed and verified all procedure medications. Yes, all medications given per verbal order History/Risk Factors Hypertension: Yes Dyslipidemia: Yes Peripheral Arterial Disease (PAD): Yes Myocardial Infarction (KS): No Obesity: No Renal Disease: No Tobacco Use: Current/Recent(w/in 1 year) Prior Interventions PCI: Yes CABG: No Valve Surgery: No Date of PCI: 12/09/2021 Report Signatures Finalized by Byron Valadez MD on 12/22/2021 10:10 AM
--- NOTE | 2021-12-12 09:45 | W.PM.OPSUD ---
Surgery/Procedure H&P Update DATE OF PROCEDURE: December 12, 2021 DATE H&P PERFORMED: 12/05/21 H&P UPDATE INFORMATION: I have reviewed H&P completed within last 30 days, I have examined patient prior to procedure and No changes to prior documentation PREOP DIAGNOSIS: Chest pain/ shortness of breath/ Severe LAD stenosis PRIMARY INDICATION FOR PROCEDURE: Chest pain/shortness of breath / Severe LAD stenosis PLANNED PROCEDURE: Operation Date: 12/09/21 12:00 Proposed Procedures p Cardiac Catheterization(Left) -Byron Valadez MD Staged PCI of LAD with arthrectomy PATIENT REASSESSED PRIOR TO SEDATION, WITH NO CHANGE NOTED: Yes PHYSICAL EXAM: alert, oriented x 3, clear to auscultation bilaterally and regular rate & rhythm AIRWAY EVAL/ANESTHESIA PLAN: ASA IV, Monitored Anesthesia, Local Anesthesia, Risks, benefits & alternatives of sedation and/or procedure discussed and Patient agrees to continue as planned
--- NOTE | 2021-12-12 09:59 | PC.NURSE ---
off to dye lab technician for an angiogram performed by . ushered via bed.
--- NOTE | 2021-12-12 10:27 | PM.MISC ---
Miscellaneous Note Purpose of Documentation: Brief Procedure Note Note: Severe proximal LAD stenosis (confirmed with iFR), S/p successful revascularization of the proximal LAD with ANNA X 1. Continue aspirin and Brilinta High intensity statin therapy
--- NOTE | 2021-12-12 10:30 | PC.NURSE ---
From cathead worker, acute changes to condition Received pt from cathead worker via bed. Cath Rn's at bedside. Pt spO2 range from 78-82% on 2 L/min NC. pt is awake and stated she is having diffixulty breathing, Pt looked short of breath and increase work of breathing. IV catheter was out. oxymask applied on 5 L/min. Pt has coarse crackles lung sounds. HR is in 110s, ST. Bp is 138/91-159/112. Notified Dr. Valadez via call on voalte phone. Dr. Valadez at bedside. 1040AM- Received orders to give IVP Lasix 60 mg once. started new IV access. Attempted x4 IV access by 3 RNS. got new IV access on left hand #22 and right wrist #20. EKG taken. Notified RT to start pt on BIPAP per doctor order. inserted nunez catheter. portable chest xray stat taken. 1140am-received order to give 20 mg Lasix IVP once. Pt fio2 on bipap is at 35%. Will keep monitoring.
[2021-12-12] MEDS: FUROsemide 10 mg/mL SDV 10mL 60 MG IVP (10:40)
--- NOTE | 2021-12-12 11:01 | ECG_ITS ---
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 Measurements Intervals [place] Rate: 105 P: 46 ME: 144 QRS: 7 QRSD: 90 T: 35 QT: 333 QTc: 442 Interpretive Statements SINUS TACHYCARDIA POSSIBLE ANTERIOR MYOCARDIAL INFARCTION , OF INDETERMINATE AGE [30 ms Q WAVE IN V3/V4, OR R < 0.2 mV IN V4] Compared to ECG 12/05/2021 15:22:16 Myocardial infarct finding now present Sinus rhythm no longer present Electronically Signed On 12-12-2021 22:03:22 CDT by Byron Vlaadez M.D. [id number]
--- NOTE | 2021-12-12 11:15 | PC.NURSE ---
Sheath intact on left groin attached to pressure bag. no bleeding or hematoma.
[2021-12-12 11:17] LABS: ABG PH Result 7.37 (7.35-7.45); Arterial Blood Gas Hematocrit 34.6 % (37-47); Base Excess ABG -0.4 mmol/L (-2.0-2.0); Blood Gas Allen Test Pos; Blood Gas Sample Site Radial, right; Blood Gas Sample Type Arterial; HCO3 ABG 25.1 mmol/L (22-26); PO2 ABG 85.8 mmHg (80.0-100.0)
[2021-12-12 11:18] LABS: Blood Gas Operator Identificat MONRO; Oxygen Device BIPAP
[2021-12-12] MEDS: FUROsemide 10 mg/mL SDV 2mL 20 MG IVP (11:24)
--- NOTE | 2021-12-12 11:27 | XR_ITS ---
WS: [id number] Exam: XR chest 1V portable [id number] Date/Time of Exam: 12/12/2021 11:32 AM Reason For Exam: sob Comparison 12/07/2021. Diffuse interstitial infiltrates throughout both lungs. New consolidating infiltrates are developing in the right lower lobe and right perihilar region since prior study. Heart size is within normal cobb its. The mediastinum is normal in contour. Small right pleural effusion. No pneumothorax. XR/XR chest 1V portable [id number] IMPRESSION: 1. Increasing interstitial infiltrates throughout both lungs that may represent interstitial pneumonia or pulmonary edema. 2. New airspace consolidating infiltrates developing in the right lower lobe an d right perihilar region since prior study. 3. Small right basal pleural effusion.
--- NOTE | 2021-12-12 12:00 | PC.NURSE ---
at bedside notified of pt's acute changes post cath procedure. pt is resting and sleeping w/bipap on.
--- NOTE | 2021-12-12 12:00 | PC.NURSE ---
Pt is resting and calm on BIPAP urine output post IVP lasix is 1200 ml. will keep monitoring.
--- NOTE | 2021-12-12 12:09 | P.PN_ITS ---
Subjective Subjective: Patient was seen this morning, for cardiac catheterization procedure, she is a bit upset as she is n.p.o. and I brought a coffee cup in her room, no chest pain overnight After her cardiac catheterization LAD intervention, patient went into respiratory distress, given 80 of Lasix, placed on BiPAP, she was examined, she is currently feeling better, 35% FiO2, lungs minimal crackles, Pham catheter in place Vitals/I&O/Wt Last Vital Signs Temp 97.6 F 12/12/21 11:32 Pulse 91 12/12/21 11:32 Resp 18 12/12/21 11:32 BP 108/78 12/12/21 11:32 Pulse Ox 95 12/12/21 11:32 12/11/21 12/12/21 12/12/21 22:59 06:59 14:59 Intake Total 462 / 940 0 / 940 Balance 462 / 940 0 / 940 Weight last 48 hrs Weight 69.354 kg Weight 69.354 kg Physical Exam Const: COMMON NORMALS: no acute distress and patient oriented x3 Resp: COMMON NORMALS: normal respiratory effort, No retractions and No use of accessory muscles AUSCULTATION: crackles Cardio: COMMON NORMALS: regular rate, regular rhythm, S1 normal heart sound present and S2 normal heart sound present RATE: regular rate RHYTHM: regular rhythm HEART SOUNDS: S1 normal heart sound present and S2 normal heart sound present GI: COMMON NORMALS: Normal to inspection, nondistended, normoactive bowel sounds present, Soft to palpation, non-tender and No hepatosplenomegaly present PALPATION: Yes Soft to palpation and Yes No hepatosplenomegaly present Extremity: COMMON NORMALS: no pedal edema Neuro: COMMON NORMALS: patient oriented x3 Psych: COMMON NORMALS: mental status grossly normal Data : 12/12/21 04:45 12/12/21 04:45 Micro: Microbiology 12/07/21 09:20 Fungal Smear - Preliminary Pleural Fluid 12/07/21 09:20 Mycobacterial Smear - Preliminary Body Fluids - Thoracentesis 12/07/21 09:20 Gram Stain - Final Pleural Fluid Anaerobic Culture - Preliminary Body Fluid Culture - Final A&P Assessment and plan (1) Elevated troponin: Non-STEMI. Positive stress test. Continue with statin, aspirin, Brilinta. Post ballon angioplasty of ISR to RCA. Had PCI of LAD today Status: Acute (2) Acute on chronic congestive heart failure: Repeat echocardiogram shows an EF of 67% with grade 2 diastolic dysfunction, severely elevated filling pressures, moderately severe MR, mildly increased LA, mild aortic valve stenosis. No significant regional wall motion abnormality. Status: Acute (3) Dyspnea on exertion: History of CHF. Bilateral pleural effusion. COVID-[address] done on admission negative for PE. Consistent with bronchiectasis. DuoNebs every 6 hours, budesonide twice daily. Post right-sided thoracentesis. Pleural fluid studies appreciated. Consistent with transudative. Oxygen supplementation keeping saturation over 88%. Status: Acute (4) Hypotension: Improving. Goal blood pressure less than 140/90 on Hg with mean over 65. Continue midodrine 5 mg 3 times a day, metoprolol at home dose of 25 mg twice daily to avoid reflex tachycardia. Orthostatic negative. Status: Acute (5) Pleural effusion, bilateral: Post right-sided paracentesis. Transudative. Status: Acute (6) Leg edema: Negative for DVT. Status: Acute (7) Amputation of left great toe: No sign of infection. Continue and finish course of Bactrim. Amputated 10 days prior to admission Consult orthopedics for wound care recommendations. Status: Acute (8) Diarrhea: Status: Acute (9) Chest pressure: As above Status: Acute (10) Acute on chronic respiratory failure with hypoxia: -Acute hypoxic respiratory failure secondary to fluid overload -Possibly aspiration event -Has been given 80 of Lasix, placed on BiPAP -Currently resting comfortably, on 35%, no evidence of respiratory distress currently Plan -Monitor respiratory status closely -We will give another 40 mg of Lasix in the evening -Can start midodrine if patient's blood pressures drop -We will start Zosyn for aspiration -Pham catheter placed monitor UA -We will get a serum magnesium level, BMP, blood cultures, sputum cultures, pro- Collin, CRP Status: Acute Plan CurrentlyOSA: Nightly CPAP, her will bring hers from the car DM2: Complains of recurrent episode of hypoglycemia at home. Takes Toujeo 40 units twice daily, glipizide 10 mg twice daily, Jardiance at home. Does have 35 units twice daily. Continue insulin sliding scale. Patient will need to be discharged off of glipizide and on short acting insulin premeals as per sliding scale. Patient is agreeable. PAD: With recent stent in left leg and left great toe amputation. HTN HLD Full code. Cardiac carb consistent diet. Xarelto for DVT prophylaxis hold as patient had angioplasty Appreciate cardiology recommendations. Plan for day: Continue to monitor. Continue with aspirin, Plavix, Xarelto. Hold evening dose of Xarelto. N.p.o. after midnight for catheter tomorrow. CPAP overnight. Attestations Medical Necessity Statement*: Patient requires hospitalization for CAD, now acute respiratory distress, on BiPAP Coding Level of Care Code Acute Apprentice Pattern Maker for Chg Fwd Diagnoses Elevated troponin R77.8 Acute on chronic congestive heart failure I50.9 Dyspnea on exertion R06.00 Hypotension I95.9 Pleural effusion, bilateral J90 Leg edema R60.0 Amputation of left great toe S98.112A Diarrhea R19.7 Chest pressure R07.89 Acute on chronic respiratory failure with hypoxia J96.21
[2021-12-12 12:16] LABS: Glucose Point of Care 211 mg/dL (70-110)
[2021-12-12 13:32] LABS: NT Pro B Type Natriuretic Pept 1139 pg/mL (0-125); Procalcitonin 0.06 ng/mL (0-0.5)
[2021-12-12 13:43] LABS: C Reactive Protein 3.7 mg/L (0.0-4.9); Magnesium 1.8 mg/dL (1.7-2.3)
[2021-12-12 14:13] LABS: Partial Thromboplastin Time 60.6 SECONDS (23.9-36.7)
[2021-12-12] MEDS: piperacillin-tazobactam 3.375 GM in sodium chloride 0.9% (plus) 50 ML IV (14:52)
[2021-12-12 15:57] LABS: Partial Thromboplastin Time 30.7 SECONDS (23.9-36.7)
[2021-12-12 16:15] LABS: Glucose Point of Care 151 mg/dL (70-110)
[2021-12-12] MEDS: fentaNYL 50 mcg/mL INJ 2mL IVP (16:20)
--- NOTE | 2021-12-12 16:30 | PC.NURSE ---
Sheath removal Explained procedure to pt. Premedicated with fentanyl as ordered. Left groin femoral artery is palpated. 6 Fr sheath removed on left femoral artery access site via manual pressure. pressure held for 20 mins. No hematoma, bleeding or swelling, hemostasis achieved. posterior tibial and DP are palpated. diminished but dopplerable. warm LE skin. Sheath cath tip is intact. Activity restrictions educated to pt and at bedside post angiogram such as bedrest for 6 hrs. dressing applied to site. vs and neurovascular checks monitored.
[2021-12-12] MEDS: sertraline 50 mg Tablet PO (18:37)
[2021-12-12] MEDS: potassium chloride ER 20 mEq Tablet PO (18:37)
[2021-12-12] MEDS: ranolazine (12HR) 500 mg Tablet PO (18:37)
[2021-12-12] MEDS: insulin lispro 100 unit/1 mL SUBCUT ×2 (18:37→21:41)
[2021-12-12] MEDS: FUROsemide 10 mg/mL SDV 4mL 40 MG IVP (18:37)
[2021-12-12 20:28] LABS: Glucose Point of Care 233 mg/dL (70-110)
[2021-12-12] MEDS: ALPRAZolam 0.5 mg Tablet 0.25 MG PO (21:39)
[2021-12-12] MEDS: insulin glargine 100 units/1 mL 35 UNIT SUBCUT (21:40)
[2021-12-12] MEDS: atorvastatin 40 mg Tablet 80 MG PO (21:40)
[2021-12-12] MEDS: midodrine 5 mg TABLET PO (21:41)
[2021-12-13] VITALS (7 sets, daily range): BP systolic 100–122; BP diastolic 61–68; PULSE 87–93; RESP 15–18; TEMP 36.2–36.8; O2SAT 95–96; BMI 27.9
[2021-12-13] MEDS: piperacillin-tazobactam 3.375 GM in sodium chloride 0.9% (plus) 50 ML IV ×2 (01:04→06:39)
[2021-12-13] MEDS: ipratropium-albuterol 3 mL Neb INHALATION ×2 (02:58→08:57)
[2021-12-13 03:35] LABS: Basophils % 0.1 %; Eosinophils # 0.1 10^3/uL (0.0-0.8); Eosinophils % 0.9 %; Hematocrit 30.7 % (37.0-47.0); Hemoglobin 9.8 g/dL (11.5-15.3); Lymphocytes # 1.1 10^3/uL (0.8-4.8); Lymphocytes % 11.6 %; Mean Corpuscular HGB Conc 31.9 g/dL (30.0-36.0); Mean Corpuscular Hemoglobin 29.5 pg (28.0-34.0); Mean Corpuscular Volume 92.5 fl (81-99); Mean Platelet Volume 9.1 fL (7.4-10.4); Monocytes # 0.7 10^3/uL (0.2-0.9); Monocytes % 7.6 %; Neutrophils # 7.32 10^3/uL (1.8-7.7); Neutrophils % 79.3 %; Nucleated Red Blood Cells % 0 %; Platelet Count 428 10^3/cmm (130-400); Red Blood Count 3.32 10^6/uL (4.1-5.3); Red Cell Distribution Width 14.5 % (12.1-15.1); White Blood Count 9.2 10^3/uL (4.0-10.0)
[2021-12-13 03:55] LABS: Alanine Aminotransferase 8 U/L (0-33); Albumin Level 3.2 g/dL (3.5-5.2); Alkaline Phosphatase 71 IU/L (35-105); Anion Gap 15.7 (5-19); Aspartate Amino Transferase 12 U/L (0-32); Blood Urea Nitrogen 18 mg/dL (6-20); Calcium 8.9 mg/dL (8.5-10.5); Carbon Dioxide 25 mmol/L (22-29); Chloride 95 mmol/L (98-107); Globulin 3.3 g/dL (1.3-4.6); Glomerular Filtration Rate 74.5 mL/min (90-130); Glucose 250 mg/dL (65-115); Magnesium 1.7 mg/dL (1.7-2.3); Osmolality Calculated 284 mOsm/kg (285-295); Phosphorus 3.8 mg/dL (2.5-4.5); Potassium 3.7 mmol/L (3.5-5.1); Sodium 132 mmol/L (136-145); Total Bilirubin 0.4 mg/dL (0.15-1.2); Total Protein 6.5 g/dL (6.6-8.7)
[2021-12-13 04:03] LABS: NT Pro B Type Natriuretic Pept 1029 pg/mL (0-125)
[2021-12-13 06:37] LABS: Glucose Point of Care 176 mg/dL (70-110)
--- NOTE | 2021-12-13 07:00 | XR_ITS ---
WS: [id number] Exam: XR chest 1V portable [id number] Date/Time of Exam: 12/13/2021 5:59 AM Reason For Exam: sob Comparison 12/12/2021. There is been significant interval clearing of the interstitial infiltrates in both lungs. Heart size remains normal. The mediastinal contours are normal. No pneumothorax or pleural effusion. XR/XR chest 1V portable [id number] IMPRESSION: 1. Significant clearing of bilateral interstitial and airspace infiltrates sinc e the last exam.
[2021-12-13] MEDS: ranolazine (12HR) 500 mg Tablet PO (08:48)
[2021-12-13] MEDS: midodrine 5 mg TABLET PO (08:48)
[2021-12-13] MEDS: ticagrelor 90 mg Tablet PO (08:49)
[2021-12-13] MEDS: insulin glargine 100 units/1 mL 35 UNIT SUBCUT (08:49)
[2021-12-13] MEDS: aspirin 81 mg EC Tablet PO (08:49)
[2021-12-13] MEDS: metoprolol tartrate 25 mg Tablet PO (08:49)
[2021-12-13] MEDS: insulin lispro 100 unit/1 mL SUBCUT (08:50)
[2021-12-13] MEDS: budesonide 0.5 mg/2 mL Neb INHALATION (08:57)
--- NOTE | 2021-12-13 10:21 | PM.DCS ---
Discharge Providers Date of Admission: 12/05/21 05:48 Date of Discharge: December 13, 2021 Attending Provider at Admission: Kevin Daly Attending Provider at Discharge: Josue Caraballo MD Diagnoses at Discharge Discharge Diagnosis (1) Elevated troponin: Status: Acute (2) Acute on chronic congestive heart failure: Status: Acute (3) Dyspnea on exertion: Status: Acute (4) Hypotension: Status: Acute (5) Pleural effusion, bilateral: Status: Acute (6) Leg edema: Status: Acute (7) Amputation of left great toe: Status: Acute (8) Diarrhea: Status: Acute (9) Chest pressure: Status: Acute Permanent problem details: s/p PTCA to RCA ISR, residual disease in proximal LAD (10) Acute on chronic respiratory failure with hypoxia: Status: Acute Reason for Visit Reason for Visit: SOB \Blood Pressure Bottom out Hospital Course Hospital Course 56-year-old lady with history of CAD, multiple stents both coronary and peripheral, she states last stent was in [place] in June in LAD, as well as with peripheral stents, with left side peripheral arterial stent about 10 days ago at that time also underwent great toe amputation left foot.? She has gotten progressively dyspneic, both with exertion, and more recently even with minimal activities, feels like she cannot catch a deep breath, but also has been having chest pressure, feeling like her chest is being squeezed front to back.? Patient was admitted to [facility] for chest pain, elevated troponins, NSTEMI, positive stress test, had a staged procedure, balloon angioplasty of ISR to RCA, and PCI with drug-eluting stent to LAD, tolerated procedure well. Will be discharged on aspirin 81 mg, Brilinta 90 twice daily, statin, metoprolol, ranolazine, with a close follow-up with cardiology as outpatient. Of note patient does take Xarelto 2.5 mg twice daily for peripheral arterial disease, peripherals stent placed 10 days ago, this has been held until she sees her outpatient physician, nonetheless she is now on aspirin, Brilinta, and statin. Patient developed acute hypoxic respiratory failure secondary to CHF exacerbation, aspiration, after her procedure, received diuresis, BiPAP, antibiotic therapy, clinically improved to room air remains afebrile. Discharged on Lasix 40 mg daily potassium placement, and Augmentin for antibiotic coverage. Physical Exam Const: COMMON NORMALS: no acute distress and patient oriented x3 HENMT: COMMON NORMALS: normocephalic HEAD & SCALP: normocephalic Resp: COMMON NORMALS: normal respiratory effort, No retractions, No use of accessory muscles and clear to auscultation bilaterally AUSCULTATION: clear to auscultation bilaterally Cardio: COMMON NORMALS: regular rate, regular rhythm, S1 normal heart sound present and S2 normal heart sound present RATE: regular rate RHYTHM: regular rhythm HEART SOUNDS: S1 normal heart sound present and S2 normal heart sound present GI: COMMON NORMALS: Normal to inspection, nondistended, normoactive bowel sounds present, Soft to palpation, non-tender and No hepatosplenomegaly present PALPATION: Yes Soft to palpation and Yes No hepatosplenomegaly present Extremity: COMMON NORMALS: no pedal edema Neuro: COMMON NORMALS: patient oriented x3 Psych: COMMON NORMALS: mental status grossly normal Urinary Catheter Management: Pham: Cath Placed During This Visit: yes, but has since been removed by the nurse Reason for Continuing Indwelling Catheter: Required Immobilization for Trauma or Surgery or Anesthesia Urinary Catheter Date of Insertion: 12/12/21 Urinary Catheter Time of Insertion: 10:45 Date Urinary Catheter Removed: 12/12/21 Time Urinary Catheter Discontinued: 23:15 Discharge Data Studies Completed and Pending Completed Studies During Hospitalization Category Date Time Status CTA chest [CT angio chest PE protcl [id number]] Urgent Cat Scan 12/04/21 22:48 Completed Sestamibi Stress Test Request Routine Exams 12/07/21 09:23 Completed XR chest 1V portable [id number] Routine Exams 12/13/21 07:00 Completed XR chest 1V portable [id number] Stat Exams 12/04/21 19:58 Completed XR chest 1V portable [id number] Stat Exams 12/07/21 09:24 Completed XR chest 1V portable [id number] Stat Exams 12/12/21 11:27 Completed NM jaret perf SPECT r/s* [id number] Routine Nuc Med 12/08/21 09:23 [place] [id number] Routine Ultrasound 12/05/21 01:50 Completed CV. echo complete* [id number] Routine Ultrasound 12/05/21 01:50 Completed US thoracentesis [id number] Routine Ultrasound 12/07/21 11:30 Completed Pending at discharge Category Date Time Status AERIAL APPLICATOR PILOT request for service Routine Exams 12/09/21 07:54 Taken AERIAL APPLICATOR PILOT request for service Routine Exams 12/12/21 09:42 Taken Anaerobic Culture Routine Lab 12/07/21 09:20 Results Blood Culture Stat Lab 12/12/21 13:33 Results Body Fluid Culture & GS Routine Lab 12/07/21 09:20 Results Complete Blood Count w/Auto AM LABS Lab 12/14/21 04:00 Ordered Complete Blood Count w/Auto AM LABS Lab 12/15/21 04:00 Ordered Comprehensive Metabolic Panel AM LABS Lab 12/14/21 04:00 Ordered Comprehensive Metabolic Panel AM LABS Lab 12/15/21 04:00 Ordered Fungal Culture not HR/SK/BL Routine Lab 12/07/21 09:20 Results Magnesium AM LABS Lab 12/14/21 04:00 Ordered Magnesium AM LABS Lab 12/15/21 04:00 Ordered Mycobacteria, Culture w/Fluor Routine Lab 12/07/21 09:20 Results NT Pro B Type Natriuretic Pept QAM Lab 12/14/21 06:00 Ordered NT Pro B Type Natriuretic Pept QAM Lab 12/15/21 06:00 Ordered Phosphorus AM LABS Lab 12/14/21 04:00 Ordered Phosphorus AM LABS Lab 12/15/21 04:00 Ordered Sputum Culture and Gram Stain Stat Lab 12/12/21 12:05 Uncollected Cytology [PTH] Routine Pth 12/07/21 09:23 Received Radiology Impressions Chest CTA 12/04/21 22:48 IMPRESSION: 1. Bilateral pleural effusions. 2. Interstitial pulmonary edema. 3. Persistent focal areas of nodular scarring in the right lung not significantly changed. Consider follow-up CT scan in 1 year to document stability. Thoracentesis Ultrasound 12/07/21 11:30 IMPRESSION: 1. RIGHT thoracentesis yielding 700 cc of fluid. 2. Chest radiograph to follow to evaluate for pneumothorax. 3. Pleural fluid specimen collected for analysis as requested. Chest X-Ray 12/13/21 07:00 IMPRESSION: 1. Significant clearing of bilateral interstitial and airspace infiltrates since the last exam. Laboratory Results WBC 9.2 10^3/uL (4.0-10.0) 12/13/21 03:10 RBC 3.32 10^6/uL (4.1-5.3) L 12/13/21 03:10 Hgb 9.8 g/dL (11.5-15.3) L 12/13/21 03:10 Hct 30.7 % (37.0-47.0) L 12/13/21 03:10 MCV 92.5 fl (81-99) 12/13/21 03:10 MCH 29.5 pg (28.0-34.0) 12/13/21 03:10 MCHC 31.9 g/dL (30.0-36.0) 12/13/21 03:10 RDW 14.5 % (12.1-15.1) 12/13/21 03:10 Plt Count 428 10^3/cmm (130-400) H 12/13/21 03:10 MPV 9.1 fL (7.4-10.4) 12/13/21 03:10 Neut % (Auto) 79.3 % 12/13/21 03:10 Lymph % (Auto) 11.6 % 12/13/21 03:10 [place] % (Auto) 7.6 % 12/13/21 03:10 Eos % (Auto) 0.9 % 12/13/21 03:10 Baso % (Auto) 0.1 % 12/13/21 03:10 Neut # (Auto) 7.32 10^3/uL (1.8-7.7) 12/13/21 03:10 Lymph # (Auto) 1.1 10^3/uL (0.8-4.8) 12/13/21 03:10 [place] # (Auto) 0.7 10^3/uL (0.2-0.9) 12/13/21 03:10 Eos # (Auto) 0.1 10^3/uL (0.0-0.8) 12/13/21 03:10 Baso # (Auto) 0.0 10^3/uL (0.0-0.1) 12/13/21 03:10 Nucleated RBC % (auto) 0 % 12/13/21 03:10 Nucleated RBCs # 0.0 /100WBC 12/13/21 03:10 Differential Comment Yes 12/07/21 09:20 PT 13.40 SECONDS (12.1-14.9) 12/07/21 02:31 INR 1.00 (0.8-1.2) 12/07/21 02:31 APTT 30.7 SECONDS (23.9-36.7) 12/12/21 15:15 Specimen Type Arterial 12/12/21 11:05 Sample Site Radial, right 12/12/21 11:05 ABG pH 7.37 (7.35-7.45) 12/12/21 11:05 ABG pCO2 44.0 mmHg (35-45) 12/12/21 11:05 ABG pO2 85.8 mmHg (80.0-100.0) 12/12/21 11:05 ABG HCO3 25.1 mmol/L (22-26) 12/12/21 11:05 ABG Base Excess -0.4 mmol/L (-2.0-2.0) 12/12/21 11:05 Tonio Test Pos 12/12/21 11:05 Hematocrit 34.6 % (37-47) L 12/12/21 11:05 O2 Delivery Device Bipap 12/12/21 11:05 FiO2 35.0 % 12/12/21 11:05 Communications Marketing Intern ID Monro 12/12/21 11:05 Sodium 132 mmol/L (136-145) L 12/13/21 03:10 Potassium 3.7 mmol/L (3.5-5.1) 12/13/21 03:10 Chloride 95 mmol/L (98-107) L 12/13/21 03:10 Carbon Dioxide 25 mmol/L (22-29) 12/13/21 03:10 Anion Gap 15.7 (5-19) 12/13/21 03:10 BUN 18 mg/dL (6-20) 12/13/21 03:10 Creatinine 0.8 mg/dL (0.5-0.9) 12/13/21 03:10 GFR Calculation 74.5 mL/min (90-130) L 12/13/21 03:10 Glucose 250 mg/dL (65-115) H 12/13/21 03:10 POC Glucose 176 mg/dL (70-110) H 12/13/21 06:28 Calculated Osmolality 284 mOsm/kg (285-295) L 12/13/21 03:10 Calcium 8.9 mg/dL (8.5-10.5) 12/13/21 03:10 Phosphorus 3.8 mg/dL (2.5-4.5) 12/13/21 03:10 Magnesium 1.7 mg/dL (1.7-2.3) 12/13/21 03:10 Total Bilirubin 0.4 mg/dL (0.15-1.2) 12/13/21 03:10 AST 12 U/L (0-32) 12/13/21 03:10 ALT 8 U/L (0-33) 12/13/21 03:10 Alkaline Phosphatase 71 IU/L (35-105) 12/13/21 03:10 Troponin T Baseline 100 ng/L (0-10) H 12/05/21 09:39 Troponin T 120 Minute 101.7 ng/L (0-10) H 12/05/21 12:30 Delta Troponin T 1.7 ABS# (0-10) 12/05/21 12:30 Troponin T Hi Sens 6Hr 102.5 ng/L (0-10) H 12/05/21 15:38 Troponin T Hi Sens 6Hr Delta 2.5 ng/L (0-12) 12/05/21 15:38 C-Reactive Protein 3.7 mg/L (0.0-4.9) 12/12/21 04:45 NT-Pro-B Natriuret Pep 1029 pg/mL (0-125) H 12/13/21 03:10 Total Protein 6.5 g/dL (6.6-8.7) L 12/13/21 03:10 Albumin 3.2 g/dL (3.5-5.2) L 12/13/21 03:10 Globulin 3.3 g/dL (1.3-4.6) 12/13/21 03:10 Procalcitonin 0.06 ng/mL (0-0.5) 12/12/21 04:45 TSH 1.82 uIU/mL (0.27-4.20) 12/05/21 03:05 Random Cortisol 11.59 ug/dL (2.47-19.5) 12/06/21 03:27 Fluid Color Pale yellow 12/07/21 09:20 Fluid Appearance Clear 12/07/21 09:20 Fluid Specific Grav 1.015 12/07/21 09:20 Fluid pH 9.0 12/07/21 09:20 Fluid WBC 243 /uL 12/07/21 09:20 Fluid RBC 0 10^3/uL 12/07/21 09:20 Fld Polynuclear WBCs # 0.020 12/07/21 09:20 Fld Polynuclear WBCs % 8.200 % 12/07/21 09:20 Fl Mononucl WBCs #(Auto) 0.223 12/07/21 09:20 Fl Mononuclear % Auto 91.800 % 12/07/21 09:20 Fluid Glucose 157.0 mg/dL 12/07/21 09:20 Fluid Albumin 1.2 g/dL 12/07/21 09:20 Fluid LDH 84 U/L 12/07/21 09:20 Fluid Amylase 25 U/L 12/07/21 09:20 Fluid Alk Phosphatase 11 IU/L 12/07/21 09:20 Fluid Cholesterol 13 mg/dL (0-200) 12/07/21 09:20 Fluid Triglycerides 13 mg/dL (0-150) 12/07/21 09:20 Fluid Uric Acid 4 mg/dL 12/07/21 09:20 Pleural Total Protein 1.7 g/dL 12/07/21 09:20 Coronavirus 229E (PCR) Not detected (NOT DETECT) 12/05/21 03:00 SARS-CoV-2 (PCR) Not detected (NOT DETECT) 12/05/21 03:00 Vitals Last Vital Signs Temp 98.3 F 12/13/21 07:32 Pulse 91 12/13/21 09:03 Resp 18 12/13/21 08:57 BP 122/68 12/13/21 07:32 Pulse Ox 96 12/13/21 08:57 Discharge Plan Discharge Patient Disposition: Home Condition: Stable Prescriptions: New atorvastatin 40 mg Tablet 80 mg PO BEDTIME 30 Days Qty: 30 0RF Brilinta 90 mg Tablet 90 mg PO BID 30 Days Qty: 60 0RF metoprolol tartrate 25 mg Tablet 25 mg PO BID@0900,2100 30 Days Qty: 60 0RF ranolazine 500 mg Tablet Extended Release 12 Hr 500 mg PO BID 30 Days Qty: 60 0RF aspirin 81 mg Tablet,Delayed Release (Dr/Ec) 81 mg PO DAILY 30 Days Qty: 30 0RF nitroglycerin 0.4 mg Tablet, Sublingual 0.4 mg sublingual Q5M PRN (Reason: Chest Pain) 30 Days Qty: 30 0RF amoxicillin-pot clavulanate [Augmentin] 875-125 mg tablet 1 tab PO BID 7 Days Qty: 14 0RF Continued metformin 1,000 mg tablet 1,000 mg PO BID 0RF sertraline 50 mg tablet 50 mg PO BEDTIME 0RF polyethylene glycol 3350 [Miralax] 17 gram Powder In Packet 17 g PO DAILY PRN (Reason: Constipation) 0RF albuterol sulfate [Ventolin HFA] 90 mcg/actuation Hfa Aerosol Inhaler 2 puff INHALATION Q4H PRN (Reason: Shortness Of Breath) 0RF glipizide 10 mg tablet 10 mg PO BID 0RF Fiber Gummies 1 tab PO DAILY 0RF benzonatate 200 mg capsule 200 mg PO TID PRN (Reason: Cough) 0RF isosorbide dinitrate 30 mg tablet 15 mg PO DAILY 0RF fluticasone propionate 50 mcg/actuation spray,suspension 1 - 2 spray INTRANASAL DAILY PRN (Reason: Allergy Symptoms) 0RF cholecalciferol (vitamin D3) [Vitamin D3] 25 mcg (1,000 unit) Tablet 25 mcg PO DAILY 0RF Repatha Syringe 140 mg/mL syringe 140 mg SUBCUT Q14D 0RF potassium chloride [Klor-Con M20] 20 mEq Tablet,Er Particles/Crystals 20 meq PO DAILY Qty: 30 0RF tramadol 50 mg tablet 50 mg PO Q6H PRN (Reason: Pain) 0RF Calcium 500 500 mg calcium (1,250 mg) Tablet 500 mg PO DAILY 0RF Humalog KwikPen Insulin 100 unit/mL insulin pen See Rx Instructions .ROUTE .COMPLEX 0RF Rx Instructions: sliding scale subcutaneously tid Jardiance 25 mg tablet 25 mg PO DAILY 0RF melatonin 10 mg Tablet 20 mg PO BEDTIME 0RF Changed Toujeo Max U-300 SoloStar 300 unit/mL (3 mL) insulin pen 30 unit SUBCUT BID Qty: 0 0RF Lasix 40 mg tablet 40 mg PO DAILY 30 Days Qty: 30 0RF Discontinued metoprolol tartrate 25 mg tablet 25 mg PO BID Qty: 0 0RF atorvastatin 80 mg tablet 80 mg PO BEDTIME 0RF sulfamethoxazole-trimethoprim 800-160 mg tablet 1 tab PO BID 0RF Rx Instructions: for 7 days (filled 11/28/21) Nitrostat 0.4 mg Tablet, Sublingual 0.4 mg SUBLINGUAL Q5M PRN (Reason: Chest Pain) 0RF Rx Instructions: do not exceed 3 doses per episode Xarelto 10 mg tablet See Rx Instructions .ROUTE .COMPLEX 0RF Rx Instructions: / tab (2.5mg) po bid Discharge Orders: Discharge Order (Routine); Ordered 12/13/21 Ordered By: Josue Caraballo Referrals: [facility] ([facility]) [Outside] Jael Ellington FNP [Nurse Practitioner] - 1 week Discharge Diet: Cardiac Discharge Activity: Resume usual activity Patient Instructions: Opioid Safety Activity Restrictions/Additional Instructions: -If you have recurrent chest pain please go to the emergency room -Please use aspirin 81 mg, with Brilinta 90 mg twice daily, with statin please do not stop taking these medications -For now we will hold your Xarelto, discussed with outpatient physician about resuming -Please take Lasix as prescribed, please take metoprolol as prescribed -Please take antibiotics as prescribed -Follow-up with cardiology in 1 week Discharge Attestations Time Spent in Discharge Care*: less than 30 min Status at Discharge: Cognitive status at discharge: cognitively intact, Behavioral status at discharge: cooperative, Quality Metrics Clinical Quality Measures [ Acute Myocardial Infaction { Clinical Trial Participant: No; Contraindication to aspirin: None; Aspirin prescribed; Contraindication to statin: None; Statin prescribed; Contraindication to PCI: None; PCI performed;}] Coding Level of Care Code Acute [facility] DC note Diagnoses Elevated troponin R77.8 Acute on chronic congestive heart failure I50.9 Dyspnea on exertion R06.00 Hypotension I95.9 Pleural effusion, bilateral J90 Leg edema R60.0 Amputation of left great toe S98.112A Diarrhea R19.7 Chest pressure R07.89 Acute on chronic respiratory failure with hypoxia J96.21
--- NOTE | 2021-12-13 10:43 | PM.PN ---
Subjective Subjective: s/p px LAD ANNA x 1 Medications: Reviewed: Yes Vitals/I&O/Wt Last Vital Signs Temp 98.3 F 12/13/21 07:32 Pulse 91 12/13/21 09:03 Resp 18 12/13/21 08:57 BP 122/68 12/13/21 07:32 Pulse Ox 96 12/13/21 08:57 12/12/21 12/13/21 12/13/21 22:59 06:59 14:59 Intake Total 410 / 410 290 / 700 Output Total 2230 / 3430 Balance -1820 / -3020 290 / -2730 Weight last 48 hrs Weight 152 lb 14.4 oz Weight 152 lb 14.4 oz Physical Exam Narrative: GENERAL: Alert and oriented x3. Not in any acute distress. HEENT: No significant pallor, icterus. NECK:? No masses noted. No JVD or thyromegaly appreciated. No carotid bruit. RESPIRATORY: Chest is symmetrical. No intercostals muscle retraction or any accessory muscle activation. CTAB/L. No rales or rhonchi heard. HEART:? S1 and S2 are normal. grade 3/6 pansystolic mumur with radiation to axilla EXTREMITIES: No edema or cyanosis. ? Dorsalis pedis and posterior pulses are nonpalpable on the right side.? Left sided pulses could not be palpated because of the dressing. right hip, thigh bruisding has cleared up, right groin hematoma+, small area of bruising and small hematoma of left. LVN LPN: AAOX3, No FND Urinary Catheter Management: Pham: Cath Placed During This Visit: yes, but has since been removed by the nurse Reason for Continuing Indwelling Catheter: Required Immobilization for Trauma or Surgery or Anesthesia Urinary Catheter Date of Insertion: 12/12/21 Urinary Catheter Time of Insertion: 10:45 Date Urinary Catheter Removed: 12/12/21 Time Urinary Catheter Discontinued: 23:15 Data : 12/13/21 03:10 12/13/21 03:10 Micro: Microbiology 12/07/21 09:20 Gram Stain - Final Pleural Fluid Anaerobic Culture - Preliminary Body Fluid Culture - Final 12/12/21 13:33 Blood Culture - Preliminary Blood SPECIMEN COLLECTED 12/12/21 13:26 Blood Culture - Preliminary Blood SPECIMEN COLLECTED Other data: Her last PCI was in June 2021. In our system her last cardiac catheterization was on 12 December 2019. At that time she was found to have luminal irregularities in left main. LAD with mid 65% stenosis mid to distal previously placed stent was patent. D1 patent. D2 patent. 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 RCA with proximal 65% and mid to distal 95% tight stenosis with EUGENE II flow that was thought to be culprit vessel. Patient underwent balloon angioplasty followed by drug-eluting stent placement to mid to distal 95% stenosis in RCA. 80% mid circumflex artery treated with balloon angioplasty with 40% residual stenosis and EUGENE-3 flow at the end of the procedure. A&P Assessment and plan (1) Acute on chronic congestive heart failure: HFpEF Normal LV function with no RWMA on echocardiogram. -Possibility of coronary ischemia causing some of her symptoms cannot be excluded. Patient underwent stress test for repeated hospitalization for decompensated congestive heart failure, atypical chest discomfort and shortness of breath. Stress test partially reversible perfusion defect in inferior inferolateral herron. s/p ANNA placement to px LAD (significant by iFR) yesterday and PTCA of distal RCA on Sunday. -post cath she did develop pulmonary edema and required lasix. CXR shows significant improvement in b/l infiltrates this morning. -resume lasix 40 mg daily on discharge. -continue DAPT, statin. 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 Status: Acute (3) Hypotension: resolved. BP running 110's -120's systolically -track BP/HR twice a day at home and bring at follow up. Status: Acute (4) Amputation of left great toe: s/p left big toe amputation for left great toe osteomyelitis. -Aggressive management of the diabetes and infection will be appropriate. Status: Acute (5) Peripheral arterial disease: Medical records from [place] reviewed. CTA of aorta and extremities (11/25/21) demonstrated hemodynamically significant stenosis in right mid SFA. Runoff primarily through posterior tibial and peroneal arteries. Left lower extremity demonstrates no significant stenosis on inflow. Patient's left superficiall femoral artery demonstrates plaque with metal stent and distal SFA extending into popliteal artery. There appears to be some in-stent restenosis. Runoff is primarily through peroneal artery. Some reconstitution posterior tibial branches at the ankle. Patient underwent percutaneous intervention with balloon angioplasty of posterior tibial artery on 11/26/21. Balloon angioplasty to an area of 90% stenosis with in-stent restenosis of mid to distal SFA was performed. Stenting of mid to proximal SFA with 2 overlapping stents was performed with excellent angiographic results. Two-vessel runoff to the foot via posterior tibial and peroneal arteries and patent pedal loop. Residual stenosis in distal left common femoral artery at bifurcation to the profunda about 50% present. Plan to perform shockwave balloon angioplasty near future/orbital atherectomy. -f/u with her primary crystal syrup maker Status: Acute (6) Pleural effusion, bilateral: s/p R thoracentesis Status: Acute Plan Elevated troponin in setting of NSTEMI type 2; 2/2 decompensated CHF with no delta change Dyslipidemia Insulin-dependent diabetes mellitus type 2 Moderate to severe MR on echo in 06/2021; Anemia COPD Sleep apnea Tonic back pain Anxiety/depression Chrinic active tobacco abuse Thank you for the opportunity to evaluate this patient and make these recommendations Attestations Medical Necessity Statement*: stable to be discharged from cardiac standpoint. 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
--- NOTE | 2021-12-13 11:35 | PC.NURSE ---
Discharge Note Patient discharged to Home via private vehicle accompanied by Daughter. Discharge instructions reviewed with patient and/or sales representative jewelry. Patient verbalized understanding of education and review. Mobile pharmacy medications and/or prescriptions provided. Belongings/home medications returned.
== END 2021-12-13 11:35 | disposition home health service (06) | DRG 246 ==
LOC: ER 22:36 → CSU 12-05 00:06
PROVIDERS: Emergency Medicine; Internal Medicine; Internal Medicine Cardiovascular Disease; Student in an Organized Health Care Education/Training Program; Admitting Provider Internal Medicine; Emergency Provider Emergency Medicine; Visit Provider Family Medicine
PROC: 02703ZZ Dilation of Coronary Artery, One Artery, Percutaneous Approach (ICD-10-PCS; 2021-12-09 12:00)
PROC: 027034Z Dilation of Coronary Artery, One Artery with Drug-eluting Intraluminal Device, Percutaneous Approach (ICD-10-PCS; principal; 2021-12-12 10:00)
DX: T82.855A Stenosis of coronary artery stent, initial encounter (principal); I21.4 Non-ST elevation (NSTEMI) myocardial infarction; J96.21 Acute and chronic respiratory failure with hypoxia; I50.33 Acute on chronic diastolic (congestive) heart failure; J90 Pleural effusion, not elsewhere classified; I25.118 Atherosclerotic heart disease of native coronary artery with other forms of angina pectoris; Y71.8 Miscellaneous cardiovascular devices associated with adverse incidents, not elsewhere classified; E11.65 Type 2 diabetes mellitus with hyperglycemia; E11.51 Type 2 diabetes mellitus with diabetic peripheral angiopathy without gangrene; Z95.820 Peripheral vascular angioplasty status with implants and grafts; G47.33 Obstructive sleep apnea (adult) (pediatric); Z95.5 Presence of coronary angioplasty implant and graft; Z89.412 Acquired absence of left great toe; F17.210 Nicotine dependence, cigarettes, uncomplicated; Z79.4 Long term (current) use of insulin; Z79.51 Long term (current) use of inhaled steroids; Z79.84 Long term (current) use of oral hypoglycemic drugs; J47.9 Bronchiectasis, uncomplicated; Z98.890 Other specified postprocedural states; R19.7 Diarrhea, unspecified; G89.29 Other chronic pain; M54.9 Dorsalgia, unspecified; F41.8 Other specified anxiety disorders; E78.5 Hyperlipidemia, unspecified; I95.9 Hypotension, unspecified; I27.20 Pulmonary hypertension, unspecified; I08.3 Combined rheumatic disorders of mitral, aortic and tricuspid valves; I11.0 Hypertensive heart disease with heart failure
CPT/HCPCS: 32555; 36415; 36416; 36600; 51702; 71045; 71275; 78452; 80048; 80053; 80503; 82042; 82150; 82465; 82533; 82803; 82945; 82962; 83615; 83735; 83880; 83986; 84075; 84100; 84145; 84157; 84315; 84443; 84478; 84484; 84560; 85025; 85347; 85610; 85730; 86140; 87015; 87040; 87070; 87075; 87102; 87116; 87205; 87206; 87635; 87801; 88305; 89050; 92920; 93005; 93017; 93306; 93454; 93571; 93971; 94640; 94660; 94664; 96360; 96361; 96372; 96374; 97116; 97161; 97530; 99285; A9500; C1725; C1769; C1874; C1887; C1894; C9600; J1200; J1644; J1650; J1815 ×2; J1940; J2250; J2405; J2543; J2785; J3010; J3490; J7030; J7050; J7611; J7626; Q0163; Q9967

== ENCOUNTER 2021-12-31 17:46 | Emergency (ER) | payer OTHER, SELFPAY ==
[2021-12-31] VITALS (17 sets, daily range): BP systolic 78–108; BP diastolic 47–68; PULSE 100–146; RESP 16–26; TEMP 36.1–36.9; O2SAT 89–100; BMI 26.3
--- NOTE | 2021-12-31 18:03 | CTR_ITS ---
PROCEDURE INFORMATION: Exam: CTA Chest With Contrast Exam date and time: 12/31/2021 7:00 PM Age: 56 years old Clinical indication: Abdominal tenderness; Shortness of breath; Prior surgery; Surgery date: 6+ months; Surgery type: Stent, tubal; Patient HX: C/O SOB w chest and abd pain recent tle stent placement TECHNIQUE: Imaging protocol: Computed tomographic angiography of the chest with contrast. 3D rendering (Not supervised by radiologist): MIP and/or 3D reconstructed images were created by the technologist. Radiation optimization: All CT scans at this facility use at least one of these dose optimization techniques: automated exposure control; mA and/or kV adjustment per patient size (includes targeted exams where dose is matched to clinical indication); or iterative reconstruction. Contrast material: OMNI 350; Contrast volume: 95 ml; Contrast route: INTRAVENOUS (IV); COMPARISON: 1. CT angio chest PE protcl [id number] 12/04/2021 11:[address] abdomen pelvis w con* [id number] 11/26/2020 2:43 PM RADIATION DOSE METRICS: Total DLP (mGy-cm): 1334.17 FINDINGS: Pulmonary arteries: There is no pulmonary embolus. Aorta: Unremarkable. No aortic aneurysm. No aortic dissection. Lungs: There is interval increase of interstitial and ground-glass opacity in the lungs especially the lower lobes compatible with mild pneumonitis versus edema. There is moderate bronchiectasis. Unchanged reticular density/scarring versus mucous plugging right upper lobe and periphery of the right lower lobe are noted. No new lobar consolidation. Pleural spaces: There is trace right pleural effusion much smaller than the prior exam. Previously visualized left pleural effusion has resolved. Heart: Unremarkable. No cardiomegaly. No pericardial effusion. Lymph nodes: Unremarkable. No enlarged lymph nodes. Bones/joints: Unremarkable. No acute fracture. Soft tissues: Unremarkable. PROCEDURE INFORMATION: Exam: CT Abdomen And Pelvis With Contrast Exam date and time: 12/31/2021 7:00 PM Age: 56 years old Clinical indication: Abdominal tenderness; Shortness of breath; Prior surgery; Surgery date: 6+ months; Surgery type: Stent, tubal; Patient HX: C/O SOB w chest and abd pain recent tle stent placement TECHNIQUE: Imaging protocol: Computed tomography of the abdomen and pelvis with contrast. Radiation optimization: All CT scans at this facility use at least one of these dose optimization techniques: automated exposure control; mA and/or kV adjustment per patient size (includes targeted exams where dose is matched to clinical indication); or iterative reconstruction. Contrast material: OMNI 350; Contrast volume: 95 ml; Contrast route: INTRAVENOUS (IV); COMPARISON: 1. CT angio chest PE protcl [id number] 12/04/2021 11:[address] abdomen pelvis w con* [id number] 11/26/2020 2:43 PM RADIATION DOSE METRICS: Total DLP (mGy-cm): 1334.17 FINDINGS: Diaphragm: A small hiatal hernia is present. Liver: Unremarkable.No mass. Gallbladder and bile ducts: There is no wall thickening or pericholecystic fluid to suggest cholecystitis. The gallbladder demonstrates layering density consistent with noncalcified stones or sludge. There is no common bile duct dilation. Pancreas: The pancreas is normal. Spleen: The spleen is normal. Adrenal glands: There is multilobulated benign adenomatous enlargement of the adrenal glands. Kidneys and ureters: There is no evidence of hydronephrosis. There is no evidence of renal calcifications. There is a 2.2 cm lower pole simple cyst in the left kidney. No follow-up is necessary. Stomach and bowel: There is no evidence of intestinal perforation or obstruction. There is no evidence of colitis/diverticulitis. Appendix: A normal appendix is identified. Intraperitoneal space: Unremarkable. No free air. No significant fluid collection. Arteries: The aorta demonstrates moderate atherosclerotic calcification. The aorta demonstrates moderate atherosclerotic calcification. Veins: There are numerous benign phleboliths in the pelvis. Lymph nodes: Unremarkable.No enlarged lymph nodes. Urinary bladder: The bladder is normal. Reproductive: Uterus is enlarged with a giant partially calcified uterine fibroid measuring 8.4 cm in size. Bones/joints: Unremarkable. No acute fracture. Soft tissues: The right iliopsoas muscle is enlarged and hyperdense with induration of the adjacent right retroperitoneal fat compatible with right psoas muscle hematoma. The right iliopsoas hematoma is poorly marginated but measures approximately 4.8 x 4.8 x 7.5 cm. No active extravasation of contrast. A 2nd/separate ovoid hyperdense fluid collection in the right groin lateral to the femoral vessels and superficial to the distal right iliopsoas tendon is noted compatible with a probable 2nd hematoma measuring 2.0 x 3.3 x 2.7 cm. There is marked induration of the fat in the right groin superficial to the distal right iliopsoas tendon and the smaller hematoma. CT/CT angio chest w abd pel w con IMPRESSION: 1. There is no pulmonary embolus. 2. There is interval increase of interstitial and ground-glass opacity in the lungs especially the lower lobes compatible with mild pneumonitis versus edema. Small right pleural effusion is smaller than the prior exam. IMPRESSION: The right iliopsoas muscle is enlarged and hyperdense with induration of the adjacent right retroperitoneal fat compatible with right psoas muscle hematoma. This hyperdensity/hematomas poorly marginated and measures about 7.5 cm in length. A smaller/2nd hematoma is noted in the right groin separate from the femoral vessels superficial to the distal right iliopsoas tendon. No active extravasation of contrast. COMMENTS: Consistent with the [employer]'s Incidental Findings Committee white paper (J Am Walt Radiol 2018): Any incidental renal lesion less than 1 cm or classified as too small to characterize, or any incidental cystic renal lesion characterized as simple-appearing, is likely benign. No follow-up imaging is recommended for these lesions per consensus recommendations based on imaging criteria.
--- NOTE | 2021-12-31 18:03 | ECG_ITS ---
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 Measurements Intervals [place] Rate: 126 P: 58 AL: 126 QRS: 34 QRSD: 86 T: 70 QT: 276 QTc: 400 Interpretive Statements SINUS TACHYCARDIA LOW QRS VOLTAGE IN EXTREMITY LEADS [QRS DEFLECTION < 0.5 mV IN LIMB LEADS] ST DEVIATION AND MODERATE T-WAVE ABNORMALITY, CONSIDER LATERAL ISCHEMIA [-0.1+ mV T-WAVE IN I/aVL/V5/V6] Compared to ECG 12/12/2021 10:49:40 Low QRS voltage now present T-wave abnormality now present Possible ischemia now present Myocardial infarct finding no longer present Electronically Signed On 01-01-2022 16:12:26 CDT by Kelsey Cuadra M.D. [id number]
[2021-12-31 18:23] LABS: Basophils % 0.1 %; Eosinophils # 0.1 10^3/uL (0.0-0.8); Eosinophils % 0.6 %; Hematocrit 23.9 % (37.0-47.0); Hemoglobin 7.5 g/dL (11.5-15.3); Lymphocytes # 1.6 10^3/uL (0.8-4.8); Lymphocytes % 19.8 %; Mean Corpuscular HGB Conc 31.4 g/dL (30.0-36.0); Mean Corpuscular Hemoglobin 29.6 pg (28.0-34.0); Mean Corpuscular Volume 94.5 fl (81-99); Mean Platelet Volume 9.5 fL (7.4-10.4); Monocytes # 0.5 10^3/uL (0.2-0.9); Monocytes % 6.8 %; Neutrophils # 5.68 10^3/uL (1.8-7.7); Neutrophils % 72.4 %; Nucleated Red Blood Cells % 0 %; Platelet Count 315 10^3/cmm (130-400); Red Blood Count 2.53 10^6/uL (4.1-5.3); Red Cell Distribution Width 14.1 % (12.1-15.1); White Blood Count 7.8 10^3/uL (4.0-10.0)
--- NOTE | 2021-12-31 18:24 | W.ED.SOB ---
HPI - SOB/Dyspnea General: Chief Complaint: Shortness of Breath/Dyspnea Stated Complaint: shortness of breath / elevated heart rate Time Seen by Provider: 12/31/21 17:59 Source: patient Mode of arrival: ambulatory Limitations: no limitations History of Present Illness: HPI Narrative: 56-year-old female has extensive cardiac history and peripheral vascular disease. Patient been admitted here the end of November and had a cath with stents placed also had a stent placed in her right leg she states that she was just admitted to [place] as well had a toe amputation on the left toe and another stent placed in her right leg she states she left there today and states that since she left she has been having increasing chest pain and shortness of breath she is hypotensive here tachycardic and requiring oxygen currently she denies any cough fever denies any worsening proving factors. Associated symptoms: Reports palpitations; Deny abdominal pain, fever(s), nausea or vomiting Review of Systems Const: Denies: fever(s), chills, body aches or change in appetite Eyes: Denies: blurry vision or eye discomfort ENMT: Denies: throat pain or dental pain Card: Reports: palpitations Resp: Reports: dyspnea GI: Denies: abdominal pain, nausea, vomiting or diarrhea : Denies: dysuria Musc: Denies: neck pain or back pain Skin/Breast: Denies: rash Neuro: Denies: headache(s) Psych: Denies: depression Deven/Lymph: Denies: easy bruising All/Imm: Denies: urticaria PFSH ED PFSH: Medical History Amputation of left great toe Coronary artery disease 4 stents present. Depression Diabetes mellitus Diabetic foot infection Hyperlipidemia Hypertension Peripheral vascular disease Pleural effusion Surgical History H/O heart artery stent 2013 - Done in [place], 1 stent placed. 2014 - Done in [place], 1 stent placed. 2017 - Done in [facility] in [place], 2 stents placed. H/O left knee surgery (~1999) Plastic disc was placed History of salpingectomy (~1988) Treatment of ectopic History of tubal ligation Family History Mother Diabetes Heart disease Hypertension Hyperlipidemia Father Heart disease Diabetes Hypertension Hyperlipidemia Sister Diabetes Social History Smoking and tobacco status: current every day smoker cigarettes Packs smoked per day: 0.5 Years cigarettes smoked: 35 Quit status (tobacco): has tried quititng Alcohol intake: current Alcohol intake frequency: holidays/special occasions only Household members: spouse Marital status: History of recent travel: No Physical Exam Const: COMMON NORMALS: patient oriented x3 GENERAL APPEARANCE: ill appearing HENMT: COMMON NORMALS: normocephalic and atraumatic HEAD & SCALP: normocephalic and atraumatic Eye: COMMON NORMALS: Equal, round and reactive pupils present and EOMs intact bilaterally PUPIL: Yes Equal, round and reactive pupils present Neck/C-Spine: COMMON NORMALS: full ROM and supple Chest: COMMONS NORMALS: normal inspection of the chest and normal palpation of entire chest wall Resp: COMMON NORMALS: normal respiratory effort, No retractions, No use of accessory muscles and clear to auscultation bilaterally AUSCULTATION: clear to auscultation bilaterally Cardio: COMMON NORMALS: regular rhythm and No murmurs present (Cardio) RATE: tachycardic RHYTHM: regular rhythm GI: COMMON NORMALS: Normal to inspection, nondistended, normoactive bowel sounds present, Soft to palpation, non-tender and no masses PALPATION: Yes Soft to palpation Extremity: COMMON NORMALS: normal to inspection and full ROM NARRATIVE EXTREMITY EXAM: Distal pulses intact bilaterally Neuro: COMMON NORMALS: patient oriented x3, moves all extremities and no focal motor deficits Psych: COMMON NORMALS: mental status grossly normal, Normal thought process present and cooperative THOUGHT PROCESS: Normal thought process present Skin: COMMON NORMALS: no rashes or lesions noted and no wounds GENERAL SKIN EXAM: no rashes or lesions noted Course Vital Signs: Vital signs: Vital Signs Temperature 98.3 F 12/31/21 21:06 Pulse Rate 136 H 12/31/21 21:06 Respiratory Rate 24 H 12/31/21 21:06 Blood Pressure 89/56 12/31/21 21:06 Pulse Oximetry 93 12/31/21 20:55 MDM - SOB/Dyspnea Medical Decision Making Patient presents here with weakness along with shortness of breath she was found to be anemic possibly from her retroperitoneal hematoma she is also having some shortness of breath here. Patient does have a retroperitoneal hematoma on her CT patient given blood products here her blood pressure is improving I spoke to product safety tester at [facility] where she was previously and will transfer there. Lab Data : 12/31/21 18:17 12/31/21 18:17 Labs/Radiology: Radiology Impressions Chest/Abdomen/Pelvis CT 12/31/21 18:03 IMPRESSION: 1. There is no pulmonary embolus. 2. There is interval increase of interstitial and ground-glass opacity in the lungs especially the lower lobes compatible with mild pneumonitis versus edema. Small right pleural effusion is smaller than the prior exam. IMPRESSION: The right iliopsoas muscle is enlarged and hyperdense with induration of the adjacent right retroperitoneal fat compatible with right psoas muscle hematoma. This hyperdensity/hematomas poorly marginated and measures about 7.5 cm in length. A smaller/2nd hematoma is noted in the right groin separate from the femoral vessels superficial to the distal right iliopsoas tendon. No active extravasation of contrast. COMMENTS: Consistent with the [employer] [employer]'s Incidental Findings Committee white paper (J Am Walt Radiol 2018): Any incidental renal lesion less than 1 cm or classified as too small to characterize, or any incidental cystic renal lesion characterized as simple-appearing, is likely benign. No follow-up imaging is recommended for these lesions per consensus recommendations based on imaging criteria. ADDENDUM: 12/31/211947 THIS REPORT CONTAINS FINDINGS THAT MAY BE CRITICAL TO PATIENT CARE. The findings were verbally communicated via telephone conference with JANEL BRIGGS at 7:47 PM CDT on 12/31/2021. The findings were acknowledged and understood. Duplex Scan Lower Extremity Artery 12/31/21 18:44 IMPRESSION: No stenosis or occlusion. Small hematoma lateral right groin superficial to the distal right iliopsoas hematoma is not visualized on this exam. Please see the CT abdomen pelvis exam of the same day. This was discussed with Dr. Briggs. Laboratory Results WBC 7.8 10^3/uL (4.0-10.0) 12/31/21 18:17 RBC 2.53 10^6/uL (4.1-5.3) L 12/31/21 18:17 Hgb 7.5 g/dL (11.5-15.3) L 12/31/21 18:17 Hct 23.9 % (37.0-47.0) L 12/31/21 18:17 MCV 94.5 fl (81-99) 12/31/21 18:17 MCH 29.6 pg (28.0-34.0) 12/31/21 18:17 MCHC 31.4 g/dL (30.0-36.0) 12/31/21 18:17 RDW 14.1 % (12.1-15.1) 12/31/21 18:17 Plt Count 315 10^3/cmm (130-400) 12/31/21 18:17 MPV 9.5 fL (7.4-10.4) 12/31/21 18:17 Neut % (Auto) 72.4 % 12/31/21 18:17 Lymph % (Auto) 19.8 % 12/31/21 18:17 [place] % (Auto) 6.8 % 12/31/21 18:17 Eos % (Auto) 0.6 % 12/31/21 18:17 Baso % (Auto) 0.1 % 12/31/21 18:17 Neut # (Auto) 5.68 10^3/uL (1.8-7.7) 12/31/21 18:17 Lymph # (Auto) 1.6 10^3/uL (0.8-4.8) 12/31/21 18:17 [place] # (Auto) 0.5 10^3/uL (0.2-0.9) 12/31/21 18:17 Eos # (Auto) 0.1 10^3/uL (0.0-0.8) 12/31/21 18:17 Baso # (Auto) 0.0 10^3/uL (0.0-0.1) 12/31/21 18:17 Nucleated RBC % (auto) 0 % 12/31/21 18:17 Nucleated RBCs # 0.0 /100WBC 12/31/21 18:17 PT 13.40 SECONDS (12.1-14.9) 12/31/21 18:30 INR 0.99 (0.8-1.2) 12/31/21 18:30 Specimen Type Arterial 12/31/21 18:35 Sample Site Radial, left 12/31/21 18:35 ABG pH 7.44 (7.35-7.45) 12/31/21 18:35 ABG pCO2 31.3 mmHg (35-45) L 12/31/21 18:35 ABG pO2 50.8 mmHg (80.0-100.0) L 12/31/21 18:35 ABG HCO3 21.1 mmol/L (22-26) L 12/31/21 18:35 ABG Base Excess -2.7 mmol/L (-2.0-2.0) L 12/31/21 18:35 Tonio Test Pos 12/31/21 18:35 Hematocrit 24.2 % (37-47) L 12/31/21 18:35 O2 Delivery Device Room air 12/31/21 18:35 Innersole Maker ID Gd 12/31/21 18:35 Sodium 135 mmol/L (136-145) L 12/31/21 18:17 Potassium 3.9 mmol/L (3.5-5.1) 12/31/21 18:17 Chloride 101 mmol/L (98-107) 12/31/21 18:17 Carbon Dioxide 20 mmol/L (22-29) L 12/31/21 18:17 Anion Gap 17.9 (5-19) 12/31/21 18:17 BUN 13 mg/dL (6-20) 12/31/21 18:17 Creatinine 0.7 mg/dL (0.5-0.9) 12/31/21 18:17 GFR Calculation 86.9 mL/min (90-130) L 12/31/21 18:17 Glucose 64 mg/dL (65-115) L 12/31/21 18:17 POC Glucose 110 mg/dL (70-110) 12/31/21 20:20 Calculated Osmolality 278 mOsm/kg (285-295) L 12/31/21 18:17 Lactic Acid 3.0 mmol/L (0.5-2.2) H 12/31/21 18:17 Lactic Acid (Sepsis) 2.5 mmol/L (0.5-2.2) H 12/31/21 19:45 Calcium 8.7 mg/dL (8.5-10.5) 12/31/21 18:17 Total Bilirubin 0.2 mg/dL (0.15-1.2) 12/31/21 18:17 AST 31 U/L (0-32) 12/31/21 18:17 ALT 15 U/L (0-33) 12/31/21 18:17 Alkaline Phosphatase 64 IU/L (35-105) 12/31/21 18:17 Troponin T Baseline 70 ng/L (0-10) H 12/31/21 18:17 Troponin T 120 Minute 87.39 ng/L (0-10) H 12/31/21 19:45 Delta Troponin T 17.39 ABS# (0-10) H* 12/31/21 19:45 NT-Pro-B Natriuret Pep 925 pg/mL (0-125) H 12/31/21 18:17 Total Protein 7.1 g/dL (6.6-8.7) 12/31/21 18:17 Albumin 3.8 g/dL (3.5-5.2) 12/31/21 18:17 Globulin 3.3 g/dL (1.3-4.6) 12/31/21 18:17 Blood Type A Positive 12/31/21 19:45 Rho(D) Type Positive 12/31/21 19:45 Antibody Screen Negative 12/31/21 19:45 Crossmatch See Detail 12/31/21 19:45 EKG Data EKG 1: I personally reviewed and interpreted this EKG as follows: EKG Interpretation Date: 12/31/21 EKG interpretation time: 18:23 Interpretation: sinus tach hr 126 sinus tach hr [address] or t wave abnormalities qrs 86 qtc 351 Discharge Plan Discharge Patient Disposition: Admitted As Inpatient Clinical Impression: Retroperitoneal hematoma, Acute dyspnea Condition: Stable Coding Level of Care Code ED Costume Shop Manager for Chg Fwd Exam Comprehensive
[2021-12-31] MEDS: sodium chloride 0.9% 1,000 ML 999 ML IV (18:30)
--- NOTE | 2021-12-31 18:44 | USR_ITS ---
PROCEDURE INFORMATION: Exam: US Duplex Right Lower Extremity Arteries Or Arterial Bypass Grafts Exam date and time: 12/31/2021 7:20 PM Age: 56 years old Clinical indication: Pain; Leg, lower; Right; Additional info: Leg pain TECHNIQUE: Imaging protocol: Right Real-time duplex scan of the arteries or arterial bypass grafts of the right lower extremity with 2-D swanson scale, color Doppler flow and spectral waveform analysis. Images documented and saved. COMPARISON: CT angio chest w abd pel w con 12/31/2021 7:00 PM FINDINGS: Right common femoral artery: No occlusion or significant stenosis. Normal waveform. No pseudoaneurysm in the inguinal region. Right superficial femoral artery: No occlusion or significant stenosis. Normal waveform. Right popliteal artery: No occlusion or significant stenosis. Normal waveform. Right calf/foot arteries: No occlusion or significant stenosis in the visualized arteries. Normal waveforms. Dorsalis pedis artery is patent. Soft tissues: No hematoma or collection is visualized on this exam. Small hematoma lateral right groin superficial to the distal right iliopsoas hematoma is not visualized on this exam. US/[place] [id number] IMPRESSION: No stenosis or occlusion. Small hematoma lateral right groin superficial to the distal right iliopsoas hematoma is not visualized on this exam. Please see the CT abdomen pelvis exam of the same day. This was discussed with Dr. oH.
[2021-12-31 18:49] LABS: Troponin(5th) Baseline 70 ng/L (0-10)
[2021-12-31 18:50] LABS: ABG PCO2 31.3 mmHg (35-45); ABG PH Result 7.44 (7.35-7.45); Arterial Blood Gas Hematocrit 24.2 % (37-47); Base Excess ABG -2.7 mmol/L (-2.0-2.0); Blood Gas Allen Test Pos; Blood Gas Operator Identificat GD; Blood Gas Sample Site Radial, left; Blood Gas Sample Type Arterial; HCO3 ABG 21.1 mmol/L (22-26); Oxygen Device ROOM AIR; PO2 ABG 50.8 mmHg (80.0-100.0)
[2021-12-31 18:58] LABS: Alanine Aminotransferase 15 U/L (0-33); Albumin Level 3.8 g/dL (3.5-5.2); Alkaline Phosphatase 64 IU/L (35-105); Blood Urea Nitrogen 13 mg/dL (6-20); Calcium 8.7 mg/dL (8.5-10.5); Carbon Dioxide 20 mmol/L (22-29); Chloride 101 mmol/L (98-107); Globulin 3.3 g/dL (1.3-4.6); Glomerular Filtration Rate 86.9 mL/min (90-130); Glucose 64 mg/dL (65-115); NT Pro B Type Natriuretic Pept 925 pg/mL (0-125); Osmolality Calculated 278 mOsm/kg (285-295); Reflex Lactate Order REFLEX LACTIC ORDERD; Sodium 135 mmol/L (136-145); Total Bilirubin 0.2 mg/dL (0.15-1.2); Total Protein 7.1 g/dL (6.6-8.7)
[2021-12-31] MEDS: iohexol 350 mg/mL 100 mL Btl IV (19:01)
[2021-12-31 19:04] LABS: Anion Gap 17.9 (5-19); Aspartate Amino Transferase 31 U/L (0-32); Potassium 3.9 mmol/L (3.5-5.1)
[2021-12-31 19:11] LABS: INR 0.99 (0.8-1.2)
--- NOTE | 2021-12-31 19:31 | PC.NURSE ---
[address] for chest angio. [address], US at bedside for doppler study of right groin. 1929 RT called at physician request for alternate apparatus for obtaining oxygen saturation.
[2021-12-31] MEDS: cefTRIAXone 1,000 MG in sodium chloride 0.9% (plus) 50 ML 100 MG IV (20:03)
--- NOTE | 2021-12-31 20:03 | ECG_ITS ---
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 Measurements Intervals [place] Rate: 135 P: 66 NM: 127 QRS: 35 QRSD: 83 T: 65 QT: 316 QTc: 475 Interpretive Statements SINUS TACHYCARDIA WITH OCCASIONAL SUPRAVENTRICULAR PREMATURE COMPLEXES MODERATE ST DEPRESSION [0.05+ mV ST DEPRESSION] Compared to ECG 12/12/2021 10:49:40 ST (T wave) deviation now present Myocardial infarct finding no longer present Electronically Signed On 01-01-2022 16:23:26 CDT by Kelsey Cuadra M.D. [id number] f
[2021-12-31 20:08] LABS: Troponin 5 2HR 87.39 ng/L (0-10)
[2021-12-31 20:09] LABS: Lactic Acid level (Lactate) 2.5 mmol/L (0.5-2.2)
--- NOTE | 2021-12-31 20:09 | PC.NURSE ---
[id number] at bedside with patient for this time period for diagnostic collection initiation and supportive care for patient and family. VS as recorded with hypotension and tachycardia noted, physician aware. IV fluids initiated. Patient is anxious and Pt and family need reassurance regarding care and plan. Difficulty getting accurate pulse ox second to poor peripheral circulation. Areas of concern evaluated and left groin insertion site has some mild bruising but is soft The right insertion site is hard with induration back to iliac crest and is painful to touch. This area on the right is where patient reports her pain to be worse with radiation to lower back, on the right. CT chest angio obtained and Doppler study of right groin/leg completed at 1900. IV fluids initiated. Nurse report finally given to NANDA Salgado.
[2021-12-31 20:15] LABS: Troponin 5 2HR Delta 17.39 ABS# (0-10)
[2021-12-31] MEDS: azithromycin 500 MG in sodium chloride 0.9% 250 ML 250 MG IV (20:17)
[2021-12-31 20:24] LABS: Glucose Point of Care 110 mg/dL (70-110)
--- NOTE | 2021-12-31 20:40 | PC.NURSE ---
azithromycin was stopped due to possible allergic reaction. patient was c/o increasing SOB after medication was started. Dr. Ho notified and he will order medication.
[2021-12-31] MEDS: ipratropium-albuterol 3 mL Neb INHALATION (20:54)
[2021-12-31] MEDS: ondansetron 2 mg/ML SDV 2 mL 4 MG IVP (21:14)
[2021-12-31] MEDS: fentaNYL 50 mcg/mL INJ 2mL 25 MCG IVP (21:16)
== END 2021-12-31 22:33 | disposition admitted as inpatient to this hospital (09) ==
PROVIDERS: Emergency Provider Emergency Medicine
DX: K66.1 Hemoperitoneum (principal); D64.9 Anemia, unspecified; R06.02 Shortness of breath; R53.1 Weakness; M79.661 Pain in right lower leg; I25.10 Atherosclerotic heart disease of native coronary artery without angina pectoris; E11.51 Type 2 diabetes mellitus with diabetic peripheral angiopathy without gangrene; I10 Essential (primary) hypertension; Z89.412 Acquired absence of left great toe; Z95.820 Peripheral vascular angioplasty status with implants and grafts; Z89.422 Acquired absence of other left toe(s); Z95.5 Presence of coronary angioplasty implant and graft; F17.210 Nicotine dependence, cigarettes, uncomplicated
CPT/HCPCS: 36416; 36430; 36600; 71275; 74177; 80053; 82803; 82962; 83605; 83880; 84484; 85025; 85610; 86850; 86900; 86920; 87040; 93005; 93926; 94640; 96365; 96367; 96375; 99285; J0456; J0696; J2405; J2930; J3010; J7030; J7050; P9016; Q9967

== ENCOUNTER 2022-01-18 11:34 | Emergency (ER) | payer OTHER, SELFPAY ==
[2022-01-18 11:49] VITALS: BP 92/66; PULSE 99; RESP 20; TEMP 36.6; O2SAT 97
[2022-01-18 11:53] VITALS: BP 96/61
--- NOTE | 2022-01-18 12:04 | XRR_ITS ---
PROCEDURE INFORMATION: Exam: XR Chest Exam date and time: 01/18/2022 12:13 PM Age: 56 years old Clinical indication: Condition or disease; Lung condition and disease; Pneumonia; Shortness of breath; Prior surgery; Surgery type: Stents; Additional info: Diagnosed with pneumomia recently TECHNIQUE: Imaging protocol: XR of the chest. Views: 1 view. Total images: 1 COMPARISON: CR XR chest 1V portable [id number] 12/13/2021 6:09 AM FINDINGS: Lungs: Trace bibasilar atelectasis or scar. Pleural spaces: Unremarkable. No pleural effusion. No pneumothorax. Heart/Mediastinum: Coronary stents noted. Heart size is stable when compared to the prior exam. Vasculature: Atherosclerosis is evident. Bones/joints: Osseous structures are unchanged from the prior exam. XR/XR chest 1V portable [id number] IMPRESSION: Trace bibasilar atelectasis or scar.
[2022-01-18 12:23] VITALS: BP 81/56
--- NOTE | 2022-01-18 12:31 | ECG_ITS ---
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 Measurements Intervals [place] Rate: 105 P: 47 IL: 134 QRS: 52 QRSD: 75 T: 54 QT: 344 QTc: 455 Interpretive Statements SINUS TACHYCARDIA ABNORMAL RHYTHM ECG Compared to ECG 12/31/2021 18:23:12 T-wave abnormality no longer present Possible ischemia no longer present Electronically Signed On 01-18-2022 20:20:15 CDT by Kelsey Cuadra M.D. [id number]
--- NOTE | 2022-01-18 12:35 | W.ED.GENADLT ---
Documented by User: MITCH Perez 01/18/22 14:42 HPI - General Adult General: Chief complaint: General Medical Stated complaint: low BP Time Seen by Provider: 01/18/22 12:04 Source: patient and family Mode of arrival: ambulatory Limitations: no limitations History of Present Illness: Patient is a 56-year-old female presents to ED today along with her daughter after her home health nurse was taking her blood pressure noted it was low at 90s/60s thus they recommended she come to the ED. Upon arrival patient tells me that normal blood pressures for her are roughly 100s/60s. She states her business applications analyst recently made some adjustments to her medications and decreased her furosemide and metoprolol secondary to low blood pressure readings. Patient tells me she does feel slightly short of breath. She does states she was recently seen at [place] [facility] and treated for what sounds like possible bronchitis/COPD exacerbation stating they placed her on Levaquin and steroids. Patient tells me she had one episode of vomiting early this morning. She is not having any abdominal pains. She has no chest pains. PMH is significant for CAD, CHF, peripheral arterial disease, diabetes. Associated symptoms: Reports dyspnea and vomiting (x 1 this AM); Deny chest pain, headache(s), malaise, nausea, rash, palpitations or syncope Treatments prior to arrival: none Review of Systems Const: Denies: fever(s), chills, body aches, fatigue or malaise Card: Denies: chest pain, palpitations, irregular heart rhythm, edema, swelling of feet/ankles, lightheadedness, syncope or pre-syncope Resp: Reports: dyspnea; Denies: wheezing, pain on inspiration, hemoptysis or chest congestion GI: Reports: vomiting (x 1 this AM); Denies: abdominal pain or nausea : Denies: flank pain, difficulty voiding or dysuria Musc: Denies: neck pain, back pain, extremity pain or joint pain Skin/Breast: Denies: rash Neuro: Denies: headache(s), numbness in extremities, weakness in extremities or sensory changes [facility] ED PFSH: Medical History Amputation of left great toe Coronary artery disease 4 stents present. Depression Diabetes mellitus Diabetic foot infection Hyperlipidemia Hypertension Peripheral vascular disease Pleural effusion Surgical History H/O heart artery stent 2013 - Done in [place], 1 stent placed. 2015 - Done in [place], 1 stent placed. 2017 - Done in [facility] in [place], 2 stents placed. H/O left knee surgery (~1999) Plastic disc was placed History of salpingectomy (~1988) Treatment of ectopic History of tubal ligation Family History Mother Diabetes Heart disease Hypertension Hyperlipidemia Father Heart disease Diabetes Hypertension Hyperlipidemia Sister Diabetes Social History Smoking and tobacco status: current every day smoker cigarettes Packs smoked per day: 0.5 Years cigarettes smoked: 35 Quit status (tobacco): has tried quititng Alcohol intake: current Alcohol intake frequency: holidays/special occasions only Household members: spouse Marital status: History of recent travel: No Physical Exam Const: COMMON NORMALS: no acute distress, patient oriented x3, no limitations and alert GENERAL APPEARANCE: cooperative ORIENTATION/CONSCIOUSNESS: Yes awake, Yes oriented to person, Yes oriented to place and Yes oriented to time HENMT: COMMON NORMALS: normocephalic and atraumatic HEAD & SCALP: normal to inspection, normocephalic and atraumatic TEETH & GINGIVA: Yes poor dentition Eye: GENERAL EYE: appearance normal, both eyes and all related structures Neck/C-Spine: COMMON NORMALS: full ROM, no lymphadenopathy, no meningeal signs and no JVD Chest: COMMONS NORMALS: normal inspection of the chest Resp: COMMON NORMALS: normal respiratory effort and clear to auscultation bilaterally AUSCULTATION: clear to auscultation bilaterally Cardio: COMMON NORMALS: no JVD, regular rate and regular rhythm RATE: regular rate RHYTHM: regular rhythm GI: COMMON NORMALS: Normal to inspection, nondistended, normoactive bowel sounds present, Soft to palpation and non-tender INSPECTION: Yes normal to inspection AUSCULTATION: Yes normoactive bowel sounds PALPATION: Yes Soft to palpation : COMMON NORMALS: Yes no CVA tenderness BLADDER/KIDNEY EXAM: Yes no CVA tenderness Back/Pelvis: COMMON NORMALS: no CVA tenderness Extremity: COMMON NORMALS: normal to inspection, capillary refill normal, no joint enlargement, no clubbing, cyanosis or edema, no calf tenderness and no pedal edema GENERAL: Yes normal exam except as noted Neuro: TIKA COMA SCALE: document GCS findings Tika coma scale eye opening: Spontaneous Tika coma scale verbal response: Orientated [place] coma scale motor response: Obey commands Tika coma scale total score: 15 COMMON NORMALS: patient oriented x3, moves all extremities, no focal motor deficits and no sensory deficits noted SENSORIUM/ORIENTATION: Yes alert, Yes oriented to person, Yes oriented to place and Yes oriented to time MENINGEAL SIGNS: Yes no meningeal signs Skin: COMMON NORMALS: no rashes or lesions noted GENERAL SKIN EXAM: no rashes or lesions noted Course Consultations: Consultation #1: Aguilar Lowry, cardiology LINE ASSEMBLER [employer]CRAFT: recommended keeping Lasix and Metoprolol dosing where it's at, limiting fluid intake, daily weight checks, and he will see her on Sunday Vital Signs: Vital signs: Vital Signs Temperature 97.8 F 01/18/22 11:49 Pulse Rate 96 01/18/22 15:09 Respiratory Rate 18 01/18/22 15:09 Blood Pressure 97/54 01/18/22 15:09 Pulse Oximetry 95 01/18/22 15:09 [facility] - General Adult Medical Decision Making Patient's blood pressure during her stay has been stable and is pretty much at her baseline. She does complain of some minor shortness of breath. No chest pain. CXR is normal. Blood work was fairly unremarkable. She does have a BNP of over 9000 which is elevated compared to her baseline however she clinically does not appear fluid overloaded. Again her CXR does not show any congestion or edema. She recently had decreases performed to her Lasix and her Metoprolol from her cardiology provider. I spoke to him on the phone who did not recommend any medication changes at this time. He stated her blood pressure today is normal for her. Recommended limiting her fluid intake to 1500cc daily and do daily weight checks and he will see her on Sunday. Lab Data : 01/18/22 12:40 01/18/22 12:40 Radiology Impressions Chest X-Ray 01/18/22 12:04 IMPRESSION: Trace bibasilar atelectasis or scar. Laboratory Results WBC 8.9 10^3/uL (4.0-10.0) 01/18/22 12:40 RBC 3.87 10^6/uL (4.1-5.3) L 01/18/22 12:40 Hgb 11.8 g/dL (11.5-15.3) 01/18/22 12:40 Hct 37.2 % (37.0-47.0) 01/18/22 12:40 MCV 96.1 fl (81-99) 01/18/22 12:40 MCH 30.5 pg (28.0-34.0) 01/18/22 12:40 MCHC 31.7 g/dL (30.0-36.0) 01/18/22 12:40 RDW 17.9 % (12.1-15.1) H 01/18/22 12:40 Plt Count 443 10^3/cmm (130-400) H 01/18/22 12:40 MPV 9.1 fL (7.4-10.4) 01/18/22 12:40 Neut % (Auto) 80.4 % 01/18/22 12:40 Lymph % (Auto) 13.4 % 01/18/22 12:40 Long % (Auto) 5.5 % 01/18/22 12:40 Eos % (Auto) 0.2 % 01/18/22 12:40 Baso % (Auto) 0.2 % 01/18/22 12:40 Neut # (Auto) 7.17 10^3/uL (1.8-7.7) 01/18/22 12:40 Lymph # (Auto) 1.2 10^3/uL (0.8-4.8) 01/18/22 12:40 Long # (Auto) 0.5 10^3/uL (0.2-0.9) 01/18/22 12:40 Eos # (Auto) 0.0 10^3/uL (0.0-0.8) 01/18/22 12:40 Baso # (Auto) 0.0 10^3/uL (0.0-0.1) 01/18/22 12:40 Nucleated RBC % (auto) 0 % 01/18/22 12:40 Nucleated RBCs # 0.0 /100WBC 01/18/22 12:40 Sodium 136 mmol/L (136-145) 01/18/22 12:40 Potassium 4.2 mmol/L (3.5-5.1) 01/18/22 12:40 Chloride 95 mmol/L (98-107) L 01/18/22 12:40 Carbon Dioxide 26 mmol/L (22-29) 01/18/22 12:40 Anion Gap 19.2 (5-19) H 01/18/22 12:40 BUN 20 mg/dL (6-20) 01/18/22 12:40 Creatinine 0.8 mg/dL (0.5-0.9) 01/18/22 12:40 GFR Calculation 74.5 mL/min (90-130) L 01/18/22 12:40 Glucose 105 mg/dL (65-115) 01/18/22 12:40 Calculated Osmolality 285 mOsm/kg (285-295) 01/18/22 12:40 Calcium 9.9 mg/dL (8.5-10.5) 01/18/22 12:40 Total Bilirubin 0.8 mg/dL (0.15-1.2) 01/18/22 12:40 AST 13 U/L (0-32) 01/18/22 12:40 ALT 12 U/L (0-33) 01/18/22 12:40 Alkaline Phosphatase 79 IU/L (35-105) 01/18/22 12:40 NT-Pro-B Natriuret Pep 9530 pg/mL (0-125) H 01/18/22 12:40 Total Protein 7.1 g/dL (6.6-8.7) 01/18/22 12:40 Albumin 4.3 g/dL (3.5-5.2) 01/18/22 12:40 Globulin 2.8 g/dL (1.3-4.6) 01/18/22 12:40 Urine Color Yellow (Yellow) 01/18/22 13:12 Urine Appearance Clear (CLEAR) 01/18/22 13:12 Urine pH 6.5 (5-7) 01/18/22 13:12 Ur Specific [place] 1.005 (1.005-1.030) 01/18/22 13:12 Urine Protein Neg (Negative) 01/18/22 13:12 Urine Glucose (UA) 4+ (Normal) H 01/18/22 13:12 Urine Ketones Negative (Negative) 01/18/22 13:12 Urine Blood Neg (Negative) 01/18/22 13:12 Urine Nitrate Negative (Negative) 01/18/22 13:12 Urine Bilirubin Neg (Negative) 01/18/22 13:12 Urine Urobilinogen 1 mg/dL (Negative) H 01/18/22 13:12 Ur Leukocyte Esterase Negative (Negative) 01/18/22 13:12 Discharge Plan Discharge Patient Disposition: Home Clinical Impression: Chronic hypotension, CHF (congestive heart failure) Condition: Stable Prescriptions: No Action metformin 1,000 mg tablet 1,000 mg PO BID 0RF sertraline 50 mg tablet 50 mg PO BEDTIME 0RF polyethylene glycol 3350 [Miralax] 17 gram Powder In Packet 17 g PO DAILY PRN (Reason: Constipation) 0RF albuterol sulfate [Ventolin HFA] 90 mcg/actuation Hfa Aerosol Inhaler 2 puff INHALATION Q4H PRN (Reason: Shortness Of Breath) 0RF glipizide 10 mg tablet 10 mg PO BID 0RF Fiber Gummies 1 tab PO DAILY 0RF benzonatate 200 mg capsule 200 mg PO TID PRN (Reason: Cough) 0RF isosorbide dinitrate 30 mg tablet 15 mg PO DAILY 0RF fluticasone propionate 50 mcg/actuation spray,suspension 1 - 2 spray INTRANASAL DAILY PRN (Reason: Allergy Symptoms) 0RF cholecalciferol (vitamin D3) [Vitamin D3] 25 mcg (1,000 unit) Tablet 25 mcg PO DAILY 0RF Repatha Syringe 140 mg/mL syringe 140 mg SUBCUT Q14D 0RF potassium chloride [Klor-Con M20] 20 mEq Tablet,Er Particles/Crystals 20 meq PO DAILY Qty: 30 0RF tramadol 50 mg tablet 50 mg PO Q6H PRN (Reason: Pain) 0RF Calcium 500 500 mg calcium (1,250 mg) Tablet 500 mg PO DAILY 0RF Humalog KwikPen Insulin 100 unit/mL insulin pen See Rx Instructions .ROUTE .COMPLEX 0RF Rx Instructions: sliding scale subcutaneously tid Jardiance 25 mg tablet 25 mg PO DAILY 0RF melatonin 10 mg Tablet 20 mg PO BEDTIME 0RF Lasix 40 mg tablet 40 mg PO DAILY 30 Days Qty: 30 0RF Toujeo Max U-300 SoloStar 300 unit/mL (3 mL) insulin pen 30 unit SUBCUT BID Qty: 0 0RF Discharge Orders: Discharge ED (Routine); Ordered 01/18/22 Ordered By: Jacqueline Clements Referrals: VANGIE DE MD [Primary Care Provider] - Activity Restrictions/Additional Instructions: As we discussed your cardiology provider wanted you to limit your fluid intake to 1500cc daily and do daily weight checks and record your weight. He would like to leave your doses of Lasix and Metoprolol where they are. He will see you at 8 AM on Sunday, January 23 for follow-up. Coding Level of Care Code ED Pouncing Machine Operator for Chg Fwd Exam Comprehensive Documented by User: Alonso Glover MD 01/20/22 00:06 HPI - General Adult General: Chief complaint: General Medical Stated complaint: low BP Time Seen by Provider: 01/18/22 12:04 PFSH ED PFSH: Medical History Amputation of left great toe Coronary artery disease 4 stents present. Depression Diabetes mellitus Diabetic foot infection Hyperlipidemia Hypertension Peripheral vascular disease Pleural effusion Surgical History H/O heart artery stent 2013 - Done in [place], 1 stent placed. 2014 - Done in [place], 1 stent placed. 2017 - Done in [facility], 2 stents placed. H/O left knee surgery (~1999) Plastic disc was placed History of salpingectomy (~1988) Treatment of ectopic History of tubal ligation Family History Mother Diabetes Heart disease Hypertension Hyperlipidemia Father Heart disease Diabetes Hypertension Hyperlipidemia Sister Diabetes Social History Smoking and tobacco status: current every day smoker cigarettes Packs smoked per day: 0.5 Years cigarettes smoked: 35 Quit status (tobacco): has tried quititng Alcohol intake: current Alcohol intake frequency: holidays/special occasions only Household members: spouse Marital status: History of recent travel: No Physical Exam Neuro: TIKA COMA SCALE: document GCS findings Tika coma scale total score: 15 Course Vital Signs: Vital signs: Vital Signs Temperature 97.8 F 01/18/22 11:49 Pulse Rate 96 01/18/22 15:09 Respiratory Rate 18 01/18/22 15:09 Blood Pressure 97/54 01/18/22 15:09 Pulse Oximetry 95 01/18/22 15:09 [facility] - General Adult Medical Decision Making Patient's blood pressure during her stay has been stable and is pretty much at her baseline. She does complain of some minor shortness of breath. No chest pain. CXR is normal. Blood work was fairly unremarkable. She does have a BNP of over 9000 which is elevated compared to her baseline however she clinically does not appear fluid overloaded. Again her CXR does not show any congestion or edema. She recently had decreases performed to her Lasix and her Metoprolol from her cardiology provider. I spoke to him on the phone who did not recommend any medication changes at this time. He stated her blood pressure today is normal for her. Recommended limiting her fluid intake to 1500cc daily and do daily weight checks and he will see her on Sunday. I have reviewed this documentation by MITCH Perez. Alonso Glover MD Emergency Medicine Lab Data : 01/18/22 12:40 01/18/22 12:40 Radiology Impressions Chest X-Ray 01/18/22 12:04
[2022-01-18 12:49] LABS: Basophils % 0.2 %; Eosinophils % 0.2 %; Hematocrit 37.2 % (37.0-47.0); Hemoglobin 11.8 g/dL (11.5-15.3); Lymphocytes # 1.2 10^3/uL (0.8-4.8); Lymphocytes % 13.4 %; Mean Corpuscular HGB Conc 31.7 g/dL (30.0-36.0); Mean Corpuscular Hemoglobin 30.5 pg (28.0-34.0); Mean Corpuscular Volume 96.1 fl (81-99); Mean Platelet Volume 9.1 fL (7.4-10.4); Monocytes # 0.5 10^3/uL (0.2-0.9); Monocytes % 5.5 %; Neutrophils # 7.17 10^3/uL (1.8-7.7); Neutrophils % 80.4 %; Nucleated Red Blood Cells % 0 %; Platelet Count 443 10^3/cmm (130-400); Red Blood Count 3.87 10^6/uL (4.1-5.3); Red Cell Distribution Width 17.9 % (12.1-15.1); White Blood Count 8.9 10^3/uL (4.0-10.0)
[2022-01-18 13:18] LABS: Alanine Aminotransferase 12 U/L (0-33); Albumin Level 4.3 g/dL (3.5-5.2); Alkaline Phosphatase 79 IU/L (35-105); Anion Gap 19.2 (5-19); Aspartate Amino Transferase 13 U/L (0-32); Blood Urea Nitrogen 20 mg/dL (6-20); Calcium 9.9 mg/dL (8.5-10.5); Carbon Dioxide 26 mmol/L (22-29); Chloride 95 mmol/L (98-107); Globulin 2.8 g/dL (1.3-4.6); Glomerular Filtration Rate 74.5 mL/min (90-130); Glucose 105 mg/dL (65-115); NT Pro B Type Natriuretic Pept 9530 pg/mL (0-125); Osmolality Calculated 285 mOsm/kg (285-295); Potassium 4.2 mmol/L (3.5-5.1); Sodium 136 mmol/L (136-145); Total Bilirubin 0.8 mg/dL (0.15-1.2); Total Protein 7.1 g/dL (6.6-8.7)
[2022-01-18 13:23] VITALS: BP 113/73
[2022-01-18 13:37] LABS: Add Urine Microscopic? NO; Charge for UA Resulting for Rev
[2022-01-18 13:41] LABS: Glucose Urine UA 4+ (Normal); Protein Urine Neg (Negative); Specific Gravity, Urine 1.005 (1.005-1.030); Urine Appearance Clear (CLEAR); Urine Color Yellow (Yellow); pH Urine 6.5 (5-7)
[2022-01-18 13:42] LABS: Bilirubin Urine Neg (Negative); Blood Urine Neg (Negative); Ketones Urine Negative (Negative); Leukocyte Esterase Urine Negative (Negative); Nitrate Urine Negative (Negative); Urobilinogen Urine 1 mg/dL (Negative)
[2022-01-18 14:23] VITALS: BP 100/59
[2022-01-18 15:09] VITALS: BP 97/54; PULSE 96; RESP 18; O2SAT 95
== END 2022-01-18 15:11 | disposition home or self-care (01) ==
PROVIDERS: Emergency Provider Physician Assistant; PCP Family Medicine
DX: I95.9 Hypotension, unspecified (principal); I50.9 Heart failure, unspecified; E11.9 Type 2 diabetes mellitus without complications; I25.10 Atherosclerotic heart disease of native coronary artery without angina pectoris; I10 Essential (primary) hypertension; E78.5 Hyperlipidemia, unspecified; I73.9 Peripheral vascular disease, unspecified; Z79.4 Long term (current) use of insulin; Z79.84 Long term (current) use of oral hypoglycemic drugs
CPT/HCPCS: 71045; 80053; 81003; 83880; 85025; 93005; 99283

== ENCOUNTER 2022-04-19 21:22 | Emergency (ER) | payer OTHER, SELFPAY ==
--- NOTE | 2022-04-19 21:26 | XRR_ITS ---
PROCEDURE INFORMATION: Exam: XR Chest Exam date and time: 04/20/2022 1:23 AM Age: 57 years old Clinical indication: Dyspnea and shortness of breath; Prior surgery; Surgery type: Coronary stents; Patient HX: C/O worsening SOB with dyspnea. Hypotensive on monitor. Covid +. TECHNIQUE: Imaging protocol: Radiologic exam of the chest. Views: 1 view. COMPARISON: CR XR chest 1V portable [id number] 01/18/2022 12:13 PM FINDINGS: Lungs: No consolidation. Pleural spaces: Unremarkable. No pleural effusion. No pneumothorax. Heart/Mediastinum: Mild cardiomegaly. Bones/joints: No acute fracture. XR/XR chest 1V portable [id number] IMPRESSION: No acute findings.
[2022-04-19 21:59] VITALS: BP 109/72; PULSE 108; RESP 21; TEMP 37.1; O2SAT 100
[2022-04-19 22:01] VITALS: BMI 23.3
--- NOTE | 2022-04-19 23:45 | PC.NURSE ---
pt recheck at this time. Pt respirations even and unlabored. Pt requests water.
[2022-04-20] VITALS (7 sets, daily range): BP systolic 93–103; BP diastolic 64–69; PULSE 68–99; RESP 16–24; TEMP 36.6; O2SAT 86–100
--- NOTE | 2022-04-20 01:01 | ECG_ITS ---
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 Measurements Intervals [place] Rate: 100 P: 64 [place]: 121 QRS: 71 QRSD: 82 T: 75 QT: 378 QTc: 489 Interpretive Statements SINUS TACHYCARDIA WITH FREQUENT VENTRICULAR PREMATURE COMPLEXES WITH OCCASIONAL SUPRAVENTRICULAR PREMATURE COMPLEXES LOW QRS VOLTAGE IN PRECORDIAL LEADS [QRS DEFLECTION < 1.0 mV IN CHEST LEADS] ABNORMAL RHYTHM ECG Compared to ECG 01/18/2022 12:38:46 Ventricular premature complex(es) now present Low QRS voltage now present Electronically Signed On 04-20-2022 14:22:56 CDT by Alexandru Lorenz M.D. [email or web address]
--- NOTE | 2022-04-20 01:05 | ED_ITS ---
HPI - SOB/Dyspnea General: Chief Complaint: Shortness of Breath/Dyspnea Stated Complaint: Covid+ SOB Time Seen by Provider: 04/20/22 00:50 Source: patient Mode of arrival: ambulatory Limitations: no limitations History of Present Illness: HPI Narrative: 57-year-old female who has a history of COPD states she has been having a cough along with some shortness of breath and body aches this week. States she did a home COVID test Sunday that was positive and has had a send out from [employer]. She is in no distress here pulse ox 100%. She denies any chest pain denies any vomiting or diarrhea denies any worsening proving factors. Associated symptoms: Deny abdominal pain, chest pain, nausea or vomiting Review of Systems Const: Reports: chills and body aches Eyes: Denies: blurry vision or eye discomfort ENMT: Denies: throat pain or dental pain Card: Denies: chest pain Resp: Reports: dyspnea GI: Denies: abdominal pain, nausea, vomiting or diarrhea : Denies: dysuria Musc: Denies: neck pain or back pain Skin/Breast: Denies: rash Neuro: Denies: headache(s) Psych: Denies: depression Deven/Lymph: Denies: easy bruising All/Imm: Denies: urticaria PFSH ED PFSH: Medical History Amputation of left great toe Coronary artery disease 4 stents present. Depression Diabetes mellitus Diabetic foot infection Hyperlipidemia Hypertension Peripheral vascular disease Pleural effusion Surgical History H/O heart artery stent 2013 - Done in [place], 1 stent placed. 2014 - Done in [place], 1 stent placed. 2017 - Done in [facility], 2 stents placed. H/O left knee surgery (~1999) Plastic disc was placed History of salpingectomy (~1988) Treatment of ectopic History of tubal ligation Family History Mother Diabetes Heart disease Hypertension Hyperlipidemia Father Heart disease Diabetes Hypertension Hyperlipidemia Sister Diabetes Social History Smoking and tobacco status: current every day smoker cigarettes Packs smoked per day: 0.5 Years cigarettes smoked: 35 Quit status (tobacco): has tried quititng Alcohol intake: current Alcohol intake frequency: holidays/special occasions only Household members: spouse Marital status: History of recent travel: No Physical Exam Const: COMMON NORMALS: no acute distress, patient oriented x3 and healthy appearing HENMT: COMMON NORMALS: normocephalic and atraumatic HEAD & SCALP: normocephalic and atraumatic Eye: COMMON NORMALS: Equal, round and reactive pupils present and EOMs intact bilaterally PUPIL: Yes Equal, round and reactive pupils present Neck/C-Spine: COMMON NORMALS: full ROM and supple Chest: COMMONS NORMALS: normal inspection of the chest and normal palpation of entire chest wall Resp: COMMON NORMALS: normal respiratory effort, No retractions, No use of accessory muscles and clear to auscultation bilaterally AUSCULTATION: clear to auscultation bilaterally Cardio: COMMON NORMALS: regular rate, regular rhythm and No murmurs present (Cardio) RATE: regular rate RHYTHM: regular rhythm GI: COMMON NORMALS: Normal to inspection, nondistended, normoactive bowel sounds present, Soft to palpation, non-tender and no masses PALPATION: Yes Soft to palpation Extremity: COMMON NORMALS: normal to inspection and full ROM Neuro: COMMON NORMALS: patient oriented x3, moves all extremities and no focal motor deficits Psych: COMMON NORMALS: mental status grossly normal, Normal thought process present and cooperative THOUGHT PROCESS: Normal thought process present Skin: COMMON NORMALS: no rashes or lesions noted and no wounds GENERAL SKIN EXAM: no rashes or lesions noted Course Vital Signs: Vital signs: Vital Signs Temperature 98.7 F 04/19/22 21:59 Pulse Rate 68 04/20/22 02:46 Respiratory Rate 16 04/20/22 02:46 Blood Pressure 103/69 04/20/22 02:26 Pulse Oximetry 96 04/20/22 02:56 Oxygen Delivery Me thod 04/20/22 02:46 Oxygen Flow Rate 2 04/20/22 02:56 MDM - SOB/Dyspnea Medical Decision Making Patient presents for shortness of breath likely from COVID. Patient has no sign s of pulmonary embolism she is requiring 2 L here we will send her home on 2 L of home oxygen she feels improved here discharge her with inhaler as well she is to follow-up with PCP and return if worsening she understands agrees plan. Lab Data : 04/20/22 01:00 04/20/22 01:00 Labs/Radiology: Laboratory Results WBC 4.6 10^3/uL (4.0-10.0) 04/20/22 01:00 RBC 4.58 10^6/uL (4.1-5.3) 04/20/22 01:00 Hgb 10.9 g/dL (11.5-15.3) L 04/20/22 01:00 Hct 35.7 % (37.0-47.0) L 04/20/22 01:00 MCV 77.9 fl (81-99) L 04/20/22 01:00 MCH 23.8 pg (28.0-34.0) L 04/20/22 01:00 MCHC 30.5 g/dL (30.0-36.0) 04/20/22 01:00 RDW 17.6 % (12.1-15.1) H 04/20/22 01:00 Plt Count 279 10^3/cmm (130-400) 04/20/22 01:00 MPV 9.9 fL (7.4-10.4) 04/20/22 01:00 Neut % (Auto) 76.9 % 04/20/22 01:00 Lymph % (Auto) 15.7 % 04/20/22 01:00 [place] % (Auto) 7.0 % 04/20/22 01:00 Eos % (Auto) 0.0 % 04/20/22 01:00 Baso % (Auto) 0.2 % 04/20/22 01:00 Neut # (Auto) 3.53 10^3/uL (1.8-7.7) 04/20/22 01:00 Lymph # (Auto) 0.7 10^3/uL (0.8-4.8) L 04/20/22 01:00 [place] # (Auto) 0.3 10^3/uL (0.2-0.9) 04/20/22 01:00 Eos # (Auto) 0.0 10^3/uL (0.0-0.8) 04/20/22 01:00 Baso # (Auto) 0.0 10^3/uL (0.0-0.1) 04/20/22 01:00 Nucleated RBC % (auto) 0 % 04/20/22 01:00 Nucleated RBCs # 0.0 /100WBC 04/20/22 01:00 Sodium 127 mmol/L (136-145) L 04/20/22 01:00 Potassium 3.8 mmol/L (3.5-5.1) 04/20/22 01:00 Chloride 89 mmol/L (98-107) L 04/20/22 01:00 Carbon Dioxide 24 mmol/L (22-29) 04/20/22 01:00 Anion Gap 17.8 (5-19) 04/20/22 01:00 BUN 25 mg/dL (6-20) H 04/20/22 01:00 Creatinine 0.8 mg/dL (0.5-0.9) 04/20/22 01:00 GFR Calculation 74.2 mL/min (90-130) L 04/20/22 01:00 Glucose 110 mg/dL (65-115) 04/20/22 01:00 Calculated Osmolality 269 mOsm/kg (285-295) L 04/20/22 01:00 Calcium 8.6 mg/dL (8.5-10.5) 04/20/22 01:00 SARS-CoV-2 Ag (Rapid) Positive (Negative) H 04/20/22 01:18 EKG Data EKG 1: I personally reviewed and interpreted this EKG as follows: EKG Interpretation Date: 04/20/22 EKG interpretation time: 01:29 Interpretation: sinus tach hr [address] or t wave abnormalities qrs 82 qtc 435 Discharge Plan Discharge Patient Disposition: Home Clinical Impression: COVID-19 Condition: Stable Prescriptions: No Action metformin 1,000 mg tablet 1,000 mg PO BID sertraline 50 mg tablet 50 mg PO BEDTIME polyethylene glycol 3350 [Miralax] 17 gram Powder In Packet 17 g PO DAILY PRN (Reason: Constipation) albuterol sulfate [Ventolin HFA] 90 mcg/actuation Hfa Aerosol Inhaler 2 puff INHALATION Q4H PRN (Reason: Shortness Of Breath) glipizide 10 mg tablet 10 mg PO BID Fiber Gummies 1 tab PO DAILY benzonatate 200 mg capsule 200 mg PO TID PRN (Reason: Cough) isosorbide dinitrate 30 mg tablet 15 mg PO DAILY fluticasone propionate 50 mcg/actuation spray,suspension 1 - 2 spray INTRANASAL DAILY PRN (Reason: Allergy Symptoms) cholecalciferol (vitamin D3) [Vitamin D3] 25 mcg (1,000 unit) Tablet 25 mcg PO DAILY Repatha Syringe 140 mg/mL syringe 140 mg SUBCUT Q14D potassium chloride [Klor-Con M20] 20 mEq Tablet,Er Particles/Crystals 20 meq PO DAILY Qty: 30 0RF tramadol 50 mg tablet 50 mg PO Q6H PRN (Reason: Pain) Calcium 500 500 mg calcium (1,250 mg) Tablet 500 mg PO DAILY Humalog KwikPen Insulin 100 unit/mL insulin pen See Rx Instructions .ROUTE .COMPLEX Rx Instructions: sliding scale subcutaneously tid Jardiance 25 mg tablet 25 mg PO DAILY melatonin 10 mg Tablet 20 mg PO BEDTIME Lasix 40 mg tablet 40 mg PO DAILY 30 Days Qty: 30 0RF Toujeo Max U-300 SoloStar 300 unit/mL (3 mL) insulin pen 30 unit SUBCUT BID Qty: 0 0RF Discharge Orders: Discharge ED (Routine); Ordered 04/20/22 Ordered By: Isabel Ho Other Ambulatory Orders: DME: Oxygen (Order) Location: None Selected Ordered By: Isabel Ho DME: Oxygen (Order) Location: None Selected Ordered By: Isabel Ho Referrals: VANGIE DE MD [Primary Care Provider] - Discharge Diet: Advance as tolerated Discharge Activity: Resume usual activity Patient Instructions: COVID-19 (Coronavirus Disease 2019) (ED) Coding Level of Care Code ED Needle Punch Machine Operator Helper for Christiang Fwd Exam Comprehensive
[2022-04-20 01:10] LABS: Basophils % 0.2 %; Hematocrit 35.7 % (37.0-47.0); Hemoglobin 10.9 g/dL (11.5-15.3); Lymphocytes # 0.7 10^3/uL (0.8-4.8); Lymphocytes % 15.7 %; Mean Corpuscular HGB Conc 30.5 g/dL (30.0-36.0); Mean Corpuscular Hemoglobin 23.8 pg (28.0-34.0); Mean Corpuscular Volume 77.9 fl (81-99); Mean Platelet Volume 9.9 fL (7.4-10.4); Monocytes # 0.3 10^3/uL (0.2-0.9); Neutrophils # 3.53 10^3/uL (1.8-7.7); Neutrophils % 76.9 %; Nucleated Red Blood Cells % 0 %; Platelet Count 279 10^3/cmm (130-400); Red Blood Count 4.58 10^6/uL (4.1-5.3); Red Cell Distribution Width 17.6 % (12.1-15.1); White Blood Count 4.6 10^3/uL (4.0-10.0)
[2022-04-20] MEDS: ondansetron 2 mg/ML SDV 2 mL 4 MG IVP (01:18)
[2022-04-20] MEDS: morphine 4 mg/mL SDV 1 mL IVP (01:18)
[2022-04-20] MEDS: dexamethasone 10 mg/mL INJ IVP (01:19)
[2022-04-20] MEDS: ipratropium-albuterol 3 mL Neb INHALATION (01:26)
[2022-04-20 01:32] LABS: Anion Gap 17.8 (5-19); Blood Urea Nitrogen 25 mg/dL (6-20); Calcium 8.6 mg/dL (8.5-10.5); Carbon Dioxide 24 mmol/L (22-29); Chloride 89 mmol/L (98-107); Glomerular Filtration Rate 74.2 mL/min (90-130); Glucose 110 mg/dL (65-115); Osmolality Calculated 269 mOsm/kg (285-295); Potassium 3.8 mmol/L (3.5-5.1); Sodium 127 mmol/L (136-145)
[2022-04-20 01:45] LABS: SARS Covid-2 Antigen Positive (Negative)
[2022-04-20] MEDS: sodium chloride 0.9% 1,000 ML 999 ML IV (02:01)
[2022-04-20] MEDS: albuterol 8 gm MDI 2 PUFF INHALATION (02:46)
== END 2022-04-20 04:42 | disposition home or self-care (01) ==
PROVIDERS: Emergency Medicine; Emergency Provider Emergency Medicine; PCP Family Medicine
DX: U07.1 COVID-19 (principal); Z79.84 Long term (current) use of oral hypoglycemic drugs; Z79.4 Long term (current) use of insulin; I25.10 Atherosclerotic heart disease of native coronary artery without angina pectoris; E11.9 Type 2 diabetes mellitus without complications; E78.5 Hyperlipidemia, unspecified; I10 Essential (primary) hypertension; F17.210 Nicotine dependence, cigarettes, uncomplicated
CPT/HCPCS: 71045; 80048; 85025; 87426; 93005; 94640; 96361; 96374; 96375; 99285; J1100; J2270; J2405; J3535; J7030